=== PATIENT | female | born 1965 | race Caucasian/White ===

== ENCOUNTER 2020-06-26 18:11 | Inpatient (IN) | payer OTHER, SELFPAY ==
[2020-06-26] VITALS (11 sets, daily range): BP systolic 69–181; BP diastolic 40–85; PULSE 117–133; RESP 14–30; TEMP 37.2–38.7; O2SAT 92–99; BMI 34.8
--- NOTE | 2020-06-26 | XR_ITS ---
EXAMINATION: XR CHEST CLINICAL INFORMATION: Central line placement COMPARISON: 06/26/2020 TECHNIQUE: Frontal view of the chest was obtained. FINDINGS: Endotracheal tube terminates 3.5 cm above the nghia. Enteric tube extends into the stomach. Left internal jugular central venous catheter terminates near the cavoatrial junction. Cardiac leads overlie the chest. The lungs are well expanded. Diffuse bilateral airspace opacities are again noted, similar to prior. No pleural effusion or pneumothorax. The cardiomediastinal silhouette is unchanged. XR/XR chest 1V IMPRESSION: Endotracheal tube terminating 3.5 cm above the nghia. Left internal jugular central venous catheter terminates near the cavoatrial junction. No pneumothorax. Diffuse bilateral airspace opacities are similar to prior.
[2020-06-26] MEDS: Rocuronium Bromide 50 MG/5 ML VIAL 100 MG IVPUSH (18:25)
[2020-06-26] MEDS: Etomidate 20 MG/10 ML VIAL IVPUSH (18:25)
--- NOTE | 2020-06-26 18:27 | PC.NURSE ---
Arrival to ED door. Pt extricated from car, 2 person full assist. Tachipnic and pale. no diaphoresis. Lethargic and unable to answer questions. stating that she has been in decline over last 3 days with increasing SOB, fever up to 102, decreased po solid intake but still drinking fluids. Pt vomited x 1 today or yesterday. Hx is pul fibrosis, asthma, CHF, DM, LLE orthopedic problems. Pt is wheelchair bound at baseline. Medications with patient in a bag.
--- NOTE | 2020-06-26 18:30 | XR_ITS ---
EXAMINATION: XR CHEST CLINICAL INFORMATION: Shortness of breath and intubated COMPARISON: Chest August 2019 TECHNIQUE: Portable supine Frontal view of the chest was obtained. FINDINGS: Exam is slightly limited as the left costophrenic angle is outside the [id number] the exam. Endotracheal tube is 3.6 cm above nghia. NG tube is below the diaphragm with distal tip outside the [id number] the exam. There is diffuse bilateral patchy opacities throughout both lungs. Cardiac silhouette mediastinum pulmonary vascularity are normal. There is deformity of the right clavicle compatible old fracture unchanged. XR/XR chest 1V IMPRESSION: Diffuse bilateral patchy opacities throughout both lungs suspicious for bilateral pneumonia. CHF remains in the differential diagnosis.
--- NOTE | 2020-06-26 18:32 | ECG_ITS ---
Test Reason : SOB Blood Pressure : / mmHG Vent. Rate : 124 BPM Atrial Rate : 124 BPM P-R Int : 150 ms QRS Dur : 102 ms QT Int : 326 ms P-R-T Axes : 049 003 051 degrees QTc Int : 468 ms Sinus tachycardia with occasional Premature ventricular complexes and Fusion complexes Nonspecific ST abnormality Abnormal ECG When compared with ECG of 17-AUG-2019 15:03, Fusion complexes are now Present Premature ventricular complexes are now Present ST now depressed in Lateral leads Heart rate has increased Referred By: Bolivar Castro Electronically Signed By:KYLER BURTON MD
[2020-06-26 18:49] LABS: Hematocrit 35.3 % (37-47); Hemoglobin 11.2 g/dl (12.0-16.0); Mean Corpuscular HGB Conc 31.7 g/dl (31.0-35.0); Mean Corpuscular Hemoglobin 30.7 pg (27.0-33.0); Mean Corpuscular Volume 96.7 fL (80-98); NRBC Pct Auto 0.2 /100WBC (0.0-0.2); Platelet Count 329 X10*3/uL (160-400); Red Blood Count 3.65 X10*6/uL (4.20-5.50); White Blood Count 16.7 X10*3/uL (4.8-10.8)
[2020-06-26] MEDS: Furosemide 100 MG/10 ML VIAL 60 MG IVPUSH (18:56)
[2020-06-26 18:58] LABS: INTERNATIONAL NORM RATIO 1.3 (0.9-1.1); Prothrombin Time 15.5 SEC (10.8-13.0)
[2020-06-26 19:00] LABS: Partial Thromboplastin Time 32.2 SEC (24.1-38.0)
[2020-06-26] MEDS: propofoL 1,000 MG/100 ML VIAL 11.75 MG IVCONT (19:00)
--- NOTE | 2020-06-26 19:07 | PC.NURSE ---
jer [phone]
[2020-06-26 19:09] LABS: Glucose Urine UA 250 MG/DL (NEG); Leukocyte Esterase Urine NEG (NEG); Nitrite Urine NEG (NEG); PH 5.5 (5.0-8.0); Specific Gravity - Urine >= 1.030 (1.005-1.025); Urine Blood 1+ (NEG); Urine Ketones 15 MG/DL (NEG); Urine Protein 2+ MG/DL (NEG-TRACE)
[2020-06-26 19:13] LABS: Appearance Urine CLEAR; Color Urine YELLOW
[2020-06-26 19:14] LABS: Atypical Lymph Absolute Manual 1.8 x10*3/uL; Atypical Lymphs Percent Manual 11 % (0-6); Band Neutrophils Percent 17 % (3-5); Lymphocytes Absolute Manual 1.7 X10*3/uL (0.6-4.8); Lymphocytes Percent Manual 10 % (20-40); Monocytes Absolute Manual 0.8 X10*3/uL (0.0-1.2); Monocytes Percent Manual 5 % (2-11); Neutrophils Absolute Manual 12.4 X10*3/uL (2.2-7.9); Neutrophils Percent Manual 57 % (45-73)
[2020-06-26 19:15] LABS: Platelet Estimate NORMAL (NORMAL); Platelet Morphology Comment NORMAL; RBC Morphology NORMAL
[2020-06-26 19:18] LABS: RBC Urine 0-2 /HPF (0); Squamous Epithelial Cell Urine 2+ /LPF; WBC Urine 0-2 /HPF (0-4)
[2020-06-26 19:19] LABS: Amorphous Sediment Urine 2+ /LPF; Mucus Urine 2+ /LPF
--- NOTE | 2020-06-26 19:19 | ED.SOB ---
HPI - SOB/Dyspnea General Chief Complaint: Dyspnea Stated Complaint: covid + Time Seen by Provider: 06/26/20 18:30 Source: patient Mode of arrival: wheelchair Limitations: other (Hypoxic, severe respiratory distress) History of Present Illness HPI Narrative: Patient was brought to the emergency room by her family, on arrival to the emergency room patient could not speak due to severe respiratory distress. The patient's oxygen saturation was in the low 50s on room air, patient could not speak, barely awake, cyanotic. I was able to tell her that I needed to intubate her immediately, patient was able to answer ?okay? patient was intubated immediately. Once the patient was stable, was able to speak with her , who reports that the patient had been complaining for 2 days of not feeling well, starting this morning patient was complaining of dizziness, shortness of breath, hand cramping, 2 episodes of vomiting. Later in the evening patient became short of breath and was brought to the emergency room Related Data Previous Rx's Medication Instructions Recorded fluticasone 250 mcg-salmeterol 50 1 ea PO BID #60 cap 06/16/20 mcg/dose blistr powdr for inhalation Allergies Allergy/AdvReac Type Severity Reaction Status Date / Time Penicillins [PENICILLINS] Allergy Intermediate HIVES,SWELL Unverified 04/17/20 19:21 ING penicillin Allergy Unknown Uncoded 10/09/19 00:00 Review of Systems Review of Systems: Yes Unobtainable due to mental condition PMFSH Past Medical History Medical History Asthma CHF (congestive heart failure) Diabetes Lower extremity surgery planned Pulmonary fibrosis Social History Social History Alcohol intake: unknown Smoking Status: Unknown if ever smoked Use of substances other than those prescribed or required for medical reasons: Unknown Advance Directives: No Advance Directives Information Provided: No Physical Exam Vital Signs: Vital Signs: Last Vital Signs Temp 100.4 F 06/26/20 21: Pulse 117 H 06/26/20 21:17 Resp 24 H 06/26/20 21:17 BP 106/58 L 06/26/20 21:17 Pulse Ox 95 06/26/20 21:17 Body Mass Index 34.8 Appearance: Barely awake, in severe respiratory distress, ill-appearing Eyes: Pupils equal, round and reactive to light. ENT: Pharynx normal. Neck: Normal inspection. Neck supple. No lymph nodes noted. No crepitus CVS: Normal heart rate, Normal S1 and S2 Respiratory: Patient in severe respiratory distress, O2 saturation on arrival in triage 50% on room air Abdomen: Soft and nontender. No rigidity. No distention. good BS x4 Skin: Skin cool to touch, ashen zamora skin color with cyanotic lips and distal extremities Extremities: No rash Neuro: Prior to intubation, grossly intact Course Course Course Narrative: Patient had to be immediately intubated due to severe respiratory distress and profound hypoxia. Patient's blood pressure initially was 80 systolic. Patient was given 2 L of normal saline. Patient's ideal weight is approximately 63 kg, therefore 30 ml/ kg were given, equivalent of 1890 mL. Patient was also covered with Levaquin as patient is allergic to penicillin I spoke to the patient's over the phone, explained to him that the patient is currently intubated but stable at this time. Patient's oxygen saturation kept dropping to the 70s despite being on a ventilator, patient had to be bagged to be able to obtain an O2 of 90. This happened approximately 5 times. At this moment, unclear why patient is severely acidotic. Patient's anion gap is open, serum is negative for ketones, negative for salicylates. I discussed the patient with Dr. Babcock, patient being admitted to the intensive care unit. Patient's was informed that he and close contacts need to be tested for COVID-19, it is likely that they are COVID-19 positive as well. MDM - SOB/Dyspnea Lab Data Result diagrams: 06/26/20 18:40 06/26/20 18:41 Labs: Lab Results 06/26/20 06/26/20 06/26/20 Range/Units 18:40 18:40 18:40 WBC 16.7 H (4.8-10.8) X10*3/uL RBC 3.65 L (4.20-5.50) X10*6/uL Hgb 11.2 L (12.0-16.0) g/dl Hct 35.3 L (37-47) % MCV 96.7 (80-98) fL MCH 30.7 (27.0-33.0) pg MCHC 31.7 (31.0-35.0) g/dl RDW 13.0 (11.0-16.0) % Plt Count 329 (160-400) X10*3/uL MPV 11.0 (9.4-12.3) fL Immature Gran % (Auto) Cancelled Neut % (Auto) Cancelled Lymph % (Auto) Cancelled [place] % (Auto) Cancelled Eos % (Auto) Cancelled Baso % (Auto) Cancelled Lymph # (Auto) Cancelled [place] # (Auto) Cancelled Eos # (Auto) Cancelled Baso # (Auto) Cancelled Abs Immat Gran (auto) Cancelled Absolute Neuts (auto) Cancelled Absolute Nucleated RBC 0.040 H (0.0-0.012) X10*3/uL Nucleated RBC % (auto) 0.2 (0.0-0.2) /100WBC Neutrophils % (Manual) 57 (45-73) % Band Neutrophils % 17 H (3-5) % Lymphocytes % (Manual) 10 L (20-40) % Atypical Lymphs % (Man) 11 H (0-6) % Monocytes % (Manual) 5 (2-11) % Abs Neuts (Manual) 12.4 H (2.2-7.9) X10*3/uL Lymphocytes # (Manual) 1.7 (0.6-4.8) X10*3/uL Atyp Lymphs # (Manual) 1.8 x10*3/uL Monocytes # (Manual) 0.8 (0.0-1.2) X10*3/uL Platelet Estimate NORMAL (NORMAL) Plt Morphology Comment NORMAL RBC Morphology NORMAL PT 15.5 H (10.8-13.0) SEC INR 1.3 H (0.9-1.1) APTT 32.2 (24.1-38.0) SEC ABG pH (7.35-7.45) ABG pCO2 (32-45) mmhg ABG pO2 (83-108) mmhg ABG HCO3 (22-26) mmol/l ABG O2 Saturation % ABG Base Excess Oxygen Given Sodium (135-145) mmol/L Potassium (3.3-5.1) mmol/l Chloride (96-108) mmol/L Carbon Dioxide (22-29) mmol/L Anion Gap (12-20) BUN (9-16) mg/dL Creatinine (0.5-1.4) mg/dL Estim Creat Clear Calc Estimated GFR Random Glucose (60-115) mg/dL Lactic Acid (0.5-2.0) mmol/L Calcium (8.4-10.2) mg/dL Total Bilirubin (0.0-1.0) mg/dL AST (5-31) U/L ALT (0-31) U/L Alkaline Phosphatase (39-117) U/L Troponin I High Sens 115.3 H (<3.5-17.0) ng/L B-Natriuretic Peptide 166 H (<100) pg/mL Total Protein (6.5-8.0) g/dL Albumin (3.5-5.0) g/dL Urine Color Urine Appearance Urine pH (5.0-8.0) Ur Specific [place] (1.005-1.025) Urine Protein (NEG-TRACE) MG/DL Urine Glucose (UA) (NEG) MG/DL Urine Ketones (NEG) MG/DL Urine Blood (NEG) Urine Nitrite (NEG) Ur Leukocyte Esterase (NEG) Urine RBC (0) /HPF Urine WBC (0-4) /HPF Ur Squamous Epith Cells /LPF Amorphous Sediment /LPF Urine Bacteria /LPF Urine Mucus /LPF Salicylates (15-30) mg/dL Acetone, Qual (Negative) Coronavirus (PCR) (Negative) Influenza Type A (PCR) (Negative) Influenza Type B (PCR) (Negative) RSV RNA Qual (PCR) (Negative) 06/26/20 06/26/20 06/26/20 Range/Units 18:41 18:42 19:01 WBC (4.8-10.8) X10*3/uL RBC (4.20-5.50) X10*6/uL Hgb (12.0-16.0) g/dl Hct (37-47) % MCV (80-98) fL MCH (27.0-33.0) pg MCHC (31.0-35.0) g/dl RDW (11.0-16.0) % Plt Count (160-400) X10*3/uL MPV (9.4-12.3) fL Immature Gran % (Auto) Neut % (Auto) Lymph % (Auto) [place] % (Auto) Eos % (Auto) Baso % (Auto) Lymph # (Auto) [place] # (Auto) Eos # (Auto) Baso # (Auto) Abs Immat Gran (auto) Absolute Neuts (auto) Absolute Nucleated RBC (0.0-0.012) X10*3/uL Nucleated RBC % (auto) (0.0-0.2) /100WBC Neutrophils % (Manual) (45-73) % Band Neutrophils % (3-5) % Lymphocytes % (Manual) (20-40) % Atypical Lymphs % (Man) (0-6) % Monocytes % (Manual) (2-11) % Abs Neuts (Manual) (2.2-7.9) X10*3/uL Lymphocytes # (Manual) (0.6-4.8) X10*3/uL Atyp Lymphs # (Manual) x10*3/uL Monocytes # (Manual) (0.0-1.2) X10*3/uL Platelet Estimate (NORMAL) Plt Morphology Comment RBC Morphology PT (10.8-13.0) SEC INR (0.9-1.1) APTT (24.1-38.0) SEC ABG pH (7.35-7.45) ABG pCO2 (32-45) mmhg ABG pO2 (83-108) mmhg ABG HCO3 (22-26) mmol/l ABG O2 Saturation % ABG Base Excess Oxygen Given Sodium 133 L (135-145) mmol/L Potassium 3.2 L (3.3-5.1) mmol/l Chloride 94 L (96-108) mmol/L Carbon Dioxide 11 L (22-29) mmol/L Anion Gap 31 H (12-20) BUN 12 (9-16) mg/dL Creatinine 1.10 (0.5-1.4) mg/dL Estim Creat Clear Calc 68.9 Estimated GFR 52 Random Glucose 385 H* (60-115) mg/dL Lactic Acid 13.8 H* (0.5-2.0) mmol/L Calcium 8.1 L (8.4-10.2) mg/dL Total Bilirubin 0.5 (0.0-1.0) mg/dL AST 33 H (5-31) U/L ALT 26 (0-31) U/L Alkaline Phosphatase 78 (39-117) U/L Troponin I High Sens (<3.5-17.0) ng/L B-Natriuretic Peptide (<100) pg/mL Total Protein 7.3 (6.5-8.0) g/dL Albumin 3.9 (3.5-5.0) g/dL Urine Color Urine Appearance Urine pH (5.0-8.0) Ur Specific [place] (1.005-1.025) Urine Protein (NEG-TRACE) MG/DL Urine Glucose (UA) (NEG) MG/DL Urine Ketones (NEG) MG/DL Urine Blood (NEG) Urine Nitrite (NEG) Ur Leukocyte Esterase (NEG) Urine RBC (0) /HPF Urine WBC (0-4) /HPF Ur Squamous Epith Cells /LPF Amorphous Sediment /LPF Urine Bacteria /LPF Urine Mucus /LPF Salicylates < 5.0 L (15-30) mg/dL Acetone, Qual Negative (Negative) Coronavirus (PCR) POSITIVE A (Negative) Influenza Type A (PCR) NEGATIVE (Negative) Influenza Type B (PCR) NEGATIVE (Negative) RSV RNA Qual (PCR) NEGATIVE (Negative) 06/26/20 06/26/20 Range/Units 19:02 19:05 WBC (4.8-10.8) X10*3/uL RBC (4.20-5.50) X10*6/uL Hgb (12.0-16.0) g/dl Hct (37-47) % MCV (80-98) fL MCH (27.0-33.0) pg MCHC (31.0-35.0) g/dl RDW (11.0-16.0) % Plt Count (160-400) X10*3/uL MPV (9.4-12.3) fL Immature Gran % (Auto) Neut % (Auto) Lymph % (Auto) [place] % (Auto) Eos % (Auto) Baso % (Auto) Lymph # (Auto) [place] # (Auto) Eos # (Auto) Baso # (Auto) Abs Immat Gran (auto) Absolute Neuts (auto) Absolute Nucleated RBC (0.0-0.012) X10*3/uL Nucleated RBC % (auto) (0.0-0.2) /100WBC Neutrophils % (Manual) (45-73) % Band Neutrophils % (3-5) % Lymphocytes % (Manual) (20-40) % Atypical Lymphs % (Man) (0-6) % Monocytes % (Manual) (2-11) % Abs Neuts (Manual) (2.2-7.9) X10*3/uL Lymphocytes # (Manual) (0.6-4.8) X10*3/uL Atyp Lymphs # (Manual) x10*3/uL Monocytes # (Manual) (0.0-1.2) X10*3/uL Platelet Estimate (NORMAL) Plt Morphology Comment RBC Morphology PT (10.8-13.0) SEC INR (0.9-1.1) APTT (24.1-38.0) SEC ABG pH 7.14 L* (7.35-7.45) ABG pCO2 34 (32-45) mmhg ABG pO2 106 (83-108) mmhg ABG HCO3 11 L (22-26) mmol/l ABG O2 Saturation 95.9 % ABG Base Excess -16.4 Oxygen Given 100% Sodium (135-145) mmol/L Potassium (3.3-5.1) mmol/l Chloride (96-108) mmol/L Carbon Dioxide (22-29) mmol/L Anion Gap (12-20) BUN (9-16) mg/dL Creatinine (0.5-1.4) mg/dL Estim Creat Clear Calc Estimated GFR Random Glucose (60-115) mg/dL Lactic Acid (0.5-2.0) mmol/L Calcium (8.4-10.2) mg/dL Total Bilirubin (0.0-1.0) mg/dL AST (5-31) U/L ALT (0-31) U/L Alkaline Phosphatase (39-117) U/L Troponin I High Sens (<3.5-17.0) ng/L B-Natriuretic Peptide (<100) pg/mL Total Protein (6.5-8.0) g/dL Albumin (3.5-5.0) g/dL Urine Color YELLOW Urine Appearance CLEAR Urine pH 5.5 (5.0-8.0) Ur Specific [place] >= 1.030 H (1.005-1.025) Urine Protein 2+ H (NEG-TRACE) MG/DL Urine Glucose (UA) 250 H (NEG) MG/DL Urine Ketones 15 (NEG) MG/DL Urine Blood 1+ H (NEG) Urine Nitrite NEG (NEG) Ur Leukocyte Esterase NEG (NEG) Urine RBC 0-2 (0) /HPF Urine WBC 0-2 (0-4) /HPF Ur Squamous Epith Cells 2+ /LPF Amorphous Sediment 2+ /LPF Urine Bacteria NONE /LPF Urine Mucus 2+ /LPF Salicylates (15-30) mg/dL Acetone, Qual (Negative) Coronavirus (PCR) (Negative) Influenza Type A (PCR) (Negative) Influenza Type B (PCR) (Negative) RSV RNA Qual (PCR) (Negative) Critical Care Time Critical Care Time Total Critical Care Time: 120 Discharge Plan Discharge Clinical Impression: Pneumonia due to COVID-19 virus, Metabolic acidosis Sepsis Qualifiers: Sepsis type: sepsis due to unspecified organism Sepsis acute organ dysfunction status: unspecified Qualified Code(s): A41.9 - Sepsis, unspecified organism Patient Disposition: Admitted As Inpatient
[2020-06-26 19:23] LABS: Lactic Acid 13.8 mmol/L (0.5-2.0)
[2020-06-26 19:23] LABS: B Type Natriuretic Peptide 166 pg/mL (<100); Troponin-I High Sensitivity 115.3 ng/L (<3.5-17.0)
[2020-06-26 19:24] LABS: Alanine Aminotransferase 26 U/L (0-31); Albumin Level 3.9 g/dL (3.5-5.0); Alkaline Phosphatase 78 U/L (39-117); Anion Gap 31 (12-20); Aspartate Amino Transferase 33 U/L (5-31); Bilirubin Total 0.5 mg/dL (0.0-1.0); Blood Urea Nitrogen 12 mg/dL (9-16); Calcium 8.1 mg/dL (8.4-10.2); Carbon Dioxide 11 mmol/L (22-29); Chloride 94 mmol/L (96-108); Creatinine Clr Calc Pharmacy 68.9; Estimated Glomerular Filt Rate 52; Glucose Random 385 mg/dL (60-115); Potassium 3.2 mmol/l (3.3-5.1); Sodium 133 mmol/L (135-145); Total Protein 7.3 g/dL (6.5-8.0)
--- NOTE | 2020-06-26 19:26 | CT_ITS ---
EXAMINATION: CT CHEST WITHOUT CONTRAST CLINICAL INFORMATION: Profound hypoxia COMPARISON: Prior chest x-rays most recent 06/26/2020 and earlier same day. TECHNIQUE: Multidetector volumetric CT imaging of the chest was done. Axial MIP volume rendering provided. Sagittal and coronal reformatted images were obtained. This CT examination was performed using dose optimization techniques as appropriate, variously including the following: *Automated exposure control *Adjustment of mA and/or kV according to patient size (this includes techniques or standardized protocols for targeted exams where dose is matched to indication/reason for exam; i.e. extremities or head) *Use of iterative reconstruction technique DLP: 649 mGy-cm FINDINGS: LUNGS: There is diffuse dense patchy consolidation throughout both lungs involving all lobes and with areas of air bronchograms . There is no effusion. MEDIASTINUM: Endotracheal tube 15 mm above nghia. Enteric tube throughout the esophagus extending into the stomach. Multiple scattered small subcentimeter lymph nodes. PLEURA: There is no pleural effusion. No pleural mass or thickening. AXILLA: No lymphadenopathy. UPPER ABDOMEN: Hepatic steatosis. Status post cholecystectomy. OSSEOUS STRUCTURES: Multilevel spondylosis of the dorsal spine. CT/CT chest wo con IMPRESSION: Widespread patchy dense consolidation throughout both lungs with an appearance most compatible with bilateral pneumonia rather than pulmonary edema. Findings likely unchanged compared with the chest x-ray performed earlier same day
[2020-06-26 19:30] LABS: ABG PCO2 34 mmhg (32-45); HCO3 ABG 11 mmol/l (22-26); PO2 ABG 106 mmhg (83-108); Pt Ventilation O2% 100%
[2020-06-26 19:31] LABS: Base Excess ABG -16.4; Blood Gas Serial # 5414; Oxygen Saturation ABG 95.9 %
[2020-06-26 19:48] LABS: Influenza A PCR NEGATIVE (Negative); Influenza B PCR NEGATIVE (Negative); Resp Syncy Virus RNA Qual PCR NEGATIVE (Negative)
[2020-06-26 19:56] LABS: Acetone, serum QL Negative (Negative)
[2020-06-26 20:00] LABS: SARS COV2 PCR INHOUSE POSITIVE (Negative)
[2020-06-26 20:05] LABS: Salicylate < 5.0 mg/dL (15-30)
--- NOTE | 2020-06-26 20:20 | PC.NURSE ---
WHILE IN RADIOLOGY, PATIENT NOTED TO BEGIN TO DESAT TO 78%. AMBU-BAG USED FOR APPROXIMATELY 5 MINUTES UPON RETURNING TO ED BED 1. VENTILATOR REAPPLIED BY RESPIRATORY THERAPIST. FIO2: 100%, OXYGEN 60 L/MIN, CURRENT SATURATION 95%. PULSE REMAINS TACHYCARDIC 130s. RR 22. CAPNOGRAPHY 40. BP 146/73. PROPOFOL INFUSING AT 50 MCG/KG/PR, PER PROTOCOL. POC GLUCOSE 330. WILL CONTINUE TO MONITOR.
[2020-06-26] MEDS: levoFLOXacin/D5W 500 MG/100 ML PIGGYBACK 100 MG IV (20:23)
[2020-06-26] MEDS: Insulin Regular, Human 100 UNIT/ML 3 ML VIAL 10 UNIT IVPUSH (20:28)
[2020-06-26] MEDS: Midazolam HCl/PF 2 MG/2 ML VIAL 4 MG IVPUSH ×2 (20:32→21:12)
--- NOTE | 2020-06-26 20:32 | PC.NURSE ---
PATIENT BEGAN BUCKING , NOTIFIED. VERBALLY ORDERED VERSED 4MG TO BE ADMINISTERED IV PUSH. PROPOFOL CURRENTLY AT MAXIMUM INFUSION RATE OF 50 MCG/KG/MIN.
--- NOTE | 2020-06-26 20:37 | PC.NURSE ---
VERSED 4MG IV PUSH GIVEN PER VERBAL ORDER. GIVEN AT 20:32 ON 06/26/2020. PROPOFOL CONTINUES TO INFUSE ORDERED, CURRENT TITRATION AT 50MCG/KG/MIN. LEVOQUIN ALSO INFUSING ORDERED. REMAINS INTUBATED AT THIS TIME, VENT SETTINGS UNCHANGED COMPARED TO LAST ASSESSMENT.
[2020-06-26 20:46] LABS: Reflex Lactate? Lactic Acid Added
--- NOTE | 2020-06-26 21:10 | PC.NURSE ---
PATIENT BEGAN BUCKING AGAIN. SECOND ORDER OF VERSED 4MG ORDERED BY . ALSO REQUESTING VERSED DRIP TO BE INITIATED. WILL CONTINUE TO MONITOR.
[2020-06-26] MEDS: Sodium Bicarbonate 8.4% 50 MEQ/50 ML VIAL IVPUSH ×2 (21:15→22:16)
--- NOTE | 2020-06-26 21:17 | PC.NURSE ---
21:12 - VERSED 4MG ADMINISTERED 21:15 - SODIUM BICARB ADMINISTERED. VENT SETTINGS UNCHANGED.
--- NOTE | 2020-06-26 21:56 | PC.NURSE ---
PER JENIFERRN (GARMENT EXAMINER), PHARMACY CONTACTED TO BRING VERSED DRIP TO ED. WILL INITIATE DRIP UPON ARRIVAL TO ED. CONTINUING TO MONITOR. VENT SETTINGS UNCHANGED. REMAINS TACHYCARDIC, 110s-120s at this time.
[2020-06-26] MEDS: Acetaminophen Supp 650 MG SUPP.RECT PR (22:06)
[2020-06-26] MEDS: Aspirin 300 MG SUPP.RECT PR (22:06)
[2020-06-26] MEDS: Heparin Sodium,Porcine 5,000 UNIT/ML VIAL 5000 UNIT SUBCUT (22:06)
--- NOTE | 2020-06-26 22:32 | PM.CCHP ---
History of Present Illness Date of Service: 06/26/20 Chief Complaint: shortness of breath The patient is a 55-year-old female with a past medical history of congestive heart failure (no echo in chart), Diabetes, fibromyalgia and depression who presented to the emergency room in acute respiratory distress. Patient was brought in a private vehicle by the who reported the patient has not been feeling well for the last 2 days, with worsening today. On presentation to the ED patient saturation in the 50s, SBPs 80s, lethargic, and cyanotic. She was immediately intubated. Her laboratory data significant for WBC 16.7, sodium 133, potassium 3.2, bicarb 11, troponin 115, BNP 166, lactic acid 13.8. AGBs: 714/34/106/11/ -16.4. Rapid berger test positive Imaging: Chest CT with Bilateral pneumonia as well as a significant degree of pulmonary edema Will be admitted to the ICU for + COVID as well as heart failure exacerbation Review of Systems Review of Systems: patient intubated unable to performed PMFSH Past Medical History Medical History Asthma CHF (congestive heart failure) Diabetes Lower extremity surgery planned Pulmonary fibrosis Family History Family history: reviewed and not pertinent Social History Social History Household Members: Spouse and Family Housing: House Alcohol intake: unknown Smoking Status: Unknown if ever smoked Use of substances other than those prescribed or required for medical reasons: Unable to respond Advance Directives: No Advance Directives Information Provided: No Do you have thoughts of harming others: None Do you have a plan to hurt others: No Plan Recently lost weight without trying: Unsure Meds Allergies Allergy/AdvReac Type Severity Reaction Status Date / Time Penicillins [PENICILLINS] Allergy Intermediate HIVES,SWELL Unverified 04/17/20 19:21 ING penicillin Allergy Unknown Uncoded 10/09/19 00:00 Physical Exam Vital Signs: Vital Signs: Last Vital Signs Temp 101.3 F H 06/26/20 22:26 Pulse 125 H 06/26/20 22:26 Resp 30 H 06/26/20 22:26 BP 101/61 06/26/20 22:26 Pulse Ox 97 06/26/20 22:26 Body Mass Index 34.8 Const: Other: focused assessment performed at 2200: INTUBATED Eyes: Pupils: Equal, round and reactive pupils present Neck: Neck: Yes supple Resp: Other: intubated on AC settings Auscultation: rhonchi Cardio: Other: normal capillary refill Rate: regular rate and tachycardic Heart sounds: S1 normal heart sound present and S2 normal heart sound present Peripheral pulses: Peripheral pulses 2+ throughout GI: Inspection: Yes normal to inspection Palpation (GI): Soft to palpation Auscultation: normal bowel sounds : Other: Hdez present Skin: General skin exam: turgor normal Neuro: Cranial nerves: Yes Equal, round and reactive pupils present Results Labs CBC and Chem 7: 06/26/20 18:40 06/26/20 18:41 Labs: Laboratory Results - last 24 hr 06/26/20 06/26/20 06/26/20 18:40 18:40 18:40 MCV 96.7 MCH 30.7 MCHC 31.7 RDW 13.0 Plt Count 329 MPV 11.0 Immature Gran % (Auto) Cancelled Neut % (Auto) Cancelled Lymph % (Auto) Cancelled [place] % (Auto) Cancelled Eos % (Auto) Cancelled Baso % (Auto) Cancelled Lymph # (Auto) Cancelled [place] # (Auto) Cancelled Eos # (Auto) Cancelled Baso # (Auto) Cancelled Abs Immat Gran (auto) Cancelled Absolute Neuts (auto) Cancelled Absolute Nucleated RBC 0.040 H Nucleated RBC % (auto) 0.2 Neutrophils % (Manual) 57 Band Neutrophils % 17 H Lymphocytes % (Manual) 10 L Atypical Lymphs % (Man) 11 H Monocytes % (Manual) 5 Abs Neuts (Manual) 12.4 H Lymphocytes # (Manual) 1.7 Atyp Lymphs # (Manual) 1.8 Monocytes # (Manual) 0.8 Platelet Estimate NORMAL Plt Morphology Comment NORMAL RBC Morphology NORMAL PT 15.5 H INR 1.3 H APTT 32.2 ABG pH ABG pCO2 ABG pO2 ABG HCO3 ABG O2 Saturation ABG Base Excess Oxygen Given Anion Gap Estim Creat Clear Calc Estimated GFR Random Glucose Lactic Acid Calcium Total Bilirubin AST ALT Alkaline Phosphatase Troponin I High Sens 115.3 H B-Natriuretic Peptide 166 H Total Protein Albumin Urine Color Urine Appearance Urine pH Ur Specific [place] Urine Protein Urine Glucose (UA) Urine Ketones Urine Blood Urine Nitrite Ur Leukocyte Esterase Urine RBC Urine WBC Ur Squamous Epith Cells Amorphous Sediment Urine Bacteria Urine Mucus Salicylates Acetone, Qual Coronavirus (PCR) Influenza Type A (PCR) Influenza Type B (PCR) RSV RNA Qual (PCR) 06/26/20 06/26/20 06/26/20 18:41 18:42 19:01 MCV MCH MCHC RDW Plt Count MPV Immature Gran % (Auto) Neut % (Auto) Lymph % (Auto) [place] % (Auto) Eos % (Auto) Baso % (Auto) Lymph # (Auto) [place] # (Auto) Eos # (Auto) Baso # (Auto) Abs Immat Gran (auto) Absolute Neuts (auto) Absolute Nucleated RBC Nucleated RBC % (auto) Neutrophils % (Manual) Band Neutrophils % Lymphocytes % (Manual) Atypical Lymphs % (Man) Monocytes % (Manual) Abs Neuts (Manual) Lymphocytes # (Manual) Atyp Lymphs # (Manual) Monocytes # (Manual) Platelet Estimate Plt Morphology Comment RBC Morphology PT INR APTT ABG pH ABG pCO2 ABG pO2 ABG HCO3 ABG O2 Saturation ABG Base Excess Oxygen Given Anion Gap 31 H Estim Creat Clear Calc 68.9 Estimated GFR 52 Random Glucose 385 H* Lactic Acid 13.8 H* Calcium 8.1 L Total Bilirubin 0.5 AST 33 H ALT 26 Alkaline Phosphatase 78 Troponin I High Sens B-Natriuretic Peptide Total Protein 7.3 Albumin 3.9 Urine Color Urine Appearance Urine pH Ur Specific [place] Urine Protein Urine Glucose (UA) Urine Ketones Urine Blood Urine Nitrite Ur Leukocyte Esterase Urine RBC Urine WBC Ur Squamous Epith Cells Amorphous Sediment Urine Bacteria Urine Mucus Salicylates < 5.0 L Acetone, Qual Negative Coronavirus (PCR) POSITIVE A Influenza Type A (PCR) NEGATIVE Influenza Type B (PCR) NEGATIVE RSV RNA Qual (PCR) NEGATIVE 06/26/20 06/26/20 19:02 19:05 MCV MCH MCHC RDW Plt Count MPV Immature Gran % (Auto) Neut % (Auto) Lymph % (Auto) [place] % (Auto) Eos % (Auto) Baso % (Auto) Lymph # (Auto) [place] # (Auto) Eos # (Auto) Baso # (Auto) Abs Immat Gran (auto) Absolute Neuts (auto) Absolute Nucleated RBC Nucleated RBC % (auto) Neutrophils % (Manual) Band Neutrophils % Lymphocytes % (Manual) Atypical Lymphs % (Man) Monocytes % (Manual) Abs Neuts (Manual) Lymphocytes # (Manual) Atyp Lymphs # (Manual) Monocytes # (Manual) Platelet Estimate Plt Morphology Comment RBC Morphology PT INR APTT ABG pH 7.14 L* ABG pCO2 34 ABG pO2 106 ABG HCO3 11 L ABG O2 Saturation 95.9 ABG Base Excess -16.4 Oxygen Given 100% Anion Gap Estim Creat Clear Calc Estimated GFR Random Glucose Lactic Acid Calcium Total Bilirubin AST ALT Alkaline Phosphatase Troponin I High Sens B-Natriuretic Peptide Total Protein Albumin Urine Color YELLOW Urine Appearance CLEAR Urine pH 5.5 Ur Specific [place] >= 1.030 H Urine Protein 2+ H Urine Glucose (UA) 250 H Urine Ketones 15 Urine Blood 1+ H Urine Nitrite NEG Ur Leukocyte Esterase NEG Urine RBC 0-2 Urine WBC 0-2 Ur Squamous Epith Cells 2+ Amorphous Sediment 2+ Urine Bacteria NONE Urine Mucus 2+ Salicylates Acetone, Qual Coronavirus (PCR) Influenza Type A (PCR) Influenza Type B (PCR) RSV RNA Qual (PCR) Imaging Radiologist's Impressions: Impressions Chest X-Ray 06/26/20 18:30 IMPRESSION: Diffuse bilateral patchy opacities throughout both lungs suspicious for bilateral pneumonia. CHF remains in the differential diagnosis. Chest CT 06/26/20 19:26 IMPRESSION: Widespread patchy dense consolidation throughout both lungs with an appearance most compatible with bilateral pneumonia rather than pulmonary edema. Findings likely unchanged compared with the chest x-ray performed earlier same day Assessment and Plan (1) Pneumonia due to COVID-19 virus: Status: Acute 55-year-old female with COVID pneumonia and Congestive heart failure exacerbation Plan: Neuro: No acute issues. Cardiac: Septic shock likely due to COVID pneumonia. Requiring pressors. Will cont empiric antibiotics. Congestive heart failure exacerbation- chest x-ray and chest CT does show some congestion. patient does have an echo on file. she did receive some fluids in the ED as well as 80 lasix in ED. Will start Lasix drip. Elevated troponin- likely related to shock/ Congestive heart failure exacerbation. No changes in the EKG. but will repeat troponin. Pulmonary: Acute hypoxic respiratory failure- patient required emergent intubation on arrival to ED. COVID positive. Will repeat ABGs. Wean off vent when appropriate Renal: OMAR - she has a slightly elevated creatinine 1.10, most likely fluid deficiency related. Will continue to monitor renal indices. Endo: History of diabetes mellitus - she does have a significant metabolic acidosis, but does not have ketones. Glucose slightly elevated, did receive 20 of insulin in the ED. Will repeat VBG and assess for possible insulin drip GI: No acute issues ID: elevated white count as well as positive COVID test. Unable to rule out bacterial versus viral pneumonia. Will treat with Levaquin for possible community acquired pneumonia Heme/Onc: No acute issues. Psych: No acute issues. Miscellaneous: No acute issues. Prophylaxis: heparin, PPI Diet: NPO critical care time: x90 minutes of critical care time case discussed with attending Dr Babcock (2) Septic shock: Status: Acute (3) CHF (congestive heart failure): Status: Acute (4) Metabolic acidosis: Status: Acute (5) OMAR (acute kidney injury): Status: Acute (6) Elevated troponin: Status: Acute
[2020-06-26] MEDS: propofoL 1,000 MG/100 ML VIAL 29.37 MG IVCONT (22:34)
--- NOTE | 2020-06-26 22:35 | PC.NURSE ---
18g to l ac found to be infiltrated, line removed.
--- NOTE | 2020-06-26 22:50 | PC.NURSE ---
NOREPINEPHRINE DRIP INITIATED AT 22:50 BY TRUNG PUENTE.
[2020-06-26 22:59] LABS: ~Lactic Acid-LAB USE ONLY 4.4 mmol/L (0.5-2.0)
--- NOTE | 2020-06-26 23:16 | PC.NURSE ---
NOREPINEPHRINE DRIP INITIATED BY CINDI Duarte RN. AT BEDSIDE ATTEMPTING CENTRAL LINE INSERTION AT THIS TIME. PER RN TO RN REPORT, TRUNG PUENTE STATES THAT 18G IV ACCESS ON LEFT SIDE INFILTRATED. PROPOFOL DRIP NOW INFUSING ON RIGHT AC IV ACCESS, SIMULTANEOUSLY WITH NOREPINEPHRINE DRIP. VERSED DRIP AND LASIX DRIP HELD AT THIS TIME DUE TO LOW BLOOD PRESSURE. WILL CONTINUE TO MONITOR. AWAITING CALL BACK FROM ICU TO GIVE RN TO RN REPORT.
[2020-06-27] VITALS (31 sets, daily range): BP systolic 93–126; BP diastolic 55–72; PULSE 113–133; RESP 22–30; TEMP 38.7–39.7; O2SAT 88–125; BMI 33.3
--- NOTE | 2020-06-27 | XR_ITS ---
EXAMINATION: XR CHEST CLINICAL INFORMATION: Hypoxia diffuse airspace opacities. COMPARISON: Chest radiographs 06/26/2020 at 2335 hours and 1852 hours, 2 view chest 08/17/2019 TECHNIQUE: Portable upright AP view of the chest was obtained. FINDINGS: ET tube is 3.6 cm above nghia. Left internal jugular central venous line tip at distal SVC. Nasogastric tube is below the diaphragm. Patient is slightly rotated to the left. There are diffuse patchy bilateral airspace opacities similar in distribution and severity considering differences in film technique when compared with prior study 06/26/2020 at 2335 hours. The heart is normal in size. The hilar and mediastinal contours and bony structures are stable. Old healed fracture right mid clavicle. XR/XR chest 1V IMPRESSION: 1. ET tube 3.6 cm above nghia. 2. Left IJ catheter tip at distal SVC. 3. NG tube below diaphragm. 4. Diffuse patchy bilateral airspace opacities similar to prior exam considering differences in film technique.
--- NOTE | 2020-06-27 00:27 | W.PM.CCHP ---
Procedures Central Line Placement Left IJ: Central Line Comments: Left internal jugular triple lumen central venous catheter placed in usual sterile conditions under ultrasound guidance for appropriate vascular access without immediate complications. Central line position verified with Chest XRAY. Consent for Procedure: Emergent-no informed consent obtained Time out performed: Yes Sterile Technique Used: Yes Patient placed on monitor/pulse ox: Yes prep: mask, gloves and other Central line prep: Chlorhexidine scrub Ultrasound used for placement: Yes Central line lumen inserted: triple Post procedure: sutured in place, good blood return, all ports aspirated, flushed, capped and sterile dressing applied Post procedure x-ray: tip of catheter in good position and no pneumothorax seen Patient tolerated procedure: well and no complications Complications: none
[2020-06-27 00:33] LABS: Reflex Lactate? 2 Y
[2020-06-27 00:51] LABS: Base Excess VBG -1.2 mmol/L; HCO3 VBG 25 mmol/L; PCO2 VBG 45 mmhg; PO2 VBG 188 mmhg; pH VBG 7.35 (7.32-7.43)
[2020-06-27] MEDS: Potassium Chloride Packet 20 MEQ PACKET 60 MEQ OG-TUBE (01:06)
[2020-06-27] MEDS: Chlorhexidine Gluc Oral Rinse 15 ML MOUTHWASH BUCCAL ×4 (01:06→21:45)
[2020-06-27] MEDS: Sodium Bicarbonate 8.4% 50 MEQ/50 ML VIAL IVPUSH (01:06)
[2020-06-27] MEDS: propofoL 1,000 MG/100 ML VIAL 29.37 MG IVCONT ×7 (01:07→21:45)
[2020-06-27 01:13] LABS: ~Lactic Acid-LAB USE ONLY 2.8 mmol/L (0.5-2.0)
[2020-06-27 01:21] LABS: Troponin-I High Sensitivity 1474.1 ng/L (<3.5-17.0)
[2020-06-27] MEDS: Heparin Sodium,Porcine 5,000 UNIT/ML VIAL 7832 UNIT IVPUSH (01:57)
[2020-06-27] MEDS: Heparin Sodium,Porcine/1/2NS 25,000 UNIT/250 ML IV.SOLN 13.71 UNIT IVCONT (01:58)
[2020-06-27 03:18] LABS: Cancel Lactic Acid Canceled
[2020-06-27] MEDS: Insulin Lispro 100 UNIT/ML 3 ML VIAL SUBCUT ×4 (03:26→20:46)
[2020-06-27] MEDS: Acetaminophen Oral Liquid 650 MG/20.3 ML SOLUTION OG-TUBE (03:26)
[2020-06-27 03:33] LABS: Glucose, Whole Blood 243 mg/dL (60-115)
[2020-06-27] MEDS: Midazolam HCl/PF 2 MG/2 ML VIAL IVPUSH (03:41)
[2020-06-27 04:04] LABS: Glucose, Whole Blood 281 mg/dL (60-115)
[2020-06-27] MEDS: Pantoprazole Sodium 40 MG/10 ML VIAL IVPUSH (04:45)
--- NOTE | 2020-06-27 05:45 | ECG_ITS ---
Test Reason : nstemi Blood Pressure : / mmHG Vent. Rate : 123 BPM Atrial Rate : 123 BPM P-R Int : 144 ms QRS Dur : 090 ms QT Int : 320 ms P-R-T Axes : 053 -06 037 degrees QTc Int : 458 ms Sinus tachycardia Possible Left atrial enlargement Low voltage QRS Borderline ECG When compared with ECG of 26-JUN-2020 18:37, Fusion complexes are no longer Present Premature ventricular complexes are no longer Present Referred By: Jeff Bailey Electronically Signed By:KYLER BURTON MD
--- NOTE | 2020-06-27 06:08 | PC.NURSE ---
PT ADMITTED TO ICU AT APPROX 0000. PT INTUBATED IN ED. ETT #7.5, 23 CM KARY. CURRENTLY ON AC/PC /15/12+/80%, VT 300-400s. SpO2>88%. TMAX 103.1 CORE, PRN APAP GIVEN WITH MINIMAL EFFECT. OGT PLACED, CLAMPED. TLC TO L IJ. PT SEDATE ON PROPOFOL GTT, TITRATED FOR VENT SYNCHRONY, RR 20-30s. 2 MG IV VERSED GIVEN X1 WITH SOME EFFECT. LEVOPHED GTT TITRATED TO MAINTAIN MAP>65. HR 120s. 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 EKG DONE. PTTHD TO BE DRAWN AT 0800. CARDIOLOGY CONSULT PLACED. MARIANO IN PLACE, UOP 50 ML/HR. NO SKIN ISSUES. RESTRAINS IN PLACE FOR PT SAFETY. ON AIR LOSS BED. REPOSITIONED Q2H.
[2020-06-27 06:25] LABS: Basophils Percent Auto 0.1 % (0-2); Hematocrit 32.7 % (37-47); Hemoglobin 11.1 g/dl (12.0-16.0); Imm Gran Abs Auto 0.12 X10*3/uL (0.00-0.03); Imm Gran Pct Auto 1.4 % (0.0-0.4); Lymphocytes Absolute Auto 2.3 X10*3/uL (1.2-4.9); Lymphocytes Percent Auto 26.3 % (20-40); MANUAL DIFF FLAG SCAN; Mean Corpuscular HGB Conc 33.9 g/dl (31.0-35.0); Mean Corpuscular Hemoglobin 31.4 pg (27.0-33.0); Mean Corpuscular Volume 92.4 fL (80-98); Mean Platelet Volume 10.8 fL (9.4-12.3); Monocytes Absolute Auto 0.3 X10*3/uL (0.1-1.2); Monocytes Percent Auto 2.9 % (2-11); NRBC Pct Auto 0.3 /100WBC (0.0-0.2); Neutrophils Absolute Auto 6.1 X10*3/uL (2.0-8.3); Neutrophils Percent Auto 69.3 % (45-73); Platelet Count 290 X10*3/uL (160-400); Red Blood Count 3.54 X10*6/uL (4.20-5.50); SCAN SMEAR FLAG 1; White Blood Count 8.8 X10*3/uL (4.8-10.8)
[2020-06-27 06:34] LABS: INTERNATIONAL NORM RATIO 1.4 (0.9-1.1)
[2020-06-27 06:46] LABS: Base Excess VBG 2.4 mmol/L; HCO3 VBG 28 mmol/L; Oxygen Saturation VBG 80.2 %; PCO2 VBG 49 mmhg; PO2 VBG 46 mmhg; pH VBG 7.38 (7.32-7.43)
[2020-06-27 07:15] LABS: Albumin Level 3.5 g/dL (3.5-5.0); Anion Gap 18 (12-20); Blood Urea Nitrogen 9 mg/dL (9-16); Calcium 7.2 mg/dL (8.4-10.2); Carbon Dioxide 27 mmol/L (22-29); Chloride 97 mmol/L (96-108); Creatinine Clr Calc Pharmacy 97.2; Estimated Glomerular Filt Rate > 60; Glucose Random 250 mg/dL (60-115); Magnesium 1.6 mg/dL (1.6-2.6); Potassium 3.8 mmol/l (3.3-5.1); Sodium 138 mmol/L (135-145)
--- NOTE | 2020-06-27 08:00 | CA_ITS ---
Transthoracic Echocardiogram Patient (Last, First, Middle): Evy Worley, Gender: Female Date of : 1965 Age: 55 Procedure Date: 06/27/2020 Procedure Type: Transthoracic Echocardiogram Location: ICU Height: 165.1 cm Weight: 97.52 kg BSA: 2.04 m2 Heart Rate: bpm BP: 106 / 64 mmHg Electrophysiology Scientist: Nancy MD: Jeff Bailey Symptoms: NSTEMI Conclusions: - Technically very limited study. Normal left ventricular size and systolic function. - The right ventricle was not well visualized. Normal right ventricular cavity size. There is low normal right ventricular systolic function. - Limited valvular assessment. Findings Left Ventricle Normal left ventricular size and systolic function. The visually estimated ejection fraction is between 60-65%. Regional wall motion abnormalities can not be excluded due to suboptimal endocardial definition. Diastolic function is indeterminate on the basis of available data. Right Ventricle The right ventricle was not well visualized. Normal right ventricular cavity size. There is low normal right ventricular systolic function. Atria The left atrium was not well visualized. The right atrium was not well visualized. Aortic Valve The aortic valve was not well visualized. Mitral Valve The mitral valve was not well visualized. Pulmonic Valve The pulmonic valve was not well visualized. Tricuspid Valve Normal tricuspid valve structure and function. There is trace tricuspid valve regurgitation. Tricuspid regurgitation envelope is inadequate for calculation of right ventricular systolic pressure. Indeterminate right atrial pressure. Venous The inferior vena cava was not well visualized. Pericardium/Pleural There is no evidence of pericardial effusion. Prior Study Comparison No prior study available for comparison. Measurements 2D Linear Measurements LVIDd: 4.09 3.9-5.3/4.2-5.9 cm LVIDd Index: 2.00 2.4-3.2/2.2-3.1 cm/m2 LVIDs: 2.57 2.0-3.6 cm Updated in Other Vendor System with Status of Final Riley Nuñez MD electronically signed on 06/27/2020 9:31:09 PM with status of Final
[2020-06-27 08:07] LABS: Glucose, Whole Blood 330 mg/dL (60-115)
[2020-06-27 08:08] LABS: Glucose, Whole Blood 324 mg/dL (60-115)
[2020-06-27 08:09] LABS: Glucose, Whole Blood 354 mg/dL (60-115)
[2020-06-27 08:14] LABS: SLIDE REVIEW VERIFIED
[2020-06-27 08:40] LABS: PTT Heparin Drip 135.9 SEC (53-77.9)
[2020-06-27] MEDS: 0.9 % Sodium Chloride Flush 3 ML SYRINGE IVFLUSH (09:01)
[2020-06-27 09:15] LABS: Glucose, Whole Blood 250 mg/dL (60-115)
[2020-06-27] MEDS: fentaNYL citrate/NS 1,000 MCG/100 ML PLAST..BAG 2.5 MCG IVCONT (09:19)
[2020-06-27 09:25] LABS: PTT Heparin Drip 97.2 SEC (53-77.9)
--- NOTE | 2020-06-27 09:46 | MHC.CM.PN ---
Pt intubated in ICU with COVID + PNA. Information obtained from EMR, ICU care team and from conversation with pt's spouse, José Manuel. Per José Manuel, pt resides with him and their 17 yo dtr. Pt is primarily w/c dependent d/t LE nerve damage but is able to independently care for self and perform household tasks. José Manuel states he is pt's compensated OPERATIONS ADMINISTRATIVE ASSISTANT and transports her to all appts. Pt has minimal adaptive equipment and no other services. José Manuel thinks he has a copy of pt's HCP and will provide [facility] [place] [place] a copy. At this time it is unknown what pt's d/c needs will be. José Manuel is hoping for a return to home at baseline level of functioning. CM will reassess as pt's condition is better known.
[2020-06-27 10:45] LABS: PTT Heparin Drip 55.1 SEC (53-77.9)
--- NOTE | 2020-06-27 10:59 | ECG_ITS ---
Test Reason : EKG 06/27/20 AT 05:44:54 Blood Pressure : / mmHG Vent. Rate : 123 BPM Atrial Rate : 123 BPM P-R Int : 132 ms QRS Dur : 082 ms QT Int : 304 ms P-R-T Axes : 053 -09 035 degrees QTc Int : 435 ms Sinus tachycardia Possible Left atrial enlargement Low voltage QRS Abnormal ECG No significant changes seen Referred By: Jeff Bailey Electronically Signed By:KYLER BURTON MD
[2020-06-27] MEDS: dexAMETHasone sod phosphate 4 MG/ML VIAL IVPUSH ×2 (11:52→19:40)
--- NOTE | 2020-06-27 11:53 | PM.CNCAR ---
History of Present Illness History of Present Illness Date of Service: 06/27/20 Requesting physician: Dada Babcock Chief complaint: COVID, NSTEMI Narrative: 55-year-old female who presented with acute respiratory distress. She has background history of congestive heart failure, diabetes, fibromyalgia and depression. As per the chart review she was not feeling well for couple of days and brought her in. She was found to have oxygen saturation in the 50s with a blood systolic blood pressure of 80 and cyanosis in the ER. Rapid berger test was positive. CT scan showed bilateral pneumonia. She since has been sedated and intubated. She is currently intubated and no history is available. In the interim her troponin levels started going up. The troponin levels are 115, 1474 and 2786. EKG showing sinus tachycardia without any acute ST-T changes. She is on steroids and antibiotics right now. Review of Systems Review of Systems: Yes Unobtainable due to mental status PMFSH Past Medical History Medical History (Updated 06/27/20 @ 00:08 by Jeff Bailey) Asthma CHF (congestive heart failure) Diabetes Lower extremity surgery planned Pulmonary fibrosis Family History Family history: reviewed and not pertinent Social History Social History Household Members: Spouse and Family Housing: House Alcohol intake: unknown Smoking Status: Unknown if ever smoked Use of substances other than those prescribed or required for medical reasons: Unable to respond Currently Displaying Signs/Symptoms of Drug Intoxication Withdrawal: No Advance Directives: No Advance Directives Information Provided: No Do you have thoughts of harming others: None Do you have a plan to hurt others: No Plan Recently lost weight without trying: Unsure Meds Allergies Allergy/AdvReac Type Severity Reaction Status Date / Time Penicillins [PENICILLINS] Allergy Intermediate ANKIT EATON Unverified 04/17/20 19:21 ING penicillin Allergy Unknown Uncoded 10/09/19 00:00 Physical Exam Vital Signs: Vital Signs: Last Vital Signs Temp 102.4 F H 06/27/20 11:00 Pulse 127 H 06/27/20 11:00 Resp 26 H 06/27/20 11:00 BP 115/68 06/27/20 11:00 Pulse Ox 88 L 06/27/20 11:00 Body Mass Index 34.8 GENERAL APPEARANCE: intubated and sedated. HEENT: unremarkable. HEAD: normocephalic, atraumatic. NECK/THYROID: no jugular venous distention. SKIN: warm and dry. HEART: no murmurs, tachycardia, S1, S2 normal. LUNGS: clear to auscultation bilaterally anteriorly. ABDOMEN: soft, nondistended. EXTREMITIES: No edema. PERIPHERAL PULSES: equal. NEUROLOGIC: sedated. Results Labs and Meds Result diagrams: 06/27/20 05:30 06/27/20 05:30 Lab results: Laboratory Results - last 24 hr 06/26/20 06/26/20 06/26/20 18:25 18:40 18:40 WBC 16.7 H RBC 3.65 L Hgb 11.2 L Hct 35.3 L MCV 96.7 MCH 30.7 MCHC 31.7 RDW 13.0 Plt Count 329 MPV 11.0 Immature Gran % (Auto) Cancelled Neut % (Auto) Cancelled Lymph % (Auto) Cancelled [place] % (Auto) Cancelled Eos % (Auto) Cancelled Baso % (Auto) Cancelled Lymph # (Auto) Cancelled [place] # (Auto) Cancelled Eos # (Auto) Cancelled Baso # (Auto) Cancelled Abs Immat Gran (auto) Cancelled Absolute Neuts (auto) Cancelled Absolute Nucleated RBC 0.040 H Nucleated RBC % (auto) 0.2 Neutrophils % (Manual) 57 Band Neutrophils % 17 H Lymphocytes % (Manual) 10 L Atypical Lymphs % (Man) 11 H Monocytes % (Manual) 5 Abs Neuts (Manual) 12.4 H Lymphocytes # (Manual) 1.7 Atyp Lymphs # (Manual) 1.8 Monocytes # (Manual) 0.8 Platelet Estimate NORMAL Plt Morphology Comment NORMAL RBC Morphology NORMAL Smear Tech's Comments PT 15.5 H INR 1.3 H APTT 32.2 PTT (Heparin Protocol) ABG pH ABG pCO2 ABG pO2 ABG HCO3 ABG O2 Saturation ABG Base Excess VBG pH VBG pCO2 VBG pO2 VBG HCO3 VBG O2 Saturation VBG Base Excess Oxygen Given Sodium Potassium Chloride Carbon Dioxide Anion Gap BUN Creatinine Estim Creat Clear Calc Estimated GFR POC Glucose 354 H* Random Glucose Lactic Acid Lactic Acid Fup @ 2Hr Lactic Acid Fup @ 4Hr Calcium Phosphorus Magnesium Total Bilirubin AST ALT Alkaline Phosphatase Troponin I High Sens B-Natriuretic Peptide Total Protein Albumin Urine Color Urine Appearance Urine pH Ur Specific [place] Urine Protein Urine Glucose (UA) Urine Ketones Urine Blood Urine Nitrite Ur Leukocyte Esterase Urine RBC Urine WBC Ur Squamous Epith Cells Amorphous Sediment Urine Bacteria Urine Mucus Salicylates Acetone, Qual Coronavirus (PCR) Influenza Type A (PCR) Influenza Type B (PCR) RSV RNA Qual (PCR) 06/26/20 06/26/20 06/26/20 18:40 18:41 18:42 WBC RBC Hgb Hct MCV MCH MCHC RDW Plt Count MPV Immature Gran % (Auto) Neut % (Auto) Lymph % (Auto) [place] % (Auto) Eos % (Auto) Baso % (Auto) Lymph # (Auto) [place] # (Auto) Eos # (Auto) Baso # (Auto) Abs Immat Gran (auto) Absolute Neuts (auto) Absolute Nucleated RBC Nucleated RBC % (auto) Neutrophils % (Manual) Band Neutrophils % Lymphocytes % (Manual) Atypical Lymphs % (Man) Monocytes % (Manual) Abs Neuts (Manual) Lymphocytes # (Manual) Atyp Lymphs # (Manual) Monocytes # (Manual) Platelet Estimate Plt Morphology Comment RBC Morphology Smear Tech's Comments PT INR APTT PTT (Heparin Protocol) ABG pH ABG pCO2 ABG pO2 ABG HCO3 ABG O2 Saturation ABG Base Excess VBG pH VBG pCO2 VBG pO2 VBG HCO3 VBG O2 Saturation VBG Base Excess Oxygen Given Sodium 133 L Potassium 3.2 L Chloride 94 L Carbon Dioxide 11 L Anion Gap 31 H BUN 12 Creatinine 1.10 Estim Creat Clear Calc 68.9 Estimated GFR 52 POC Glucose Random Glucose 385 H* Lactic Acid 13.8 H* Lactic Acid Fup @ 2Hr Lactic Acid Fup @ 4Hr Calcium 8.1 L Phosphorus Magnesium Total Bilirubin 0.5 AST 33 H ALT 26 Alkaline Phosphatase 78 Troponin I High Sens 115.3 H B-Natriuretic Peptide 166 H Total Protein 7.3 Albumin 3.9 Urine Color Urine Appearance Urine pH Ur Specific [place] Urine Protein Urine Glucose (UA) Urine Ketones Urine Blood Urine Nitrite Ur Leukocyte Esterase Urine RBC Urine WBC Ur Squamous Epith Cells Amorphous Sediment Urine Bacteria Urine Mucus Salicylates < 5.0 L Acetone, Qual Negative Coronavirus (PCR) Influenza Type A (PCR) Influenza Type B (PCR) RSV RNA Qual (PCR) 06/26/20 06/26/20 06/26/20 19:01 19:02 19:05 WBC RBC Hgb Hct MCV MCH MCHC RDW Plt Count MPV Immature Gran % (Auto) Neut % (Auto) Lymph % (Auto) [place] % (Auto) Eos % (Auto) Baso % (Auto) Lymph # (Auto) [place] # (Auto) Eos # (Auto) Baso # (Auto) Abs Immat Gran (auto) Absolute Neuts (auto) Absolute Nucleated RBC Nucleated RBC % (auto) Neutrophils % (Manual) Band Neutrophils % Lymphocytes % (Manual) Atypical Lymphs % (Man) Monocytes % (Manual) Abs Neuts (Manual) Lymphocytes # (Manual) Atyp Lymphs # (Manual) Monocytes # (Manual) Platelet Estimate Plt Morphology Comment RBC Morphology Smear Tech's Comments PT INR APTT PTT (Heparin Protocol) ABG pH 7.14 L* ABG pCO2 34 ABG pO2 106 ABG HCO3 11 L ABG O2 Saturation 95.9 ABG Base Excess -16.4 VBG pH VBG pCO2 VBG pO2 VBG HCO3 VBG O2 Saturation VBG Base Excess Oxygen Given 100% Sodium Potassium Chloride Carbon Dioxide Anion Gap BUN Creatinine Estim Creat Clear Calc Estimated GFR POC Glucose Random Glucose Lactic Acid Lactic Acid Fup @ 2Hr Lactic Acid Fup @ 4Hr Calcium Phosphorus Magnesium Total Bilirubin AST ALT Alkaline Phosphatase Troponin I High Sens B-Natriuretic Peptide Total Protein Albumin Urine Color YELLOW Urine Appearance CLEAR Urine pH 5.5 Ur Specific [place] >= 1.030 H Urine Protein 2+ H Urine Glucose (UA) 250 H Urine Ketones 15 Urine Blood 1+ H Urine Nitrite NEG Ur Leukocyte Esterase NEG Urine RBC 0-2 Urine WBC 0-2 Ur Squamous Epith Cells 2+ Amorphous Sediment 2+ Urine Bacteria NONE Urine Mucus 2+ Salicylates Acetone, Qual Coronavirus (PCR) POSITIVE A Influenza Type A (PCR) NEGATIVE Influenza Type B (PCR) NEGATIVE RSV RNA Qual (PCR) NEGATIVE 06/26/20 06/26/20 06/26/20 19:06 20:14 22:22 WBC RBC Hgb Hct MCV MCH MCHC RDW Plt Count MPV Immature Gran % (Auto) Neut % (Auto) Lymph % (Auto) [place] % (Auto) Eos % (Auto) Baso % (Auto) Lymph # (Auto) [place] # (Auto) Eos # (Auto) Baso # (Auto) Abs Immat Gran (auto) Absolute Neuts (auto) Absolute Nucleated RBC Nucleated RBC % (auto) Neutrophils % (Manual) Band Neutrophils % Lymphocytes % (Manual) Atypical Lymphs % (Man) Monocytes % (Manual) Abs Neuts (Manual) Lymphocytes # (Manual) Atyp Lymphs # (Manual) Monocytes # (Manual) Platelet Estimate Plt Morphology Comment RBC Morphology Smear Tech's Comments PT INR APTT PTT (Heparin Protocol) ABG pH ABG pCO2 ABG pO2 ABG HCO3 ABG O2 Saturation ABG Base Excess VBG pH VBG pCO2 VBG pO2 VBG HCO3 VBG O2 Saturation VBG Base Excess Oxygen Given Sodium Potassium Chloride Carbon Dioxide Anion Gap BUN Creatinine Estim Creat Clear Calc Estimated GFR POC Glucose 324 H 330 H 281 H Random Glucose Lactic Acid Lactic Acid Fup @ 2Hr Lactic Acid Fup @ 4Hr Calcium Phosphorus Magnesium Total Bilirubin AST ALT Alkaline Phosphatase Troponin I High Sens B-Natriuretic Peptide Total Protein Albumin Urine Color Urine Appearance Urine pH Ur Specific [place] Urine Protein Urine Glucose (UA) Urine Ketones Urine Blood Urine Nitrite Ur Leukocyte Esterase Urine RBC Urine WBC Ur Squamous Epith Cells Amorphous Sediment Urine Bacteria Urine Mucus Salicylates Acetone, Qual Coronavirus (PCR) Influenza Type A (PCR) Influenza Type B (PCR) RSV RNA Qual (PCR) 06/26/20 06/27/20 06/27/20 22:29 00:39 00:39 WBC RBC Hgb Hct MCV MCH MCHC RDW Plt Count MPV Immature Gran % (Auto) Neut % (Auto) Lymph % (Auto) [place] % (Auto) Eos % (Auto) Baso % (Auto) Lymph # (Auto) [place] # (Auto) Eos # (Auto) Baso # (Auto) Abs Immat Gran (auto) Absolute Neuts (auto) Absolute Nucleated RBC Nucleated RBC % (auto) Neutrophils % (Manual) Band Neutrophils % Lymphocytes % (Manual) Atypical Lymphs % (Man) Monocytes % (Manual) Abs Neuts (Manual) Lymphocytes # (Manual) Atyp Lymphs # (Manual) Monocytes # (Manual) Platelet Estimate Plt Morphology Comment RBC Morphology Smear Tech's Comments PT INR APTT PTT (Heparin Protocol) ABG pH ABG pCO2 ABG pO2 ABG HCO3 ABG O2 Saturation ABG Base Excess VBG pH 7.35 VBG pCO2 45 VBG pO2 188 VBG HCO3 25 VBG O2 Saturation 99.0 VBG Base Excess -1.2 Oxygen Given Sodium Potassium Chloride Carbon Dioxide Anion Gap BUN Creatinine Estim Creat Clear Calc Estimated GFR POC Glucose Random Glucose Lactic Acid Lactic Acid Fup @ 2Hr 4.4 H* Lactic Acid Fup @ 4Hr Calcium Phosphorus Magnesium Total Bilirubin AST ALT Alkaline Phosphatase Troponin I High Sens 1474.1 H D B-Natriuretic Peptide Total Protein Albumin Urine Color Urine Appearance Urine pH Ur Specific [place] Urine Protein Urine Glucose (UA) Urine Ketones Urine Blood Urine Nitrite Ur Leukocyte Esterase Urine RBC Urine WBC Ur Squamous Epith Cells Amorphous Sediment Urine Bacteria Urine Mucus Salicylates Acetone, Qual Coronavirus (PCR) Influenza Type A (PCR) Influenza Type B (PCR) RSV RNA Qual (PCR) 06/27/20 06/27/20 06/27/20 00:39 02:07 05:30 WBC 8.8 RBC 3.54 L Hgb 11.1 L Hct 32.7 L MCV 92.4 MCH 31.4 MCHC 33.9 RDW 13.0 Plt Count 290 MPV 10.8 Immature Gran % (Auto) 1.4 H Neut % (Auto) 69.3 Lymph % (Auto) 26.3 [place] % (Auto) 2.9 Eos % (Auto) 0.0 Baso % (Auto) 0.1 Lymph # (Auto) 2.3 [place] # (Auto) 0.3 Eos # (Auto) 0.0 Baso # (Auto) 0.0 Abs Immat Gran (auto) 0.12 H Absolute Neuts (auto) 6.1 Absolute Nucleated RBC 0.030 H Nucleated RBC % (auto) 0.3 H Neutrophils % (Manual) Band Neutrophils % Lymphocytes % (Manual) Atypical Lymphs % (Man) Monocytes % (Manual) Abs Neuts (Manual) Lymphocytes # (Manual) Atyp Lymphs # (Manual) Monocytes # (Manual) Platelet Estimate Plt Morphology Comment RBC Morphology Smear Tech's Comments VERIFIED PT INR APTT PTT (Heparin Protocol) ABG pH ABG pCO2 ABG pO2 ABG HCO3 ABG O2 Saturation ABG Base Excess VBG pH VBG pCO2 VBG pO2 VBG HCO3 VBG O2 Saturation VBG Base Excess Oxygen Given Sodium Potassium Chloride Carbon Dioxide Anion Gap BUN Creatinine Estim Creat Clear Calc Estimated GFR POC Glucose 243 H Random Glucose Lactic Acid Lactic Acid Fup @ 2Hr Lactic Acid Fup @ 4Hr 2.8 H* Calcium Phosphorus Magnesium Total Bilirubin AST ALT Alkaline Phosphatase Troponin I High Sens B-Natriuretic Peptide Total Protein Albumin Urine Color Urine Appearance Urine pH Ur Specific [place] Urine Protein Urine Glucose (UA) Urine Ketones Urine Blood Urine Nitrite Ur Leukocyte Esterase Urine RBC Urine WBC Ur Squamous Epith Cells Amorphous Sediment Urine Bacteria Urine Mucus Salicylates Acetone, Qual Coronavirus (PCR) Influenza Type A (PCR) Influenza Type B (PCR) RSV RNA Qual (PCR) 06/27/20 06/27/20 06/27/20 05:30 05:30 05:30 WBC RBC Hgb Hct MCV MCH MCHC RDW Plt Count MPV Immature Gran % (Auto) Neut % (Auto) Lymph % (Auto) [place] % (Auto) Eos % (Auto) Baso % (Auto) Lymph # (Auto) [place] # (Auto) Eos # (Auto) Baso # (Auto) Abs Immat Gran (auto) Absolute Neuts (auto) Absolute Nucleated RBC Nucleated RBC % (auto) Neutrophils % (Manual) Band Neutrophils % Lymphocytes % (Manual) Atypical Lymphs % (Man) Monocytes % (Manual) Abs Neuts (Manual) Lymphocytes # (Manual) Atyp Lymphs # (Manual) Monocytes # (Manual) Platelet Estimate Plt Morphology Comment RBC Morphology Smear Tech's Comments PT INR APTT PTT (Heparin Protocol) ABG pH ABG pCO2 ABG pO2 ABG HCO3 ABG O2 Saturation ABG Base Excess VBG pH VBG pCO2 VBG pO2 VBG HCO3 VBG O2 Saturation VBG Base Excess Oxygen Given Sodium 138 Potassium 3.8 Chloride 97 Carbon Dioxide 27 Anion Gap 18 BUN 9 Creatinine 0.78 Estim Creat Clear Calc 97.2 Estimated GFR > 60 POC Glucose Random Glucose 250 H D Lactic Acid Lactic Acid Fup @ 2Hr Lactic Acid Fup @ 4Hr Calcium 7.2 L D Phosphorus 2.0 L Magnesium 1.6 Total Bilirubin AST ALT Alkaline Phosphatase Troponin I High Sens 2786.2 H D B-Natriuretic Peptide Total Protein Albumin 3.5 Urine Color Urine Appearance Urine pH Ur Specific [place] Urine Protein Urine Glucose (UA) Urine Ketones Urine Blood Urine Nitrite Ur Leukocyte Esterase Urine RBC Urine WBC Ur Squamous Epith Cells Amorphous Sediment Urine Bacteria Urine Mucus Salicylates Acetone, Qual Coronavirus (PCR) Influenza Type A (PCR) Influenza Type B (PCR) RSV RNA Qual (PCR) 06/27/20 06/27/20 06/27/20 05:30 05:30 08:07 WBC RBC Hgb Hct MCV MCH MCHC RDW Plt Count MPV Immature Gran % (Auto) Neut % (Auto) Lymph % (Auto) [place] % (Auto) Eos % (Auto) Baso % (Auto) Lymph # (Auto) [place] # (Auto) Eos # (Auto) Baso # (Auto) Abs Immat Gran (auto) Absolute Neuts (auto) Absolute Nucleated RBC Nucleated RBC % (auto) Neutrophils % (Manual) Band Neutrophils % Lymphocytes % (Manual) Atypical Lymphs % (Man) Monocytes % (Manual) Abs Neuts (Manual) Lymphocytes # (Manual) Atyp Lymphs # (Manual) Monocytes # (Manual) Platelet Estimate Plt Morphology Comment RBC Morphology Smear Tech's Comments PT 17.0 H INR 1.4 H APTT PTT (Heparin Protocol) 135.9 H* ABG pH ABG pCO2 ABG pO2 ABG HCO3 ABG O2 Saturation ABG Base Excess VBG pH 7.38 VBG pCO2 49 VBG pO2 46 VBG HCO3 28 VBG O2 Saturation 80.2 VBG Base Excess 2.4 Oxygen Given Sodium Potassium Chloride Carbon Dioxide Anion Gap BUN Creatinine Estim Creat Clear Calc Estimated GFR POC Glucose Random Glucose Lactic Acid Lactic Acid Fup @ 2Hr Lactic Acid Fup @ 4Hr Calcium Phosphorus Magnesium Total Bilirubin AST ALT Alkaline Phosphatase Troponin I High Sens B-Natriuretic Peptide Total Protein Albumin Urine Color Urine Appearance Urine pH Ur Specific [place] Urine Protein Urine Glucose (UA) Urine Ketones Urine Blood Urine Nitrite Ur Leukocyte Esterase Urine RBC Urine WBC Ur Squamous Epith Cells Amorphous Sediment Urine Bacteria Urine Mucus Salicylates Acetone, Qual Coronavirus (PCR) Influenza Type A (PCR) Influenza Type B (PCR) RSV RNA Qual (PCR) 06/27/20 06/27/20 06/27/20 08:42 09:10 10:29 WBC RBC Hgb Hct MCV MCH MCHC RDW Plt Count MPV Immature Gran % (Auto) Neut % (Auto) Lymph % (Auto) [place] % (Auto) Eos % (Auto) Baso % (Auto) Lymph # (Auto) [place] # (Auto) Eos # (Auto) Baso # (Auto) Abs Immat Gran (auto) Absolute Neuts (auto) Absolute Nucleated RBC Nucleated RBC % (auto) Neutrophils % (Manual) Band Neutrophils % Lymphocytes % (Manual) Atypical Lymphs % (Man) Monocytes % (Manual) Abs Neuts (Manual) Lymphocytes # (Manual) Atyp Lymphs # (Manual) Monocytes # (Manual) Platelet Estimate Plt Morphology Comment RBC Morphology Smear Tech's Comments PT INR APTT PTT (Heparin Protocol) 97.2 H D 55.1 D ABG pH ABG pCO2 ABG pO2 ABG HCO3 ABG O2 Saturation ABG Base Excess VBG pH VBG pCO2 VBG pO2 VBG HCO3 VBG O2 Saturation VBG Base Excess Oxygen Given Sodium Potassium Chloride Carbon Dioxide Anion Gap BUN Creatinine Estim Creat Clear Calc Estimated GFR POC Glucose 250 H Random Glucose Lactic Acid Lactic Acid Fup @ 2Hr Lactic Acid Fup @ 4Hr Calcium Phosphorus Magnesium Total Bilirubin AST ALT Alkaline Phosphatase Troponin I High Sens B-Natriuretic Peptide Total Protein Albumin Urine Color Urine Appearance Urine pH Ur Specific [place] Urine Protein Urine Glucose (UA) Urine Ketones Urine Blood Urine Nitrite Ur Leukocyte Esterase Urine RBC Urine WBC Ur Squamous Epith Cells Amorphous Sediment Urine Bacteria Urine Mucus Salicylates Acetone, Qual Coronavirus (PCR) Influenza Type A (PCR) Influenza Type B (PCR) RSV RNA Qual (PCR) EKG Interpretation EKG Comments: Sinus tachycardia, no significant ST-T changes. Assessment and Plan (1) Elevated troponin: Status: Acute (2) Pneumonia due to COVID-19 virus: Status: Acute (3) Sepsis: Qualifiers: Sepsis acute organ dysfunction status: unspecified Sepsis type: sepsis due to unspecified organism Qualified Code(s): A41.9 - Sepsis, unspecified organism Status: Acute (4) Metabolic acidosis: Status: Acute 55-year-old female who is admitted with severe COVID-19 infection. She has bilateral infiltrates on the CT scan And shock. She presented significantly hypoxic and hypotensive. She spiking fevers. In this setting she has positive troponin level. Her EKG is not showing any ischemic changes right now. She does not have any indication to go to cardiac catheterization lab. I think this is likely type 2 event.I think heparin is probably helpful in this situation due to severe COVID-19. In severe COVID-19 infection right ventricular dysfunction is reported due to microvascular thrombi as well as pulmonary embolism. I would check D-dimer level and if it is significantly elevated in more than 2000 range then I think we continue the heparin drip and probably anticoagulate the patient afterwards too. We will review the echocardiogram to make sure she does not have myocarditis or right ventricular dysfunction. In the meantime I think her treatment should be focused on sepsis with fluid resuscitation and antibiotics/steroids. We will follow along with you. Thank you for allowing me to participate in the care of your patient. Please feel free to contact me if you have any questions.
[2020-06-27] MEDS: Cisatracurium Besylate 20 MG/10 ML VIAL 10 MG IVPUSH (12:46)
[2020-06-27 14:55] LABS: Glucose, Whole Blood 255 mg/dL (60-115)
--- NOTE | 2020-06-27 15:08 | P.PNCC_ITS ---
Subjective Subjective Date of Service: 06/27/20 Interval History: 55-year-old lady with underlying history of congestive heart failure, diabetes mellitus admitted on 06/26/2020 with 2D history of progressive dyspnea. On ER evaluation patient was noted to be COVID positive and in acute hypoxic respiratory failure requiring intubation and ventilatory support. She also was noted to have significant lactic acidosis and elevated cardiac markers. However, her EKG showed no significant ST changes. She was admitted to intensive care unit further workup and management. Physical Exam Vital Signs: Vital Signs: Last Vital Signs Temp 102.2 F H 06/27/20 13:59 Pulse 128 H 06/27/20 13:59 Resp 22 H 06/27/20 13:59 BP 118/62 06/27/20 13:59 Pulse Ox 89 L 06/27/20 13:59 Body Mass Index 33.3 Const: General: no acute distress, awake and other ( Sedated on the vent) Nutritional Appearance: obese Eyes: Sclerae: sclerae normal Neck: Neck: Yes no lymphadenopathy, Yes trachea midline and Yes supple Resp: Auscultation: crackles ( diffuse bilateral) Cardio: Rate: tachycardic Rhythm: regular rhythm Heart sounds: no adkins ps, no murmurs and no rubs GI: Palpation (GI): Soft to palpation and Other GI palpation findings present ( Nontender) Auscultation: normal bowel sounds Extrem: General: No clubbing, No cyanosis and Yes edema ( 1+ bilateral) Objective Data Labs CBC & Chem 7: 06/27/20 05:30 06/27/20 05:30 Labs: Laboratory Results - last 24 hr 06/26/20 06/26/20 06/26/20 18:25 18:40 18:40 WBC 16.7 H RBC 3.65 L Hgb 11.2 L Hct 35.3 L MCV 96.7 MCH 30.7 MCHC 31.7 RDW 13.0 Plt Count 329 MPV 11.0 Immature Gran % (Auto) Cancelled Neut % (Auto) Cancelled Lymph % (Auto) Cancelled [place] % (Auto) Cancelled Eos % (Auto) Cancelled Baso % (Auto) Cancelled Lymph # (Auto) Cancelled [place] # (Auto) Cancelled Eos # (Auto) Cancelled Baso # (Auto) Cancelled Abs Immat Gran (auto) Cancelled Absolute Neuts (auto) Cancelled Absolute Nucleated RBC 0.040 H Nucleated RBC % (auto) 0.2 Neutrophils % (Manual) 57 Band Neutrophils % 17 H Lymphocytes % (Manual) 10 L Atypical Lymphs % (Man) 11 H Monocytes % (Manual) 5 Abs Neuts (Manual) 12.4 H Lymphocytes # (Manual) 1.7 Atyp Lymphs # (Manual) 1.8 Monocytes # (Manual) 0.8 Platelet Estimate NORMAL Plt Morphology Comment NORMAL RBC Morphology NORMAL Smear Tech's Comments PT 15.5 H INR 1.3 H APTT 32.2 PTT (Heparin Protocol) ABG pH ABG pCO2 ABG pO2 ABG HCO3 ABG O2 Saturation ABG Base Excess VBG pH VBG pCO2 VBG pO2 VBG HCO3 VBG O2 Saturation VBG Base Excess Oxygen Given Sodium Potassium Chloride Carbon Dioxide Anion Gap BUN Creatinine Estim Creat Clear Calc Estimated GFR POC Glucose 354 H* Random Glucose Lactic Acid Lactic Acid Fup @ 2Hr Lactic Acid Fup @ 4Hr Calcium Phosphorus Magnesium Total Bilirubin AST ALT Alkaline Phosphatase Troponin I High Sens B-Natriuretic Peptide Total Protein Albumin Urine Color Urine Appearance Urine pH Ur Specific [place] Urine Protein Urine Glucose (UA) Urine Ketones Urine Blood Urine Nitrite Ur Leukocyte Esterase Urine RBC Urine WBC Ur Squamous Epith Cells Amorphous Sediment Urine Bacteria Urine Mucus Salicylates Acetone, Qual Coronavirus (PCR) Influenza Type A (PCR) Influenza Type B (PCR) RSV RNA Qual (PCR) 06/26/20 06/26/20 06/26/20 18:40 18:41 18:42 WBC RBC Hgb Hct MCV MCH MCHC RDW Plt Count MPV Immature Gran % (Auto) Neut % (Auto) Lymph % (Auto) [place] % (Auto) Eos % (Auto) Baso % (Auto) Lymph # (Auto) [place] # (Auto) Eos # (Auto) Baso # (Auto) Abs Immat Gran (auto) Absolute Neuts (auto) Absolute Nucleated RBC Nucleated RBC % (auto) Neutrophils % (Manual) Band Neutrophils % Lymphocytes % (Manual) Atypical Lymphs % (Man) Monocytes % (Manual) Abs Neuts (Manual) Lymphocytes # (Manual) Atyp Lymphs # (Manual) Monocytes # (Manual) Platelet Estimate Plt Morphology Comment RBC Morphology Smear Tech's Comments PT INR APTT PTT (Heparin Protocol) ABG pH ABG pCO2 ABG pO2 ABG HCO3 ABG O2 Saturation ABG Base Excess VBG pH VBG pCO2 VBG pO2 VBG HCO3 VBG O2 Saturation VBG Base Excess Oxygen Given Sodium 133 L Potassium 3.2 L Chloride 94 L Carbon Dioxide 11 L Anion Gap 31 H BUN 12 Creatinine 1.10 Estim Creat Clear Calc 68.9 Estimated GFR 52 POC Glucose Random Glucose 385 H* Lactic Acid 13.8 H* Lactic Acid Fup @ 2Hr Lactic Acid Fup @ 4Hr Calcium 8.1 L Phosphorus Magnesium Total Bilirubin 0.5 AST 33 H ALT 26 Alkaline Phosphatase 78 Troponin I High Sens 115.3 H B-Natriuretic Peptide 166 H Total Protein 7.3 Albumin 3.9 Urine Color Urine Appearance Urine pH Ur Specific [place] Urine Protein Urine Glucose (UA) Urine Ketones Urine Blood Urine Nitrite Ur Leukocyte Esterase Urine RBC Urine WBC Ur Squamous Epith Cells Amorphous Sediment Urine Bacteria Urine Mucus Salicylates < 5.0 L Acetone, Qual Negative Coronavirus (PCR) Influenza Type A (PCR) Influenza Type B (PCR) RSV RNA Qual (PCR) 06/26/20 06/26/20 06/26/20 19:01 19:02 19:05 WBC RBC Hgb Hct MCV MCH MCHC RDW Plt Count MPV Immature Gran % (Auto) Neut % (Auto) Lymph % (Auto) [place] % (Auto) Eos % (Auto) Baso % (Auto) Lymph # (Auto) [place] # (Auto) Eos # (Auto) Baso # (Auto) Abs Immat Gran (auto) Absolute Neuts (auto) Absolute Nucleated RBC Nucleated RBC % (auto) Neutrophils % (Manual) Band Neutrophils % Lymphocytes % (Manual) Atypical Lymphs % (Man) Monocytes % (Manual) Abs Neuts (Manual) Lymphocytes # (Manual) Atyp Lymphs # (Manual) Monocytes # (Manual) Platelet Estimate Plt Morphology Comment RBC Morphology Smear Tech's Comments PT INR APTT PTT (Heparin Protocol) ABG pH 7.14 L* ABG pCO2 34 ABG pO2 106 ABG HCO3 11 L ABG O2 Saturation 95.9 ABG Base Excess -16.4 VBG pH VBG pCO2 VBG pO2 VBG HCO3 VBG O2 Saturation VBG Base Excess Oxygen Given 100% Sodium Potassium Chloride Carbon Dioxide Anion Gap BUN Creatinine Estim Creat Clear Calc Estimated GFR POC Glucose Random Glucose Lactic Acid Lactic Acid Fup @ 2Hr Lactic Acid Fup @ 4Hr Calcium Phosphorus Magnesium Total Bilirubin AST ALT Alkaline Phosphatase Troponin I High Sens B-Natriuretic Peptide Total Protein Albumin Urine Color YELLOW Urine Appearance CLEAR Urine pH 5.5 Ur Specific [place] >= 1.030 H Urine Protein 2+ H Urine Glucose (UA) 250 H Urine Ketones 15 Urine Blood 1+ H Urine Nitrite NEG Ur Leukocyte Esterase NEG Urine RBC 0-2 Urine WBC 0-2 Ur Squamous Epith Cells 2+ Amorphous Sediment 2+ Urine Bacteria NONE Urine Mucus 2+ Salicylates Acetone, Qual Coronavirus (PCR) POSITIVE A Influenza Type A (PCR) NEGATIVE Influenza Type B (PCR) NEGATIVE RSV RNA Qual (PCR) NEGATIVE 06/26/20 06/26/20 06/26/20 19:06 20:14 22:22 WBC RBC Hgb Hct MCV MCH MCHC RDW Plt Count MPV Immature Gran % (Auto) Neut % (Auto) Lymph % (Auto) [place] % (Auto) Eos % (Auto) Baso % (Auto) Lymph # (Auto) [place] # (Auto) Eos # (Auto) Baso # (Auto) Abs Immat Gran (auto) Absolute Neuts (auto) Absolute Nucleated RBC Nucleated RBC % (auto) Neutrophils % (Manual) Band Neutrophils % Lymphocytes % (Manual) Atypical Lymphs % (Man) Monocytes % (Manual) Abs Neuts (Manual) Lymphocytes # (Manual) Atyp Lymphs # (Manual) Monocytes # (Manual) Platelet Estimate Plt Morphology Comment RBC Morphology Smear Tech's Comments PT INR APTT PTT (Heparin Protocol) ABG pH ABG pCO2 ABG pO2 ABG HCO3 ABG O2 Saturation ABG Base Excess VBG pH VBG pCO2 VBG pO2 VBG HCO3 VBG O2 Saturation VBG Base Excess Oxygen Given Sodium Potassium Chloride Carbon Dioxide Anion Gap BUN Creatinine Estim Creat Clear Calc Estimated GFR POC Glucose 324 H 330 H 281 H Random Glucose Lactic Acid Lactic Acid Fup @ 2Hr Lactic Acid Fup @ 4Hr Calcium Phosphorus Magnesium Total Bilirubin AST ALT Alkaline Phosphatase Troponin I High Sens B-Natriuretic Peptide Total Protein Albumin Urine Color Urine Appearance Urine pH Ur Specific [place] Urine Protein Urine Glucose (UA) Urine Ketones Urine Blood Urine Nitrite Ur Leukocyte Esterase Urine RBC Urine WBC Ur Squamous Epith Cells Amorphous Sediment Urine Bacteria Urine Mucus Salicylates Acetone, Qual Coronavirus (PCR) Influenza Type A (PCR) Influenza Type B (PCR) RSV RNA Qual (PCR) 06/26/20 06/27/20 06/27/20 22:29 00:39 00:39 WBC RBC Hgb Hct MCV MCH MCHC RDW Plt Count MPV Immature Gran % (Auto) Neut % (Auto) Lymph % (Auto) [place] % (Auto) Eos % (Auto) Baso % (Auto) Lymph # (Auto) [place] # (Auto) Eos # (Auto) Baso # (Auto) Abs Immat Gran (auto) Absolute Neuts (auto) Absolute Nucleated RBC Nucleated RBC % (auto) Neutrophils % (Manual) Band Neutrophils % Lymphocytes % (Manual) Atypical Lymphs % (Man) Monocytes % (Manual) Abs Neuts (Manual) Lymphocytes # (Manual) Atyp Lymphs # (Manual) Monocytes # (Manual) Platelet Estimate Plt Morphology Comment RBC Morphology Smear Tech's Comments PT INR APTT PTT (Heparin Protocol) ABG pH ABG pCO2 ABG pO2 ABG HCO3 ABG O2 Saturation ABG Base Excess VBG pH 7.35 VBG pCO2 45 VBG pO2 188 VBG HCO3 25 VBG O2 Saturation 99.0 VBG Base Excess -1.2 Oxygen Given Sodium Potassium Chloride Carbon Dioxide Anion Gap BUN Creatinine Estim Creat Clear Calc Estimated GFR POC Glucose Random Glucose Lactic Acid Lactic Acid Fup @ 2Hr 4.4 H* Lactic Acid Fup @ 4Hr Calcium Phosphorus Magnesium Total Bilirubin AST ALT Alkaline Phosphatase Troponin I High Sens 1474.1 H D B-Natriuretic Peptide Total Protein Albumin Urine Color Urine Appearance Urine pH Ur Specific [place] Urine Protein Urine Glucose (UA) Urine Ketones Urine Blood Urine Nitrite Ur Leukocyte Esterase Urine RBC Urine WBC Ur Squamous Epith Cells Amorphous Sediment Urine Bacteria Urine Mucus Salicylates Acetone, Qual Coronavirus (PCR) Influenza Type A (PCR) Influenza Type B (PCR) RSV RNA Qual (PCR) 06/27/20 06/27/20 06/27/20 00:39 02:07 05:30 WBC 8.8 RBC 3.54 L Hgb 11.1 L Hct 32.7 L MCV 92.4 MCH 31.4 MCHC 33.9 RDW 13.0 Plt Count 290 MPV 10.8 Immature Gran % (Auto) 1.4 H Neut % (Auto) 69.3 Lymph % (Auto) 26.3 S[place] % (Auto) 2.9 Eos % (Auto) 0.0 Baso % (Auto) 0.1 Lymph # (Auto) 2.3 [place] # (Auto) 0.3 Eos # (Auto) 0.0 Baso # (Auto) 0.0 Abs Immat Gran (auto) 0.12 H Absolute Neuts (auto) 6.1 Absolute Nucleated RBC 0.030 H Nucleated RBC % (auto) 0.3 H Neutrophils % (Manual) Band Neutrophils % Lymphocytes % (Manual) Atypical Lymphs % (Man) Monocytes % (Manual) Abs Neuts (Manual) Lymphocytes # (Manual) Atyp Lymphs # (Manual) Monocytes # (Manual) Platelet Estimate Plt Morphology Comment RBC Morphology Smear Tech's Comments VERIFIED PT INR APTT PTT (Heparin Protocol) ABG pH ABG pCO2 ABG pO2 ABG HCO3 ABG O2 Saturation ABG Base Excess VBG pH VBG pCO2 VBG pO2 VBG HCO3 VBG O2 Saturation VBG Base Excess Oxygen Given Sodium Potassium Chloride Carbon Dioxide Anion Gap BUN Creatinine Estim Creat Clear Calc Estimated GFR POC Glucose 243 H Random Glucose Lactic Acid Lactic Acid Fup @ 2Hr Lactic Acid Fup @ 4Hr 2.8 H* Calcium Phosphorus Magnesium Total Bilirubin AST ALT Alkaline Phosphatase Troponin I High Sens B-Natriuretic Peptide Total Protein Albumin Urine Color Urine Appearance Urine pH Ur Specific [place] Urine Protein Urine Glucose (UA) Urine Ketones Urine Blood Urine Nitrite Ur Leukocyte Esterase Urine RBC Urine WBC Ur Squamous Epith Cells Amorphous Sediment Urine Bacteria Urine Mucus Salicylates Acetone, Qual Coronavirus (PCR) Influenza Type A (PCR) Influenza Type B (PCR) RSV RNA Qual (PCR) 06/27/20 06/27/20 06/27/20 05:30 05:30 05:30 WBC RBC Hgb Hct MCV MCH MCHC RDW Plt Count MPV Immature Gran % (Auto) Neut % (Auto) Lymph % (Auto) [place] % (Auto) Eos % (Auto) Baso % (Auto) Lymph # (Auto) [place] # (Auto) Eos # (Auto) Baso # (Auto) Abs Immat Gran (auto) Absolute Neuts (auto) Absolute Nucleated RBC Nucleated RBC % (auto) Neutrophils % (Manual) Band Neutrophils % Lymphocytes % (Manual) Atypical Lymphs % (Man) Monocytes % (Manual) Abs Neuts (Manual) Lymphocytes # (Manual) Atyp Lymphs # (Manual) Monocytes # (Manual) Platelet Estimate Plt Morphology Comment RBC Morphology Smear Tech's Comments PT INR APTT PTT (Heparin Protocol) ABG pH ABG pCO2 ABG pO2 ABG HCO3 ABG O2 Saturation ABG Base Excess VBG pH VBG pCO2 VBG pO2 VBG HCO3 VBG O2 Saturation VBG Base Excess Oxygen Given Sodium 138 Potassium 3.8 Chloride 97 Carbon Dioxide 27 Anion Gap 18 BUN 9 Creatinine 0.78 Estim Creat Clear Calc 97.2 Estimated GFR > 60 POC Glucose Random Glucose 250 H D Lactic Acid Lactic Acid Fup @ 2Hr Lactic Acid Fup @ 4Hr Calcium 7.2 L D Phosphorus 2.0 L Magnesium 1.6 Total Bilirubin AST ALT Alkaline Phosphatase Troponin I High Sens 2786.2 H D B-Natriuretic Peptide Total Protein Albumin 3.5 Urine Color Urine Appearance Urine pH Ur Specific [place] Urine Protein Urine Glucose (UA) Urine Ketones Urine Blood Urine Nitrite Ur Leukocyte Esterase Urine RBC Urine WBC Ur Squamous Epith Cells Amorphous Sediment Urine Bacteria Urine Mucus Salicylates Acetone, Qual Coronavirus (PCR) Influenza Type A (PCR) Influenza Type B (PCR) RSV RNA Qual (PCR) 06/27/20 06/27/20 06/27/20 05:30 05:30 08:07 WBC RBC Hgb Hct MCV MCH MCHC RDW Plt Count MPV Immature Gran % (Auto) Neut % (Auto) Lymph % (Auto) [place] % (Auto) Eos % (Auto) Baso % (Auto) Lymph # (Auto) [place] # (Auto) Eos # (Auto) Baso # (Auto) Abs Immat Gran (auto) Absolute Neuts (auto) Absolute Nucleated RBC Nucleated RBC % (auto) Neutrophils % (Manual) Band Neutrophils % Lymphocytes % (Manual) Atypical Lymphs % (Man) Monocytes % (Manual) Abs Neuts (Manual) Lymphocytes # (Manual) Atyp Lymphs # (Manual) Monocytes # (Manual) Platelet Estimate Plt Morphology Comment RBC Morphology Smear Tech's Comments PT 17.0 H INR 1.4 H APTT PTT (Heparin Protocol) 135.9 H* ABG pH ABG pCO2 ABG pO2 ABG HCO3 ABG O2 Saturation ABG Base Excess VBG pH 7.38 VBG pCO2 49 VBG pO2 46 VBG HCO3 28 VBG O2 Saturation 80.2 VBG Base Excess 2.4 Oxygen Given Sodium Potassium Chloride Carbon Dioxide Anion Gap BUN Creatinine Estim Creat Clear Calc Estimated GFR POC Glucose Random Glucose Lactic Acid Lactic Acid Fup @ 2Hr Lactic Acid Fup @ 4Hr Calcium Phosphorus Magnesium Total Bilirubin AST ALT Alkaline Phosphatase Troponin I High Sens B-Natriuretic Peptide Total Protein Albumin Urine Color Urine Appearance Urine pH Ur Specific [place] Urine Protein Urine Glucose (UA) Urine Ketones Urine Blood Urine Nitrite Ur Leukocyte Esterase Urine RBC Urine WBC Ur Squamous Epith Cells Amorphous Sediment Urine Bacteria Urine Mucus Salicylates Acetone, Qual Coronavirus (PCR) Influenza Type A (PCR) Influenza Type B (PCR) RSV RNA Qual (PCR) 06/27/20 06/27/20 06/27/20 08:42 09:10 10:29 WBC RBC Hgb Hct MCV MCH MCHC RDW Plt Count MPV Immature Gran % (Auto) Neut % (Auto) Lymph % (Auto) [place] % (Auto) Eos % (Auto) Baso % (Auto) Lymph # (Auto) [place] # (Auto) Eos # (Auto) Baso # (Auto) Abs Immat Gran (auto) Absolute Neuts (auto) Absolute Nucleated RBC Nucleated RBC % (auto) Neutrophils % (Manual) Band Neutrophils % Lymphocytes % (Manual) Atypical Lymphs % (Man) Monocytes % (Manual) Abs Neuts (Manual) Lymphocytes # (Manual) Atyp Lymphs # (Manual) Monocytes # (Manual) Platelet Estimate Plt Morphology Comment RBC Morphology Smear Tech's Comments PT INR APTT PTT (Heparin Protocol) 97.2 H D 55.1 D ABG pH ABG pCO2 ABG pO2 ABG HCO3 ABG O2 Saturation ABG Base Excess VBG pH VBG pCO2 VBG pO2 VBG HCO3 VBG O2 Saturation VBG Base Excess Oxygen Given Sodium Potassium Chloride Carbon Dioxide Anion Gap BUN Creatinine Estim Creat Clear Calc Estimated GFR POC Glucose 250 H Random Glucose Lactic Acid Lactic Acid Fup @ 2Hr Lactic Acid Fup @ 4Hr Calcium Phosphorus Magnesium Total Bilirubin AST ALT Alkaline Phosphatase Troponin I High Sens B-Natriuretic Peptide Total Protein Albumin Urine Color Urine Appearance Urine pH Ur Specific [place] Urine Protein Urine Glucose (UA) Urine Ketones Urine Blood Urine Nitrite Ur Leukocyte Esterase Urine RBC Urine WBC Ur Squamous Epith Cells Amorphous Sediment Urine Bacteria Urine Mucus Salicylates Acetone, Qual Coronavirus (PCR) Influenza Type A (PCR) Influenza Type B (PCR) RSV RNA Qual (PCR) 06/27/20 14:33 WBC RBC Hgb Hct MCV MCH MCHC RDW Plt Count MPV Immature Gran % (Auto) Neut % (Auto) Lymph % (Auto) [place] % (Auto) Eos % (Auto) Baso % (Auto) Lymph # (Auto) [place] # (Auto) Eos # (Auto) Baso # (Auto) Abs Immat Gran (auto) Absolute Neuts (auto) Absolute Nucleated RBC Nucleated RBC % (auto) Neutrophils % (Manual) Band Neutrophils % Lymphocytes % (Manual) Atypical Lymphs % (Man) Monocytes % (Manual) Abs Neuts (Manual) Lymphocytes # (Manual) Atyp Lymphs # (Manual) Monocytes # (Manual) Platelet Estimate Plt Morphology Comment RBC Morphology Smear Tech's Comments PT INR APTT PTT (Heparin Protocol) ABG pH ABG pCO2 ABG pO2 ABG HCO3 ABG O2 Saturation ABG Base Excess VBG pH VBG pCO2 VBG pO2 VBG HCO3 VBG O2 Saturation VBG Base Excess Oxygen Given Sodium Potassium Chloride Carbon Dioxide Anion Gap BUN Creatinine Estim Creat Clear Calc Estimated GFR POC Glucose 255 H Random Glucose Lactic Acid Lactic Acid Fup @ 2Hr Lactic Acid Fup @ 4Hr Calcium Phosphorus Magnesium Total Bilirubin AST ALT Alkaline Phosphatase Troponin I High Sens B-Natriuretic Peptide Total Protein Albumin Urine Color Urine Appearance Urine pH Ur Specific [place] Urine Protein Urine Glucose (UA) Urine Ketones Urine Blood Urine Nitrite Ur Leukocyte Esterase Urine RBC Urine WBC Ur Squamous Epith Cells Amorphous Sediment Urine Bacteria Urine Mucus Salicylates Acetone, Qual Coronavirus (PCR) Influenza Type A (PCR) Influenza Type B (PCR) RSV RNA Qual (PCR) Microbiology Microbiology Results: Microbiology 06/26/20 18:42 Blood - Arterial Blood Culture - Preliminary Progress Note: A&P Assessment and plan (1) Pneumonia due to COVID-19 virus: Status: Acute Assessment and Plan: Assessment: 55-year-old lady with underlying history of diabetes and congestive heart failure admitted with acute hypoxic respiratory failure secondary to COVID-19 related viral sepsis and ARDS further complicated by NSTEMI Plan: Neuro: No acute issues. Cardiac: NSTEMI. Cardiology service care appreciated. Continue with heparin drip. Underlying history of congestive heart failure. 2D echocardiogram is pending. Pulmonary: Acute hypoxic respiratory failure secondary to COVID-19 related ARDS. Started on dexamethasone. Continue ventilatory support. Renal: No acute issues. Endo: No acute issues. Underlying diabetes mellitus. GI: No acute issues. ID: Viral sepsis from COVID-19. Of 1/2 blood cultures with gram-positive cocci, likely contaminant, empirically covered with broad-spectrum antibiotics. Will consider discontinuation in next 48 hours. Heme/Onc: No acute issues. Psych: No acute issues. Miscellaneous: No acute issues. Prophylaxis: heparin, ppi Diet: tube feeds Critical care time spent: 90 minutes (2) Viral sepsis: Status: Acute (3) ARDS (adult respiratory distress syndrome): Status: Acute (4) NSTEMI (non-ST elevated myocardial infarction): Status: Acute (5) Acute and chronic respiratory failure with hypoxia: Status: Acute Time Spent With Patient Time: Total time spent is greater than 50% in coordination of care (as documented) at patient's floor/unit and/or counseling patient: Total time spent with greater than 50% in coordination of care (as documented) at patient's floor/unit and/or counseling patient:: 0 Critical Care Time Critical Care Time (minutes): 90
[2020-06-27 18:26] LABS: PTT Heparin Drip 55.8 SEC (53-77.9)
--- NOTE | 2020-06-27 19:30 | PC.NURSE ---
shift update; pt sedate and intubated; on pcv settings; sedate on propofol and fentanyl gtt; on levo and heparin gtt; following protocol for heparin gtt- elevated ptt-hd this am- held per protocol- resumed at 1200- q6h ptt-hd entered; pt given bath this am- desatting after bath and repositioning; pt requiring paralytics, nimbex gtt started; vent settings changed to ac/volume control; pt placed on prevlon air mattress, air boot applied to left foot; restraints remain in place due to isolation and tube and line safety; pt placed on cooling blanket this evening after temp increased to 103.5; dr luther at bedside this early afternoon; nehal updated; report given to gilbert mix
[2020-06-27] MEDS: levoFLOXacin/D5W 750 MG/150 ML PIGGYBACK 100 MG IV (19:40)
[2020-06-27] MEDS: fentaNYL citrate/NS 1,000 MCG/100 ML PLAST..BAG 10 MCG IVCONT (19:51)
[2020-06-27 22:42] LABS: Glucose, Whole Blood 220 mg/dL (60-115)
[2020-06-28] VITALS (29 sets, daily range): BP systolic 95–162; BP diastolic 51–87; PULSE 91–110; RESP 22–23; TEMP 37.8–38.8; O2SAT 90–100; BMI 37.0
[2020-06-28] MEDS: propofoL 1,000 MG/100 ML VIAL 29.37 MG IVCONT ×8 (00:49→23:23)
[2020-06-28] MEDS: Heparin Sodium,Porcine/1/2NS 25,000 UNIT/250 ML IV.SOLN 9.79 UNIT IVCONT (02:27)
[2020-06-28] MEDS: Insulin Lispro 100 UNIT/ML 3 ML VIAL SUBCUT ×4 (02:36→20:48)
[2020-06-28 03:30] LABS: Glucose, Whole Blood 252 mg/dL (60-115)
[2020-06-28] MEDS: fentaNYL citrate/NS 1,000 MCG/100 ML PLAST..BAG 10 MCG IVCONT ×2 (04:18→15:26)
[2020-06-28] MEDS: Pantoprazole Sodium 40 MG/10 ML VIAL IVPUSH (04:18)
[2020-06-28 06:24] LABS: Basophils Percent Auto 0.1 % (0-2); Hematocrit 32.2 % (37-47); Hemoglobin 10.5 g/dl (12.0-16.0); Imm Gran Abs Auto 0.12 X10*3/uL (0.00-0.03); Imm Gran Pct Auto 1.5 % (0.0-0.4); Lymphocytes Absolute Auto 1.6 X10*3/uL (1.2-4.9); Lymphocytes Percent Auto 20.6 % (20-40); MANUAL DIFF FLAG SCAN; Mean Corpuscular HGB Conc 32.6 g/dl (31.0-35.0); Mean Corpuscular Hemoglobin 31.5 pg (27.0-33.0); Mean Corpuscular Volume 96.7 fL (80-98); Mean Platelet Volume 10.4 fL (9.4-12.3); Monocytes Absolute Auto 0.3 X10*3/uL (0.1-1.2); Monocytes Percent Auto 3.6 % (2-11); NRBC Pct Auto 0.3 /100WBC (0.0-0.2); Neutrophils Absolute Auto 5.9 X10*3/uL (2.0-8.3); Neutrophils Percent Auto 74.2 % (45-73); Platelet Count 291 X10*3/uL (160-400); Red Blood Count 3.33 X10*6/uL (4.20-5.50); Red Cell Distribution Width 13.1 % (11.0-16.0); SCAN SMEAR FLAG 1
[2020-06-28 06:51] LABS: SLIDE REVIEW VERIFIED
[2020-06-28 06:55] LABS: HCO3 VBG 32 mmol/L; Oxygen Saturation VBG 47.8 %; PCO2 VBG 68 mmhg; PO2 VBG 28 mmhg; pH VBG 7.29 (7.32-7.43)
[2020-06-28 06:57] LABS: Alanine Aminotransferase 34 U/L (0-31); Albumin Level 3.2 g/dL (3.5-5.0); Alkaline Phosphatase 68 U/L (39-117); Anion Gap 16 (12-20); Aspartate Amino Transferase 71 U/L (5-31); Bilirubin Total 0.6 mg/dL (0.0-1.0); Blood Urea Nitrogen 7 mg/dL (9-16); Calcium 7.8 mg/dL (8.4-10.2); Carbon Dioxide 31 mmol/L (22-29); Chloride 99 mmol/L (96-108); Creatinine Clr Calc Pharmacy 100.1; Estimated Glomerular Filt Rate > 60; Glucose Random 234 mg/dL (60-115); Magnesium 1.8 mg/dL (1.6-2.6); Phosphorus 1.5 mg/dL (2.7-4.5); Potassium 3.9 mmol/l (3.3-5.1); Sodium 142 mmol/L (135-145); Total Protein 6.5 g/dL (6.5-8.0)
[2020-06-28 07:00] LABS: Troponin-I High Sensitivity 892.5 ng/L (<3.5-17.0)
[2020-06-28 07:01] LABS: D Dimer 6425 NG/ML
[2020-06-28 08:19] LABS: Glucose, Whole Blood 227 mg/dL (60-115)
[2020-06-28] MEDS: dexAMETHasone sod phosphate 4 MG/ML VIAL IVPUSH ×2 (08:46→20:48)
[2020-06-28] MEDS: 0.9 % Sodium Chloride Flush 3 ML SYRINGE IVFLUSH ×2 (08:46→15:26)
[2020-06-28] MEDS: Chlorhexidine Gluc Oral Rinse 15 ML MOUTHWASH BUCCAL ×3 (08:46→23:39)
[2020-06-28] MEDS: Heparin Sodium,Porcine 5,000 UNIT/ML VIAL 3916 UNIT IVPUSH ×2 (08:55→23:26)
[2020-06-28] MEDS: Potassium Phosphate 30 MMOL in 0.9 % Sodium Chloride 500 ML 85 MMOL IV (11:35)
--- NOTE | 2020-06-28 13:49 | PM.CCPN ---
Subjective Subjective Date of Service: 06/28/20 Interval History: 55-year-old lady with underlying history of congestive heart failure, diabetes mellitus admitted on 06/26/2020 with 2D history of progressive dyspnea. On ER evaluation patient was noted to be COVID positive and in acute hypoxic respiratory failure requiring intubation and ventilatory support. She also was noted to have significant lactic acidosis and elevated cardiac markers. However, her EKG showed no significant ST changes. She was admitted to intensive care unit further workup and management. No events overnight. FiO2 requirements improved. Physical Exam Vital Signs: Vital Signs: Last Vital Signs Temp 100.6 F H 06/28/20 13:00 Pulse 100 06/28/20 13:00 Resp 22 H 06/28/20 13:00 BP 118/70 06/28/20 13:00 Pulse Ox 92 06/28/20 13:00 Body Mass Index 37.0 Const: General: no acute distress and other ( sedated on the vent) Nutritional Appearance: obese Eyes: Sclerae: sclerae normal Neck: Neck: Yes no lymphadenopathy, Yes trachea midline and Yes supple Resp: Auscultation: crackles ( diffuse bilateral) Cardio: Rate: tachycardic Rhythm: regular rhythm Heart sounds: no gallops, no murmurs and no rubs GI: Palpation (GI): Soft to palpation and Other GI palpation findings present ( Nontender) Auscultation: normal bowel sounds Extrem: General: No clubbing, No cyanosis and Yes edema ( 1+ bilateral) Objective Data Labs CBC & Chem 7: 06/28/20 06:00 06/28/20 06:00 Labs: Laboratory Results - last 24 hr 06/27/20 06/27/20 06/27/20 14:33 18:06 20:12 WBC RBC Hgb Hct MCV MCH MCHC RDW Plt Count MPV Immature Gran % (Auto) Neut % (Auto) Lymph % (Auto) [place] % (Auto) Eos % (Auto) Baso % (Auto) Lymph # (Auto) [place] # (Auto) Eos # (Auto) Baso # (Auto) Abs Immat Gran (auto) Absolute Neuts (auto) Absolute Nucleated RBC Nucleated RBC % (auto) Smear Tech's Comments PTT (Heparin Protocol) 55.8 D-Dimer VBG pH VBG pCO2 VBG pO2 VBG HCO3 VBG O2 Saturation VBG Base Excess Sodium Potassium Chloride Carbon Dioxide Anion Gap BUN Creatinine Estim Creat Clear Calc Estimated GFR POC Glucose 255 H 220 H Random Glucose Calcium Phosphorus Magnesium Total Bilirubin AST ALT Alkaline Phosphatase Troponin I High Sens Total Protein Albumin 06/28/20 06/28/20 06/28/20 02:32 05:59 05:59 WBC RBC Hgb Hct MCV MCH MCHC RDW Plt Count MPV Immature Gran % (Auto) Neut % (Auto) Lymph % (Auto) [place] % (Auto) Eos % (Auto) Baso % (Auto) Lymph # (Auto) [place] # (Auto) Eos # (Auto) Baso # (Auto) Abs Immat Gran (auto) Absolute Neuts (auto) Absolute Nucleated RBC Nucleated RBC % (auto) Smear Tech's Comments PTT (Heparin Protocol) D-Dimer VBG pH 7.29 L VBG pCO2 68 VBG pO2 28 VBG HCO3 32 VBG O2 Saturation 47.8 VBG Base Excess 4.0 Sodium Potassium Chloride Carbon Dioxide Anion Gap BUN Creatinine Estim Creat Clear Calc Estimated GFR POC Glucose 252 H Random Glucose Calcium Phosphorus Magnesium Total Bilirubin AST ALT Alkaline Phosphatase Troponin I High Sens 892.5 H D Total Protein Albumin 06/28/20 06/28/20 06/28/20 05:59 06:00 06:00 WBC 8.0 RBC 3.33 L Hgb 10.5 L Hct 32.2 L MCV 96.7 MCH 31.5 MCHC 32.6 RDW 13.1 Plt Count 291 MPV 10.4 Immature Gran % (Auto) 1.5 H Neut % (Auto) 74.2 H Lymph % (Auto) 20.6 [place] % (Auto) 3.6 Eos % (Auto) 0.0 Baso % (Auto) 0.1 Lymph # (Auto) 1.6 [place] # (Auto) 0.3 Eos # (Auto) 0.0 Baso # (Auto) 0.0 Abs Immat Gran (auto) 0.12 H Absolute Neuts (auto) 5.9 Absolute Nucleated RBC 0.020 H Nucleated RBC % (auto) 0.3 H Smear Tech's Comments VERIFIED PTT (Heparin Protocol) 48.0 L D-Dimer 6425 VBG pH VBG pCO2 VBG pO2 VBG HCO3 VBG O2 Saturation VBG Base Excess Sodium 142 Potassium 3.9 Chloride 99 Carbon Dioxide 31 H Anion Gap 16 BUN 7 L Creatinine 0.74 Estim Creat Clear Calc 100.1 Estimated GFR > 60 POC Glucose Random Glucose 234 H Calcium 7.8 L D Phosphorus 1.5 L Magnesium 1.8 Total Bilirubin 0.6 AST 71 H ALT 34 H Alkaline Phosphatase 68 Troponin I High Sens Total Protein 6.5 Albumin 3.2 L 06/28/20 06/28/20 06:00 08:14 WBC RBC Hgb Hct MCV MCH MCHC RDW Plt Count MPV Immature Gran % (Auto) Neut % (Auto) Lymph % (Auto) [place] % (Auto) Eos % (Auto) Baso % (Auto) Lymph # (Auto) [place] # (Auto) Eos # (Auto) Baso # (Auto) Abs Immat Gran (auto) Absolute Neuts (auto) Absolute Nucleated RBC Nucleated RBC % (auto) Smear Tech's Comments PTT (Heparin Protocol) D-Dimer Cancelled VBG pH VBG pCO2 VBG pO2 VBG HCO3 VBG O2 Saturation VBG Base Excess Sodium Potassium Chloride Carbon Dioxide Anion Gap BUN Creatinine Estim Creat Clear Calc Estimated GFR POC Glucose 227 H Random Glucose Calcium Phosphorus Magnesium Total Bilirubin AST ALT Alkaline Phosphatase Troponin I High Sens Total Protein Albumin Microbiology Microbiology Results: Microbiology 06/26/20 18:42 Blood - Arterial Blood Culture - Final Streptococcus viridans group 06/26/20 18:40 Blood - Arterial Blood Culture - Preliminary No growth after 24 hours. Progress Note: A&P Assessment and plan (1) NSTEMI (non-ST elevated myocardial infarction): Status: Acute Assessment and Plan: Assessment: 55-year-old lady with underlying history of diabetes and congestive heart failure admitted with acute hypoxic respiratory failure secondary to COVID-19 related viral sepsis and ARDS further complicated by NSTEMI Plan: Neuro: No acute issues. Cardiac: NSTEMI. Cardiology service care appreciated. Continue with heparin drip for the next 24 hours. Underlying history of congestive heart failure. 2D echocardiogram with normal EF. Pulmonary: Acute hypoxic respiratory failure secondary to COVID-19 related ARDS. Continue on dexamethasone. Continue ventilatory support. Renal: No acute issues. Endo: No acute issues. Underlying diabetes mellitus. GI: No acute issues. ID: Viral sepsis from COVID-19. Of 1/2 blood cultures with gram-positive cocci, likely contaminant, empirically covered with broad-spectrum antibiotics. Will consider discontinuation in next 24 hours. Heme/Onc: No acute issues. Psych: No acute issues. Miscellaneous: No acute issues. Prophylaxis: heparin, ppi Diet: tube feeds Critical care time spent: 60 minutes (2) Acute respiratory distress syndrome (ARDS) due to COVID-19 virus: Status: Acute (3) Acute respiratory failure with hypoxia: Status: Acute (4) Viral sepsis: Status: Acute (5) CHF (congestive heart failure): Status: Acute Time Spent With Patient Total time spent with greater than 50% in coordination of care (as documented) at patient's floor/unit and/or counseling patient:: 0 Critical Care Time Critical Care Time (minutes): 60
[2020-06-28 15:00] LABS: Glucose, Whole Blood 282 mg/dL (60-115)
[2020-06-28 16:07] LABS: PTT Heparin Drip 67.6 SEC (53-77.9)
--- NOTE | 2020-06-28 19:24 | PC.NURSE ---
Addendum entered by Noelle Deras RN 06/28/20 19:26: pt remains on cooling blanket this shift to maintain temp Original Note: shift update; pt remains intubated and sedate on ac settings et tube 7.5 23 cm- maintaining sats and volumes- weaning peep to 8- titrating and weaning fio2 as sat tolerates; sr on monitor; bp support with levophed gtt, heparin gtt running and maintaining per hospital policy- dose adjusted per policy; og tube clamped, pt remains on nimbex gtt 1mcg/kg/min; turning pt q2h; nehal updated; report given to oncoming dominguez bashir
[2020-06-28 20:38] LABS: Glucose, Whole Blood 231 mg/dL (60-115)
[2020-06-28] MEDS: levoFLOXacin/D5W 750 MG/150 ML PIGGYBACK 100 MG IV (20:49)
[2020-06-28 22:08] LABS: Vancomycin Trough 12.5 mcg/mL (10.0-20.0)
[2020-06-28 22:15] LABS: PTT Heparin Drip 47.2 SEC (53-77.9)
[2020-06-29] VITALS (30 sets, daily range): BP systolic 104–154; BP diastolic 63–94; PULSE 86–106; RESP 22–26; TEMP 37.1–38.4; O2SAT 89–103; BMI 37.8
[2020-06-29] MEDS: Heparin Sodium,Porcine/1/2NS 25,000 UNIT/250 ML IV.SOLN 11.75 UNIT IVCONT (01:10)
[2020-06-29] MEDS: 0.9 % Sodium Chloride Flush 3 ML SYRINGE IVFLUSH ×3 (01:27→16:04)
[2020-06-29] MEDS: fentaNYL citrate/NS 1,000 MCG/100 ML PLAST..BAG 10 MCG IVCONT ×3 (01:32→20:46)
[2020-06-29 02:26] LABS: Glucose, Whole Blood 300 mg/dL (60-115)
[2020-06-29] MEDS: Insulin Lispro 100 UNIT/ML 3 ML VIAL SUBCUT ×4 (02:34→20:54)
[2020-06-29] MEDS: propofoL 1,000 MG/100 ML VIAL 29.37 MG IVCONT ×7 (02:39→21:40)
[2020-06-29] MEDS: Pantoprazole Sodium 40 MG/10 ML VIAL IVPUSH (05:32)
[2020-06-29 05:44] LABS: Hematocrit 31.2 % (37-47); Mean Corpuscular HGB Conc 32.1 g/dl (31.0-35.0); Mean Corpuscular Hemoglobin 31.1 pg (27.0-33.0); Mean Corpuscular Volume 96.9 fL (80-98); Mean Platelet Volume 10.7 fL (9.4-12.3); NRBC Pct Auto 0.3 /100WBC (0.0-0.2); Platelet Count 317 X10*3/uL (160-400); Red Blood Count 3.22 X10*6/uL (4.20-5.50); Red Cell Distribution Width 13.2 % (11.0-16.0)
[2020-06-29 06:07] LABS: Base Excess VBG 2.3 mmol/L; HCO3 VBG 29 mmol/L; Oxygen Saturation VBG 77.8 %; PCO2 VBG 57 mmhg; PO2 VBG 44 mmhg; pH VBG 7.33 (7.32-7.43)
[2020-06-29 06:14] LABS: Alanine Aminotransferase 32 U/L (0-31); Alkaline Phosphatase 62 U/L (39-117); Anion Gap 19 (12-20); Aspartate Amino Transferase 51 U/L (5-31); Bilirubin Total 0.6 mg/dL (0.0-1.0); Blood Urea Nitrogen 7 mg/dL (9-16); Calcium 7.8 mg/dL (8.4-10.2); Carbon Dioxide 27 mmol/L (22-29); Chloride 99 mmol/L (96-108); Creatinine Clr Calc Pharmacy 105.1; Estimated Glomerular Filt Rate > 60; Glucose Random 317 mg/dL (60-115); Phosphorus 2.2 mg/dL (2.7-4.5); Potassium 4.3 mmol/l (3.3-5.1); Sodium 141 mmol/L (135-145); Total Protein 6.2 g/dL (6.5-8.0)
[2020-06-29 06:19] LABS: Band Neutrophils Percent 6 % (3-5); Lymphocytes Absolute Manual 0.5 X10*3/uL (0.6-4.8); Lymphocytes Percent Manual 7 % (20-40); Metamyelocytes Absolute 0.1 X10*3/uL; Metamyelocytes Percent 2 %; Monocytes Absolute Manual 0.3 X10*3/uL (0.0-1.2); Monocytes Percent Manual 4 % (2-11); Neutrophils Absolute Manual 6.1 X10*3/uL (2.2-7.9); Neutrophils Percent Manual 81 % (45-73)
[2020-06-29 06:20] LABS: Platelet Estimate NORMAL (NORMAL); Platelet Morphology Comment NORMAL; Polychromasia 1+; RBC Morphology NOTED
--- NOTE | 2020-06-29 07:16 | PC.NURSE ---
ptt at 2200 47.2, heparin bolus given 3800 units iv and heparin drip increased to 14 units/kg/hr per protocol. next ptt due at 0500 was within therapeutic range.
[2020-06-29 08:09] LABS: Glucose, Whole Blood 274 mg/dL (60-115)
[2020-06-29] MEDS: Chlorhexidine Gluc Oral Rinse 15 ML MOUTHWASH BUCCAL ×3 (09:20→21:40)
[2020-06-29] MEDS: dexAMETHasone sod phosphate 4 MG/ML VIAL IVPUSH ×2 (09:53→20:46)
[2020-06-29] MEDS: Sodium,Potassium Phosphates POWD.PACK 2 PACKET PO (10:06)
[2020-06-29] MEDS: Furosemide 20 MG/2 ML VIAL IVPUSH (10:06)
[2020-06-29] MEDS: Heparin Sodium,Porcine 5,000 UNIT/ML VIAL 5000 UNIT SUBCUT ×2 (10:07→18:52)
[2020-06-29] MEDS: Insulin Glargine,Hum.rec.anlog 100 UNIT/ML 10 ML VIAL 20 UNIT SUBCUT (10:07)
[2020-06-29] MEDS: Albumin Human 25 % 100 ML IV ×3 (10:13→20:46)
--- NOTE | 2020-06-29 14:20 | P.PNCC_ITS ---
Subjective Subjective Date of Service: 06/29/20 Interval History: ICU day 3 for acute hypoxic respiratory failure secondary to COVID-19 ARDS and NSTEMI. 55-year-old lady with underlying history of congestive heart failure, diabetes mellitus admitted on 06/26/2020 with 2D history of progressive dyspnea. On ER evaluation patient was noted to be COVID positive and in acute hypoxic respir atory failure requiring intubation and ventilatory support. She also was noted to have significant lactic acidosis and elevated cardiac markers. However, her EKG showed no significant ST changes. She was admitted to intensive care unit further workup and management. No events overnight. Physical Exam Vital Signs: Vital Signs: Last Vital Signs Temp 100.1 F 06/29/20 14:00 Pulse 87 06/29/20 14:00 Resp 22 H 06/29/20 14:00 BP 106/75 06/29/20 14:00 Pulse Ox 98 06/29/20 14:00 Body Mass Index 37.8 Const: General: no acute distress and other ( Sedated on the vent) N utritional Appearance: obese Eyes: Sclerae: sclerae normal Neck: Neck: Yes no lymphadenopathy, Yes trachea midline and Yes supple Resp: Auscultation: crackles ( diffuse bilateral) Cardio: Rate: regular rate Rhythm: regular rhythm Heart sounds: no gallops, no murmurs and no rubs GI: Palpation (GI): Soft to palpation and Other GI palpation findings present ( Nontender) Auscultation: normal bowel sounds Extrem: General: No clubbing, No cyanosis and Yes edema ( 1+ bilateral) Objective Data Labs CBC & Chem 7: 06/29/20 05:04 06/29/20 05:04 Labs: Laboratory Results - last 24 hr 06/28/20 06/28/20 06/28/20 14:51 15:53 20:00 WBC RBC Hgb Hct MCV MCH MCHC RDW Plt Count MPV Immature Gran % (Auto) Neut % (Auto) Lymph % (Auto) [place] % (Auto) Eos % (Auto) Baso % (Auto) Lymph # (Auto) [place] # (Auto) Eos # (Auto) Baso # (Auto) Abs Immat Gran (auto) Absolute Neuts (auto) Absolute Nucleated RBC Nucleated RBC % (auto) Neutrophils % (Manual) Band Neutrophils % Lymphocytes % (Manual) Monocytes % (Manual) Metamyelocytes % Abs Neuts (Manual) Lymphocytes # (Manual) Monocytes # (Manual) Metamyelocytes # Platelet Estimate Plt Morphology Comment RBC Morphology Polychromasia PTT (Heparin Protocol) 67.6 D VBG pH VBG pCO2 VBG pO2 VBG HCO3 VBG O2 Saturation VBG Base Excess Sodium Potassium Chloride Carbon Dioxide Anion Gap BUN Creatinine Estim Creat Clear Calc Estimated GFR POC Glucose 282 H Random Glucose Calcium Phosphorus Magnesium Total Bilirubin AST ALT Alkaline Phosphatase Total Protein Albumin Vancomycin Trough 12.5 06/28/20 06/28/20 06/29/20 20:33 22:01 02:21 WBC RBC Hgb Hct MCV MCH MCHC RDW Plt Count MPV Immature Gran % (Auto) Neut % (Auto) Lymph % (Auto) [place] % (Auto) Eos % (Auto) Baso % (Auto) Lymph # (Auto) [place] # (Auto) Eos # (Auto) Baso # (Auto) Abs Immat Gran (auto) Absolute Neuts (auto) Absolute Nucleated RBC Nucleated RBC % (auto) Neutrophils % (Manual) Band Neutrophils % Lymphocytes % (Manual) Monocytes % (Manual) Metamyelocytes % Abs Neuts (Manual) Lymphocytes # (Manual) Monocytes # (Manual) Metamyelocytes # Platelet Estimate Plt Morphology Comment RBC Morphology Polychromasia PTT (Heparin Protocol) 47.2 L D VBG pH VBG pCO2 VBG pO2 VBG HCO3 VBG O2 Saturation VBG Base Excess Sodium Potassium Chloride Carbon Dioxide Anion Gap BUN Creatinine Estim Creat Clear Calc Estimated GFR POC Glucose 231 H 300 H Random Glucose Calcium Phosphorus Magnesium Total Bilirubin AST ALT Alkaline Phosphatase Total Protein Albumin Vancomycin Trough 06/29/20 06/29/20 06/29/20 05:04 05:04 05:04 WBC 7.0 RBC 3.22 L Hgb 10.0 L Hct 31.2 L MCV 96.9 MCH 31.1 MCHC 32.1 RDW 13.2 Plt Count 317 MPV 10.7 Immature Gran % (Auto) Cancelled Neut % (Auto) Cancelled Lymph % (Auto) Cancelled [place] % (Auto) Cancelled Eos % (Auto) Cancelled Baso % (Auto) Cancelled Lymph # (Auto) Cancelled [place] # (Auto) Cancelled Eos # (Auto) Cancelled Baso # (Auto) Cancelled Abs Immat Gran (auto) Cancelled Absolute Neuts (auto) Cancelled Absolute Nucleated RBC 0.020 H Nucleated RBC % (auto) 0.3 H Neutrophils % (Manual) 81 H Band Neutrophils % 6 H Lymphocytes % (Manual) 7 L Monocytes % (Manual) 4 Metamyelocytes % 2 Abs Neuts (Manual) 6.1 Lymphocytes # (Manual) 0.5 L Monocytes # (Manual) 0.3 Metamyelocytes # 0.1 Platelet Estimate NORMAL Plt Morphology Comment NORMAL RBC Morphology NOTED Polychromasia 1+ PTT (Heparin Protocol) 69.0 D VBG pH VBG pCO2 VBG pO2 VBG HCO3 VBG O2 Saturation VBG Base Excess Sodium 141 Potassium 4.3 Chloride 99 Carbon Dioxide 27 Anion Gap 19 BUN 7 L Creatinine 0.67 Estim Creat Clear Calc 105.1 Estimated GFR > 60 POC Glucose Random Glucose 317 H D Calcium 7.8 L Phosphorus 2.2 L Magnesium 2.0 Total Bilirubin 0.6 AST 51 H ALT 32 H Alkaline Phosphatase 62 Total Protein 6.2 L Albumin 3.0 L Vancomycin Trough 06/29/20 06/29/20 05:04 08:04 WBC RBC Hgb Hct MCV MCH MCHC RDW Plt Count MPV Immature Gran % (Auto) Neut % (Auto) Lymph % (Auto) [place] % (Auto) Eos % (Auto) Baso % (Auto) Lymph # (Auto) [place] # (Auto) Eos # (Auto) Baso # (Auto) Abs Immat Gran (auto) Absolute Neuts (auto) Absolute Nucleated RBC Nucleated RBC % (auto) Neutrophils % (Manual) Band Neutrophils % Lymphocytes % (Manual) Monocytes % (Manual) Metamyelocytes % Abs Neuts (Manual) Lymphocytes # (Manual) Monocytes # (Manual) Metamyelocytes # Platelet Estimate Plt Morphology Comment RBC Morphology Polychromasia PTT (Heparin Protocol) VBG pH 7.33 VBG pCO2 57 VBG pO2 44 VBG HCO3 29 VBG O2 Saturation 77.8 VBG Base Excess 2.3 Sodium Potassium Chloride Carbon Dioxide Anion Gap BUN Creatinine Estim Creat Clear Calc Estimated GFR POC Glucose 274 H Random Glucose Calcium Phosphorus Magnesium Total Bilirubin AST ALT Alkaline Phosphatase Total Protein Albumin Vancomycin Trough Microbiology Microbiology Results: Microbiology 06/26/20 18:40 Blood - Arterial Blood Culture - Preliminary No growth after 48 hours. 06/26/20 18:42 Blood - Arterial Blood Culture - Final Streptococcus viridans group Progress Note: A&P Assessment and plan (1) Acute respiratory failure with hypoxia: Status: Acute Assessment and Plan: Assessment: 55-year-old lady with underlying history of diabetes and congestive heart failure admitted with acute hypoxic respiratory failure secondary to COVID-19 related viral sepsis and ARDS further complicated by NSTEMI Plan: Neuro: No acute issues. Cardiac: NSTEMI. Cardiology service care appreciated. completed heparin drip for 48 hours. Underlying history of congestive heart failure ?diastolic. 2D echocardiogram with normal EF. Pulmonary: Acute hypoxic respiratory failure secondary to COVID-19 related ARDS. Continue on dexamethasone. Continue ventilatory support. Renal: No acute issues. Endo: No acute issues. Underlying diabetes mellitus. GI: No acute issues. ID: Viral sepsis from COVID-19. 1/2 blood cultures with gram-positive cocci, likely contaminant, empirically covered with broad-spectrum antibiotics initially, now discontinued. Continue to monitor of antibiotics. Heme/Onc: No acute issues. Psych: No acute issues. Miscellaneous: No acute issues. Prophylaxis: heparin, ppi Diet: tube feeds Critical care time spent: 60 minutes (2) Acute respiratory distress syndrome (ARDS) due to COVID-19 virus: Status: Acute (3) NSTEMI (non-ST elevated myocardial infarction): Status: Acute Time Spent With Patient Time: Total time spent is greater than 50% in coordination of care (as documented) at patient's floor/unit and/or counseling patient: Total time spent with greater than 50% in coordination of care (as documented) at patient's floor/unit and/or counseling patient:: 0 Critical Care Time Critical Care Time (minutes): 60
[2020-06-29 14:22] LABS: Glucose, Whole Blood 320 mg/dL (60-115)
--- NOTE | 2020-06-29 19:52 | PC.NURSE ---
shift update; pt intubated and sedate; on nimbex gtt- pt occasionally coughing, bucking vent on this rate- remains running, md aware; propofol and fentanyl gtt also running; 7.5 et tube at 23 cm; ac settings 22, 420, peep 8 fio2 between 60-90%, pt desatg on left side; lung sounds with crackles this am, weight increased by 5 kg- lasix and albumin given as ordered; vanco d/c'ed and levaquin d/c'ed; heparin gtt d/c'ed this am, ptt-hd cancelled for subsequent draws; pt output 725 ml with lasix; lung sounds mild improvement; lantus 20 units added- pocs high 200-300 range; skin d&i; tlc remains in place in [facility], caps changed; updated by esl instructor dr herzog today; report given to oncoming dmoinguez luo
[2020-06-30] VITALS (30 sets, daily range): BP systolic 94–152; BP diastolic 44–79; PULSE 91–130; RESP 15–22; TEMP 37.5–38.8; O2SAT 86–96; BMI 38.1
[2020-06-30 00:30] LABS: Glucose, Whole Blood 261 mg/dL (60-115)
[2020-06-30] MEDS: propofoL 1,000 MG/100 ML VIAL 29.37 MG IVCONT ×7 (01:19→21:32)
[2020-06-30] MEDS: Heparin Sodium,Porcine 5,000 UNIT/ML VIAL 5000 UNIT SUBCUT ×2 (01:19→09:58)
[2020-06-30] MEDS: Albumin Human 25 % 100 ML IV (02:38)
[2020-06-30] MEDS: Insulin Lispro 100 UNIT/ML 3 ML VIAL SUBCUT ×2 (02:45→08:01)
[2020-06-30] MEDS: fentaNYL citrate/NS 1,000 MCG/100 ML PLAST..BAG 20 MCG IVCONT ×3 (05:01→21:32)
[2020-06-30] MEDS: Pantoprazole Sodium 40 MG/10 ML VIAL IVPUSH (05:01)
[2020-06-30 06:06] LABS: Glucose, Whole Blood 286 mg/dL (60-115)
[2020-06-30 06:08] LABS: Hematocrit 25.3 % (37-47); Mean Corpuscular HGB Conc 31.6 g/dl (31.0-35.0); Mean Corpuscular Hemoglobin 30.9 pg (27.0-33.0); Mean Corpuscular Volume 97.7 fL (80-98); Mean Platelet Volume 10.5 fL (9.4-12.3); Platelet Count 244 X10*3/uL (160-400); Red Blood Count 2.59 X10*6/uL (4.20-5.50); Red Cell Distribution Width 13.2 % (11.0-16.0); White Blood Count 4.4 X10*3/uL (4.8-10.8)
[2020-06-30 06:18] LABS: Base Excess VBG 6.2 mmol/L; HCO3 VBG 32 mmol/L; Oxygen Saturation VBG 84.6 %; PCO2 VBG 53 mmhg; PO2 VBG 50 mmhg
[2020-06-30 06:29] LABS: Albumin Level 3.9 g/dL (3.5-5.0); Anion Gap 16 (12-20); Blood Urea Nitrogen 14 mg/dL (9-16); Calcium 8.5 mg/dL (8.4-10.2); Carbon Dioxide 33 mmol/L (22-29); Chloride 98 mmol/L (96-108); Estimated Glomerular Filt Rate > 60; Glucose Random 298 mg/dL (60-115); Magnesium 2.2 mg/dL (1.6-2.6); Phosphorus 2.8 mg/dL (2.7-4.5); Sodium 143 mmol/L (135-145)
[2020-06-30 07:17] LABS: Band Neutrophils Percent 4 % (3-5); Lymphocytes Absolute Manual 0.8 X10*3/uL (0.6-4.8); Lymphocytes Percent Manual 19 % (20-40); Metamyelocytes Absolute 0.1 X10*3/uL; Metamyelocytes Percent 2 %; Monocytes Absolute Manual 0.1 X10*3/uL (0.0-1.2); Monocytes Percent Manual 3 % (2-11); Neutrophils Absolute Manual 3.3 X10*3/uL (2.2-7.9); Neutrophils Percent Manual 72 % (45-73); Nucleated Red Blood Cells 1 /100WBC (0-0)
[2020-06-30] MEDS: 0.9 % Sodium Chloride Flush 3 ML SYRINGE IVFLUSH ×2 (07:20→15:21)
[2020-06-30] MEDS: Chlorhexidine Gluc Oral Rinse 15 ML MOUTHWASH BUCCAL ×3 (07:20→21:32)
[2020-06-30 07:27] LABS: RBC Morphology NOTED
[2020-06-30 07:28] LABS: Hypochromasia 1+
[2020-06-30 07:29] LABS: Platelet Estimate NORMAL (NORMAL); Platelet Morphology Comment NORMAL; Polychromasia 1+
[2020-06-30 07:56] LABS: Glucose, Whole Blood 253 mg/dL (60-115)
[2020-06-30] MEDS: Insulin Glargine,Hum.rec.anlog 100 UNIT/ML 10 ML VIAL 20 UNIT SUBCUT (08:01)
[2020-06-30] MEDS: dexAMETHasone sod phosphate 4 MG/ML VIAL IVPUSH (08:01)
--- NOTE | 2020-06-30 08:08 | P.PNCC_ITS ---
Subjective Subjective Date of Service: 07/01/20 Interval History: Mrs. Srinivas Cedeño was admitted to the ICU on June 26 with acute resp failure secondary to COVID pneumonia. The patient is a 55-year-old woman with past medical history of congestive heart failure, diabetes, fibromyalgia, depression, and ? seizures. The patient was brought to the ED by her in a private vehicle on Jun 26 in acute respiratory distress. The reported that the patient had not been feeling well for the prior two days. In the ED, room air Sat was 50s, SBPs 80s. The patient was cyanotic and lethargic. She was immediately intubated. Labs in the ED were notable for WBC 16.7, sodium 133, potassium 3.2, bicarb 11, BUN/creat 12/1.1, troponin 115, BNP 166, lactic acid 13.8. AB.14/34/106/-16. Chest x-ray showed diffuse bilateral patchy opacities. Rapid COVID test positive. Chest CT showed widespread patchy severe dense consolidation throughout both lungs suggestive of bilateral pneumonia. The patient was admitted to ICU and started on broad spectrum abx and Decadron 4mg bid. The next day required NMB for effective ventilation and oxygenation. Trop ryley on 06/27 to 2786. Very limited echo study showed normal left ventricular size and systolic function, normal RV cavity size w low-normal right ventricular systolic function. Limited valvular assessment. IVC not visualized. DDimer on 06/28 was 6400. No other biomarkers. Unable to make much progress with the ventilator over subsequent two days. This morning, the patient is heavily sedated and on a Nimbex infusion. Despite all that, she desaturates with the simplest nursing maneuvers. She is currently on propofol at 50, fentanyl at 01:50, and Nimbex at 2 mcg. Levophed is off. See vital signs below. Heart rate is 107, blood pressure is 121/68, Temps 99+?. The ventilator is set at AC 22/420 cc/100%/+8, with total respiratory rate 22, Ve 9.3L, PiP 36, SpO2 94%. CVBG this morning showed 7.40/53/+6. VENTILATOR MANAGEMENT: We took the patient off Nimbex and put her on APRV. We were unable to achieve release volumes greater than 300 cc, while keeping the floor pressure above 5 cm., even with auto PEEP of 10 cm. The best PvCO2 achieved was 70mm. Gross ventilatory mechanics did not look good, with significant abdominal paradox. The patient was therefore switched back to pressure control ventilation. Her ventilator synchrony and ventilatory pattern improved dramatically, and her end-tidal CO2 came down significantly. The best FiO2 we were able to achieve was 80%, with a PEEP of 12 cm. LABORATORY DATA: As below. Notably, POCs were running in the high 200s. Therefore we started her on an insulin drip. IMPRESSION: 1. Bilateral COVID pneumonia with ARDS. 2. Acute hypoxemic respiratory failure secondary to above. Hopefully we can keep her off neuromuscular blockade. 3. Uncontrolled hyperglycemia. Started on an insulin drip. I?ve started her on the ?full michelle? EVMS COVID protocol, including Lovenox 1mg/kg bid, and Solumedrol 80 mg bid. No role for remdesivir or convalescent plasma. Follow daily DDimer, Ferritin, CRP, and procalcitonin. Consider Doxy. Watch for severe hypercarbia or MAS. Prognosis is grim. Given the severity of her disease, survival probably < 10%. Critical care time (including chart rev, hosp course summary, mult visits to bedside, [facility] d/w Dr. Babcock, [facility] d/w pharmacy): 2 hrs Physical Exam Vital Signs: Vital Signs: Last Vital Signs Temp 99.5 F 06/30/20 08:00 Pulse 107 H 06/30/20 08:00 Resp 22 H 06/30/20 08:00 BP 121/68 06/30/20 08:00 Pulse Ox 94 06/30/20 08:00 Body Mass Index 37.8 Objective Data Labs CBC & Chem 7: 07/01/20 05:15 07/01/20 05:15 Labs: Laboratory Results - last 24 hr 06/29/20 06/29/20 06/29/20 08:04 14:13 20:51 WBC RBC Hgb Hct MCV MCH MCHC RDW Plt Count MPV Immature Gran % (Auto) Neut % (Auto) Lymph % (Auto) [place] % (Auto) Eos % (Auto) Baso % (Auto) Lymph # (Auto) [place] # (Auto) Eos # (Auto) Baso # (Auto) Abs Immat Gran (auto) Absolute Neuts (auto) Absolute Nucleated RBC Nucleated RBC % (auto) Neutrophils % (Manual) Band Neutrophils % Lymphocytes % (Manual) Monocytes % (Manual) Metamyelocytes % Abs Neuts (Manual) Lymphocytes # (Manual) Monocytes # (Manual) Metamyelocytes # Nucleated RBCs Platelet Estimate Plt Morphology Comment RBC Morphology Polychromasia Hypochromasia VBG pH VBG pCO2 VBG pO2 VBG HCO3 VBG O2 Saturation VBG Base Excess Sodium Potassium Chloride Carbon Dioxide Anion Gap BUN Creatinine Estim Creat Clear Calc Estimated GFR POC Glucose 274 H 320 H 261 H Random Glucose Calcium Phosphorus Magnesium Albumin 06/30/20 06/30/20 06/30/20 02:43 05:39 05:39 WBC 4.4 L RBC 2.59 L Hgb 8.0 L Hct 25.3 L MCV 97.7 MCH 30.9 MCHC 31.6 RDW 13.2 Plt Count 244 MPV 10.5 Immature Gran % (Auto) Cancelled Neut % (Auto) Cancelled Lymph % (Auto) Cancelled [place] % (Auto) Cancelled Eos % (Auto) Cancelled Baso % (Auto) Cancelled Lymph # (Auto) Cancelled [place] # (Auto) Cancelled Eos # (Auto) Cancelled Baso # (Auto) Cancelled Abs Immat Gran (auto) Cancelled Absolute Neuts (auto) Cancelled Absolute Nucleated RBC 0.000 Nucleated RBC % (auto) 0.0 Neutrophils % (Manual) 72 Band Neutrophils % 4 Lymphocytes % (Manual) 19 L Monocytes % (Manual) 3 Metamyelocytes % 2 Abs Neuts (Manual) 3.3 Lymphocytes # (Manual) 0.8 Monocytes # (Manual) 0.1 Metamyelocytes # 0.1 Nucleated RBCs 1 H Platelet Estimate NORMAL Plt Morphology Comment NORMAL RBC Morphology NOTED Polychromasia 1+ Hypochromasia 1+ VBG pH VBG pCO2 VBG pO2 VBG HCO3 VBG O2 Saturation VBG Base Excess Sodium 143 Potassium 4.0 Chloride 98 Carbon Dioxide 33 H Anion Gap 16 BUN 14 D Creatinine 0.75 Estim Creat Clear Calc 95.0 Estimated GFR > 60 POC Glucose 286 H Random Glucose 298 H Calcium 8.5 D Phosphorus 2.8 Magnesium 2.2 Albumin 3.9 D 06/30/20 06/30/20 05:39 07:32 WBC RBC Hgb Hct MCV MCH MCHC RDW Plt Count MPV Immature Gran % (Auto) Neut % (Auto) Lymph % (Auto) [place] % (Auto) Eos % (Auto) Baso % (Auto) Lymph # (Auto) [place] # (Auto) Eos # (Auto) Baso # (Auto) Abs Immat Gran (auto) Absolute Neuts (auto) Absolute Nucleated RBC Nucleated RBC % (auto) Neutrophils % (Manual) Band Neutrophils % Lymphocytes % (Manual) Monocytes % (Manual) Metamyelocytes % Abs Neuts (Manual) Lymphocytes # (Manual) Monocytes # (Manual) Metamyelocytes # Nucleated RBCs Platelet Estimate Plt Morphology Comment RBC Morphology Polychromasia Hypochromasia VBG pH 7.40 VBG pCO2 53 VBG pO2 50 VBG HCO3 32 VBG O2 Saturation 84.6 VBG Base Excess 6.2 Sodium Potassium Chloride Carbon Dioxide Anion Gap BUN Creatinine Estim Creat Clear Calc Estimated GFR POC Glucose 253 H Random Glucose Calcium Phosphorus Magnesium Albumin Microbiology Microbiology Results: Microbiology 06/26/20 18:40 Blood - Arterial Blood Culture - Preliminary No growth after 48 hours. 06/26/20 18:42 Blood - Arterial Blood Culture - Final Streptococcus viridans group Progress Note: A&P Time Spent With Patient Time: Total time spent is greater than 50% in coordination of care (as documented) at patient's floor/unit and/or counseling patient: Total time spent with greater than 50% in coordination of care (as documented) at patient's floor/unit and/or counseling patient:: 0 Critical Care Time Critical Care Time (minutes): 120
--- NOTE | 2020-06-30 10:35 | MHC.CM.PN ---
at this time pt is in ICU; intubated, vented and sedated. dc planning is deferred to a future time. cm cont. to follow.
--- NOTE | 2020-06-30 11:23 | MHC.CLN ---
PT ON NIMBEX DRIP TF ON HOLD RECOMMEND PROMOTE TF AT MAX GOAL RATE 35CC/HR TO PROVIDE 840KCALS (1615KCALS WITH SEDATION; 24KCALS/KG), 52.5G PROTEIN (.8G/KG), 701CC FREE WATER FROM FORMULA MONITOR TOLERANCE, RESIDUALS AND LYTES
[2020-06-30] MEDS: fentaNYL citrate/NS 1,000 MCG/100 ML PLAST..BAG 15 MCG IVCONT (11:27)
[2020-06-30 12:03] LABS: Base Excess VBG 7.3 mmol/L; Blood Gas Serial # 5414; HCO3 VBG 38 mmol/L; PCO2 VBG 99 mmhg; PO2 VBG 64 mmhg
[2020-06-30 13:09] LABS: pH ABG 7.14 (7.35-7.45)
[2020-06-30 13:30] LABS: Hematocrit 26.7 % (37-47); Hemoglobin 8.4 g/dl (12.0-16.0); Mean Corpuscular HGB Conc 31.5 g/dl (31.0-35.0); Mean Corpuscular Hemoglobin 31.5 pg (27.0-33.0); Mean Platelet Volume 10.2 fL (9.4-12.3); NRBC Pct Auto 0.7 /100WBC (0.0-0.2); Platelet Count 239 X10*3/uL (160-400); Red Blood Count 2.67 X10*6/uL (4.20-5.50); Red Cell Distribution Width 13.2 % (11.0-16.0); White Blood Count 5.5 X10*3/uL (4.8-10.8)
[2020-06-30 13:33] LABS: HCO3 VBG 35 mmol/L; Oxygen Saturation VBG 86.1 %; PCO2 VBG 70 mmhg; PO2 VBG 56 mmhg; pH VBG 7.31 (7.32-7.43)
[2020-06-30 13:34] LABS: Blood Gas Serial # 5414; INTERNATIONAL NORM RATIO 1.1 (0.9-1.1); Prothrombin Time 13.3 SEC (10.8-13.0)
[2020-06-30 13:36] LABS: Partial Thromboplastin Time 27.7 SEC (24.1-38.0)
[2020-06-30 13:37] LABS: Glucose, Whole Blood 278 mg/dL (60-115)
[2020-06-30] MEDS: Magnesium Sulfate/H2O 2 GM/50 ML PIGGYBACK IV (13:44)
[2020-06-30] MEDS: Insulin Regular/NS 100 UNIT/100 ML PLAST..BAG IVCONT (13:45)
[2020-06-30] MEDS: 0.9 % Sodium Chloride 250 ML 999 ML IVCONT (13:47)
[2020-06-30] MEDS: Sodium Chloride 0.45 % 1,000 ML 50 ML IVCONT (14:06)
[2020-06-30] MEDS: Enoxaparin Sodium 100 MG/ML SYRINGE 90 MG SUBCUT (14:22)
[2020-06-30] MEDS: Escitalopram Oxalate 20 MG TABLET PO (14:23)
[2020-06-30] MEDS: Thiamine HCL 200 MG in 0.9 % Sodium Chloride 100 ML 204 MG IV (14:28)
--- NOTE | 2020-06-30 15:07 | W.PM.IDCN ---
History of Present Illness Data of Consult Service Date: 06/30/20 Requesting physician: Dada Babcock Primary Care Provider: DO FRANCISCO Kelly Reason for consult: COVID She presents to hospital after being ill reportedly for two days She had shortness of breath She was intubated in ER after oxygen saturation in 50s She is now in ICU vented She is reportedly wheelchair bound at home Review of Systems Review of Systems: Yes unobtainable due to endotracheal tube PMFSH Past Medical History Medical History Asthma CHF (congestive heart failure) Diabetes Lower extremity surgery planned Pulmonary fibrosis Family History Family history: reviewed and not pertinent Social History Social History Household Members: Spouse and Family Housing: House Alcohol intake: unknown Smoking Status: Unknown if ever smoked Use of substances other than those prescribed or required for medical reasons: Unable to respond Currently Displaying Signs/Symptoms of Drug Intoxication Withdrawal: No Advance Directives: No Advance Directives Information Provided: No Do you have thoughts of harming others: None Do you have a plan to hurt others: No Plan Recently lost weight without trying: Unsure Meds Allergies Allergy/AdvReac Type Severity Reaction Status Date / Time Penicillins [PENICILLINS] Allergy Intermediate HIVES,SWELL Verified 06/30/20 12:24 ING penicillin Allergy Unknown Hives Uncoded 06/30/20 12:24 Home Medications Medication Instructions Recorded Confirmed Type acetaminophen 2 tab PO TID PRN 06/30/20 06/30/20 History azithromycin 1 tab PO 3XW 06/30/20 06/30/20 History bisacodyl PO 06/30/20 History blood sugar diagnostic [FreeStyle 06/30/20 06/30/20 History Lite Strips] blood-glucose meter [FreeStyle 06/30/20 06/30/20 History Lite Meter] cetirizine 1 tab PO DAILY 06/30/20 06/30/20 History citalopram 1 tab PO QAM 06/30/20 History citalopram 1 tab PO QAM 06/30/20 06/30/20 History cyproheptadine PO 06/30/20 History diclofenac sodium 4 g TOPICAL BID 06/30/20 06/30/20 History dicyclomine 1 cap PO BID PRN 06/30/20 06/30/20 History diphenoxylate-atropine 1 tab PO TID PRN 06/30/20 06/30/20 History divalproex 3 tab PO BID 06/30/20 06/30/20 History dulaglutide [Trulicity] 0.75 mg SUBCUT QWEEK 06/30/20 06/30/20 History famotidine 1 tab PO BEDTIME 06/30/20 06/30/20 History flu vac qv 2019(18yr up)rc(PF) IM 06/30/20 History [Flublok Quad 3427-8479 (PF)] fluticasone propion-salmeterol 1 puff INHALATION BID 06/30/20 06/30/20 History [Wixela Inhub] fluticasone propionate 2 spray INTRANASAL DAILY 06/30/20 06/30/20 History hydroxyzine pamoate 1 cap PO TID PRN 06/30/20 06/30/20 History lancets [FreeStyle Lancets] 06/30/20 06/30/20 History levetiracetam 2 tab PO BID 06/30/20 06/30/20 History lidocaine 1 patch TOPICAL NEEDED 06/30/20 06/30/20 History loratadine 1 tab PO DAILY 06/30/20 06/30/20 History magnesium oxide 1 tab PO BEDTIME 06/30/20 06/30/20 History meloxicam 1 tab PO DAILY 06/30/20 06/30/20 History metformin 1 tab PO TID 06/30/20 06/30/20 History metformin 2 tab PO BID 06/30/20 06/30/20 History mupirocin TOPICAL BID 06/30/20 History naproxen 1 tab PO Q12H PRN 06/30/20 06/30/20 History jlqljbcn-vzbndmodm-XB 06/30/20 History omeprazole 1 cap PO BID 06/30/20 06/30/20 History peg 3350-electrolytes 8 PO 06/30/20 History pirfenidone [Esbriet] mg PO 06/30/20 History ranitidine HCl mg 06/30/20 History riboflavin (vitamin B2) [Vitamin 2 tab PO BID 06/30/20 06/30/20 History B-2] sucralfate 1 tab PO QID PRN 06/30/20 06/30/20 History tacrolimus TOPICAL BID 06/30/20 History temazepam 1 cap PO BEDTIME 06/30/20 06/30/20 History topiramate 1 tab PO BID 06/30/20 06/30/20 History Physical Exam Vital Signs: Vital Signs: Last Vital Signs Temp 101.1 F H 06/30/20 15:00 Pulse 108 H 06/30/20 15:00 Resp 22 H 06/30/20 15:00 BP 113/64 06/30/20 15:00 Pulse Ox 91 L 06/30/20 15:00 Body Mass Index 38.1 Const: General: no acute distress HENMT: Head: Yes normal to inspection Mouth: oropharynx normal Resp: Effort & Inspection: normal respiratory effort Cardio: Rate: regular rate Rhythm: regular rhythm GI: Inspection: Yes normal to inspection Palpation (GI): nontender : General: Yes no CVA tenderness Back/Spine/Pelvis: Back: no CVA tenderness Skin: General skin exam: no rashes or lesions noted Extrem: General: Yes normal to inspection Assessment and Plan (1) Acute respiratory distress syndrome (ARDS) due to COVID-19 virus: Problem details: She is intubated She has severe COVID Per protocol CDC, NIH severe COVID intubated Not candidate Remdesivir due to severe COVID,ACT-1 trial not helpful mortality Status: Acute Would continue Solumedrol help inflammatory phase if able Critical care orders per Dr Parry (2) Acute respiratory failure with hypoxia: Status: Acute Results Labs CBC & Chem 7: 06/30/20 13:14 06/30/20 05:39 Labs: Short CBC 06/30/20 06/30/20 Range/Units 05:39 13:14 WBC 4.4 L 5.5 (4.8-10.8) X10*3/uL Hgb 8.0 L 8.4 L (12.0-16.0) g/dl Hct 25.3 L 26.7 L (37-47) % Plt Count 244 239 (160-400) X10*3/uL BMP 06/30/20 05:39 Sodium 143 Potassium 4.0 Chloride 98 Carbon Dioxide 33 H BUN 14 D Creatinine 0.75 Calcium 8.5 D Liver Function 11/30/20 Range/Units 05:39 Albumin 3.9 D (3.5-5.0) g/dL Microbiology Microbiology Results: Microbiology 06/26/20 18:40 Blood - Arterial Blood Culture - Preliminary No growth after 48 hours. 06/26/20 18:42 Blood - Arterial Blood Culture - Final Streptococcus viridans group
[2020-06-30] MEDS: methylPREDNISolone Sod Succ/PF 125 MG/2 ML VIAL 80 MG IVPUSH (15:22)
[2020-06-30] MEDS: Ascorbic Acid 500 MG TABLET 1000 MG G-TUBE ×2 (15:22→20:50)
[2020-06-30 15:54] LABS: Glucose, Whole Blood 251 mg/dL (60-115)
[2020-06-30 18:08] LABS: Glucose, Whole Blood 215 mg/dL (60-115)
--- NOTE | 2020-06-30 18:27 | PC.NURSE ---
NIMBEX GTT OFF AT 1115. SEDATED WITH FENTANYL AND PROPOFOL GTTS. SEE DRUG TITRATION. COUGH AND GAG RETURNED POST NIMBEX GTT. PUPILS EQUAL AND REACTIVE, DOES NOT FOLLOW COMMANDS. VENT CHANGES THROUGHOUT SHIFT TO MAINTAIN 02 > 85% PER MD. STARTED OFF WITH VC, THEN BILEVEL, THEN PC. AT THIS TIME VENT SETTING IS PC WITH RATE OF 22, PEEP 12 AND FI02 80%. TMAX 101.8. HR 100-130S, ST W/ PVC ON TELE. SBP STABLE. LS DIMINISHED IN BASES. THICK, [employer] SECRETIONS. HYPOACTIVE BS. SMEAR OF STOOL. EXTERNAL HEMORRHOIDS NOTED AND SCANT BLOOD NOTED WITH HEIDI CARE. MARIANO URINE OUTPUT MINIMAL AT START OF SHIFT (MD AWARE), BUT PICKED UP OVER TIME. BATHED, Q2H REPO, BARRIER CREAM, RESTRAINTS. UPDATED. POC REMAINED ELEVATED, MD NOTIFIED. INSULIN GTT STARTED AT 1400 AT 4 UNITS/HR. GTT TITRATED BY MDS VERBAL ORDER. NO GTT CHANGES X 4 HOURS. NEXT POC TO BE DONE AT 2100. WILL PASS ON TO ONCOMING RN.
[2020-06-30] MEDS: Melatonin 3 MG TABLET 9 MG PO (20:49)
[2020-06-30] MEDS: levETIRAcetam 250 MG TABLET 750 MG PO (20:50)
[2020-06-30] MEDS: Divalproex Sodium ER 250 MG TAB.ER.24H 750 MG PO (20:50)
[2020-06-30] MEDS: Topiramate 100 MG TABLET PO (20:50)
[2020-06-30] MEDS: Atorvastatin Calcium 80 MG TABLET G-TUBE (20:50)
[2020-06-30] MEDS: Famotidine 20 MG TABLET 40 MG G-TUBE (20:50)
[2020-07-01] VITALS (31 sets, daily range): BP systolic 95–128; BP diastolic 49–68; PULSE 88–118; RESP 20–29; TEMP 37.3–39.5; O2SAT 85–98; BMI 35.7
[2020-07-01] MEDS: Enoxaparin Sodium 100 MG/ML SYRINGE 90 MG SUBCUT ×2 (01:50→14:10)
[2020-07-01] MEDS: propofoL 1,000 MG/100 ML VIAL 29.37 MG IVCONT ×7 (01:50→21:10)
[2020-07-01] MEDS: Thiamine HCL 200 MG in 0.9 % Sodium Chloride 100 ML 204 MG IV ×2 (01:50→14:09)
[2020-07-01] MEDS: Ascorbic Acid 500 MG TABLET 1000 MG G-TUBE ×4 (02:52→20:42)
[2020-07-01] MEDS: methylPREDNISolone Sod Succ/PF 125 MG/2 ML VIAL 80 MG IVPUSH ×2 (02:52→15:18)
[2020-07-01] MEDS: fentaNYL citrate/NS 1,000 MCG/100 ML PLAST..BAG 20 MCG IVCONT ×4 (02:53→18:28)
[2020-07-01 06:02] LABS: Hematocrit 25.7 % (37-47); Mean Corpuscular HGB Conc 31.1 g/dl (31.0-35.0); Mean Corpuscular Volume 99.6 fL (80-98); Mean Platelet Volume 10.5 fL (9.4-12.3); Platelet Count 279 X10*3/uL (160-400); Red Blood Count 2.58 X10*6/uL (4.20-5.50); Red Cell Distribution Width 13.2 % (11.0-16.0); White Blood Count 6.7 X10*3/uL (4.8-10.8)
[2020-07-01 06:25] LABS: HCO3 VBG 31 mmol/L; Oxygen Saturation VBG 74.4 %; PCO2 VBG 50 mmhg; PO2 VBG 39 mmhg; pH VBG 7.41 (7.32-7.43)
[2020-07-01 06:30] LABS: Anion Gap 15 (12-20); Blood Urea Nitrogen 20 mg/dL (9-16); Calcium 8.4 mg/dL (8.4-10.2); Carbon Dioxide 32 mmol/L (22-29); Chloride 102 mmol/L (96-108); Creatinine Clr Calc Pharmacy 100.7; Estimated Glomerular Filt Rate > 60; Glucose Random 177 mg/dL (60-115); Potassium 4.5 mmol/l (3.3-5.1); Sodium 144 mmol/L (135-145)
[2020-07-01 06:46] LABS: D Dimer 4357 NG/ML; Procalcitonin 0.25 ng/mL
[2020-07-01 06:50] LABS: Ferritin 337 ng/mL (10-250)
[2020-07-01 07:26] LABS: Neutrophils Percent Manual 67 % (45-73)
[2020-07-01 07:32] LABS: Atypical Lymph Absolute Manual 0.1 x10*3/uL; Atypical Lymphs Percent Manual 1 % (0-6); Band Neutrophils Percent 15 % (3-5); Lymphocytes Absolute Manual 0.9 X10*3/uL (0.6-4.8); Lymphocytes Percent Manual 13 % (20-40); Metamyelocytes Absolute 0.1 X10*3/uL; Metamyelocytes Percent 1 %; Monocytes Absolute Manual 0.2 X10*3/uL (0.0-1.2); Monocytes Percent Manual 3 % (2-11); Neutrophils Absolute Manual 5.5 X10*3/uL (2.2-7.9)
[2020-07-01] MEDS: Zinc Sulfate 220 MG CAPSULE G-TUBE (07:51)
[2020-07-01] MEDS: 0.9 % Sodium Chloride Flush 3 ML SYRINGE IVFLUSH ×2 (07:51→17:13)
[2020-07-01] MEDS: Divalproex Sodium ER 250 MG TAB.ER.24H 750 MG PO (07:51)
[2020-07-01] MEDS: Topiramate 100 MG TABLET PO ×2 (07:51→20:44)
[2020-07-01] MEDS: Chlorhexidine Gluc Oral Rinse 15 ML MOUTHWASH BUCCAL ×2 (07:51→15:17)
[2020-07-01] MEDS: Escitalopram Oxalate 20 MG TABLET PO (07:51)
[2020-07-01 07:52] LABS: RBC Morphology NORMAL
[2020-07-01] MEDS: levETIRAcetam 250 MG TABLET 750 MG PO ×2 (07:52→20:43)
[2020-07-01] MEDS: Famotidine 20 MG TABLET 40 MG G-TUBE ×2 (07:52→20:43)
[2020-07-01] MEDS: Cholecalciferol (Vitamin D3) 25 MCG TABLET 50 MCG G-TUBE (07:52)
[2020-07-01 07:53] LABS: Hypochromasia 2+
[2020-07-01 07:54] LABS: Basophilic Stippling 1+; Polychromasia 1+
[2020-07-01 08:09] LABS: Platelet Estimate NORMAL (NORMAL); Platelet Morphology Comment NORMAL
[2020-07-01 08:56] LABS: Glucose, Whole Blood 212 mg/dL (60-115)
[2020-07-01 08:56] LABS: Glucose, Whole Blood 189 mg/dL (60-115)
[2020-07-01 08:56] LABS: Glucose, Whole Blood 167 mg/dL (60-115)
[2020-07-01 08:56] LABS: Glucose, Whole Blood 201 mg/dL (60-115)
[2020-07-01] MEDS: Sodium Chloride 0.45 % 1,000 ML 50 ML IVCONT (10:36)
--- NOTE | 2020-07-01 11:59 | MHC.CM.PN ---
Patient remains intubated/vented in ICU. Patient is from home with [employer] services. Continue to monitor for d/c needs.
[2020-07-01] MEDS: Insulin Regular/NS 100 UNIT/100 ML PLAST..BAG IVCONT (12:52)
[2020-07-01 12:53] LABS: Glucose, Whole Blood 158 mg/dL (60-115)
[2020-07-01 13:55] LABS: INTERNATIONAL NORM RATIO 1.2 (0.9-1.1); Prothrombin Time 13.7 SEC (10.8-13.0)
[2020-07-01 17:13] LABS: Glucose, Whole Blood 199 mg/dL (60-115)
--- NOTE | 2020-07-01 19:10 | P.PNCC_ITS ---
Subjective Subjective Date of Service: 07/01/20 Interval History: Mrs. Srinivas Cedeño was admitted to the ICU on June 26 with acute resp failure secondary to COVID pneumonia. The patient is a 55-year-old woman with past medical history of congestive heart failure, diabetes, fibromyalgia, depression, and ? seizures. The patient was brought to the ED by her in a private vehicle on Jun 26 in acute respiratory distress. The reported that the patient had not been feeling well for the prior two days. In the ED, room air Sat was 50s, SBPs 80s. The patient was cyanotic and lethargic. She was immediately intubated. Labs in the ED were notable for WBC 16.7, sodium 133, potassium 3.2, bicarb 11, BUN/creat 12/1.1, troponin 115, BNP 166, lactic acid 13.8. AB.14/34/106/-16. Chest x-ray showed diffuse bilateral patchy opacities. Rapid COVID test positive. Chest CT showed widespread patchy severe dense consolidation throughout both lungs suggestive of bilateral pneumonia. The patient was admitted to ICU and started on empiric broad spectrum abx and Decadron 4mg bid. The next day required NMB for effective ventilation and oxygenation. Trop ryley on 06/27 to 2786. Very limited echo study showed normal left ventricular size and systolic function, normal RV cavity size w low-normal right ventricular systolic function. Limited valvular assessment. IVC not visualized. DDimer on 06/28 was 6400. No other biomarkers. Unable to make much progress with the ventilator over subsequent two days. Yesterday, we took her off the Nimbex infusion and tried her on APRV. We were unable to achieve release volumes greater than 300 cc, while keeping the floor pressure above 5 cm, even with auto PEEP of 10 cm. The best PvCO2 achieved was 70mm. Gross ventilatory mechanics did not look good, with significant abdominal paradox. The patient was therefore switched back to pressure control ventilation. Her ventilator synchrony and ventilatory pattern improved dramatically, and her end-tidal CO2 came down significantly. Ultimately, we were able to get the FiO2 down to 50% by this morning, with a PEEP of 12 cm. Today the patient is sedated on propofol at 50ug, fentanyl at 200ug. (Nimbex and Levophed off.) Also on Insulin at 2.5 u/hr. See vital signs below. Heart rate is 103, blood pressure is 115/54. Low grade temps yest and today, Tmax 10 1.5?. With the ventilator is set at AC/PC 22, pressures 16/12, 60%/+12, total respiratory rate is 28, Vt 570cc, Ve 10L, PiP 30, SpO2 91%, ETCO2 36. ABG this morning showed 7.41/50/+6. LABORATORY DATA: As below. Notably, POCs much better controlled on the insulin drip. DDimer down to 4357, Ferritin is 337, CRP is up to 7.3, PCT is 0.2. IMPRESSION: 1. Bilateral COVID pneumonia with ARDS. Biomarkers are fairly low (a good sign). Started yesterday on the ?full michelle? EVMS protocol (minus the ivermectin), including Lovenox 1mg/kg bid, and Solumedrol 80 mg bid. No role for remdesivir or convalescent plasma. Follow daily DDimer, Ferritin, CRP, and procalcitonin. Consider Doxy. Watch for severe hypercarbia or MAS. 2. Acute hypoxemic respiratory failure secondary to above. Hopefully we can continue to keep her off neuromuscular blockade. 3. Uncontrolled hyperglycemia. Started on an insulin drip. Great progress yesterday. Prognosis remains very guarded. Critical care time: 50 min. Physical Exam Vital Signs: Vital Signs: Last Vital Signs Temp 101.8 F H 07/01/20 18:00 Pulse 106 H 07/01/20 18:00 Resp 29 H 07/01/20 18:00 BP 113/56 L 07/01/20 18:00 Pulse Ox 89 L 07/01/20 18:00 Body Mass Index 35.7 Objective Data Labs CBC & Chem 7: 07/01/20 05:15 07/01/20 05:15 Labs: Laboratory Results - last 24 hr 06/30/20 07/01/20 07/01/20 20:57 00:45 02:57 WBC RBC Hgb Hct MCV MCH MCHC RDW Plt Count MPV Immature Gran % (Auto) Neut % (Auto) Lymph % (Auto) [place] % (Auto) Eos % (Auto) Baso % (Auto) Lymph # (Auto) [place] # (Auto) Eos # (Auto) Baso # (Auto) Abs Immat Gran (auto) Absolute Neuts (auto) Absolute Nucleated RBC Nucleated RBC % (auto) Neutrophils % (Manual) Band Neutrophils % Lymphocytes % (Manual) Atypical Lymphs % (Man) Monocytes % (Manual) Metamyelocytes % Abs Neuts (Manual) Lymphocytes # (Manual) Atyp Lymphs # (Manual) Monocytes # (Manual) Metamyelocytes # Platelet Estimate Plt Morphology Comment RBC Morphology Polychromasia Hypochromasia Basophilic Stippling PT INR D-Dimer VBG pH VBG pCO2 VBG pO2 VBG HCO3 VBG O2 Saturation VBG Base Excess Sodium Potassium Chloride Carbon Dioxide Anion Gap BUN Creatinine Estim Creat Clear Calc Estimated GFR POC Glucose 212 H 189 H 167 H Random Glucose Calcium Phosphorus Ferritin C-Reactive Protein Procalcitonin 07/01/20 07/01/20 07/01/20 05:15 05:15 05:15 WBC Cancelled 6.7 RBC Cancelled 2.58 L Hgb Cancelled 8.0 L Hct Cancelled 25.7 L MCV Cancelled 99.6 H MCH Cancelled 31.0 MCHC Cancelled 31.1 RDW Cancelled 13.2 Plt Count Cancelled 279 MPV Cancelled 10.5 Immature Gran % (Auto) Cancelled Neut % (Auto) Cancelled Lymph % (Auto) Cancelled [place] % (Auto) Cancelled Eos % (Auto) Cancelled Baso % (Auto) Cancelled Lymph # (Auto) Cancelled [place] # (Auto) Cancelled Eos # (Auto) Cancelled Baso # (Auto) Cancelled Abs Immat Gran (auto) Cancelled Absolute Neuts (auto) Cancelled Absolute Nucleated RBC Cancelled 0.070 H Nucleated RBC % (auto) Cancelled 1.0 H Neutrophils % (Manual) 67 Band Neutrophils % 15 H Lymphocytes % (Manual) 13 L Atypical Lymphs % (Man) 1 Monocytes % (Manual) 3 Metamyelocytes % 1 Abs Neuts (Manual) 5.5 Lymphocytes # (Manual) 0.9 Atyp Lymphs # (Manual) 0.1 Monocytes # (Manual) 0.2 Metamyelocytes # 0.1 Platelet Estimate NORMAL Plt Morphology Comment NORMAL RBC Morphology NORMAL Polychromasia 1+ Hypochromasia 2+ Basophilic Stippling 1+ PT INR D-Dimer 4357 VBG pH VBG pCO2 VBG pO2 VBG HCO3 VBG O2 Saturation VBG Base Excess Sodium Potassium Chloride Carbon Dioxide Anion Gap BUN Creatinine Estim Creat Clear Calc Estimated GFR POC Glucose Random Glucose Calcium Phosphorus Ferritin C-Reactive Protein Procalcitonin 07/01/20 07/01/20 07/01/20 05:15 05:15 05:15 WBC RBC Hgb Hct MCV MCH MCHC RDW Plt Count MPV Immature Gran % (Auto) Neut % (Auto) Lymph % (Auto) [place] % (Auto) Eos % (Auto) Baso % (Auto) Lymph # (Auto) [place] # (Auto) Eos # (Auto) Baso # (Auto) Abs Immat Gran (auto) Absolute Neuts (auto) Absolute Nucleated RBC Nucleated RBC % (auto) Neutrophils % (Manual) Band Neutrophils % Lymphocytes % (Manual) Atypical Lymphs % (Man) Monocytes % (Manual) Metamyelocytes % Abs Neuts (Manual) Lymphocytes # (Manual) Atyp Lymphs # (Manual) Monocytes # (Manual) Metamyelocytes # Platelet Estimate Plt Morphology Comment RBC Morphology Polychromasia Hypochromasia Basophilic Stippling PT INR D-Dimer VBG pH 7.41 VBG pCO2 50 VBG pO2 39 VBG HCO3 31 VBG O2 Saturation 74.4 VBG Base Excess 6.0 Sodium 144 Potassium 4.5 Chloride 102 Carbon Dioxide 32 H Anion Gap 15 BUN 20 H Creatinine 0.71 Estim Creat Clear Calc 100.7 Estimated GFR > 60 POC Glucose Random Glucose 177 H D Calcium 8.4 Phosphorus 3.0 Ferritin 337 H C-Reactive Protein 7.30 H Procalcitonin 0.25 07/01/20 07/01/20 07/01/20 08:49 12:45 13:36 WBC RBC Hgb Hct MCV MCH MCHC RDW Plt Count MPV Immature Gran % (Auto) Neut % (Auto) Lymph % (Auto) [place] % (Auto) Eos % (Auto) Baso % (Auto) Lymph # (Auto) [place] # (Auto) Eos # (Auto) Baso # (Auto) Abs Immat Gran (auto) Absolute Neuts (auto) Absolute Nucleated RBC Nucleated RBC % (auto) Neutrophils % (Manual) Band Neutrophils % Lymphocytes % (Manual) Atypical Lymphs % (Man) Monocytes % (Manual) Metamyelocytes % Abs Neuts (Manual) Lymphocytes # (Manual) Atyp Lymphs # (Manual) Monocytes # (Manual) Metamyelocytes # Platelet Estimate Plt Morphology Comment RBC Morphology Polychromasia Hypochromasia Basophilic Stippling PT 13.7 H INR 1.2 H D-Dimer VBG pH VBG pCO2 VBG pO2 VBG HCO3 VBG O2 Saturation VBG Base Excess Sodium Potassium Chloride Carbon Dioxide Anion Gap BUN Creatinine Estim Creat Clear Calc Estimated GFR POC Glucose 201 H 158 H Random Glucose Calcium Phosphorus Ferritin C-Reactive Protein Procalcitonin 07/01/20 17:08 WBC RBC Hgb Hct MCV MCH MCHC RDW Plt Count MPV Immature Gran % (Auto) Neut % (Auto) Lymph % (Auto) [place] % (Auto) Eos % (Auto) Baso % (Auto) Lymph # (Auto) [place] # (Auto) Eos # (Auto) Baso # (Auto) Abs Immat Gran (auto) Absolute Neuts (auto) Absolute Nucleated RBC Nucleated RBC % (auto) Neutrophils % (Manual) Band Neutrophils % Lymphocytes % (Manual) Atypical Lymphs % (Man) Monocytes % (Manual) Metamyelocytes % Abs Neuts (Manual) Lymphocytes # (Manual) Atyp Lymphs # (Manual) Monocytes # (Manual) Metamyelocytes # Platelet Estimate Plt Morphology Comment RBC Morphology Polychromasia Hypochromasia Basophilic Stippling PT INR D-Dimer VBG pH VBG pCO2 VBG pO2 VBG HCO3 VBG O2 Saturation VBG Base Excess Sodium Potassium Chloride Carbon Dioxide Anion Gap BUN Creatinine Estim Creat Clear Calc Estimated GFR POC Glucose 199 H Random Glucose Calcium Phosphorus Ferritin C-Reactive Protein Procalcitonin Microbiology Microbiology Results: Microbiology 06/26/20 18:40 Blood - Arterial Blood Culture - Preliminary No growth after 48 hours. 06/26/20 18:42 Blood - Arterial Blood Culture - Final Streptococcus viridans group Progress Note: A&P Time Spent With Patient Time: Total time spent is greater than 50% in coordination of care (as documented) at patient's floor/unit and/or counseling patient: Total time spent with greater than 50% in coordination of care (as documented) at patient's floor/unit and/or counseling patient:: 0 Critical Care Time Critical Care Time (minutes): 60
--- NOTE | 2020-07-01 19:26 | PC.NURSE ---
TMAX 102.0. SR/ST W/ PVCS ON TELE. SBP WNL. VENT SETTINGS PCV 22 PEEP 12 FI02 60% TO MAINTAIN 02> 85% PER MD. LS DIMINISHED IN BASE. MARIANO OUTPUT WNL. NO BM, EXTERNAL HEMORRHOIDS NOTED. TUBE FEEDS STARTED: PROMOTE AT 2O INCREASED TO 30ML/HR BY END OF SHIFT. FWF 300 ML Q4H ADMINISTERED. Q2H REPO, BATHED. INSULIN GTT TITRATED PER MD ORDERS. UPDATED BY THIS RN. INFORMED US THAT THEIR DAUGHTER TESTED POSITIVE FOR COVID TODAY AND HIS RESULT IS STILL PENDING. THIS RN REVIEWED HOME MEDICATIONS FROM PATIENTS BELONGINGS WITH PHARMACIST THIS SHIFT.
[2020-07-01] MEDS: Divalproex Sodium Sprinkles 125 MG CAP.DR.SPR 750 MG G-TUBE (20:42)
[2020-07-01] MEDS: Atorvastatin Calcium 80 MG TABLET G-TUBE (20:43)
[2020-07-01] MEDS: Melatonin 3 MG TABLET 9 MG PO (20:44)
[2020-07-01 21:22] LABS: Glucose, Whole Blood 281 mg/dL (60-115)
[2020-07-02] VITALS (30 sets, daily range): BP systolic 113–151; BP diastolic 51–78; PULSE 92–122; RESP 15–28; TEMP 38.3–39.7; O2SAT 85–90; BMI 38.2
[2020-07-02] MEDS: 0.9 % Sodium Chloride Flush 3 ML SYRINGE IVFLUSH ×3 (00:09→15:37)
[2020-07-02] MEDS: Chlorhexidine Gluc Oral Rinse 15 ML MOUTHWASH BUCCAL ×3 (00:09→15:37)
[2020-07-02] MEDS: fentaNYL citrate/NS 1,000 MCG/100 ML PLAST..BAG 20 MCG IVCONT ×3 (00:10→11:07)
[2020-07-02] MEDS: propofoL 1,000 MG/100 ML VIAL 29.37 MG IVCONT ×4 (00:10→12:00)
[2020-07-02 00:33] LABS: Glucose, Whole Blood 257 mg/dL (60-115)
[2020-07-02] MEDS: Enoxaparin Sodium 100 MG/ML SYRINGE 90 MG SUBCUT ×2 (02:50→13:45)
[2020-07-02] MEDS: Thiamine HCL 200 MG in 0.9 % Sodium Chloride 100 ML 204 MG IV ×2 (02:51→13:45)
[2020-07-02] MEDS: Ascorbic Acid 500 MG TABLET 1000 MG G-TUBE ×4 (03:53→22:20)
[2020-07-02] MEDS: methylPREDNISolone Sod Succ/PF 125 MG/2 ML VIAL 80 MG IVPUSH ×2 (03:53→15:37)
[2020-07-02 04:18] LABS: Glucose, Whole Blood 170 mg/dL (60-115)
[2020-07-02] MEDS: Sodium Chloride 0.45 % 1,000 ML 50 ML IVCONT (05:45)
[2020-07-02 06:39] LABS: Base Excess VBG 2.1 mmol/L; HCO3 VBG 26 mmol/L; Oxygen Saturation VBG 66.9 %; PCO2 VBG 38 mmhg; PO2 VBG 35 mmhg; pH VBG 7.46 (7.32-7.43)
[2020-07-02 06:47] LABS: Anion Gap 15 (12-20); Blood Urea Nitrogen 16 mg/dL (9-16); C Reactive Protein 7.67 mg/dL (< or = 0.50); Calcium 7.9 mg/dL (8.4-10.2); Carbon Dioxide 30 mmol/L (22-29); Chloride 103 mmol/L (96-108); Creatinine Clr Calc Pharmacy 100.1; Estimated Glomerular Filt Rate > 60; Glucose Random 224 mg/dL (60-115); Phosphorus 3.1 mg/dL (2.7-4.5); Potassium 4.3 mmol/l (3.3-5.1); Sodium 144 mmol/L (135-145)
[2020-07-02 06:48] LABS: Hematocrit 27.1 % (37-47); Hemoglobin 8.5 g/dl (12.0-16.0); Mean Corpuscular HGB Conc 31.4 g/dl (31.0-35.0); Mean Corpuscular Hemoglobin 30.9 pg (27.0-33.0); Mean Corpuscular Volume 98.5 fL (80-98); Mean Platelet Volume 10.5 fL (9.4-12.3); Platelet Count 330 X10*3/uL (160-400); Red Blood Count 2.75 X10*6/uL (4.20-5.50); Red Cell Distribution Width 13.3 % (11.0-16.0); White Blood Count 9.8 X10*3/uL (4.8-10.8)
[2020-07-02 07:08] LABS: Ferritin 330 ng/mL (10-250)
--- NOTE | 2020-07-02 07:23 | PC.NURSE ---
Patient's insulin drop was titrated according to SRINATH Espinal.
[2020-07-02 07:57] LABS: Band Neutrophils Percent 16 % (3-5); Lymphocytes Absolute Manual 0.9 X10*3/uL (0.6-4.8); Lymphocytes Percent Manual 9 % (20-40); Metamyelocytes Absolute 0.3 X10*3/uL; Metamyelocytes Percent 3 %; Monocytes Absolute Manual 0.3 X10*3/uL (0.0-1.2); Monocytes Percent Manual 3 % (2-11); Myelocytes Absolute 0.1 X10*/uL; Myelocytes Percent 1 %; Neutrophils Absolute Manual 8.2 X10*3/uL (2.2-7.9); Neutrophils Percent Manual 68 % (45-73); Nucleated Red Blood Cells 3 /100WBC (0-0)
[2020-07-02 07:58] LABS: Large Platelet PRESENT; Platelet Estimate NORMAL (NORMAL)
[2020-07-02 07:59] LABS: Macrocytosis 1+; Platelet Morphology Comment NOTE; Polychromasia 1+; RBC Morphology NOTED; Tear Drop Cells 1+
[2020-07-02 08:00] LABS: Ovalocytes 1+; Stomatocytes 1+
[2020-07-02 08:06] LABS: D Dimer 7620 NG/ML
[2020-07-02] MEDS: Divalproex Sodium Sprinkles 125 MG CAP.DR.SPR 750 MG G-TUBE ×2 (08:36→19:22)
[2020-07-02] MEDS: levETIRAcetam 250 MG TABLET 750 MG PO ×2 (08:37→19:23)
[2020-07-02] MEDS: Famotidine 20 MG TABLET 40 MG G-TUBE ×2 (08:37→19:24)
[2020-07-02] MEDS: Zinc Sulfate 220 MG CAPSULE G-TUBE (08:37)
[2020-07-02] MEDS: Escitalopram Oxalate 20 MG TABLET PO (08:37)
[2020-07-02] MEDS: Topiramate 100 MG TABLET PO ×2 (08:37→19:25)
[2020-07-02] MEDS: Cholecalciferol (Vitamin D3) 25 MCG TABLET 50 MCG G-TUBE (08:37)
[2020-07-02 09:06] LABS: Glucose, Whole Blood 330 mg/dL (60-115)
--- NOTE | 2020-07-02 11:03 | MHC.CM.PN ---
Patient remains intubated/vented in ICU. Patient is from home, wheelchair bound with [employer] at [facility]. Continue to monitor for d/c needs.
--- NOTE | 2020-07-02 11:42 | MHC.CLN ---
F/U PT TOLERATING PROMOTE TF AT MAX GOAL RATE 35CC/HR PROVIDES 840KCALS (1615KCALS WITH SEDATION; 24KCALS/KG), 52.5G PROTEIN (.8G/KG), 2501CC TOTAL WATER FROM FORMULA AND FLUSHES (37.6CC/KG) MONITOR TOLERANCE, RESIDUALS AND LYTES
[2020-07-02 12:00] LABS: Glucose, Whole Blood 307 mg/dL (60-115)
[2020-07-02] MEDS: Insulin Lispro 100 UNIT/ML 3 ML VIAL SUBCUT (12:37)
[2020-07-02] MEDS: Insulin Regular/NS 100 UNIT/100 ML PLAST..BAG IVCONT (12:37)
[2020-07-02] MEDS: propofoL 1,000 MG/100 ML VIAL 14.69 MG IVCONT (13:45)
[2020-07-02 15:59] LABS: Glucose, Whole Blood 244 mg/dL (60-115)
[2020-07-02] MEDS: fentaNYL citrate/NS 1,000 MCG/100 ML PLAST..BAG 10 MCG IVCONT (17:54)
--- NOTE | 2020-07-02 18:22 | PC.NURSE ---
Shift update; Temp max 102.6 - down to 101.1 - MD aware Sedation vacation - propofol titrated off at 1430 - patient continuing to remain flaccid, no pain response, absent gag, weak cough O2 goal >85% per MD - sat remaining 85-87%
--- NOTE | 2020-07-02 19:24 | PM.CCPN ---
Subjective Subjective Date of Service: 07/02/20 Interval History: Mrs. Srinivas Ceedño was admitted to the ICU on June 26 with acute resp failure secondary to COVID pneumonia. The patient is a 55-year-old woman with past medical history of congestive heart failure, diabetes, fibromyalgia, depression, and ? seizures. The patient was brought to the ED by her in a private vehicle on Jun 26 in acute respiratory distress. The reported that the patient had not been feeling well for the prior two days. In the ED, room air Sat was 50s, SBPs 80s. The patient was cyanotic and lethargic. She was immediately intubated. Labs in the ED were notable for WBC 16.7, sodium 133, potassium 3.2, bicarb 11, BUN/creat 12/1.1, troponin 115, BNP 166, lactic acid 13.8. AB.14/34/106/-16. Chest x-ray showed diffuse bilateral patchy opacities. Rapid COVID test positive. Chest CT showed widespread patchy severe dense consolidation throughout both lungs suggestive of bilateral pneumonia. The patient was admitted to ICU and started on empiric broad spectrum abx and Decadron 4mg bid. The next day required NMB for effective ventilation and oxygenation. Trop rlyey on 06/27 to 2786. Very limited echo study showed normal left ventricular size and systolic function, normal RV cavity size w low-normal right ventricular systolic function. Limited valvular assessment. IVC not visualized. DDimer on 06/28 was 6400. No other biomarkers. Unable to make much progress with the ventilator over subsequent two days. On 06/30, we took her off the Nimbex infusion and tried her on APRV. We were unable to achieve release volumes greater than 300 cc, while keeping the floor pressure above 5 cm, even with autoPEEP of 10 cm. The best PvCO2 achieved was 70mm. Gross ventilatory mechanics did not look good, with significant abdominal paradox. The patient was therefore switched back to pressure control ventilation. Her ventilator synchrony and ventilatory pattern improved dramatically, and her end-tidal CO2 came down significantly. Ultimately, we were able to get the FiO2 down to 50% by the next morning, with a PEEP of 12 cm. No further progress over the last two days however. We took the patient off propofol late morning, still not interactive as off after noon. Still on fentanyl at 100ug. (Nimbex and Levophed off.) Also on Insulin at 3u/hr. See Vital Signs below. Temps of 101-103 since 06/30, w Tmax today 103.2. Heart rate is 107, blood pressure is 126/61. With the ventilator set at AC/PC 18, pressures 8/10, 60%, total respiratory rate is 26, Vt 380cc, Ve 10L, PiP 22, SpO2 88%. CVBG this morning showed 7.46/38/+2. LABORATORY DATA: As below. Notably, POCs much better controlled on the insulin drip. DDimer up to 7620, Ferritin is steady at 330, CRP is steady at 7. MICROBIOLOGY: Blood culture from 06/26 likely contaminant. We will re-culture. IMPRESSION: 1. Bilateral COVID pneumonia with ARDS. Biomarkers are fairly low (a good sign). Started 06/30 on the full EVMS protocol (minus the ivermectin and doxy), including Lovenox 1mg/kg bid, and Solumedrol 80 mg bid. No role for remdesivir or convalescent plasma. Follow daily DDimer, Ferritin, CRP, and procalcitonin. Consider Doxy. Watch for severe hypercarbia or MAS. 2. Acute hypoxemic respiratory failure secondary to above. Hopefully we can continue to keep her off neuromuscular blockade. 3. Uncontrolled hyperglycemia. Started on an insulin drip. 4. ID. Fevers with no leukocytosis, A-a gradient improving if anything. Bacterial pneumonia unlikely. We?ll reculture. Not yet time for abx. Prognosis is very guarded. We?ll evaluate her mental status further tomorrow. Critical care time: 50 min Physical Exam Vital Signs: Vital Signs: Last Vital Signs Temp 102 F H 07/02/20 19:00 Pulse 102 H 07/02/20 19:00 Resp 26 H 07/02/20 19:00 BP 133/66 07/02/20 19:00 Pulse Ox 89 L 07/02/20 19:00 Body Mass Index 38.2 Objective Data Labs CBC & Chem 7: 07/02/20 05:46 07/02/20 05:46 Labs: Laboratory Results - last 24 hr 07/01/20 07/02/20 07/02/20 20:47 00:13 04:00 WBC RBC Hgb Hct MCV MCH MCHC RDW Plt Count MPV Immature Gran % (Auto) Neut % (Auto) Lymph % (Auto) [place] % (Auto) Eos % (Auto) Baso % (Auto) Lymph # (Auto) [place] # (Auto) Eos # (Auto) Baso # (Auto) Abs Immat Gran (auto) Absolute Neuts (auto) Absolute Nucleated RBC Nucleated RBC % (auto) Neutrophils % (Manual) Band Neutrophils % Lymphocytes % (Manual) Monocytes % (Manual) Metamyelocytes % Myelocytes % Abs Neuts (Manual) Lymphocytes # (Manual) Monocytes # (Manual) Metamyelocytes # Myelocytes # Nucleated RBCs Platelet Estimate Large Platelets Plt Morphology Comment RBC Morphology Polychromasia Macrocytosis Tear Drop Cells Ovalocytes Stomatocytes D-Dimer VBG pH VBG pCO2 VBG pO2 VBG HCO3 VBG O2 Saturation VBG Base Excess Sodium Potassium Chloride Carbon Dioxide Anion Gap BUN Creatinine Estim Creat Clear Calc Estimated GFR POC Glucose 281 H 257 H 170 H Random Glucose Calcium Phosphorus Ferritin C-Reactive Protein 07/02/20 07/02/20 07/02/20 05:46 05:46 05:46 WBC 9.8 RBC 2.75 L Hgb 8.5 L Hct 27.1 L MCV 98.5 H MCH 30.9 MCHC 31.4 RDW 13.3 Plt Count 330 MPV 10.5 Immature Gran % (Auto) Cancelled Neut % (Auto) Cancelled Lymph % (Auto) Cancelled [place] % (Auto) Cancelled Eos % (Auto) Cancelled Baso % (Auto) Cancelled Lymph # (Auto) Cancelled [place] # (Auto) Cancelled Eos # (Auto) Cancelled Baso # (Auto) Cancelled Abs Immat Gran (auto) Cancelled Absolute Neuts (auto) Cancelled Absolute Nucleated RBC 0.100 H Nucleated RBC % (auto) 1.0 H Neutrophils % (Manual) 68 Band Neutrophils % 16 H Lymphocytes % (Manual) 9 L Monocytes % (Manual) 3 Metamyelocytes % 3 Myelocytes % 1 Abs Neuts (Manual) 8.2 H Lymphocytes # (Manual) 0.9 Monocytes # (Manual) 0.3 Metamyelocytes # 0.3 Myelocytes # 0.1 Nucleated RBCs 3 H Platelet Estimate NORMAL Large Platelets PRESENT Plt Morphology Comment NOTE RBC Morphology NOTED Polychromasia 1+ Macrocytosis 1+ Tear Drop Cells 1+ Ovalocytes 1+ Stomatocytes 1+ D-Dimer 7620 VBG pH VBG pCO2 VBG pO2 VBG HCO3 VBG O2 Saturation VBG Base Excess Sodium 144 Potassium 4.3 Chloride 103 Carbon Dioxide 30 H Anion Gap 15 BUN 16 Creatinine 0.69 Estim Creat Clear Calc 100.1 Estimated GFR > 60 POC Glucose Random Glucose 224 H Calcium 7.9 L Phosphorus 3.1 Ferritin 330 H C-Reactive Protein 7.67 H 07/02/20 07/02/20 07/02/20 05:46 08:50 11:56 WBC RBC Hgb Hct MCV MCH MCHC RDW Plt Count MPV Immature Gran % (Auto) Neut % (Auto) Lymph % (Auto) [place] % (Auto) Eos % (Auto) Baso % (Auto) Lymph # (Auto) [place] # (Auto) Eos # (Auto) Baso # (Auto) Abs Immat Gran (auto) Absolute Neuts (auto) Absolute Nucleated RBC Nucleated RBC % (auto) Neutrophils % (Manual) Band Neutrophils % Lymphocytes % (Manual) Monocytes % (Manual) Metamyelocytes % Myelocytes % Abs Neuts (Manual) Lymphocytes # (Manual) Monocytes # (Manual) Metamyelocytes # Myelocytes # Nucleated RBCs Platelet Estimate Large Platelets Plt Morphology Comment RBC Morphology Polychromasia Macrocytosis Tear Drop Cells Ovalocytes Stomatocytes D-Dimer VBG pH 7.46 H VBG pCO2 38 VBG pO2 35 VBG HCO3 26 VBG O2 Saturation 66.9 VBG Base Excess 2.1 Sodium Potassium Chloride Carbon Dioxide Anion Gap BUN Creatinine Estim Creat Clear Calc Estimated GFR POC Glucose 330 H 307 H Random Glucose Calcium Phosphorus Ferritin C-Reactive Protein 07/02/20 15:51 WBC RBC Hgb Hct MCV MCH MCHC RDW Plt Count MPV Immature Gran % (Auto) Neut % (Auto) Lymph % (Auto) [place] % (Auto) Eos % (Auto) Baso % (Auto) Lymph # (Auto) [place] # (Auto) Eos # (Auto) Baso # (Auto) Abs Immat Gran (auto) Absolute Neuts (auto) Absolute Nucleated RBC Nucleated RBC % (auto) Neutrophils % (Manual) Band Neutrophils % Lymphocytes % (Manual) Monocytes % (Manual) Metamyelocytes % Myelocytes % Abs Neuts (Manual) Lymphocytes # (Manual) Monocytes # (Manual) Metamyelocytes # Myelocytes # Nucleated RBCs Platelet Estimate Large Platelets Plt Morphology Comment RBC Morphology Polychromasia Macrocytosis Tear Drop Cells Ovalocytes Stomatocytes D-Dimer VBG pH VBG pCO2 VBG pO2 VBG HCO3 VBG O2 Saturation VBG Base Excess Sodium Potassium Chloride Carbon Dioxide Anion Gap BUN Creatinine Estim Creat Clear Calc Estimated GFR POC Glucose 244 H Random Glucose Calcium Phosphorus Ferritin C-Reactive Protein Microbiology Microbiology Results: Microbiology 06/26/20 18:40 Blood - Arterial Blood Culture - Final No growth after 5 days. 06/26/20 18:42 Blood - Arterial Blood Culture - Final Streptococcus viridans group Progress Note: A&P Time Spent With Patient Time: Total time spent is greater than 50% in coordination of care (as documented) at patient's floor/unit and/or counseling patient: Total time spent with greater than 50% in coordination of care (as documented) at patient's floor/unit and/or counseling patient:: 0 Critical Care Time Critical Care Time (minutes): 60
[2020-07-02] MEDS: Atorvastatin Calcium 80 MG TABLET G-TUBE (19:26)
[2020-07-02] MEDS: Melatonin 3 MG TABLET 9 MG PO (19:26)
[2020-07-02] MEDS: Acetaminophen Oral Liquid 650 MG/20.3 ML SOLUTION 975 MG PO (22:21)
[2020-07-02 23:59] LABS: Glucose, Whole Blood 335 mg/dL (60-115)
[2020-07-03] VITALS (29 sets, daily range): BP systolic 109–153; BP diastolic 50–78; PULSE 88–114; RESP 18–25; TEMP 38–39.6; O2SAT 89–96; BMI 38.5
--- NOTE | 2020-07-03 | CT_ITS ---
EXAMINATION: CT HEAD WITHOUT CONTRAST CLINICAL INFORMATION: Unresponsiveness. COMPARISON: None TECHNIQUE: Contiguous axial imaging was performed from the skull base to vertex without intravenous administration of contrast. This CT examination was performed using dose optimization techniques as appropriate, variously including the following: *Automated exposure control *Adjustment of mA and/or kV according to patient size (this includes techniques or standardized protocols for targeted exams where dose is matched to indication/reason for exam; i.e. extremities or head) *Use of iterative reconstruction technique DLP: 800 mGy-cm FINDINGS: There are multiple hypodense areas along the right MCA territory and bilateral VIOLIN TEACHER territories consistent with subacute or old infarct. Similar smaller subacute infarct is seen along the right IRWIN territory. I visualize no acute intra-axial or extra-axial bleed or midline shift. [place] to white matter differentiation is well preserved. No extra-axial fluid collections are identified. The lateral ventricles are symmetrical in size but smaller with decreased visualization of cortical sulci suggestive of raised intracranial pressure secondary to cerebral edema. The osseous structures and soft tissues are normal. The mastoid air cells and visualized portions of the paranasal sinuses are well aerated. CT/CT head/brain wo con IMPRESSION: Multiple subacute infarct involving right MCA, right IRWIN and bilateral VIOLIN TEACHER territories with significant cerebral edema compressing the lateral ventricles and with loss of cortical sulci. Results were discussed with Dr. John Garcia at 3:15 PM.
[2020-07-03 00:16] LABS: Glucose, Whole Blood 294 mg/dL (60-115)
[2020-07-03] MEDS: 0.9 % Sodium Chloride Flush 3 ML SYRINGE IVFLUSH ×3 (01:07→14:56)
[2020-07-03] MEDS: Sodium Chloride 0.45 % 1,000 ML 50 ML IVCONT (01:29)
[2020-07-03] MEDS: Chlorhexidine Gluc Oral Rinse 15 ML MOUTHWASH BUCCAL ×3 (01:30→14:54)
[2020-07-03] MEDS: Enoxaparin Sodium 100 MG/ML SYRINGE 90 MG SUBCUT ×2 (01:30→14:55)
[2020-07-03] MEDS: fentaNYL citrate/NS 1,000 MCG/100 ML PLAST..BAG 15 MCG IVCONT ×2 (01:38→08:03)
[2020-07-03] MEDS: Thiamine HCL 200 MG in 0.9 % Sodium Chloride 100 ML 204 MG IV ×2 (01:40→14:53)
[2020-07-03 04:10] LABS: Glucose, Whole Blood 213 mg/dL (60-115)
[2020-07-03] MEDS: Ascorbic Acid 500 MG TABLET 1000 MG G-TUBE ×4 (04:37→22:32)
[2020-07-03] MEDS: methylPREDNISolone Sod Succ/PF 125 MG/2 ML VIAL 80 MG IVPUSH ×2 (04:37→14:55)
[2020-07-03 06:39] LABS: Base Excess VBG 3.9 mmol/L; HCO3 VBG 30 mmol/L; PCO2 VBG 56 mmhg; PO2 VBG 46 mmhg; pH VBG 7.35 (7.32-7.43)
[2020-07-03 06:40] LABS: Oxygen Saturation VBG 77.4 %
--- NOTE | 2020-07-03 06:43 | PC.NURSE ---
Pt febrile temp rising to 103.2. provider tj barry notified of febrile state 1. ice packs applied to axilla and groin 2. tylenol 950 mg via ogt. 2. poc reported to midlevel tj and ip adjusted per his orders.
[2020-07-03 06:47] LABS: Anion Gap 12 (12-20); Blood Urea Nitrogen 18 mg/dL (9-16); C Reactive Protein 5.71 mg/dL (< or = 0.50); Calcium 7.9 mg/dL (8.4-10.2); Carbon Dioxide 31 mmol/L (22-29); Chloride 103 mmol/L (96-108); Creatinine Clr Calc Pharmacy 112.1; Estimated Glomerular Filt Rate > 60; Glucose Random 241 mg/dL (60-115); Phosphorus 3.3 mg/dL (2.7-4.5); Potassium 4.6 mmol/l (3.3-5.1); Sodium 141 mmol/L (135-145)
[2020-07-03 06:50] LABS: Hematocrit 27.8 % (37-47); Hemoglobin 8.7 g/dl (12.0-16.0); Mean Corpuscular HGB Conc 31.3 g/dl (31.0-35.0); Mean Corpuscular Volume 98.9 fL (80-98); Mean Platelet Volume 10.1 fL (9.4-12.3); NRBC Pct Auto 0.8 /100WBC (0.0-0.2); Platelet Count 319 X10*3/uL (160-400); Red Blood Count 2.81 X10*6/uL (4.20-5.50); Red Cell Distribution Width 13.3 % (11.0-16.0)
[2020-07-03 07:02] LABS: D Dimer 4267 NG/ML
[2020-07-03 07:07] LABS: Procalcitonin 0.13 ng/mL
[2020-07-03 07:11] LABS: Ferritin 314 ng/mL (10-250)
[2020-07-03 07:30] LABS: Band Neutrophils Percent 7 % (3-5); Lymphocytes Absolute Manual 0.7 X10*3/uL (0.6-4.8); Lymphocytes Percent Manual 7 % (20-40); Metamyelocytes Absolute 0.1 X10*3/uL; Metamyelocytes Percent 1 %; Monocytes Absolute Manual 0.5 X10*3/uL (0.0-1.2); Monocytes Percent Manual 5 % (2-11); Neutrophils Absolute Manual 8.7 X10*3/uL (2.2-7.9); Neutrophils Percent Manual 80 % (45-73)
[2020-07-03 07:31] LABS: Basophilic Stippling 1+; Hypochromasia 2+; Platelet Estimate NORMAL (NORMAL); Platelet Morphology Comment NORMAL; Polychromasia 1+; RBC Morphology NOTED; Smudge Cells PRESENT
[2020-07-03] MEDS: Topiramate 100 MG TABLET PO ×2 (08:03→22:30)
[2020-07-03] MEDS: Divalproex Sodium Sprinkles 125 MG CAP.DR.SPR 750 MG G-TUBE ×2 (08:04→22:41)
[2020-07-03] MEDS: Zinc Sulfate 220 MG CAPSULE G-TUBE (08:04)
[2020-07-03] MEDS: Famotidine 20 MG TABLET 40 MG G-TUBE ×2 (08:05→21:00)
[2020-07-03] MEDS: Escitalopram Oxalate 20 MG TABLET PO (08:05)
[2020-07-03] MEDS: Cholecalciferol (Vitamin D3) 25 MCG TABLET 50 MCG G-TUBE (08:05)
[2020-07-03] MEDS: levETIRAcetam 250 MG TABLET 750 MG PO ×2 (08:05→22:32)
[2020-07-03 09:01] LABS: Glucose, Whole Blood 266 mg/dL (60-115)
--- NOTE | 2020-07-03 11:02 | P.CDIC_ITS ---
CDI Concurrent Query Service Date: 07/04/20 Documentation Clarification: Please clarify if you are treating a proba ble/suspected/likely or confirmed: Continuation and/or clarity of documentation within the medical record: Viral Sepsis due to Covid-19/Pneumonia w ARDS and acute hypoxic respiratory failure POA Please specify if known or other Provider Response: Acute Respiratory Failure PLEASE DO NOT DELETE/MODIFY EXISTING CONTENT Additional information is needed in order to code to the highest accuracy and appropriate Severity of Illness (SOI). Please clarify the information noted below in your progress notes and discharge summary. Risk Factors/Clinical Indicators/Treatments ED: Severe respiratory distress, hypoxic, - Sepsis, Covid-19 pneumonia. Temp 100.4 102.2 HR 117 128 RR 24 LA 13.8 H Bands 17 H Empiric antibiotics, intubated, ICU admit. ICU 06/27 - 06/28 - Viral Sepsis, Covid-19 pneumonia ARDS. CDS: Snehal Whalen CCS, CDIS Contact Number: [phone] Please Review the information above and exercise your independent professional judgment in responding to the query. If you concur, pleas document in the PROGRESS NOTES and DISCHARGE SUMMARY. If you do not agree with the query, please document in the query above. THIS QUERY IS PART OF THE PERMANENT MEDICAL RECORD
[2020-07-03] MEDS: Insulin Regular/NS 100 UNIT/100 ML PLAST..BAG IVCONT (11:56)
[2020-07-03 12:10] LABS: Glucose, Whole Blood 331 mg/dL (60-115)
--- NOTE | 2020-07-03 14:03 | P.PNCC_ITS ---
Subjective Subjective Date of Service: 07/03/20 Interval History: Mrs. Srinivas Cedeño was admitted to the ICU on June 26 with acute respiratory failure secondary to COVID pneumonia. The patient is a 55-year-old woman with past medical history of congestive heart failure, diabetes, fibromyalgia, depression, and ? seizures. The patient was brought to the ED by her in a private vehicle on Jun 26 in acute respiratory distress. The reported that the patient had not been feeling well for the prior two days. In the ED, room air Sat was 50s, SBPs 80s. The patient was cyanotic and lethargic. She was immediately intubated. Labs in the ED were notable for WBC 16.7, sodium 133, potassium 3.2, bicarb 11, BUN/creat 12/1.1, troponin 115, BNP 166, lactic acid 13.8. AB.14/34/106/-16. Chest x-ray showed diffuse bilateral patchy opacities. Rapid COVID test positive. Chest CT showed widespread patchy severe dense consolidation throughout both lungs suggestive of bilateral pneumonia. The patient was admitted to ICU and started on empiric broad spectrum abx and Decadron 4mg bid. The next day required NMB for effective ventilation and oxygenation. Trop ryley on 06/27 to 2786. Very limited echo study showed normal left ventricular size and systolic function, normal RV cavity size w low-normal right ventricular systolic function. Limited valvular assessment. IVC not visualized. DDimer on 06/28 was 6400. No other biomarkers. Unable to make much progress with the ventilator over subsequent two days. On 06/30, we took her off the Nimbex infusion and tried her on APRV. We were unable to achieve release volumes greater than 300 cc, while keeping the floor pressure above 5 cm, even with autoPEEP of 10 cm. The best PvCO2 achieved was 70mm. Gross ventilatory mechanics did not look good, with significant abdominal paradox. The patient was therefore switched back to pressure control ventilation. Her ventilator synchrony and ventilatory pattern improved dramatically, and her end-tidal CO2 came down significantly. Ultimately, we were able to get the FiO2 down to 50% by the next morning, with a PEEP of 12 cm. No further progress over the last two days however. We took the patient off propofol late yesterday morning, still not interactive as of afternoon. Still on fentanyl at 100ug. (Nimbex and Levophed off.) Also on Insulin gtt. On my exam this morning, she?s on fentanyl 100 ug. See Vital Signs below. Temps of 101.5 w Tmax 103.5. Heart rate is 101, blood pressure is 122/64. With the ventilator set at AC/PC 18, FiO2 down to 40%, with Sat low 90?s. Ve 10L, PiP 25. CVBG this morning showed 7.35/56/+4. Best neuro response is eye opening to painful stimulation. She has no response to verbal stimulation, and no peripheral motor movement at all (no withdrawal, no posturing). Positive corneals, positive dolls? eyes. Pupils are equal about 7mm, sluggishly reactive. LABORATORY DATA: As below. Notably, POCs much better controlled on the insulin drip. DDimer down to 4200, Ferritin is steady at 314, CRP down to 5, PCT down to 0.13. MICROBIOLOGY: Blood culture from 06/26 likely contaminant. We will re-culture. Head CT: Multiple subacute infarcts involving right MCA, right IRWIN and bilateral STATISTICAL GENETICIST territories with significant cerebral edema compressing the lateral ventricles and with loss of cortical sulci. I reviewed the CT in depth with Dr. Molina in the Dept of Radiology. IMPRESSION: 1. Bilateral COVID pneumonia with ARDS. Biomarkers are fairly low (a good sign). Started 06/30 on the full EVMS protocol (minus the ivermectin and doxy), including Lovenox 1mg/kg bid, and Solumedrol 80 mg bid. No role for remdesivir or convalescent plasma. Follow daily DDimer, Ferritin, CRP, and procalcitonin. Consider Doxy. 2. Acute hypoxemic respiratory failure secondary to above. FiO2 is slowly coming down. 3. Uncontrolled hyperglycemia. On insulin drip. 4. ID. Fevers with no leukocytosis, A-a gradient improving if anything. Bacterial pneumonia unlikely. We?ll reculture. Not yet time for abx. 5. 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 These infarcts are obviously at least two days old, but there?s not much surrounding edema, suggesting that they could be as much as 5-6 days old. (Keeping in mind that she?s been fully anticoagulated for most of the time she?s been here.) I reviewed the CT images with Dr. Sherwood from neurosurgery at [facility]. Nothing to do other than osmolar mx and hope that that helps. No need for ICP monitoring. We?ll start her on 23.4% saline and shoot for serum Na 150, Osm 310. I spoke with the patient?s , José Manuel Nelson ([phone]), at some length by telephone. Explained her hospital course so far, and the nature of these cerebral infarcts and increased ICP. I expressed that this was very serious and we?re doing what we can to keep her alive. Prognosis is very guarded. Osmolar management tonite and reevaluate neuro st [facility] in the morning. Critical care time: 90 min Physical Exam Vital Signs: Vital Signs: Last Vital Signs Temp 101.3 F H 07/03/20 13:00 Pulse 95 07/03/20 13:00 Resp 18 07/03/20 13:00 BP 140/78 H 07/03/20 13:00 Pulse Ox 92 07/03/20 13:00 Body Mass Index 38.5 Objective Data Labs CBC & Chem 7: 07/03/20 05:52 07/03/20 18:20 Labs: Laboratory Results - last 24 hr 07/02/20 07/02/20 07/03/20 15:51 19:44 00:06 WBC RBC Hgb Hct MCV MCH MCHC RDW Plt Count MPV Immature Gran % (Auto) Neut % (Auto) Lymph % (Auto) [place] % (Auto) Eos % (Auto) Baso % (Auto) Lymph # (Auto) [place] # (Auto) Eos # (Auto) Baso # (Auto) Abs Immat Gran (auto) Absolute Neuts (auto) Absolute Nucleated RBC Nucleated RBC % (auto) Neutrophils % (Manual) Band Neutrophils % Lymphocytes % (Manual) Monocytes % (Manual) Metamyelocytes % Abs Neuts (Manual) Lymphocytes # (Manual) Monocytes # (Manual) Metamyelocytes # Smudge Cells Platelet Estimate Plt Morphology Comment RBC Morphology Polychromasia Hypochromasia Basophilic Stippling D-Dimer VBG pH VBG pCO2 VBG pO2 VBG HCO3 VBG O2 Saturation VBG Base Excess Sodium Potassium Chloride Carbon Dioxide Anion Gap BUN Creatinine Estim Creat Clear Calc Estimated GFR POC Glucose 244 H 335 H 294 H Random Glucose Calcium Phosphorus Ferritin C-Reactive Protein Procalcitonin 07/03/20 07/03/2007/03/20 04:02 05:52 05:52 WBC 10.0 RBC 2.81 L Hgb 8.7 L Hct 27.8 L MCV 98.9 H MCH 31.0 MCHC 31.3 RDW 13.3 Plt Count 319 MPV 10.1 Immature Gran % (Auto) Cancelled Neut % (Auto) Cancelled Lymph % (Auto) Cancelled [place] % (Auto) Cancelled Eos % (Auto) Cancelled Baso % (Auto) Cancelled Lymph # (Auto) Cancelled [place] # (Auto) Cancelled Eos # (Auto) Cancelled Baso # (Auto) Cancelled Abs Immat Gran (auto) Cancelled Absolute Neuts (auto) Cancelled Absolute Nucleated RBC 0.080 H Nucleated RBC % (auto) 0.8 H Neutrophils % (Manual) 80 H Band Neutrophils % 7 H Lymphocytes % (Manual) 7 L Monocytes % (Manual) 5 Metamyelocytes % 1 Abs Neuts (Manual) 8.7 H Lymphocytes # (Manual) 0.7 Monocytes # (Manual) 0.5 Metamyelocytes # 0.1 Smudge Cells PRESENT Platelet Estimate NORMAL Plt Morphology Comment NORMAL RBC Morphology NOTED Polychromasia 1+ Hypochromasia 2+ Basophilic Stippling 1+ D-Dimer 4267 VBG pH VBG pCO2 VBG pO2 VBG HCO3 VBG O2 Saturation VBG Base Excess Sodium Potassium Chloride Carbon Dioxide Anion Gap BUN Creatinine Estim Creat Clear Calc Estimated GFR POC Glucose 213 H Random Glucose Calcium Phosphorus Ferritin C-Reactive Protein Procalcitonin 07/03/20 07/03/20 07/03/20 05:52 05:52 05:52 WBC RBC Hgb Hct MCV MCH MCHC RDW Plt Count MPV Immature Gran % (Auto) Neut % (Auto) Lymph % (Auto) [place] % (Auto) Eos % (Auto) Baso % (Auto) Lymph # (Auto) [place] # (Auto) Eos # (Auto) Baso # (Auto) Abs Immat Gran (auto) Absolute Neuts (auto) Absolute Nucleated RBC Nucleated RBC % (auto) Neutrophils % (Manual) Band Neutrophils % Lymphocytes % (Manual) Monocytes % (Manual) Metamyelocytes % Abs Neuts (Manual) Lymphocytes # (Manual) Monocytes # (Manual) Metamyelocytes # Smudge Cells Platelet Estimate Plt Morphology Comment RBC Morphology Polychromasia Hypochromasia Basophilic Stippling D-Dimer VBG pH 7.35 VBG pCO2 56 VBG pO2 46 VBG HCO3 30 VBG O2 Saturation 77.4 VBG Base Excess 3.9 Sodium 141 Potassium 4.6 Chloride 103 Carbon Dioxide 31 H Anion Gap 12 BUN 18 H Creatinine 0.64 Estim Creat Clear Calc 112.1 Estimated GFR > 60 POC Glucose Random Glucose 241 H Calcium 7.9 L Phosphorus 3.3 Ferritin 314 H C-Reactive Protein 5.71 H Procalcitonin 0.13 07/03/20 07/03/20 08:12 12:00 WBC RBC Hgb Hct MCV MCH MCHC RDW Plt Count MPV Immature Gran % (Auto) Neut % (Auto) Lymph % (Auto) [place] % (Auto) Eos % (Auto) Baso % (Auto) Lymph # (Auto) [place] # (Auto) Eos # (Auto) Baso # (Auto) Abs Immat Gran (auto) Absolute Neuts (auto) Absolute Nucleated RBC Nucleated RBC % (auto) Neutrophils % (Manual) Band Neutrophils % Lymphocytes % (Manual) Monocytes % (Manual) Metamyelocytes % Abs Neuts (Manual) Lymphocytes # (Manual) Monocytes # (Manual) Metamyelocytes # Smudge Cells Platelet Estimate Plt Morphology Comment RBC Morphology Polychromasia Hypochromasia Basophilic Stippling D-Dimer VBG pH VBG pCO2 VBG pO2 VBG HCO3 VBG O2 Saturation VBG Base Excess Sodium Potassium Chloride Carbon Dioxide Anion Gap BUN Creatinine Estim Creat Clear Calc Estimated GFR POC Glucose 266 H 331 H Random Glucose Calcium Phosphorus Ferritin C-Reactive Protein Procalcitonin Microbiology Microbiology Results: Microbiology 06/26/20 18:40 Blood - Arterial Blood Culture - Final No growth after 5 days. 06/26/20 18:42 Blood - Arterial Blood Culture - Final Streptococcus viridans group Progress Note: A&P Time Spent With Patient Time: Total time spent is greater than 50% in coordination of care (as documented) at patient's floor/unit and/or counseling patient: Total time spent with greater than 50% in coordination of care (as documented) at patient's floor/unit and/or counseling patient:: 0 Critical Care Time Critical Care Time (minutes): 90
[2020-07-03 17:39] LABS: Glucose, Whole Blood 256 mg/dL (60-115)
[2020-07-03 19:12] LABS: Osmolality, Serum 306 mosm/kg (281-305)
[2020-07-03 19:15] LABS: Anion Gap 13 (12-20); Carbon Dioxide 29 mmol/L (22-29); Chloride 104 mmol/L (96-108); Sodium 141 mmol/L (135-145)
[2020-07-03 20:05] LABS: Glucose, Whole Blood 288 mg/dL (60-115)
[2020-07-03 22:18] LABS: Osmolality, Serum 314 mosm/kg (281-305)
[2020-07-03 22:18] LABS: Anion Gap 12 (12-20); Carbon Dioxide 29 mmol/L (22-29); Chloride 104 mmol/L (96-108); Potassium 5.2 mmol/l (3.3-5.1); Sodium 140 mmol/L (135-145)
[2020-07-03] MEDS: Atorvastatin Calcium 80 MG TABLET G-TUBE (22:32)
[2020-07-03] MEDS: Melatonin 3 MG TABLET 9 MG PO (22:33)
[2020-07-03] MEDS: fentaNYL citrate/NS 1,000 MCG/100 ML PLAST..BAG 5 MCG IVCONT (23:09)
[2020-07-03 23:20] LABS: Base Excess VBG 4.1 mmol/L; HCO3 VBG 30 mmol/L; Oxygen Saturation VBG 76.3 %; PCO2 VBG 51 mmhg; PO2 VBG 42 mmhg; pH VBG 7.39 (7.32-7.43)
[2020-07-03 23:57] LABS: Glucose, Whole Blood 275 mg/dL (60-115)
[2020-07-03 23:57] LABS: Glucose, Whole Blood 291 mg/dL (60-115)
[2020-07-04] VITALS (31 sets, daily range): BP systolic 106–182; BP diastolic 57–85; PULSE 92–933; RESP 15–25; TEMP 37.5–38.4; O2SAT 24–97; BMI 36.8
[2020-07-04 01:45] LABS: Glucose Urine UA 250 MG/DL (NEG); Leukocyte Esterase Urine NEG (NEG); Nitrite Urine NEG (NEG); PH 7.5 (5.0-8.0); Urine Blood 1+ (NEG); Urine Ketones NEG (NEG); Urine Protein NEG (NEG-TRACE)
[2020-07-04] MEDS: Insulin Regular/NS 100 UNIT/100 ML PLAST..BAG 9 UNIT IVCONT ×2 (01:48→20:24)
[2020-07-04] MEDS: Thiamine HCL 200 MG in 0.9 % Sodium Chloride 100 ML 204 MG IV ×2 (01:49→13:51)
[2020-07-04] MEDS: Enoxaparin Sodium 100 MG/ML SYRINGE 90 MG SUBCUT ×2 (01:50→13:48)
[2020-07-04 02:02] LABS: Appearance Urine CLOUDY; Color Urine YELLOW
[2020-07-04 02:03] LABS: Bacteria Urine 3+ /LPF; Squamous Epithelial Cell Urine TRACE /LPF; WBC Clumps Urine NOTED; WBC Urine 50-75 /HPF (0-4)
[2020-07-04 02:04] LABS: Hyaline Casts Urine 0-2 /LPF
[2020-07-04 02:05] LABS: Glucose, Whole Blood 228 mg/dL (60-115)
[2020-07-04 03:10] LABS: Osmolality, Serum 309 mosm/kg (281-305)
[2020-07-04 03:13] LABS: Anion Gap 12 (12-20); Blood Urea Nitrogen 19 mg/dL (9-16); Calcium 8.3 mg/dL (8.4-10.2); Carbon Dioxide 29 mmol/L (22-29); Chloride 104 mmol/L (96-108); Creatinine Clr Calc Pharmacy 119.9; Estimated Glomerular Filt Rate > 60; Glucose Random 223 mg/dL (60-115); Potassium 4.4 mmol/l (3.3-5.1); Sodium 141 mmol/L (135-145)
[2020-07-04] MEDS: methylPREDNISolone Sod Succ/PF 125 MG/2 ML VIAL 80 MG IVPUSH ×2 (03:41→15:33)
[2020-07-04] MEDS: Ascorbic Acid 500 MG TABLET 1000 MG G-TUBE ×4 (03:41→22:49)
[2020-07-04] MEDS: 0.9 % Sodium Chloride Flush 3 ML SYRINGE IVFLUSH ×4 (03:42→22:52)
[2020-07-04] MEDS: Chlorhexidine Gluc Oral Rinse 15 ML MOUTHWASH BUCCAL ×4 (03:42→22:48)
[2020-07-04 06:01] LABS: Hematocrit 28.8 % (37-47); Hemoglobin 9.1 g/dl (12.0-16.0); Mean Corpuscular HGB Conc 31.6 g/dl (31.0-35.0); Mean Corpuscular Hemoglobin 31.2 pg (27.0-33.0); Mean Corpuscular Volume 98.6 fL (80-98); Mean Platelet Volume 10.3 fL (9.4-12.3); NRBC Pct Auto 0.8 /100WBC (0.0-0.2); Platelet Count 295 X10*3/uL (160-400); Red Blood Count 2.92 X10*6/uL (4.20-5.50); Red Cell Distribution Width 13.2 % (11.0-16.0)
[2020-07-04 06:02] LABS: HCO3 VBG 29 mmol/L; PCO2 VBG 54 mmhg; PO2 VBG 49 mmhg; pH VBG 7.34 (7.32-7.43)
[2020-07-04 06:03] LABS: Base Excess VBG 2.1 mmol/L
[2020-07-04 06:17] LABS: Osmolality, Serum 309 mosm/kg (281-305)
[2020-07-04 06:22] LABS: Anion Gap 10 (12-20); Blood Urea Nitrogen 19 mg/dL (9-16); C Reactive Protein 3.24 mg/dL (< or = 0.50); Calcium 8.2 mg/dL (8.4-10.2); Carbon Dioxide 30 mmol/L (22-29); Chloride 106 mmol/L (96-108); Creatinine Clr Calc Pharmacy 126.3; Estimated Glomerular Filt Rate > 60; Glucose Random 195 mg/dL (60-115); Phosphorus 3.2 mg/dL (2.7-4.5); Potassium 4.4 mmol/l (3.3-5.1); Sodium 142 mmol/L (135-145)
[2020-07-04 06:28] LABS: D Dimer 3409 NG/ML
[2020-07-04 06:44] LABS: Ferritin 270 ng/mL (10-250)
[2020-07-04 06:50] LABS: Atypical Lymph Absolute Manual 0.1 x10*3/uL; Atypical Lymphs Percent Manual 1 % (0-6); Band Neutrophils Percent 3 % (3-5); Eosinophils Absolute Manual 0.1 X10*3/UL (0.0-0.8); Eosinophils Percent Manual 1 % (0-4); Lymphocytes Absolute Manual 1.1 X10*3/uL (0.6-4.8); Lymphocytes Percent Manual 12 % (20-40); Monocytes Absolute Manual 0.2 X10*3/uL (0.0-1.2); Monocytes Percent Manual 2 % (2-11); Neutrophils Absolute Manual 7.5 X10*3/uL (2.2-7.9); Neutrophils Percent Manual 80 % (45-73); Promyelocytes Absolute 0.1 X10*3/uL; Promyelocytes Percent 1 %
[2020-07-04 06:51] LABS: Basophilic Stippling 1+; Polychromasia 2+; RBC Morphology NOTED
[2020-07-04 06:52] LABS: Microcytosis 1+; Platelet Estimate NORMAL (NORMAL)
[2020-07-04 06:53] LABS: Platelet Morphology Comment NORMAL
[2020-07-04] MEDS: Cholecalciferol (Vitamin D3) 25 MCG TABLET 50 MCG G-TUBE (08:20)
[2020-07-04] MEDS: levETIRAcetam 250 MG TABLET 750 MG PO ×2 (08:21→19:50)
[2020-07-04] MEDS: Famotidine 20 MG TABLET 40 MG G-TUBE ×2 (08:21→19:50)
[2020-07-04] MEDS: Zinc Sulfate 220 MG CAPSULE G-TUBE (08:21)
[2020-07-04] MEDS: Topiramate 100 MG TABLET PO ×2 (08:21→19:50)
[2020-07-04] MEDS: Escitalopram Oxalate 20 MG TABLET PO (08:21)
[2020-07-04 09:33] LABS: Anion Gap 12 (12-20); Blood Urea Nitrogen 20 mg/dL (9-16); Calcium 8.4 mg/dL (8.4-10.2); Carbon Dioxide 30 mmol/L (22-29); Chloride 106 mmol/L (96-108); Creatinine Clr Calc Pharmacy 114.2; Estimated Glomerular Filt Rate > 60; Glucose Random 267 mg/dL (60-115); Potassium 4.9 mmol/l (3.3-5.1); Sodium 143 mmol/L (135-145)
[2020-07-04 09:34] LABS: Osmolality, Serum 314 mosm/kg (281-305)
[2020-07-04 10:24] LABS: Glucose, Whole Blood 244 mg/dL (60-115)
[2020-07-04 10:24] LABS: Glucose, Whole Blood 272 mg/dL (60-115)
--- NOTE | 2020-07-04 10:48 | MHC.CLN ---
F/U PT TOLERATING PROMOTE TF AT MAX GOAL RATE 35CC/HR PROVIDES 840KCALS (SEDATION CURRENTLY OFF), 52.5G PROTEIN (.8G/KG), 2501CC TOTAL WATER FROM FORMULA AND FLUSHES (37.6CC/KG) DISCUSSED WITH ; WILL D/C FREE WATER FLUSHES MONITOR TOLERANCE, RESIDUALS AND LYTES
[2020-07-04] MEDS: fentaNYL citrate/NS 1,000 MCG/100 ML PLAST..BAG 5 MCG IVCONT (11:00)
[2020-07-04] MEDS: Insulin Regular/NS 100 UNIT/100 ML PLAST..BAG 12 UNIT IVCONT (12:05)
[2020-07-04 12:31] LABS: Glucose, Whole Blood 245 mg/dL (60-115)
[2020-07-04 14:20] LABS: Glucose, Whole Blood 175 mg/dL (60-115)
[2020-07-04 14:44] LABS: Osmolality, Serum 310 mosm/kg (281-305)
[2020-07-04 14:45] LABS: Anion Gap 13 (12-20); Blood Urea Nitrogen 21 mg/dL (9-16); Calcium 8.2 mg/dL (8.4-10.2); Carbon Dioxide 28 mmol/L (22-29); Chloride 105 mmol/L (96-108); Creatinine Clr Calc Pharmacy 119.1; Estimated Glomerular Filt Rate > 60; Glucose Fasting 188 mg/dL (60-99); Potassium 4.2 mmol/l (3.3-5.1); Sodium 142 mmol/L (135-145)
[2020-07-04 15:54] LABS: Glucose, Whole Blood 129 mg/dL (60-115)
--- NOTE | 2020-07-04 16:26 | MHC.CM.PN ---
Patient remains intubated/vented in ICU. Patient is from home with [employer] and is wheelchair bound at baseline. Continue to monitor for d/c needs.
--- NOTE | 2020-07-04 16:53 | P.PNCC_ITS ---
Subjective Subjective Date of Service: 07/04/20 Interval History: Mrs. Srinivas Cedeño was admitted to the ICU on June 26 with acute respiratory failure secondary to COVID pneumonia. The patient is a 55-year-old woman with past medical history of congestive heart failure, diabetes, fibromyalgia, depression, and ? seizures. The patient was brought to the ED by her in a private vehicle on Jun 26 in acute respiratory distress. The reported that the patient had not been feeling well for the prior two days. In the ED, room air Sat was 50s, SBPs 80s. The patient was cyanotic and lethargic. She was immediately intubated. Labs in the ED were notable for WBC 16.7, sodium 133, potassium 3.2, bicarb 11, BUN/creat 12/1.1, troponin 115, BNP 166, lactic acid 13.8. AB.14/34/106/-16. Chest x-ray showed diffuse bilateral patchy opacities. Rapid COVID test positive. Chest CT showed widespread patchy severe dense consolidation throughout both lungs suggestive of bilateral pneumonia. The patient was admitted to ICU and started on empiric broad spectrum abx and Decadron 4mg bid. The next day required NMB for effective ventilation and oxygenation. Trop ryley on 06/27 to 2786. Very limited echo study showed normal left ventricular size and systolic function, normal RV cavity size w low-normal right ventricular systolic function. Limited valvular assessment. IVC not visualized. DDimer on 06/28 was 6400. No other biomarkers. Unable to make much progress with the ventilator over subsequent two days. On 06/30, we took her off the Nimbex infusion and tried her on APRV. We were unable to achieve release volumes greater than 300 cc, while keeping the floor pressure above 5 cm, even with autoPEEP of 10 cm. The best PvCO2 achieved was 70mm. Gross ventilatory mechanics did not look good, with significant abdominal paradox. The patient was therefore switched back to pressure control ventilation. Her ventilator synchrony and ventilatory pattern improved dramatically, and her end-tidal CO2 came down significantly. Ultimately, we were able to get the FiO2 down to 50% by the next morning, with a PEEP of 12 cm. Little ventilatory progress over the next two days. We took the patient off Dec . 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 After d/w radiology and neurosurgery (Dr. Sherwood), we started her on osmolar mx with the 23.4% saline. Serum sodium has been rising slowly, but the serum osm target of 310 was easily reached. On my exam this afternoon, she?s on fentanyl 50 ug. See Vital Signs below. Temps afebrile since this morning. Heart rate is 97, blood pressure is 141/66. With the ventilator set at AC/PC 18, pressures 10/10, 40%, RR is 24, Vt is 440cc, Ve 10.6L, PiP 24, Sat 90%. CVBG this morning showed 7.34/54/+2. Best neuro response is eye opening to stimulation, but she opens her eyes much more readily than she did yesterday. No tracking, no response to confrontation. No response to verbal stimulation, and no peripheral motor movement at all (no withdrawal, no posturing). Positive corneals, positive dolls? eyes. Pupils are equal about 7-8mm (same size as yest), but more reactive to light. LABORATORY DATA: As below. Notably, POCs much better controlled on the insulin drip. Last sodium is 142, last serum osm 310. MICROBIOLOGY: Shahid cultured yesterday. Blood cultures negative so far. U/A showed 50-75 WBC; Cx growing GNRs. Sputum GS shows 4+ polys; 3+ Gram-positive cocci; 1+ Gram-negative rods; 1+ Gram-positive rods. Culture pending. IMPRESSION: 1. Bilateral COVID pneumonia with ARDS. Biomarkers are fairly low (a good s ign). Started 06/30 on the full EVMS protocol (minus the ivermectin and doxy), including Lovenox 1mg/kg bid, and Solumedrol 80 mg bid. No role for remdesivir or convalescent plasma. Follow daily DDimer, Ferritin, CRP, and procalcitonin. Consider Doxy. 2. Acute hypoxemic respiratory failure secondary to above. FiO2 is coming down nicely. 3. Uncontrolled hyperglycemia. On insulin drip. 4. ID. Fevers with no leukocytosis, A-a gradient improving if anything. Bacterial pneumonia unlikely. U/A is positive, with GNR in culture. Start Zosyn. 5. 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 These infarcts are obviously at least two days old, but there?s not much surrounding edema, suggesting that they could be as much as 5-6 days old. (Keeping in mind that she?s been fully anticoagulated for most of the time she?s been here.) I reviewed the CT images with Dr. Sherwood from neurosurgery at [facility]. Nothing to do other than osmolar mx and hope that that helps. No need for ICP monitoring. We started her on 23.4% saline yesterday. 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 Target sodium level is 150, Target osm is 310. I spoke with the patient?s , José Manuel Nelson ([phone]), again today. Discussed that she?s better than yesterday, altho the improvement was small, and she?s still deeply comatose, and it?s not clear that she?ll ever wake up, if she survives at all. Prognosis is very grim. Continuing osmolar management. Critical care time: 60+ min. Physical Exam 2 Vital Signs: Vital Signs: Last Vital Signs Temp 100.2 F 07/04/20 16:00 Pulse 98 07/04/20 16:00 Resp 20 07/04/20 16:00 BP 135/67 07/04/20 16:00 Pulse Ox 91 L 07/04/20 16:00 Body Mass Index 36.8 Objective Data Labs CBC & Chem 7: 07/04/20 05:20 07/04/20 13:58 Labs: Laboratory Results - last 24 hr 07/03/20 07/03/20 07/03/20 16:13 18:20 18:20 WBC RBC Hgb Hct MCV MCH MCHC RDW Plt Count MPV Immature Gran % (Auto) Neut % (Auto) Lymph % (Auto) Ogle % (Auto) Eos % (Auto) Baso % (Auto) Lymph # (Auto) Ogle # (Auto) Eos # (Auto) Baso # (Auto) Abs Immat Gran (auto) Absolute Neuts (auto) Absolute Nucleated RBC Nucleated RBC % (auto) Neutrophils % (Manual) Band Neutrophils % Lymphocytes % (Manual) Atypical Lymphs % (Man) Monocytes % (Manual) Eosinophils % (Manual) Promyelocytes % Abs Neuts (Manual) Lymphocytes # (Manual) Atyp Lymphs # (Manual) Monocytes # (Manual) Eosinophils # (Manual) Promyelocytes # Platelet Estimate Plt Morphology Comment RBC Morphology Polychromasia Basophilic Stippling Microcytosis D-Dimer VBG pH VBG pCO2 VBG pO2 VBG HCO3 VBG O2 Saturation VBG Base Excess Sodium 141 Potassium 5.0 Chloride 104 Carbon Dioxide 29 Anion Gap 13 BUN Creatinine Estim Creat Clear Calc Estimated GFR POC Glucose 256 H Random Glucose Fasting Glucose Osmolality 306 H Calcium Phosphorus Ferritin C-Reactive Protein Urine Color Urine Appearance Urine pH Ur Specific [place] Urine Protein Urine Glucose (UA) Urine Ketones Urine Blood Urine Nitrite Ur Leukocyte Esterase Urine RBC Urine WBC Urine WBC Clumps Ur Squamous Epith Cells Urine Bacteria Hyaline Casts 07/03/20 07/03/20 07/03/20 19:51 21:34 21:43 WBC RBC Hgb Hct MCV MCH MCHC RDW Plt Count MPV Immature Gran % (Auto) Neut % (Auto) Lymph % (Auto) Ogle % (Auto) Eos % (Auto) Baso % (Auto) Lymph # (Auto) Ogle # (Auto) Eos # (Auto) Baso # (Auto) Abs Immat Gran (auto) Absolute Neuts (auto) Absolute Nucleated RBC Nucleated RBC % (auto) Neutrophils % (Manual) Band Neutrophils % Lymphocytes % (Manual) Atypical Lymphs % (Man) Monocytes % (Manual) Eosinophils % (Manual) Promyelocytes % Abs Neuts (Manual) Lymphocytes # (Manual) Atyp Lymphs # (Manual) Monocytes # (Manual) Eosinophils # (Manual) Promyelocytes # Platelet Estimate Plt Morphology Comment RBC Morphology Polychromasia Basophilic Stippling Microcytosis D-Dimer VBG pH VBG pCO2 VBG pO2 VBG HCO3 VBG O2 Saturation VBG Base Excess Sodium 140 Potassium 5.2 H Chloride 104 Carbon Dioxide 29 Anion Gap 12 BUN Creatinine Estim Creat Clear Calc Estimated GFR POC Glucose 288 H Random Glucose Fasting Glucose Osmolality Calcium Phosphorus Ferritin C-Reactive Protein Urine Color YELLOW Urine Appearance CLOUDY Urine pH 7.5 Ur Specific [place] 1.020 Urine Protein NEG Urine Glucose (UA) 250 H Urine Ketones NEG Urine Blood 1+ H Urine Nitrite NEG Ur Leukocyte Esterase NEG Urine RBC 5-9 H Urine WBC 50-75 H Urine WBC Clumps NOTED Ur Squamous Epith Cells TRACE Urine Bacteria 3+ Hyaline Casts 0-2 07/03/20 07/03/20 07/03/20 21:52 21:54 23:00 WBC RBC Hgb Hct MCV MCH MCHC RDW Plt Count MPV Immature Gran % (Auto) Neut % (Auto) Lymph % (Auto) Ogle % (Auto) Eos % (Auto) Baso % (Auto) Lymph # (Auto) Ogle # (Auto) Eos # (Auto) Baso # (Auto) Abs Immat Gran (auto) Absolute Neuts (auto) Absolute Nucleated RBC Nucleated RBC % (auto) Neutrophils % (Manual) Band Neutrophils % Lymphocytes % (Manual) Atypical Lymphs % (Man) Monocytes % (Manual) Eosinophils % (Manual) Promyelocytes % Abs Neuts (Manual) Lymphocytes # (Manual) Atyp Lymphs # (Manual) Monocytes # (Manual) Eosinophils # (Manual) Promyelocytes # Platelet Estimate Plt Morphology Comment RBC Morphology Polychromasia Basophilic Stippling Microcytosis D-Dimer VBG pH 7.39 VBG pCO2 51 VBG pO2 42 VBG HCO3 30 VBG O2 Saturation 76.3 VBG Base Excess 4.1 Sodium Potassium Chloride Carbon Dioxide Anion Gap BUN Creatinine Estim Creat Clear Calc Estimated GFR POC Glucose 291 H Random Glucose Fasting Glucose Osmolality 314 H Calcium Phosphorus Ferritin C-Reactive Protein Urine Color Urine Appearance Urine pH Ur Specific [place] Urine Protein Urine Glucose (UA) Urine Ketones Urine Blood Urine Nitrite Ur Leukocyte Esterase Urine RBC Urine WBC Urine WBC Clumps Ur Squamous Epith Cells Urine Bacteria Hyaline Casts 07/03/20 07/04/20 07/04/20 23:46 01:45 02:40 WBC RBC Hgb Hct MCV MCH MCHC RDW Plt Count MPV Immature Gran % (Auto) Neut % (Auto) Lymph % (Auto) Ogle % (Auto) Eos % (Auto) Baso % (Auto) Lymph # (Auto) Ogle # (Auto) Eos # (Auto) Baso # (Auto) Abs Immat Gran (auto) Absolute Neuts (auto) Absolute Nucleated RBC Nucleated RBC % (auto) Neutrophils % (Manual) Band Neutrophils % Lymphocytes % (Manual) Atypical Lymphs % (Man) Monocytes % (Manual) Eosinophils % (Manual) Promyelocytes % Abs Neuts (Manual) Lymphocytes # (Manual) Atyp Lymphs # (Manual) Monocytes # (Manual) Eosinophils # (Manual) Promyelocytes # Platelet Estimate Plt Morphology Comment RBC Morphology Polychromasia Basophilic Stippling Microcytosis D-Dimer VBG pH VBG pCO2 VBG pO2 VBG HCO3 VBG O2 Saturation VBG Base Excess Sodium 141 Potassium 4.4 Chloride 104 Carbon Dioxide 29 Anion Gap 12 BUN 19 H Creatinine 0.60 Estim Creat Clear Calc 119.9 Estimated GFR > 60 POC Glucose 275 H 228 H Random Glucose 223 H Fasting Glucose Osmolality Calcium 8.3 L Phosphorus Ferritin C-Reactive Protein Urine Color Urine Appearance Urine pH Ur Specific [place] Urine Protein Urine Glucose (UA) Urine Ketones Urine Blood Urine Nitrite Ur Leukocyte Esterase Urine RBC Urine WBC Urine WBC Clumps Ur Squamous Epith Cells Urine Bacteria Hyaline Casts 07/04/20 07/04/20 07/04/20 02:40 05:20 05:20 WBC RBC Hgb Hct MCV MCH MCHC RDW Plt Count MPV Immature Gran % (Auto) Neut % (Auto) Lymph % (Auto) Ogle % (Auto) Eos % (Auto) Baso % (Auto) Lymph # (Auto) Ogle # (Auto) Eos # (Auto) Baso # (Auto) Abs Immat Gran (auto) Absolute Neuts (auto) Absolute Nucleated RBC Nucleated RBC % (auto) Neutrophils % (Manual) Band Neutrophils % Lymphocytes % (Manual) Atypical Lymphs % (Man) Monocytes % (Manual) Eosinophils % (Manual) Promyelocytes % Abs Neuts (Manual) Lymphocytes # (Manual) Atyp Lymphs # (Manual) Monocytes # (Manual) Eosinophils # (Manual) Promyelocytes # Platelet Estimate Plt Morphology Comment RBC Morphology Polychromasia Basophilic Stippling Microcytosis D-Dimer VBG pH 7.34 VBG pCO2 54 VBG pO2 49 VBG HCO3 29 VBG O2 Saturation 81.0 VBG Base Excess 2.1 Sodium Potassium Chloride Carbon Dioxide Anion Gap BUN Creatinine Estim Creat Clear Calc Estimated GFR POC Glucose Random Glucose Fasting Glucose Osmolality 309 H Calcium Phosphorus 3.2 Ferritin 270 H C-Reactive Protein 3.24 H Urine Color Urine Appearance Urine pH Ur Specific [place] Urine Protein Urine Glucose (UA) Urine Ketones Urine Blood Urine Nitrite Ur Leukocyte Esterase Urine RBC Urine WBC Urine WBC Clumps Ur Squamous Epith Cells Urine Bacteria Hyaline Casts 07/04/20 07/04/20 07/04/20 05:20 05:20 05:20 WBC 9.0 RBC 2.92 L Hgb 9.1 L Hct 28.8 L MCV 98.6 H MCH 31.2 MCHC 31.6 RDW 13.2 Plt Count 295 MPV 10.3 Immature Gran % (Auto) Cancelled Neut % (Auto) Cancelled Lymph % (Auto) Cancelled Ogle % (Auto) Cancelled Eos % (Auto) Cancelled Baso % (Auto) Cancelled Lymph # (Auto) Cancelled Ogle # (Auto) Cancelled Eos # (Auto) Cancelled Baso # (Auto) Cancelled Abs Immat Gran (auto) Cancelled Absolute Neuts (auto) Cancelled Absolute Nucleated RBC 0.070 H Nucleated RBC % (auto) 0.8 H Neutrophils % (Manual) 80 H Band Neutrophils % 3 Lymphocytes % (Manual) 12 L Atypical Lymphs % (Man) 1 Monocytes % (Manual) 2 Eosinophils % (Manual) 1 Promyelocytes % 1 Abs Neuts (Manual) 7.5 Lymphocytes # (Manual) 1.1 Atyp Lymphs # (Manual) 0.1 Monocytes # (Manual) 0.2 Eosinophils # (Manual) 0.1 Promyelocytes # 0.1 Platelet Estimate NORMAL Plt Morphology Comment NORMAL RBC Morphology NOTED Polychromasia 2+ Basophilic Stippling 1+ Microcytosis 1+ D-Dimer 3409 VBG pH VBG pCO2 VBG pO2 VBG HCO3 VBG O2 Saturation VBG Base Excess Sodium 142 Potassium 4.4 Chloride 106 Carbon Dioxide 30 H Anion Gap 10 L BUN 19 H Creatinine 0.57 Estim Creat Clear Calc 126.3 Estimated GFR > 60 POC Glucose Random Glucose 195 H Fasting Glucose Osmolality Calcium 8.2 L Phosphorus Ferritin C-Reactive Protein Urine Color Urine Appearance Urine pH Ur Specific [place] Urine Protein Urine Glucose (UA) Urine Ketones Urine Blood Urine Nitrite Ur Leukocyte Esterase Urine RBC Urine WBC Urine WBC Clumps Ur Squamous Epith Cells Urine Bacteria Hyaline Casts 07/04/20 07/04/20 07/04/20 05:20 06:03 08:45 WBC RBC Hgb Hct MCV MCH MCHC RDW Plt Count MPV Immature Gran % (Auto) Neut % (Auto) Lymph % (Auto) Ogle % (Auto) Eos % (Auto) Baso % (Auto) Lymph # (Auto) Ogle # (Auto) Eos # (Auto) Baso # (Auto) Abs Immat Gran (auto) Absolute Neuts (auto) Absolute Nucleated RBC Nucleated RBC % (auto) Neutrophils % (Manual) Band Neutrophils % Lymphocytes % (Manual) Atypical Lymphs % (Man) Monocytes % (Manual) Eosinophils % (Manual) Promyelocytes % Abs Neuts (Manual) Lymphocytes # (Manual) Atyp Lymphs # (Manual) Monocytes # (Manual) Eosinophils # (Manual) Promyelocytes # Platelet Estimate Plt Morphology Comment RBC Morphology Polychromasia Basophilic Stippling Microcytosis D-Dimer VBG pH VBG pCO2 VBG pO2 VBG HCO3 VBG O2 Saturation VBG Base Excess Sodium 143 Potassium 4.9 Chloride 106 Carbon Dioxide 30 H Anion Gap 12 BUN 20 H Creatinine 0.63 Estim Creat Clear Calc 114.2 Estimated GFR > 60 POC Glucose 244 H Random Glucose 267 H D Fasting Glucose Osmolality 309 H Calcium 8.4 Phosphorus Ferritin C-Reactive Protein Urine Color Urine Appearance Urine pH Ur Specific [place] Urine Protein Urine Glucose (UA) Urine Ketones Urine Blood Urine Nitrite Ur Leukocyte Esterase Urine RBC Urine WBC Urine WBC Clumps Ur Squamous Epith Cells Urine Bacteria Hyaline Casts 07/04/20 07/04/20 07/04/20 08:45 10:13 12:10 WBC RBC Hgb Hct MCV MCH MCHC RDW Plt Count MPV Immature Gran % (Auto) Neut % (Auto) Lymph % (Auto) Ogle % (Auto) Eos % (Auto) Baso % (Auto) Lymph # (Auto) Ogle # (Auto) Eos # (Auto) Baso # (Auto) Abs Immat Gran (auto) Absolute Neuts (auto) Absolute Nucleated RBC Nucleated RBC % (auto) Neutrophils % (Manual) Band Neutrophils % Lymphocytes % (Manual) Atypical Lymphs % (Man) Monocytes % (Manual) Eosinophils % (Manual) Promyelocytes % Abs Neuts (Manual) Lymphocytes # (Manual) Atyp Lymphs # (Manual) Monocytes # (Manual) Eosinophils # (Manual) Promyelocytes # Platelet Estimate Plt Morphology Comment RBC Morphology Polychromasia Basophilic Stippling Microcytosis D-Dimer VBG pH VBG pCO2 VBG pO2 VBG HCO3 VBG O2 Saturation VBG Base Excess Sodium Potassium Chloride Carbon Dioxide Anion Gap BUN Creatinine Estim Creat Clear Calc Estimated GFR POC Glucose 272 H 245 H Random Glucose Fasting Glucose Osmolality 314 H Calcium Phosphorus Ferritin C-Reactive Protein Urine Color Urine Appearance Urine pH Ur Specific [place] Urine Protein Urine Glucose (UA) Urine Ketones Urine Blood Urine Nitrite Ur Leukocyte Esterase Urine RBC Urine WBC Urine WBC Clumps Ur Squamous Epith Cells Urine Bacteria Hyaline Casts 07/04/20 07/04/20 07/04/20 13:58 13:58 14:01 WBC RBC Hgb Hct MCV MCH MCHC RDW Plt Count MPV Immature Gran % (Auto) Neut % (Auto) Lymph % (Auto) Ogle % (Auto) Eos % (Auto) Baso % (Auto) Lymph # (Auto) Ogle # (Auto) Eos # (Auto) Baso # (Auto) Abs Immat Gran (auto) Absolute Neuts (auto) Absolute Nucleated RBC Nucleated RBC % (auto) Neutrophils % (Manual) Band Neutrophils % Lymphocytes % (Manual) Atypical Lymphs % (Man) Monocytes % (Manual) Eosinophils % (Manual) Promyelocytes % Abs Neuts (Manual) Lymphocytes # (Manual) Atyp Lymphs # (Manual) Monocytes # (Manual) Eosinophils # (Manual) Promyelocytes # Platelet Estimate Plt Morphology Comment RBC Morphology Polychromasia Basophilic Stippling Microcytosis D-Dimer VBG pH VBG pCO2 VBG pO2 VBG HCO3 VBG O2 Saturation VBG Base Excess Sodium 142 Potassium 4.2 Chloride 105 Carbon Dioxide 28 Anion Gap 13 BUN 21 H Creatinine 0.59 Estim Creat Clear Calc 119.1 Estimated GFR > 60 POC Glucose 175 H Random Glucose Fasting Glucose 188 H Osmolality 310 H Calcium 8.2 L Phosphorus Ferritin C-Reactive Protein Urine Color Urine Appearance Urine pH Ur Specific [place] Urine Protein Urine Glucose (UA) Urine Ketones Urine Blood Urine Nitrite Ur Leukocyte Esterase Urine RBC Urine WBC Urine WBC Clumps Ur Squamous Epith Cells Urine Bacteria Hyaline Casts 07/04/20 15:41 WBC RBC Hgb Hct MCV MCH MCHC RDW Plt Count MPV Immature Gran % (Auto) Neut % (Auto) Lymph % (Auto) Ogle % (Auto) Eos % (Auto) Baso % (Auto) Lymph # (Auto) Ogle # (Auto) Eos # (Auto) Baso # (Auto) Abs Immat Gran (auto) Absolute Neuts (auto) Absolute Nucleated RBC Nucleated RBC % (auto) Neutrophils % (Manual) Band Neutrophils % Lymphocytes % (Manual) Atypical Lymphs % (Man) Monocytes % (Manual) Eosinophils % (Manual) Promyelocytes % Abs Neuts (Manual) Lymphocytes # (Manual) Atyp Lymphs # (Manual) Monocytes # (Manual) Eosinophils # (Manual) Promyelocytes # Platelet Estimate Plt Morphology Comment RBC Morphology Polychromasia Basophilic Stippling Microcytosis D-Dimer VBG pH VBG pCO2 VBG pO2 VBG HCO3 VBG O2 Saturation VBG Base Excess Sodium Potassium Chloride Carbon Dioxide Anion Gap BUN Creatinine Estim Creat Clear Calc Estimated GFR POC Glucose 129 H Random Glucose Fasting Glucose Osmolality Calcium Phosphorus Ferritin C-Reactive Protein Urine Color Urine Appearance Urine pH Ur Specific [place] Urine Protein Urine Glucose (UA) Urine Ketones Urine Blood Urine Nitrite Ur Leukocyte Esterase Urine RBC Urine WBC Urine WBC Clumps Ur Squamous Epith Cells Urine Bacteria Hyaline Casts Microbiology Microbiology Results: Microbiology 07/04/20 02:39 Sputum - Suctioned Gram Stain - Final 07/03/20 22:31 Urine clean catch - Hdez Catheter Urine Culture - Preliminary Gram negative abe 06/26/20 18:40 Blood - Arterial Blood Culture - Final No growth after 5 days. 06/26/20 18:42 Blood - Arterial Blood Culture - Final Streptococcus viridans group Progress Note: A&P Time Spent With Patient Time: Total time spent is greater than 50% in coordination of care (as documented) at patient's floor/unit and/or counseling patient: Total time spent with greater than 50% in coordination of care (as documented) at patient's floor/unit and/or counseling patient:: 0 Critical Care Time Critical Care Time (minutes): 60
[2020-07-04] MEDS: Piperacillin Sodium/Tazobactam 3.375 GM in 0.9 % Sodium Chloride 50 ML IV ×2 (18:18→22:48)
[2020-07-04 18:38] LABS: Glucose, Whole Blood 161 mg/dL (60-115)
--- NOTE | 2020-07-04 18:48 | PC.NURSE ---
Pt remains intubated on ventilator. Continues on fentanyl infusion and insulin gtt for blood sugar control. 23.4% sodium chloride given for goal Na level of 150. Last Na 142. Pt arouses to voice but does not follow commands. Vitals stable. T max 100.8F. This nurse spoke with and updated him. Will continue to monitor.
[2020-07-04 19:09] LABS: Osmolality, Serum 315 mosm/kg (281-305)
[2020-07-04 19:18] LABS: Anion Gap 12 (12-20); Blood Urea Nitrogen 20 mg/dL (9-16); Calcium 8.4 mg/dL (8.4-10.2); Carbon Dioxide 29 mmol/L (22-29); Chloride 106 mmol/L (96-108); Creatinine Clr Calc Pharmacy 123.3; Estimated Glomerular Filt Rate > 60; Glucose Random 163 mg/dL (60-115); Potassium 4.1 mmol/l (3.3-5.1); Sodium 143 mmol/L (135-145)
[2020-07-04] MEDS: Atorvastatin Calcium 80 MG TABLET G-TUBE (19:50)
[2020-07-05] VITALS (29 sets, daily range): BP systolic 110–158; BP diastolic 53–81; PULSE 86–117; RESP 16–24; TEMP 36.4–38.1; O2SAT 90–95; BMI 34.9
[2020-07-05 00:26] LABS: Glucose, Whole Blood 184 mg/dL (60-115)
[2020-07-05 00:43] LABS: Anion Gap 15 (12-20); Blood Urea Nitrogen 21 mg/dL (9-16); Calcium 8.9 mg/dL (8.4-10.2); Carbon Dioxide 28 mmol/L (22-29); Chloride 105 mmol/L (96-108); Creatinine Clr Calc Pharmacy 121.1; Estimated Glomerular Filt Rate > 60; Glucose Random 151 mg/dL (60-115); Potassium 4.6 mmol/l (3.3-5.1); Sodium 143 mmol/L (135-145)
[2020-07-05] MEDS: Thiamine HCL 200 MG in 0.9 % Sodium Chloride 100 ML 204 MG IV ×2 (02:18→13:16)
[2020-07-05] MEDS: Enoxaparin Sodium 100 MG/ML SYRINGE 90 MG SUBCUT ×2 (02:18→13:17)
[2020-07-05] MEDS: fentaNYL citrate/NS 1,000 MCG/100 ML PLAST..BAG 5 MCG IVCONT (02:20)
[2020-07-05 02:29] LABS: Glucose, Whole Blood 119 mg/dL (60-115)
[2020-07-05 02:58] LABS: Osmolality, Serum 303 mosm/kg (281-305)
--- NOTE | 2020-07-05 03:15 | PC.NURSE ---
IV 23.4% SALINE ORDERED BY PA APPROX [id number]. THIS RN QUESTIONED WHETHER ADMINISTERING THIS MED IS WITHIN HER SCOPE OF PRACTICE. REASSURED BY PA AND PHARMACY THAT IT IS. NO HOSPITAL PROTOCOLS/GUIDELINES EXIST FOR THIS MEDICATION. PER PA, MED IS TO BE GIVEN OVER 20 MINUTES. TW QUESTIONED WHEN TO REDRAW ELECTROLYTES. REDRAW @ 0600 PER PA.
[2020-07-05] MEDS: Ascorbic Acid 500 MG TABLET 1000 MG G-TUBE ×4 (05:50→21:18)
[2020-07-05] MEDS: methylPREDNISolone Sod Succ/PF 125 MG/2 ML VIAL 80 MG IVPUSH (05:50)
[2020-07-05] MEDS: Piperacillin Sodium/Tazobactam 3.375 GM in 0.9 % Sodium Chloride 50 ML IV ×3 (05:50→17:52)
[2020-07-05 06:39] LABS: MANUAL DIFF FLAG NO
[2020-07-05 06:56] LABS: Base Excess VBG 2.9 mmol/L; HCO3 VBG 29 mmol/L; Oxygen Saturation VBG 76.6 %; PCO2 VBG 55 mmhg; PO2 VBG 45 mmhg; pH VBG 7.35 (7.32-7.43)
[2020-07-05 07:03] LABS: Basophils Percent Auto 0.2 % (0-2); Eosinophils Percent Auto 0.3 % (0-4); Hematocrit 30.8 % (37-47); Hemoglobin 9.8 g/dl (12.0-16.0); Imm Gran Abs Auto 0.22 X10*3/uL (0.00-0.03); Imm Gran Pct Auto 2.2 % (0.0-0.4); Lymphocytes Absolute Auto 1.7 X10*3/uL (1.2-4.9); Lymphocytes Percent Auto 17.6 % (20-40); Mean Corpuscular HGB Conc 31.8 g/dl (31.0-35.0); Mean Corpuscular Hemoglobin 31.4 pg (27.0-33.0); Mean Corpuscular Volume 98.7 fL (80-98); Mean Platelet Volume 10.4 fL (9.4-12.3); Monocytes Absolute Auto 0.6 X10*3/uL (0.1-1.2); Monocytes Percent Auto 6.1 % (2-11); NRBC Pct Auto 0.3 /100WBC (0.0-0.2); Neutrophils Absolute Auto 7.2 X10*3/uL (2.0-8.3); Neutrophils Percent Auto 73.6 % (45-73); Platelet Count 360 X10*3/uL (160-400); Red Blood Count 3.12 X10*6/uL (4.20-5.50); Red Cell Distribution Width 13.7 % (11.0-16.0); White Blood Count 9.8 X10*3/uL (4.8-10.8)
[2020-07-05 07:04] LABS: Anion Gap 13 (12-20); Blood Urea Nitrogen 22 mg/dL (9-16); C Reactive Protein 3.39 mg/dL (< or = 0.50); Calcium 8.5 mg/dL (8.4-10.2); Carbon Dioxide 30 mmol/L (22-29); Chloride 107 mmol/L (96-108); Creatinine Clr Calc Pharmacy 123.3; Estimated Glomerular Filt Rate > 60; Glucose Random 109 mg/dL (60-115); Phosphorus 4.6 mg/dL (2.7-4.5); Potassium 4.4 mmol/l (3.3-5.1); Sodium 146 mmol/L (135-145)
[2020-07-05 07:05] LABS: Glucose, Whole Blood 104 mg/dL (60-115)
--- NOTE | 2020-07-05 07:07 | PC.NURSE ---
multiple 1 mm blisters noted to right medial buttock. surrounding erythema, blanchable. skin remains intact. diligent q2h repo. airloss mattress with prevalon hovermat. barrier cream.
[2020-07-05 07:18] LABS: D Dimer 2587 NG/ML
[2020-07-05 07:24] LABS: Osmolality, Serum 308 mosm/kg (281-305)
[2020-07-05 07:27] LABS: Ferritin 215 ng/mL (10-250)
[2020-07-05] MEDS: Chlorhexidine Gluc Oral Rinse 15 ML MOUTHWASH BUCCAL ×2 (07:45→15:34)
[2020-07-05] MEDS: Zinc Sulfate 220 MG CAPSULE G-TUBE (07:46)
[2020-07-05] MEDS: Famotidine 20 MG TABLET 40 MG G-TUBE ×2 (07:46→21:17)
[2020-07-05] MEDS: Escitalopram Oxalate 20 MG TABLET PO (07:46)
[2020-07-05] MEDS: Topiramate 100 MG TABLET PO ×2 (07:46→21:18)
[2020-07-05] MEDS: Cholecalciferol (Vitamin D3) 25 MCG TABLET 50 MCG G-TUBE (07:46)
[2020-07-05] MEDS: levETIRAcetam 250 MG TABLET 750 MG PO ×2 (07:46→21:18)
[2020-07-05] MEDS: 0.9 % Sodium Chloride Flush 3 ML SYRINGE IVFLUSH ×3 (07:51→21:18)
[2020-07-05] MEDS: fentaNYL citrate/NS 1,000 MCG/100 ML PLAST..BAG 2.5 MCG IVCONT (07:53)
[2020-07-05 10:07] LABS: Glucose, Whole Blood 189 mg/dL (60-115)
[2020-07-05] MEDS: Insulin Regular/NS 100 UNIT/100 ML PLAST..BAG IVCONT (10:07)
--- NOTE | 2020-07-05 11:07 | PM.CCPN ---
Subjective Subjective Date of Service: 07/06/20 Interval History: Mrs. Srinivas Cedeño was admitted to the ICU on June 26 with acute respiratory failure secondary to COVID pneumonia. The patient is a 55-year-old woman with past medical history of congestive heart failure, diabetes, fibromyalgia, depression, and ? seizures. The patient was brought to the ED by her in a private vehicle on Jun 26 in acute respiratory distress. The reported that the patient had not been feeling well for the prior two days. In the ED, room air Sat was 50s, SBPs 80s. The patient was cyanotic and lethargic. She was immediately intubated. Labs in the ED were notable for WBC 16.7, sodium 133, potassium 3.2, bicarb 11, BUN/creat 12/1.1, troponin 115, BNP 166, lactic acid 13.8. AB.14/34/106/-16. Chest x-ray showed diffuse bilateral patchy opacities. Rapid COVID test positive. Chest CT showed widespread patchy severe dense consolidation throughout both lungs suggestive of bilateral pneumonia. The patient was admitted to ICU and started on steroids. Initial respiratory management was difficult, and she required NMB for effective ventilation and oxygenation. Her trop ryley on 06/27 and she was put on heparin for 48 hrs. Limited echo showed normal left ventricular size and systolic function, normal RV cavity size w low-normal right ventricular systolic function. Limited valvular assessment. IVC not visualized. DDimer on 06/28 was 6400. No other biomarkers. Unable to make much progress with the ventilator over subsequent days. On 06/30, we took her off the Nimbex infusion and tried her on APRV. That was unsuccessful bec of inadequate release volumes and ventilator paradox. We changed her to pressure control ventilation and ultimately, we were able to get the FiO2 down to 50%, with a PEEP of 12 cm. We took the patient off propofol on Jul 02. Little responsiveness and by the next day, and her pupils were almost blown, so she went for head CT which showed multiple subacute infarcts involving right MCA, right IRWIN and bilateral FRONT TENDER territories with significant cerebral edema compressing the lateral ventricles and with loss of cortical sulci. All felt to be 2? COVID. After d/w radiology and neurosurgery (Dr. Sherwood), we started her on osmolar mx with the 23.4% saline. Target serum osm of 310 was easily reached. 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 On my exam this morning, serum sodium is 146, serum Osmo is 308. She?s on fentanyl 25 ug. See Vital Signs below. Low-grade temperatures for last 2 days. Heart rate is 100, blood pressure is 111/60. With the ventilator set at AC/PC 18, pressures 14/10, 40%, RR is low 20s, Vt is 430cc, Ve 9L, PiP 27, Sat 94%. CVBG this morning showed 7.35/55/+2. I could not get her to open her eyes to any kind of stimulation today. No response to any kind of stimulation, and no peripheral motor movement at all (no withdrawal, no posturing). GCS 3T. Negative corneals this morning (was positive yesterday), but still positive dolls? eyes, and still has spont ventilation. I turned the ventilator rate down to 12, and her total RR and ETCO2 were unchanged at 37mm. Dropped FiO2 to 35%, Sat is holding at 93%. Pupils are blown, I saw no reactivity to a flashlight. LABORATORY DATA: As below. Notably, POCs much better controlled on the insulin drip. DDimer down to 2500, Ferritin 215, CRP 3. MICROBIOLOGY: Shahid cultured 07/03. Blood cultures negative. U/A showed 50-75 WBC; Cx growing Ecoli. Sputum GS shows 4+ polys, polymicrob mario. Started on Zosyn yesterday. IMPRESSION: 1. Bilateral COVID pneumonia with ARDS. Biomarkers are fairly low (a good sign). Started 06/30 on the full EVMS protocol (minus the ivermectin and doxy), including Lovenox 1mg/kg bid, and Solumedrol 80 mg bid. No role for remdesivir or convalescent plasma. FiO2 is way down, I?ll drop her Solumedrol to 40 mg bid. 2. Acute hypoxemic respiratory failure secondary to above. FiO2 is coming down nicely. 3. Uncontrolled hyperglycemia. On insulin drip. 4. ID. Fevers with no leukocytosis, A-a gradient improving if anything. Bacterial pneumonia unlikely. U/A is positive, with Ecoli in culture. Change Zosyn to meropenam in case it?s ESBL. 5. 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 These infarcts are obviously at least two days old, but there?s not much surrounding edema, suggesting that they could be as much as 5-6 days old. (Keeping in mind that she?s been fully anticoagulated for most of the time she?s been here.) Neuro status is definitely worse today. No other therapeutic options other than the aggressive osm mgmnt we?re already doing. Prognosis looks very grim. I spoke with the patient?s , José Manuel Nelson ([phone]), again. Discussed that her OBSTETRIC ANAESTHETIST exam was worse and it looks like she may progress to brain . I told him that we would try to get him in to see her. Problem is that he tested positive for C19 on Jun 27 (8 days ago). Checking with the nursing leadership how we?ll handle that. Continuing osmolar management. Critical care time: 60+ min Physical Exam Vital Signs: Vital Signs: Last Vital Signs Temp 99.9 F 07/05/20 11:00 Pulse 111 H 07/05/20 11:00 Resp 19 07/05/20 11:00 BP 122/71 07/05/20 11:00 Pulse Ox 93 07/05/20 11:00 Body Mass Index 34.9 Objective Data Labs CBC & Chem 7: 07/06/20 05:22 07/06/20 05:23 Labs: Laboratory Results - last 24 hr 07/04/20 07/04/20 07/04/20 12:10 13:58 13:58 WBC RBC Hgb Hct MCV MCH MCHC RDW Plt Count MPV Immature Gran % (Auto) Neut % (Auto) Lymph % (Auto) [place] % (Auto) Eos % (Auto) Baso % (Auto) Lymph # (Auto) [place] # (Auto) Eos # (Auto) Baso # (Auto) Abs Immat Gran (auto) Absolute Neuts (auto) Absolute Nucleated RBC Nucleated RBC % (auto) D-Dimer VBG pH VBG pCO2 VBG pO2 VBG HCO3 VBG O2 Saturation VBG Base Excess Sodium 142 Potassium 4.2 Chloride 105 Carbon Dioxide 28 Anion Gap 13 BUN 21 H Creatinine 0.59 Estim Creat Clear Calc 119.1 Estimated GFR > 60 POC Glucose 245 H Random Glucose Fasting Glucose 188 H Osmolality 310 H Calcium 8.2 L Phosphorus Ferritin C-Reactive Protein 07/04/20 07/04/20 07/04/20 14:01 15:41 18:26 WBC RBC Hgb Hct MCV MCH MCHC RDW Plt Count MPV Immature Gran % (Auto) Neut % (Auto) Lymph % (Auto) [place] % (Auto) Eos % (Auto) Baso % (Auto) Lymph # (Auto) [place] # (Auto) Eos # (Auto) Baso # (Auto) Abs Immat Gran (auto) Absolute Neuts (auto) Absolute Nucleated RBC Nucleated RBC % (auto) D-Dimer VBG pH VBG pCO2 VBG pO2 VBG HCO3 VBG O2 Saturation VBG Base Excess Sodium Potassium Chloride Carbon Dioxide Anion Gap BUN Creatinine Estim Creat Clear Calc Estimated GFR POC Glucose 175 H 129 H 161 H Random Glucose Fasting Glucose Osmolality Calcium Phosphorus Ferritin C-Reactive Protein 07/04/20 07/04/20 07/04/20 18:42 18:42 22:16 WBC RBC Hgb Hct MCV MCH MCHC RDW Plt Count MPV Immature Gran % (Auto) Neut % (Auto) Lymph % (Auto) [place] % (Auto) Eos % (Auto) Baso % (Auto) Lymph # (Auto) [place] # (Auto) Eos # (Auto) Baso # (Auto) Abs Immat Gran (auto) Absolute Neuts (auto) Absolute Nucleated RBC Nucleated RBC % (auto) D-Dimer VBG pH VBG pCO2 VBG pO2 VBG HCO3 VBG O2 Saturation VBG Base Excess Sodium 143 Potassium 4.1 Chloride 106 Carbon Dioxide 29 Anion Gap 12 BUN 20 H Creatinine 0.57 Estim Creat Clear Calc 123.3 Estimated GFR > 60 POC Glucose 184 H Random Glucose 163 H D Fasting Glucose Osmolality 315 H Calcium 8.4 Phosphorus Ferritin C-Reactive Protein 07/05/20 07/05/20 07/05/20 00:11 00:11 02:20 WBC RBC Hgb Hct MCV MCH MCHC RDW Plt Count MPV Immature Gran % (Auto) Neut % (Auto) Lymph % (Auto) [place] % (Auto) Eos % (Auto) Baso % (Auto) Lymph # (Auto) [place] # (Auto) Eos # (Auto) Baso # (Auto) Abs Immat Gran (auto) Absolute Neuts (auto) Absolute Nucleated RBC Nucleated RBC % (auto) D-Dimer VBG pH VBG pCO2 VBG pO2 VBG HCO3 VBG O2 Saturation VBG Base Excess Sodium 143 Potassium 4.6 Chloride 105 Carbon Dioxide 28 Anion Gap 15 BUN 21 H Creatinine 0.58 Estim Creat Clear Calc 121.1 Estimated GFR > 60 POC Glucose 119 H Random Glucose 151 H Fasting Glucose Osmolality 303 Calcium 8.9 Phosphorus Ferritin C-Reactive Protein 07/05/20 07/05/20 07/05/20 05:44 05:44 05:44 WBC 9.8 RBC 3.12 L Hgb 9.8 L Hct 30.8 L MCV 98.7 H MCH 31.4 MCHC 31.8 RDW 13.7 Plt Count 360 MPV 10.4 Immature Gran % (Auto) 2.2 H Neut % (Auto) 73.6 H Lymph % (Auto) 17.6 L [place] % (Auto) 6.1 Eos % (Auto) 0.3 Baso % (Auto) 0.2 Lymph # (Auto) 1.7 [place] # (Auto) 0.6 Eos # (Auto) 0.0 Baso # (Auto) 0.0 Abs Immat Gran (auto) 0.22 H Absolute Neuts (auto) 7.2 Absolute Nucleated RBC 0.030 H Nucleated RBC % (auto) 0.3 H D-Dimer VBG pH 7.35 VBG pCO2 55 VBG pO2 45 VBG HCO3 29 VBG O2 Saturation 76.6 VBG Base Excess 2.9 Sodium Potassium Chloride Carbon Dioxide Anion Gap BUN Creatinine Estim Creat Clear Calc Estimated GFR POC Glucose Random Glucose Fasting Glucose Osmolality 308 H Calcium Phosphorus Ferritin C-Reactive Protein 07/05/20 07/05/20 07/05/20 05:44 05:44 05:54 WBC RBC Hgb Hct MCV MCH MCHC RDW Plt Count MPV Immature Gran % (Auto) Neut % (Auto) Lymph % (Auto) [place] % (Auto) Eos % (Auto) Baso % (Auto) Lymph # (Auto) [place] # (Auto) Eos # (Auto) Baso # (Auto) Abs Immat Gran (auto) Absolute Neuts (auto) Absolute Nucleated RBC Nucleated RBC % (auto) D-Dimer 2587 VBG pH VBG pCO2 VBG pO2 VBG HCO3 VBG O2 Saturation VBG Base Excess Sodium 146 H Potassium 4.4 Chloride 107 Carbon Dioxide 30 H Anion Gap 13 BUN 22 H Creatinine 0.57 Estim Creat Clear Calc 123.3 Estimated GFR > 60 POC Glucose 104 Random Glucose 109 Fasting Glucose Osmolality Calcium 8.5 Phosphorus 4.6 H Ferritin 215 C-Reactive Protein 3.39 H 07/05/20 10:02 WBC RBC Hgb Hct MCV MCH MCHC RDW Plt Count MPV Immature Gran % (Auto) Neut % (Auto) Lymph % (Auto) [place] % (Auto) Eos % (Auto) Baso % (Auto) Lymph # (Auto) [place] # (Auto) Eos # (Auto) Baso # (Auto) Abs Immat Gran (auto) Absolute Neuts (auto) Absolute Nucleated RBC Nucleated RBC % (auto) D-Dimer VBG pH VBG pCO2 VBG pO2 VBG HCO3 VBG O2 Saturation VBG Base Excess Sodium Potassium Chloride Carbon Dioxide Anion Gap BUN Creatinine Estim Creat Clear Calc Estimated GFR POC Glucose 189 H Random Glucose Fasting Glucose Osmolality Calcium Phosphorus Ferritin C-Reactive Protein Microbiology Microbiology Results: Microbiology 07/04/20 02:39 Sputum - Suctioned Gram Stain - Final 07/04/20 02:39 Sputum - Suctioned Sputum Culture - Preliminary Culture in progress. 07/03/20 22:31 Urine clean catch - Hdez Catheter Urine Culture - Preliminary Escherichia coli 07/03/20 21:42 Blood - Venous Blood Culture - Preliminary No growth after 24 hours. 07/03/20 21:42 Blood - Venous Blood Culture - Preliminary No growth after 24 hours. 06/26/20 18:40 Blood - Arterial Blood Culture - Final No growth after 5 days. 06/26/20 18:42 Blood - Arterial Blood Culture - Final Streptococcus viridans group Progress Note: A&P Time Spent With Patient Time: Total time spent is greater than 50% in coordination of care (as documented) at patient's floor/unit and/or counseling patient: Total time spent with greater than 50% in coordination of care (as documented) at patient's floor/unit and/or counseling patient:: 0 Critical Care Time Critical Care Time (minutes): 60
[2020-07-05 12:24] LABS: Osmolality, Serum 320 mosm/kg (281-305)
[2020-07-05 12:27] LABS: Anion Gap 13 (12-20); Carbon Dioxide 29 mmol/L (22-29); Chloride 107 mmol/L (96-108); Potassium 4.6 mmol/l (3.3-5.1); Sodium 144 mmol/L (135-145)
[2020-07-05] MEDS: methylPREDNISolone Sod Succ/PF 125 MG/2 ML VIAL 40 MG IVPUSH (12:32)
[2020-07-05 14:17] LABS: Glucose, Whole Blood 250 mg/dL (60-115)
[2020-07-05 17:11] LABS: Glucose, Whole Blood 191 mg/dL (60-115)
[2020-07-05 18:34] LABS: Anion Gap 13 (12-20); Carbon Dioxide 28 mmol/L (22-29); Chloride 107 mmol/L (96-108); Potassium 4.3 mmol/l (3.3-5.1); Sodium 144 mmol/L (135-145)
--- NOTE | 2020-07-05 18:52 | PC.NURSE ---
Addendum entered by Brenda Almaraz RN 07/05/20 19:15: 23% Sodium Chloride given x 1 at start of shift. Second RN witness setting of gtt. Original Note: PT UNAROUSABLE THROUGHOUT SHIFT. POSITIVE COUGH AND GAG. THICK, CREAM INLINE SECRETIONS. LARGE AMOUNTS OF CLEAR ORAL SECRETIONS. PUPILS 5-6 MM, VERY SLUGGISH. L PUPIL > R AT TIMES, MD AWARE. FENTANYL GTT SHUT OFF AT 1547 PER MD. INSULIN GTT TITRATED ORDERED PER MD. MARIANO OUTPUT WNL. BM X 1, LARGE. Q2H REPO, CREAM, BATHED, FREQUENT ORAL CARE. FAMILY UPDATED BY THIS RN X 2 AND MD.
[2020-07-05 19:01] LABS: Osmolality, Serum 318 mosm/kg (281-305)
[2020-07-05] MEDS: Insulin Regular/NS 100 UNIT/100 ML PLAST..BAG 8 UNIT IVCONT (21:17)
[2020-07-05] MEDS: Atorvastatin Calcium 80 MG TABLET G-TUBE (21:17)
[2020-07-06] VITALS (30 sets, daily range): BP systolic 100–181; BP diastolic 56–94; PULSE 88–118; RESP 15–27; TEMP 36.2–38.1; O2SAT 88–95; BMI 35.0
--- NOTE | 2020-07-06 | EEG_ITS ---
The waking background activity consists of low voltage fast frequencies and muscle artifacts superimposed on a background of low-voltage 3 to 4 hertz delta. Photic stimulation is without activation. Hyperventilation was omitted. No paroxysmal discharges seen. IMPRESSION: This is an abnormal EEG due to fairly severe diffuse background slowing, abundance of muscle artifact, but no epileptiform discharges. MD AMAN Fishman/MAGUE / [id number]
[2020-07-06 00:04] LABS: Glucose, Whole Blood 162 mg/dL (60-115)
[2020-07-06] MEDS: methylPREDNISolone Sod Succ/PF 125 MG/2 ML VIAL 40 MG IVPUSH ×2 (00:09→12:41)
[2020-07-06] MEDS: Chlorhexidine Gluc Oral Rinse 15 ML MOUTHWASH BUCCAL ×3 (00:09→15:25)
[2020-07-06] MEDS: Thiamine HCL 200 MG in 0.9 % Sodium Chloride 100 ML 204 MG IV ×2 (00:09→13:55)
[2020-07-06] MEDS: Enoxaparin Sodium 100 MG/ML SYRINGE 90 MG SUBCUT ×2 (00:11→13:55)
[2020-07-06] MEDS: Piperacillin Sodium/Tazobactam 3.375 GM in 0.9 % Sodium Chloride 50 ML IV ×4 (00:11→17:44)
[2020-07-06 01:06] LABS: Anion Gap 15 (12-20); Blood Urea Nitrogen 25 mg/dL (9-16); Calcium 8.5 mg/dL (8.4-10.2); Carbon Dioxide 27 mmol/L (22-29); Chloride 106 mmol/L (96-108); Creatinine Clr Calc Pharmacy 115.7; Estimated Glomerular Filt Rate > 60; Glucose Random 186 mg/dL (60-115); Potassium 4.3 mmol/l (3.3-5.1); Sodium 144 mmol/L (135-145)
[2020-07-06 01:18] LABS: Osmolality, Serum 314 mosm/kg (281-305)
[2020-07-06 02:26] LABS: Glucose, Whole Blood 218 mg/dL (60-115)
--- NOTE | 2020-07-06 04:00 | PC.NURSE ---
neuro status unchanged. synchronous with vent. vss. tolerating tube feed. max residual 15 cc. uop 50-100 cc/hr. large liquid stool x2. insulin gtt titrated by pa per q3-4hr poc. blanchable, red buttocks with multiple pinpoint blisters to left medial cleft.
[2020-07-06] MEDS: Ascorbic Acid 500 MG TABLET 1000 MG G-TUBE ×4 (05:26→21:25)
[2020-07-06 05:49] LABS: Glucose, Whole Blood 243 mg/dL (60-115)
[2020-07-06 06:07] LABS: MANUAL DIFF FLAG NO
[2020-07-06 06:08] LABS: Basophils Percent Auto 0.1 % (0-2); Eosinophils Percent Auto 0.1 % (0-4); Hematocrit 29.6 % (37-47); Hemoglobin 9.4 g/dl (12.0-16.0); Imm Gran Abs Auto 0.12 X10*3/uL (0.00-0.03); Imm Gran Pct Auto 1.4 % (0.0-0.4); Lymphocytes Absolute Auto 0.8 X10*3/uL (1.2-4.9); Lymphocytes Percent Auto 9.1 % (20-40); Mean Corpuscular HGB Conc 31.8 g/dl (31.0-35.0); Mean Corpuscular Hemoglobin 30.9 pg (27.0-33.0); Mean Corpuscular Volume 97.4 fL (80-98); Mean Platelet Volume 10.4 fL (9.4-12.3); Monocytes Absolute Auto 0.3 X10*3/uL (0.1-1.2); Monocytes Percent Auto 2.8 % (2-11); NRBC Pct Auto 0.2 /100WBC (0.0-0.2); Neutrophils Absolute Auto 7.6 X10*3/uL (2.0-8.3); Neutrophils Percent Auto 86.5 % (45-73); Platelet Count 363 X10*3/uL (160-400); Red Blood Count 3.04 X10*6/uL (4.20-5.50); White Blood Count 8.8 X10*3/uL (4.8-10.8)
[2020-07-06 06:42] LABS: Anion Gap 17 (12-20); Blood Urea Nitrogen 25 mg/dL (9-16); C Reactive Protein 3.25 mg/dL (< or = 0.50); Calcium 8.5 mg/dL (8.4-10.2); Carbon Dioxide 25 mmol/L (22-29); Chloride 105 mmol/L (96-108); Estimated Glomerular Filt Rate > 60; Glucose Random 257 mg/dL (60-115); Magnesium 2.2 mg/dL (1.6-2.6); Potassium 4.5 mmol/l (3.3-5.1); Sodium 142 mmol/L (135-145)
[2020-07-06 06:53] LABS: Osmolality, Serum 317 mosm/kg (281-305); Procalcitonin 0.07 ng/mL
[2020-07-06 06:57] LABS: Ferritin 212 ng/mL (10-250)
[2020-07-06 07:34] LABS: D Dimer 2623 NG/ML
[2020-07-06] MEDS: levETIRAcetam 250 MG TABLET 750 MG PO ×2 (07:36→21:25)
[2020-07-06] MEDS: Topiramate 100 MG TABLET PO ×2 (07:36→21:26)
[2020-07-06] MEDS: Zinc Sulfate 220 MG CAPSULE G-TUBE (07:36)
[2020-07-06] MEDS: Escitalopram Oxalate 20 MG TABLET PO (07:36)
[2020-07-06] MEDS: Cholecalciferol (Vitamin D3) 25 MCG TABLET 50 MCG G-TUBE (07:36)
[2020-07-06] MEDS: Famotidine 20 MG TABLET 40 MG G-TUBE ×2 (07:37→21:23)
[2020-07-06] MEDS: 0.9 % Sodium Chloride Flush 3 ML SYRINGE IVFLUSH ×3 (07:38→21:26)
--- NOTE | 2020-07-06 08:01 | MHC.PIE ---
Addendum entered by Brenda Almaraz RN 07/06/20 18:21: Random non-purposeful movements to right leg and right hand noted throughout shift. Does not open eyes, follow commands, or respond to name. EEG ordered for tomorrow. Copious amounts of clear oral secretions and thick, cream inline secretions noted. VSS. Current vent settings: PCV 12/14/+7/30%. Hdez output WNL. BM X 3: large, brown, soft. Scant blood noted when wiping external hemorrhoids. Q2H repo, cream applied, bathed. Music therapy played again today. Family updated by MD. Original Note: At 0800 pt noted to be able to move/bounce right leg on her own. Does not open eyes, follow commands, or respond to name. MD at bedside. Left pupil 6mm > Right pupil 5mm, sluggish to react to light. Neurology consult ordered and called in.
--- NOTE | 2020-07-06 08:39 | P.PNCC_ITS ---
Subjective Subjective Date of Service: 07/06/20 Interval History: Mrs. Srinivas Cedeño was admitted to the ICU on June 26 with acute respiratory failure secondary to COVID pneumonia. The patient is a 55-year-old woman with past medical history of congestive heart failure, diabetes, fibromyalgia, depression, and ? seizures. The patient was brought to the ED by her by car on Jun 26 in acute respiratory distress. The reported that the patient had not been feeling well for the prior two days. In the ED, room air Sat was 50s, SBPs 80s. The patient was cyanotic and lethargic. She was immediately intubated. Labs in the ED were notable for WBC 16.7, bicarb 11, BUN/creat 12/1.1, lactic acid 13.8. AB.14/34/106/-16 on the ventilator. Chest x-ray showed diffuse bilateral patchy opacities. Rapid COVID test positive. Chest CT showed widespread patchy severe dense consolidation throughout both lungs suggestive of bilateral pneumonia. The patient was admitted to ICU and started on steroids. Initial respiratory management was difficult, and she required NMB for effective ventilation and oxygenation. Her trop ryley on 06/27 and she was put on heparin for 48 hrs. Limited echo showed normal left ventricular size and systolic function, normal RV cavity size w low-normal right ventricular systolic function. Limited valvular assessment. IVC not visualized. DDimer on 06/28 was 6400. Unable to make much progress with the ventilator over subsequent days. On 06/30, we took her off the Nimbex infusion and tried her on APRV. That was unsuccessful bec of inadequate release volumes and ventilator paradox. We changed her to pressure control ventilation and ultimately, we were able to get the FiO2 down to 50%, with a PEEP of 12 cm. We took the patient off propofol on Jul 02. Little responsiveness and by the next day, best neuro fxn was minimal eye opening, and her pupils were almost blown, so she went for head CT which showed multiple subacute infarcts involving right MCA, right IRWIN and bilateral CURTAIN STITCHER territories, with significant cerebral edema compressing the lateral ventricles and with loss of cortical sulci. All felt to be 2? COVID. After d/w radiology and neurosurgery (Dr. Sherwood), it was felt that there was no therapeutic option other than osmolar mx. We started her on 23.4% saline. Target serum osm of 310 was easily reached. The next day, Jul 04, she was a little photographer still in terms of more readily opening her eyes, but still no other responsiveness. Yesterday though, she had no eye opening, she?d lost her corneal reflex, and her pupils were fully blown. I called the patient?s and discussed with him that she might that night. On my exam this morning however, she?s still not opening her eyes, but her pupils are smaller, about 7mm, and bilaterally reactive, altho sluggishly, right side more brisk than the left. She also has corneal reflexes again, she still has positive dolls? eyes, positive gag reflex, and still breathing above the set ventilator rate. Serum sodium is 142, serum Osmo is 317. She?s off all sedatives and off fentanyl. See Vital Signs below. Low-grade temperatures for last 2 days. Heart rate is 95, blood pressure is 127/75. With the ventilator set at AC/PC 12, pressures 14/10, 35%, RR is 21, Vt is 420cc, Ve 8.6L, PiP 26, Sat 95% (no change from yest). ETCO2 is unchanged at 35. I could not get her to open her eyes to any kind of stimulation today. No response to any kind of stimulation, and no peripheral motor movement at all (no withdrawal, no posturing). GCS 3T. She had some shaking of her right leg this morning, seemingly in response to stimulation. Unclear what that was -- purposeful movement, myoclonus, or seizure activity. Abdomen soft, no significant edema. We turned her FiO2 down to 25%, and she?s sat?ing about 88% on that, so back to 30% FiO2. LABORATORY DATA: As below. COVID biomarkers coming down. MICROBIOLOGY: Shahid cultured 07/03. Blood cultures negative. U/A showed 50-75 WBC; Cx growing ESBL Ecoli. She was switched to meropenam yesterday. Sputum culture shows upper resp mario. IMPRESSION: 1. Bilateral COVID pneumonia with ARDS. Biomarkers are low. We dropper her Solumedrol to 40 mg bid. Left her on the Lovenox. 2. Acute hypoxemic respiratory failure secondary to above. FiO2 is coming down nicely. 3. Uncontrolled hyperglycemia. Aggravated by the steroids. On insulin drip. 4. ID. Fevers with no leukocytosis. Urine grew ESBL Ecoli. On meropenam. 5. 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 These infarcts are obviously at least two days old, but there?s not much surrounding edema, suggesting that they could be as much as 5-6 days old. (Keeping in mind that she?s been fully anticoagulated for most of the time she?s been here.) Neuro status is definitely better today (I?m not worried about brain tonight), but she?s still comatose, not clear if she?s ever going to wake up. Prognosis looks very grim. Continuing osmolar management. 6. Right leg movement. Discussed with Dr. Jeff. The main question is, was that sz activity. Unclear. So we?ll restart the Depakote she was on at home, get an EEG tomorrow. I spoke with the patient?s , José Manuel Nelson ([phone]), again and noted all the above. Unfortunately, he tested positive for C19 on Jun 27 (9 days ago), so hasn?t been able to come in to see her. Critical care time: 75+ min Physical Exam Vital Signs: Vital Signs: Last Vital Signs Temp 100.0 F 07/06/20 08:00 Pulse 98 07/06/20 08:00 Resp 21 H 07/06/20 08:00 BP 150/65 H 07/06/20 08:00 Pulse Ox 93 07/06/20 08:00 Body Mass Index 35.0 Objective Data Labs CBC & Chem 7: 07/06/20 05:22 07/06/20 15:29 Labs: Laboratory Results - last 24 hr 07/05/20 07/05/20 07/05/20 10:02 11:49 11:49 WBC RBC Hgb Hct MCV MCH MCHC RDW Plt Count MPV Immature Gran % (Auto) Neut % (Auto) Lymph % (Auto) [place] % (Auto) Eos % (Auto) Baso % (Auto) Lymph # (Auto) [place] # (Auto) Eos # (Auto) Baso # (Auto) Abs Immat Gran (auto) Absolute Neuts (auto) Absolute Nucleated RBC Nucleated RBC % (auto) D-Dimer Sodium 144 Potassium 4.6 Chloride 107 Carbon Dioxide 29 Anion Gap 13 BUN Creatinine Estim Creat Clear Calc Estimated GFR POC Glucose 189 H Random Glucose Osmolality 320 H Calcium Magnesium Ferritin C-Reactive Protein Procalcitonin 07/05/20 07/05/20 07/05/20 14:12 17:07 18:02 WBC RBC Hgb Hct MCV MCH MCHC RDW Plt Count MPV Immature Gran % (Auto) Neut % (Auto) Lymph % (Auto) [place] % (Auto) Eos % (Auto) Baso % (Auto) Lymph # (Auto) [place] # (Auto) Eos # (Auto) Baso # (Auto) Abs Immat Gran (auto) Absolute Neuts (auto) Absolute Nucleated RBC Nucleated RBC % (auto) D-Dimer Sodium 144 Potassium 4.3 Chloride 107 Carbon Dioxide 28 Anion Gap 13 BUN Creatinine Estim Creat Clear Calc Estimated GFR POC Glucose 250 H 191 H Random Glucose Osmolality Calcium Magnesium Ferritin C-Reactive Protein Procalcitonin 07/05/20 07/05/20 07/06/20 18:02 21:21 00:25 WBC RBC Hgb Hct MCV MCH MCHC RDW Plt Count MPV Immature Gran % (Auto) Neut % (Auto) Lymph % (Auto) [place] % (Auto) Eos % (Auto) Baso % (Auto) Lymph # (Auto) [place] # (Auto) Eos # (Auto) Baso # (Auto) Abs Immat Gran (auto) Absolute Neuts (auto) Absolute Nucleated RBC Nucleated RBC % (auto) D-Dimer Sodium 144 Potassium 4.3 Chloride 106 Carbon Dioxide 27 Anion Gap 15 BUN 25 H Creatinine 0.59 Estim Creat Clear Calc 115.7 Estimated GFR > 60 POC Glucose 162 H Random Glucose 186 H D Osmolality 318 H Calcium 8.5 Magnesium Ferritin C-Reactive Protein Procalcitonin 07/06/20 07/06/20 07/06/20 00:25 02:21 05:22 WBC 8.8 RBC 3.04 L Hgb 9.4 L Hct 29.6 L MCV 97.4 MCH 30.9 MCHC 31.8 RDW 14.0 Plt Count 363 MPV 10.4 Immature Gran % (Auto) 1.4 H Neut % (Auto) 86.5 H Lymph % (Auto) 9.1 L [place] % (Auto) 2.8 Eos % (Auto) 0.1 Baso % (Auto) 0.1 Lymph # (Auto) 0.8 L [place] # (Auto) 0.3 Eos # (Auto) 0.0 Baso # (Auto) 0.0 Abs Immat Gran (auto) 0.12 H Absolute Neuts (auto) 7.6 Absolute Nucleated RBC 0.020 H Nucleated RBC % (auto) 0.2 D-Dimer Sodium Potassium Chloride Carbon Dioxide Anion Gap BUN Creatinine Estim Creat Clear Calc Estimated GFR POC Glucose 218 H Random Glucose Osmolality 314 H Calcium Magnesium Ferritin C-Reactive Protein Procalcitonin 07/06/20 07/06/20 07/06/20 05:22 05:22 05:22 WBC RBC Hgb Hct MCV MCH MCHC RDW Plt Count MPV Immature Gran % (Auto) Neut % (Auto) Lymph % (Auto) [place] % (Auto) Eos % (Auto) Baso % (Auto) Lymph # (Auto) [place] # (Auto) Eos # (Auto) Baso # (Auto) Abs Immat Gran (auto) Absolute Neuts (auto) Absolute Nucleated RBC Nucleated RBC % (auto) D-Dimer 2623 Sodium Potassium Chloride Carbon Dioxide Anion Gap BUN Creatinine Estim Creat Clear Calc Estimated GFR POC Glucose Random Glucose Osmolality 317 H Calcium Magnesium Ferritin C-Reactive Protein Procalcitonin 0.07 07/06/20 07/06/20 05:23 05:25 WBC RBC Hgb Hct MCV MCH MCHC RDW Plt Count MPV Immature Gran % (Auto) Neut % (Auto) Lymph % (Auto) [place] % (Auto) Eos % (Auto) Baso % (Auto) Lymph # (Auto) [place] # (Auto) Eos # (Auto) Baso # (Auto) Abs Immat Gran (auto) Absolute Neuts (auto) Absolute Nucleated RBC Nucleated RBC % (auto) D-Dimer Sodium 142 Potassium 4.5 Chloride 105 Carbon Dioxide 25 Anion Gap 17 BUN 25 H Creatinine 0.65 Estim Creat Clear Calc 105.0 Estimated GFR > 60 POC Glucose 243 H Random Glucose 257 H D Osmolality Calcium 8.5 Magnesium 2.2 Ferritin 212 C-Reactive Protein 3.25 H Procalcitonin Microbiology Microbiology Results: Microbiology 07/03/20 22:31 Urine clean catch - Hdez Catheter Urine Culture - Final Escherichia coli 07/03/20 21:42 Blood - Venous Blood Culture - Preliminary No growth after 48 hours. 07/03/20 21:42 Blood - Venous Blood Culture - Preliminary No growth after 48 hours. 07/04/20 02:39 Sputum - Suctioned Gram Stain - Final 07/04/20 02:39 Sputum - Suctioned Sputum Culture - Preliminary Culture in progress. 06/26/20 18:40 Blood - Arterial Blood Culture - Final No growth after 5 days. 06/26/20 18:42 Blood - Arterial Blood Culture - Final Streptococcus viridans group Progress Note: A&P Time Spent With Patient Time: Total time spent is greater than 50% in coordination of care (as documented) at patient's floor/unit and/or counseling patient: Total time spent with greater than 50% in coordination of care (as documented) a t patient's floor/unit and/or counseling patient:: 0 Critical Care Time Critical Care Time (minutes): 90
[2020-07-06 09:58] LABS: Glucose, Whole Blood 225 mg/dL (60-115)
[2020-07-06] MEDS: Insulin Regular/NS 100 UNIT/100 ML PLAST..BAG 8 UNIT IVCONT (12:43)
--- NOTE | 2020-07-06 13:38 | P.CNNE_ITS ---
History of Present Illness Data of Consult Service Date: 07/06/20 Primary Care Provider: Vivi Lemon DO HPI Reason for consult: Unresponsiveness and possible seizures This is a 52-year-old woman with a history of congestive heart failure, diabetes mellitus, depression, seizure disorder and migraines who was brought in with 2 days history of increasing shortness of breath and not feeling well. In the emergency room she was found to have bilateral pneumonia congestive heart failure a positive COVID and O2 sats of 50% and was immediately intubated and admitted to the ICU. She has been in the hospital for more than 10 days at this point, when attempting to wean her off the respirator she was not responding and a CT scan was done 3 days ago which shows multiple ischemic infarcts involving large areas of the left cerebellum, midline cerebellum and vermis, large areas of infarct in the right parietal area left occipital area right occipital area and bifrontal areas in both hemispheres with mass effect in the right frontal region. There is some question that she may also be having seizures because at 1 point today she was noted to have her become less responsive and may have had some twitching of 1 foot. She has a past history of seizures for which she has been on Depakote and Keppra but the details of that are not available. Review of Systems Eyes: Eyes: Reports no additional eye complaints ENT: Reports system reviewed and no additional complaints, except as documented Cardiovascular: Cardiovascular: Reports no additional cardiovascular complaints Respiratory: Respiratory: Reports no additional respiratory complaints Gastrointestinal: Gastrointestinal: Reports no additional gastrointestinal complaints Musculoskeletal: Musculoskeletal: Reports no additional musculoskeletal compl aints Integumentary/Breasts: Skin/Breast: Reports system reviewed and no additional complaints, except as docu Neurologic: Reports as per HPI Psychiatric: Psychiatric: Reports as per HPI Endocrine: Endocrine: Reports no additional endocrine complaints Hematologic/Lymphatic: Hematologic/Lymphatic: Reports no additional hematologic/lymphatic complaints Allergic/Immunologic: Allergic/Immunologic: Reports no additional allergic/immunologic complaints [facility] Past Medical History Medical History (Updated 07/06/20 @ 13:48 by Caprice Jeff MD) Asthma CHF (congestive heart failure) Diabetes Lower extremity surgery planned Pulmonary fibrosis Seizure Family History Family history: reviewed and not pertinent Social History Social History Household Members: Spouse and Family Housing: House Alcohol intake: unknown Smoking Status: Unknown if ever smoked Use of substances other than those prescribed or required for medical reasons: Unable to respond Currently Displaying Signs/Symptoms of Drug Intoxication Withdrawal: No Advance Directives: No Advance Directives Information Provided: No Do you have thoughts of harming others: None Do you have a plan to hurt others: No Plan Recently lost weight without trying: Unsure Meds Allergies Allergy/AdvReac Type Severity Reaction Status Date / Time Penicillins [PENICILLINS] Allergy Intermediate HIVES,SWELL Verified 06/30/20 12:24 ING penicillin Allergy Unknown Hives Uncoded 06/30/20 12:24 Home Medications Medication Instructions Recorded Confirmed Type acetaminophen 2 tab PO TID PRN 06/30/20 06/30/20 History azithromycin 1 tab PO MOWEFR 06/30/20 07/01/20 History blood sugar diagnostic [FreeStyle 06/30/20 06/30/20 History Lite Strips] blood-glucose meter [FreeStyle 06/30/20 06/30/20 History Lite Meter] cetirizine 1 tab PO DAILY 06/30/20 06/30/20 History citalopram 1 tab PO QAM 06/30/20 06/30/20 History cyproheptadine 4 mg PO BID 06/30/20 07/01/20 History dicyclomine 1 cap PO BID PRN 06/30/20 06/30/20 History diphenoxylate-atropine 1 tab PO TID PRN 06/30/20 06/30/20 History divalproex 3 tab PO BID 06/30/20 06/30/20 History dulaglutide [Trulicity] 0.75 mg SUBCUT QWEEK 06/30/20 06/30/20 History famotidine 1 tab PO BEDTIME 06/30/20 06/30/20 History fluticasone propion-salmeterol 1 puff INHALATION BID 06/30/20 06/30/20 History [Wixela Inhub] hydroxyzine pamoate 1 cap PO TID PRN 06/30/20 06/30/20 History lancets [FreeStyle Lancets] 06/30/20 06/30/20 History levetiracetam 2 tab PO BID 06/30/20 06/30/20 History magnesium oxide 1 tab PO BEDTIME 06/30/20 06/30/20 History meloxicam 1 tab PO DAILY 06/30/20 06/30/20 History metformin 1 tab PO TID 06/30/20 06/30/20 History omeprazole 1 cap PO BID 06/30/20 06/30/20 History pirfenidone [Esbriet] 267 mg PO TID 06/30/20 07/01/20 History riboflavin (vitamin B2) [Vitamin 2 tab PO BID 06/30/20 06/30/20 History B-2] sucralfate 1 tab PO QID PRN 06/30/20 06/30/20 History temazepam 1 cap PO BEDTIME 06/30/20 06/30/20 History topiramate 1 tab PO BID 06/30/20 06/30/20 History sumatriptan succinate 1 tab PO DAILY PRN 07/01/20 07/01/20 History Physical Exam Vital Signs: Vital Signs: Last Vital Signs Temp 99.7 F 07/06/20 13:00 Pulse 101 H 07/06/20 13:00 Resp 25 H 07/06/20 13:00 BP 121/82 07/06/20 13:00 Pulse Ox 88 L 07/06/20 13:00 Body Mass Index 35.0 Const: Other: The patient is unresponsive intubated on a vent in the ICU not verbalizing or following any commands with minimal to no response to pain HENMT: Head: Yes normal to inspection, Yes normocephalic and Yes atraumatic Face and sinus: Yes normal facial exam Eyes: General: appearance normal, both eyes and all related structures Alignment and Position: alignment normal Periorbital: periorbital findings normal Eyelids: Yes eyelids normal Conjunctivae: conjunctivae normal Sclerae: sclerae normal Corneas: corneas normal Pupils: Equal, round and reactive pupils present Neck: Neck: Yes normal visual inspection and Yes full ROM Thyroid: Thyroid normal Carotids: normal carotid upstroke and bounding pulses Chest: Chest palpation & inspection: normal inspection of the chest Resp: Effort & Inspection: normal respiratory effort Auscultation: clear to auscultation bilaterally Cardio: Rate: regular rate Rhythm: regular rhythm Heart sounds: S1 normal heart sound present and S2 normal heart sound present Peripheral pulses: Peripheral pulses 2+ throughout GI: Inspection: Yes normal to inspection Percussion: Yes normal to percussion Auscultation: normal bowel sounds Rectal Exam - Female: deferred Back/Spine/Pelvis: Cervical Spine: normal cervical lordosis and cervical ROM normal Thoracic/Lumbar Spine: thoracic and lumbar spine normal to inspection Skin: General skin exam: no rashes or lesions noted Neuro: Cranial nerves: Yes Equal, round and reactive pupils present Speech: Other speech findings present (Neuro) Gait exam (Neuro): Normal gait present Deep tendon reflexes (DTR's): Right triceps reflex intensity grade: 0, Left triceps reflex intensity grade: 0, Rt Biceps (C5, C6): 0, Left biceps reflex intensity grade: 0, Right brachioradialis reflex intensity grade: 0, Left brachioradialis reflex intensity grade: 0, Right patellar reflex intensity grade: 0, Left patellar reflex intensity grade: 0, Right ankle reflex intensity grade: 0 and Left ankle reflex intensity grade: 0 Plantar Reflex Responses: equivocal: right and left Comatose Patient: corneal reflex present Doll's- Eye Reflex: Present Pupils: Normal pupillary reactivity/response: bilateral Extrem: General: Yes normal to inspection, Yes normal exam except as noted and Yes no pedal edema Psych: Appearance: grossly normal Mental Status: mental status grossly normal Speech and movement: Normal speech and movement present and Clear speech present Affect: normal affect Attitude: cooperative Thought process: Normal thought process present Results Labs CBC & Chem 7: 07/06/20 05:22 07/06/20 05:23 Labs: Short CBC 07/06/20 Range/Units 05:22 WBC 8.8 (4.8-10.8) X10*3/uL Hgb 9.4 L (12.0-16.0) g/dl Hct 29.6 L (37-47) % Plt Count 363 (160-400) X10*3/uL BMP 07/05/20 07/06/20 07/06/20 18:02 00:25 05:23 Sodium 144 144 142 Potassium 4.3 4.3 4.5 Chloride 107 106 105 Carbon Dioxide 28 27 25 BUN 25 H 25 H Creatinine 0.59 0.65 Calcium 8.5 8.5 Microbiology Microbiology Results: Microbiology 07/04/20 02:39 Sputum - Suctioned Gram Stain - Final 07/04/20 02:39 Sputum - Suctioned Sputum Culture - Final 07/03/20 22:31 Urine clean catch - Hdez Catheter Urine Culture - Final Escherichia coli 07/03/20 21:42 Blood - Venous Blood Culture - Preliminary No growth after 48 hours. 07/03/20 21:42 Blood - Venous Blood Culture - Preliminary No growth after 48 hours. 06/26/20 18:40 Blood - Arterial Blood Culture - Final No growth after 5 days. 06/26/20 18:42 Blood - Arterial Blood Culture - Final Streptococcus viridans group Assessment and Plan (1) Stroke (cerebrum): Problem details: Multiple large strokes both supra and infratentorially and bilateral with some right frontal mass effect Status: Acute May continue anticoagulation. General supportive care. Prognosis appears poor (2) Pneumonia due to COVID-19 virus: Status: Acute (3) Septic shock: Status: Acute (4) OMAR (acute kidney injury): Status: Acute (5) NSTEMI (non-ST elevated myocardial infarction): Status: Acute (6) Acute respiratory distress syndrome (ARDS) due to COVID-19 virus: Problem details: She is intubated She has severe COVID Per protocol CDC, NIH severe COVID intubated Not candidate Remdesivir due to severe COVID,ACT-1 trial not helpful mortality Status: Acute (7) Acute respiratory failure with hypoxia: Status: Acute (8) Seizures: Problem details: Previous history of undefined seizures. Currently on antiseizure medications with Keppra and Depakote Status: Acute Continue Depakote and Keppra. EEG
[2020-07-06 14:25] LABS: Glucose, Whole Blood 207 mg/dL (60-115)
[2020-07-06 16:00] LABS: Anion Gap 14 (12-20); Carbon Dioxide 26 mmol/L (22-29); Chloride 105 mmol/L (96-108); Potassium 3.9 mmol/l (3.3-5.1); Sodium 141 mmol/L (135-145)
[2020-07-06 16:04] LABS: Osmolality, Serum 317 mosm/kg (281-305)
[2020-07-06 18:47] LABS: Glucose, Whole Blood 254 mg/dL (60-115)
[2020-07-06] MEDS: Atorvastatin Calcium 80 MG TABLET G-TUBE (21:25)
[2020-07-06 22:55] LABS: Glucose, Whole Blood 195 mg/dL (60-115)
[2020-07-07] VITALS (31 sets, daily range): BP systolic 107–154; BP diastolic 49–106; PULSE 87–120; RESP 20–28; TEMP 36.7–38.1; O2SAT 91–100; BMI 34.9
[2020-07-07] MEDS: Insulin Regular/NS 100 UNIT/100 ML PLAST..BAG 8 UNIT IVCONT (01:05)
[2020-07-07] MEDS: Thiamine HCL 200 MG in 0.9 % Sodium Chloride 100 ML 204 MG IV ×2 (01:06→12:59)
[2020-07-07] MEDS: Chlorhexidine Gluc Oral Rinse 15 ML MOUTHWASH BUCCAL ×3 (01:06→17:01)
[2020-07-07] MEDS: Piperacillin Sodium/Tazobactam 3.375 GM in 0.9 % Sodium Chloride 50 ML IV ×2 (01:06→06:00)
[2020-07-07] MEDS: methylPREDNISolone Sod Succ/PF 125 MG/2 ML VIAL 40 MG IVPUSH ×2 (01:07→13:00)
[2020-07-07] MEDS: Enoxaparin Sodium 100 MG/ML SYRINGE 90 MG SUBCUT ×2 (01:07→13:00)
[2020-07-07 01:43] LABS: Glucose, Whole Blood 191 mg/dL (60-115)
[2020-07-07] MEDS: Ascorbic Acid 500 MG TABLET 1000 MG G-TUBE ×2 (04:32→10:04)
[2020-07-07 05:36] LABS: Glucose, Whole Blood 186 mg/dL (60-115)
[2020-07-07 06:30] LABS: MANUAL DIFF FLAG NO
[2020-07-07 06:45] LABS: Basophils Percent Auto 0.1 % (0-2); Eosinophils Percent Auto 0.3 % (0-4); Hematocrit 29.6 % (37-47); Hemoglobin 9.3 g/dl (12.0-16.0); Imm Gran Abs Auto 0.15 X10*3/uL (0.00-0.03); Imm Gran Pct Auto 1.7 % (0.0-0.4); Lymphocytes Absolute Auto 0.8 X10*3/uL (1.2-4.9); Lymphocytes Percent Auto 9.2 % (20-40); Mean Corpuscular HGB Conc 31.4 g/dl (31.0-35.0); Mean Corpuscular Hemoglobin 30.6 pg (27.0-33.0); Mean Corpuscular Volume 97.4 fL (80-98); Mean Platelet Volume 10.1 fL (9.4-12.3); Monocytes Absolute Auto 0.4 X10*3/uL (0.1-1.2); Monocytes Percent Auto 4.1 % (2-11); Neutrophils Absolute Auto 7.6 X10*3/uL (2.0-8.3); Neutrophils Percent Auto 84.6 % (45-73); Platelet Count 368 X10*3/uL (160-400); Red Blood Count 3.04 X10*6/uL (4.20-5.50); Red Cell Distribution Width 14.4 % (11.0-16.0)
[2020-07-07 06:53] LABS: Base Excess VBG -0.3 mmol/L; HCO3 VBG 24 mmol/L; Oxygen Saturation VBG 69.5 %; PCO2 VBG 39 mmhg; PO2 VBG 38 mmhg; pH VBG 7.41 (7.32-7.43)
[2020-07-07 06:55] LABS: Glucose, Whole Blood 219 mg/dL (60-115)
[2020-07-07 07:03] LABS: D Dimer 1996 NG/ML
[2020-07-07 07:13] LABS: Alanine Aminotransferase 36 U/L (0-31); Albumin Level 3.3 g/dL (3.5-5.0); Alkaline Phosphatase 50 U/L (39-117); Anion Gap 16 (12-20); Aspartate Amino Transferase 30 U/L (5-31); Bilirubin Total 0.8 mg/dL (0.0-1.0); Blood Urea Nitrogen 24 mg/dL (9-16); C Reactive Protein 1.44 mg/dL (< or = 0.50); Calcium 8.4 mg/dL (8.4-10.2); Carbon Dioxide 24 mmol/L (22-29); Chloride 106 mmol/L (96-108); Creatinine Clr Calc Pharmacy 113.9; Estimated Glomerular Filt Rate > 60; Glucose Random 218 mg/dL (60-115); Magnesium 2.3 mg/dL (1.6-2.6); Potassium 4.4 mmol/l (3.3-5.1); Sodium 142 mmol/L (135-145); Total Protein 6.4 g/dL (6.5-8.0)
[2020-07-07 07:20] LABS: Procalcitonin 0.06 ng/mL
[2020-07-07 07:34] LABS: Ferritin 227 ng/mL (10-250)
[2020-07-07] MEDS: 0.9 % Sodium Chloride Flush 3 ML SYRINGE IVFLUSH ×2 (08:32→17:02)
[2020-07-07] MEDS: levETIRAcetam 250 MG TABLET 750 MG PO ×2 (10:04→22:00)
[2020-07-07] MEDS: Famotidine 20 MG TABLET 40 MG G-TUBE ×2 (10:04→22:12)
[2020-07-07] MEDS: Cholecalciferol (Vitamin D3) 25 MCG TABLET 50 MCG G-TUBE (10:04)
[2020-07-07] MEDS: Zinc Sulfate 220 MG CAPSULE G-TUBE (10:04)
[2020-07-07] MEDS: Topiramate 100 MG TABLET PO ×2 (10:05→22:12)
[2020-07-07] MEDS: Escitalopram Oxalate 20 MG TABLET PO (10:05)
[2020-07-07 10:35] LABS: Glucose, Whole Blood 204 mg/dL (60-115)
--- NOTE | 2020-07-07 11:33 | MHC.CLN ---
F/U PT IS OFF SEDATION RECOMMEND INCREASING PROMOTE TF AT MAX GOAL RATE 60CC/HR PROVIDES 1440KCALS (22KCALS/KG), 90G PROTEIN (1.4G/KG), 1208CC TOTAL WATER FROM FORMULA (18CC/KG) MONITOR TOLERANCE, RESIDUALS AND LYTES
[2020-07-07 13:39] LABS: Glucose, Whole Blood 192 mg/dL (60-115)
--- NOTE | 2020-07-07 13:43 | P.PNCC_ITS ---
Subjective Subjective Date of Service: 07/07/20 Interval History: 55-year-old type 2 diabetic with history of CHF with acute hypoxic respiratory failure due to bilateral COVID-19 pneumonitis with ARDS complicated by acute kidney injury which is now resolved but apparently has had coagulopathic issues with significant elevation of D-dimer found to have extensive bilateral cerebral infarcts none of which are apparently hemorrhagic and remains on full-dose Lovenox but it remains encephalopathic very poorly responsive but with some degree of restored brainstem reflexes and just had an E EG done today awaiting results and with background seizure history she has remained prophylaxed on Keppra and valproic acid and I will check a ammonia level to be sure it is not contributing but she has metabolically normal and stable on the ventilator Physical Exam Vital Signs: Vital Signs: Last Vital Signs Temp 99.5 F 07/07/20 12:00 Pulse 100 07/07/20 12:00 Resp 24 H 07/07/20 12:00 BP 132/74 07/07/20 12:00 Pulse Ox 96 07/07/20 12:00 Body Mass Index 34.9 Const: Other: in very minimally responsive to deep pain without a without lateralizing response and certainly no cognitive function pupils equal and reactive to light with positive gag and positive doll's eyes skin demonstrating did decubitus overlying the buttock bilateral coarse rhonchi on the ventilator cardiac exam with CVP of 6 and good bilateral carotid upstrokes and normal S1 and S2 abdomen soft with good bowel sounds nontender no guarding and tolerating feedings Objective Data Labs CBC & Chem 7: 07/07/20 05:49 07/07/20 05:49 Labs: Laboratory Results - last 24 hr 07/06/20 07/06/20 07/06/20 14:21 15:29 15:29 WBC RBC Hgb Hct MCV MCH MCHC RDW Plt Count MPV Immature Gran % (Auto) Neut % (Auto) Lymph % (Auto) [place] % (Auto) Eos % (Auto) Baso % (Auto) Lymph # (Auto) [place] # (Auto) Eos # (Auto) Baso # (Auto) Abs Immat Gran (auto) Absolute Neuts (auto) Absolute Nucleated RBC Nucleated RBC % (auto) D-Dimer VBG pH VBG pCO2 VBG pO2 VBG HCO3 VBG O2 Saturation VBG Base Excess Sodium 141 Potassium 3.9 Chloride 105 Carbon Dioxide 26 Anion Gap 14 BUN Creatinine Estim Creat Clear Calc Estimated GFR POC Glucose 207 H Random Glucose Osmolality 317 H Calcium Magnesium Ferritin Total Bilirubin Direct Bilirubin AST ALT Alkaline Phosphatase C-Reactive Protein Total Protein Albumin Procalcitonin 07/06/20 07/06/20 07/07/20 18:42 21:54 01:15 WBC RBC Hgb Hct MCV MCH MCHC RDW Plt Count MPV Immature Gran % (Auto) Neut % (Auto) Lymph % (Auto) [place] % (Auto) Eos % (Auto) Baso % (Auto) Lymph # (Auto) [place] # (Auto) Eos # (Auto) Baso # (Auto) Abs Immat Gran (auto) Absolute Neuts (auto) Absolute Nucleated RBC Nucleated RBC % (auto) D-Dimer VBG pH VBG pCO2 VBG pO2 VBG HCO3 VBG O2 Saturation VBG Base Excess Sodium Potassium Chloride Carbon Dioxide Anion Gap BUN Creatinine Estim Creat Clear Calc Estimated GFR POC Glucose 254 H 195 H 191 H Random Glucose Osmolality Calcium Magnesium Ferritin Total Bilirubin Direct Bilirubin AST ALT Alkaline Phosphatase C-Reactive Protein Total Protein Albumin Procalcitonin 07/07/20 07/07/20 07/07/20 04:37 05:49 05:49 WBC RBC Hgb Hct MCV MCH MCHC RDW Plt Count MPV Immature Gran % (Auto) Neut % (Auto) Lymph % (Auto) [place] % (Auto) Eos % (Auto) Baso % (Auto) Lymph # (Auto) [place] # (Auto) Eos # (Auto) Baso # (Auto) Abs Immat Gran (auto) Absolute Neuts (auto) Absolute Nucleated RBC Nucleated RBC % (auto) D-Dimer VBG pH 7.41 VBG pCO2 39 VBG pO2 38 VBG HCO3 24 VBG O2 Saturation 69.5 VBG Base Excess -0.3 Sodium Potassium Chloride Carbon Dioxide Anion Gap BUN Creatinine Estim Creat Clear Calc Estimated GFR POC Glucose 186 H Random Glucose Osmolality Calcium Magnesium Ferritin Total Bilirubin Cancelled Direct Bilirubin Cancelled AST Cancelled ALT Cancelled Alkaline Phosphatase Cancelled C-Reactive Protein Total Protein Cancelled Albumin Cancelled Procalcitonin 07/07/20 07/07/20 07/07/20 05:49 05:49 05:49 WBC 9.0 RBC 3.04 L Hgb 9.3 L Hct 29.6 L MCV 97.4 MCH 30.6 MCHC 31.4 RDW 14.4 Plt Count 368 MPV 10.1 Immature Gran % (Auto) 1.7 H Neut % (Auto) 84.6 H Lymph % (Auto) 9.2 L [place] % (Auto) 4.1 Eos % (Auto) 0.3 Baso % (Auto) 0.1 Lymph # (Auto) 0.8 L [place] # (Auto) 0.4 Eos # (Auto) 0.0 Baso # (Auto) 0.0 Abs Immat Gran (auto) 0.15 H Absolute Neuts (auto) 7.6 Absolute Nucleated RBC 0.000 Nucleated RBC % (auto) 0.0 D-Dimer 1996 VBG pH VBG pCO2 VBG pO2 VBG HCO3 VBG O2 Saturation VBG Base Excess Sodium 142 Potassium 4.4 Chloride 106 Carbon Dioxide 24 Anion Gap 16 BUN 24 H Creatinine 0.60 Estim Creat Clear Calc 113.9 Estimated GFR > 60 POC Glucose Random Glucose 218 H Osmolality Calcium 8.4 Magnesium 2.3 Ferritin 227 Total Bilirubin 0.8 Direct Bilirubin AST 30 D ALT 36 H Alkaline Phosphatase 50 C-Reactive Protein 1.44 H Total Protein 6.4 L Albumin 3.3 L Procalcitonin 07/07/20 07/07/20 07/07/20 05:49 06:49 10:10 WBC RBC Hgb Hct MCV MCH MCHC RDW Plt Count MPV Immature Gran % (Auto) Neut % (Auto) Lymph % (Auto) [place] % (Auto) Eos % (Auto) Baso % (Auto) Lymph # (Auto) [place] # (Auto) Eos # (Auto) Baso # (Auto) Abs Immat Gran (auto) Absolute Neuts (auto) Absolute Nucleated RBC Nucleated RBC % (auto) D-Dimer VBG pH VBG pCO2 VBG pO2 VBG HCO3 VBG O2 Saturation VBG Base Excess Sodium Potassium Chloride Carbon Dioxide Anion Gap BUN Creatinine Estim Creat Clear Calc Estimated GFR POC Glucose 219 H 204 H Random Glucose Osmolality Calcium Magnesium Ferritin Total Bilirubin Direct Bilirubin AST ALT Alkaline Phosphatase C-Reactive Protein Total Protein Albumin Procalcitonin 0.06 07/07/20 13:05 WBC RBC Hgb Hct MCV MCH MCHC RDW Plt Count MPV Immature Gran % (Auto) Neut % (Auto) Lymph % (Auto) [place] % (Auto) Eos % (Auto) Baso % (Auto) Lymph # (Auto) [place] # (Auto) Eos # (Auto) Baso # (Auto) Abs Immat Gran (auto) Absolute Neuts (auto) Absolute Nucleated RBC Nucleated RBC % (auto) D-Dimer VBG pH VBG pCO2 VBG pO2 VBG HCO3 VBG O2 Saturation VBG Base Excess Sodium Potassium Chloride Carbon Dioxide Anion Gap BUN Creatinine Estim Creat Clear Calc Estimated GFR POC Glucose 192 H Random Glucose Osmolality Calcium Magnesium Ferritin Total Bilirubin Direct Bilirubin AST ALT Alkaline Phosphatase C-Reactive Protein Total Protein Albumin Procalcitonin Microbiology Microbiology Results: Microbiology 07/04/20 02:39 Sputum - Suctioned Gram Stain - Final 07/04/20 02:39 Sputum - Suctioned Sputum Culture - Final 07/03/20 22:31 Urine clean catch - Hdez Catheter Urine Culture - Final Escherichia coli 07/03/20 21:42 Blood - Venous Blood Culture - Preliminary No growth after 48 hours. 07/03/20 21:42 Blood - Venous Blood Culture - Preliminary No growth after 48 hours. 06/26/20 18:40 Blood - Arterial Blood Culture - Final No growth after 5 days. 06/26/20 18:42 Blood - Arterial Blood Culture - Final Streptococcus viridans group Progress Note: A&P Assessment and plan (1) Seizures: Problem details: Previous history of undefined seizures. Currently on antiseizure medications with Keppra and Depakote Status: Acute (2) Stroke (cerebrum): Problem details: Multiple large strokes both supra and infratentorially and bilateral with some right frontal mass effect Status: Acute (3) Pneumonia due to COVID-19 virus: Status: Acute (4) Metabolic acidosis: Status: Acute (5) Sepsis: Status: Acute (6) Septic shock: Status: Acute (7) OMAR (acute kidney injury): Status: Acute (8) Elevated troponin: Status: Acute (9) Viral sepsis: Status: Acute (10) ARDS (adult respiratory distress syndrome): Status: Acute (11) NSTEMI (non-ST elevated myocardial infarction): Status: Acute (12) Acute and chronic respiratory failure with hypoxia: Status: Acute (13) Acute respiratory distress syndrome (ARDS) due to COVID-19 virus: Problem details: She is intubated She has severe COVID Per protocol CDC, [facility] severe COVID intubated Not candidate Remdesivir due to severe COVID,ACT-1 trial not helpful mortality Status: Acute (14) Acute respiratory failure with hypoxia: Status: Acute (15) CHF (congestive heart failure): Status: Acute (16) Encephalopathy acute: Status: Acute Assessment and Plan: continue to support as above and await EEG result and follow-up neurologic exam and will check ammonia level with next set of labs Time Spent With Patient Time: Total time spent is greater than 50% in coordination of care (as documented) at patient's floor/unit and/or counseling patient: Total time spent with greater than 50% in coordination of care (as documented) at patient's floor/unit and/or counseling patient:: 35
[2020-07-07] MEDS: Insulin Regular/NS 100 UNIT/100 ML PLAST..BAG 9 UNIT IVCONT (14:58)
[2020-07-07 15:12] LABS: Glucose, Whole Blood 161 mg/dL (60-115)
--- NOTE | 2020-07-07 15:42 | PC.NURSE ---
Addendum entered by Indra Wesley 07/07/20 15:57: Pt had nonpurposeful movement of R hand and R leg, pt yawned x 2, MD aware Original Note: Pt remains intubated on PC settings, intermittent cough, small amt clear/white sputum inline and orally, EEG done at bedside, given update, CVP reading 6, MD aware, Insulin drip titrated per protocol, pt repositioned q2h, small amt of discoloration noted to R buttock, possibly where blister used to be, barrier cream applied, rectal tube and blum remain in place and intact, Promote titrated to 45 with goal of 60, will cont to monitor
--- NOTE | 2020-07-07 16:08 | P.PNID_ITS ---
Subjective Subjective Date of Service: 07/07/20 Interval History: she has no acute changes Objective Data Labs CBC & Chem 7: 07/07/20 05:49 07/07/20 05:49 Labs: Laboratory Results - last 24 hr 07/06/20 07/06/20 07/07/20 18:42 21:54 01:15 WBC RBC Hgb Hct MCV MCH MCHC RDW Plt Count MPV Immature Gran % (Auto) Neut % (Auto) Lymph % (Auto) Cross % (Auto) Eos % (Auto) Baso % (Auto) Lymph # (Auto) Cross # (Auto) Eos # (Auto) Baso # (Auto) Abs Immat Gran (auto) Absolute Neuts (auto) Absolute Nucleated RBC Nucleated RBC % (auto) D-Dimer VBG pH VBG pCO2 VBG pO2 VBG HCO3 VBG O2 Saturation VBG Base Excess Sodium Potassium Chloride Carbon Dioxide Anion Gap BUN Creatinine Estim Creat Clear Calc Estimated GFR POC Glucose 254 H 195 H 191 H Random Glucose Calcium Magnesium Ferritin Total Bilirubin Direct Bilirubin AST ALT Alkaline Phosphatase C-Reactive Protein Total Protein Albumin Procalcitonin 07/07/20 07/07/20 07/07/20 04:37 05:49 05:49 WBC RBC Hgb Hct MCV MCH MCHC RDW Plt Count MPV Immature Gran % (Auto) Neut % (Auto) Lymph % (Auto) Cross % (Auto) Eos % (Auto) Baso % (Auto) Lymph # (Auto) Cross # (Auto) Eos # (Auto) Baso # (Auto) Abs Immat Gran (auto) Absolute Neuts (auto) Absolute Nucleated RBC Nucleated RBC % (auto) D-Dimer VBG pH 7.41 VBG pCO2 39 VBG pO2 38 VBG HCO3 24 VBG O2 Saturation 69.5 VBG Base Excess -0.3 Sodium Potassium Chloride Carbon Dioxide Anion Gap BUN Creatinine Estim Creat Clear Calc Estimated GFR POC Glucose 186 H Random Glucose Calcium Magnesium Ferritin Total Bilirubin Cancelled Direct Bilirubin Cancelled AST Cancelled ALT Cancelled Alkaline Phosphatase Cancelled C-Reactive Protein Total Protein Cancelled Albumin Cancelled Procalcitonin 07/07/20 07/07/20 07/07/20 05:49 05:49 05:49 WBC 9.0 RBC 3.04 L Hgb 9.3 L Hct 29.6 L MCV 97.4 MCH 30.6 MCHC 31.4 RDW 14.4 Plt Count 368 MPV 10.1 Immature Gran % (Auto) 1.7 H Neut % (Auto) 84.6 H Lymph % (Auto) 9.2 L Cross % (Auto) 4.1 Eos % (Auto) 0.3 Baso % (Auto) 0.1 Lymph # (Auto) 0.8 L Cross # (Auto) 0.4 Eos # (Auto) 0.0 Baso # (Auto) 0.0 Abs Immat Gran (auto) 0.15 H Absolute Neuts (auto) 7.6 Absolute Nucleated RBC 0.000 Nucleated RBC % (auto) 0.0 D-Dimer 1996 VBG pH VBG pCO2 VBG pO2 VBG HCO3 VBG O2 Saturation VBG Base Excess Sodium 142 Potassium 4.4 Chloride 106 Carbon Dioxide 24 Anion Gap 16 BUN 24 H Creatinine 0.60 Estim Creat Clear Calc 113.9 Estimated GFR > 60 POC Glucose Random Glucose 218 H Calcium 8.4 Magnesium 2.3 Ferritin 227 Total Bilirubin 0.8 Direct Bilirubin AST 30 D ALT 36 H Alkaline Phosphatase 50 C-Reactive Protein 1.44 H Total Protein 6.4 L Albumin 3.3 L Procalcitonin 07/07/20 07/07/20 07/07/20 05:49 06:49 10:10 WBC RBC Hgb Hct MCV MCH MCHC RDW Plt Count MPV Immature Gran % (Auto) Neut % (Auto) Lymph % (Auto) Cross % (Auto) Eos % (Auto) Baso % (Auto) Lymph # (Auto) Cross # (Auto) Eos # (Auto) Baso # (Auto) Abs Immat Gran (auto) Absolute Neuts (auto) Absolute Nucleated RBC Nucleated RBC % (auto) D-Dimer VBG pH VBG pCO2 VBG pO2 VBG HCO3 VBG O2 Saturation VBG Base Excess Sodium Potassium Chloride Carbon Dioxide Anion Gap BUN Creatinine Estim Creat Clear Calc Estimated GFR POC Glucose 219 H 204 H Random Glucose Calcium Magnesium Ferritin Total Bilirubin Direct Bilirubin AST ALT Alkaline Phosphatase C-Reactive Protein Total Protein Albumin Procalcitonin 0.06 07/07/20 07/07/20 13:05 15:03 WBC RBC Hgb Hct MCV MCH MCHC RDW Plt Count MPV Immature Gran % (Auto) Neut % (Auto) Lymph % (Auto) Cross % (Auto) Eos % (Auto) Baso % (Auto) Lymph # (Auto) Cross # (Auto) Eos # (Auto) Baso # (Auto) Abs Immat Gran (auto) Absolute Neuts (auto) Absolute Nucleated RBC Nucleated RBC % (auto) D-Dimer VBG pH VBG pCO2 VBG pO2 VBG HCO3 VBG O2 Saturation VBG Base Excess Sodium Potassium Chloride Carbon Dioxide Anion Gap BUN Creatinine Estim Creat Clear Calc Estimated GFR POC Glucose 192 H 161 H Random Glucose Calcium Magnesium Ferritin Total Bilirubin Direct Bilirubin AST ALT Alkaline Phosphatase C-Reactive Protein Total Protein Albumin Procalcitonin Microbiology Microbiology Results: Microbiology 07/04/20 02:39 Sputum - Suctioned Gram Stain - Final 07/04/20 02:39 Sputum - Suctioned Sputum Culture - Final 07/03/20 22:31 Urine clean catch - Hdez Catheter Urine Culture - Final Escherichia coli 07/03/20 21:42 Blood - Venous Blood Culture - Preliminary No growth after 48 hours. 07/03/20 21:42 Blood - Venous Blood Culture - Preliminary No growth after 48 hours. 06/26/20 18:40 Blood - Arterial Blood Culture - Final No growth after 5 days. 06/26/20 18:42 Blood - Arterial Blood Culture - Final Streptococcus viridans group Physical Exam Vital Signs: Vital Signs: Last Vital Signs Temp 99.1 F 07/07/20 15:00 Pulse 92 07/07/20 15:00 Resp 25 H 07/07/20 15:00 BP 117/56 L 07/07/20 15:00 Pulse Ox 93 07/07/20 15:00 Body Mass Index 34.9 Const: General: cooperative HENMT: Head: Yes normal to inspection Resp: Effort & Inspection: normal respiratory effort Cardio: Rate: regular rate Rhythm: regular rhythm GI: Inspection: Yes normal to inspection Palpation (GI): nontender Skin: General skin exam: no rashes or lesions noted Assessment and Plan Assessment and plan (1) Pneumonia due to COVID-19 virus: Status: Acute (2) Septic shock: Status: Acute (3) OMAR (acute kidney injury): Problem details: Some ESBL E coli Status: Acute Assessment and Plan: Would continue Merem at this time, 7 days Time Spent With Patient Time: Total time spent is greater than 50% in coordination of care (as documented) at patient's floor/unit and/or counseling patient: Time with patient: 15 - 24 minutes
[2020-07-07 17:31] LABS: Glucose, Whole Blood 219 mg/dL (60-115)
[2020-07-07 20:00] LABS: Glucose, Whole Blood 250 mg/dL (60-115)
[2020-07-07 20:22] LABS: Ammonia 47 umol/L (13-55)
[2020-07-07] MEDS: Atorvastatin Calcium 80 MG TABLET G-TUBE (22:12)
[2020-07-07 22:40] LABS: Glucose, Whole Blood 197 mg/dL (60-115)
[2020-07-08] VITALS (30 sets, daily range): BP systolic 108–156; BP diastolic 34–86; PULSE 85–121; RESP 21–28; TEMP 37.2–37.9; O2SAT 92–96; BMI 35.1
[2020-07-08 02:17] LABS: Glucose, Whole Blood 173 mg/dL (60-115)
[2020-07-08] MEDS: methylPREDNISolone Sod Succ/PF 125 MG/2 ML VIAL 40 MG IVPUSH ×2 (03:17→12:40)
[2020-07-08] MEDS: Chlorhexidine Gluc Oral Rinse 15 ML MOUTHWASH BUCCAL ×3 (03:17→17:56)
[2020-07-08] MEDS: Thiamine HCL 200 MG in 0.9 % Sodium Chloride 100 ML 204 MG IV ×2 (03:18→14:28)
[2020-07-08] MEDS: Enoxaparin Sodium 100 MG/ML SYRINGE 90 MG SUBCUT ×2 (03:18→14:28)
[2020-07-08] MEDS: 0.9 % Sodium Chloride Flush 3 ML SYRINGE IVFLUSH ×3 (03:18→17:57)
[2020-07-08] MEDS: Acetaminophen Oral Liquid 650 MG/20.3 ML SOLUTION 975 MG PO (03:28)
[2020-07-08 04:40] LABS: Glucose, Whole Blood 179 mg/dL (60-115)
[2020-07-08] MEDS: Insulin Regular/NS 100 UNIT/100 ML PLAST..BAG 8 UNIT IVCONT (05:08)
[2020-07-08 06:11] LABS: MANUAL DIFF FLAG NO
[2020-07-08 06:13] LABS: Basophils Percent Auto 0.2 % (0-2); Eosinophils Absolute Auto 0.1 X10*3/uL (0.0-0.4); Eosinophils Percent Auto 0.9 % (0-4); Hematocrit 31.5 % (37-47); Hemoglobin 9.7 g/dl (12.0-16.0); Lymphocytes Absolute Auto 1.1 X10*3/uL (1.2-4.9); Lymphocytes Percent Auto 10.9 % (20-40); Mean Corpuscular HGB Conc 30.8 g/dl (31.0-35.0); Mean Corpuscular Volume 97.5 fL (80-98); Mean Platelet Volume 10.2 fL (9.4-12.3); Monocytes Absolute Auto 0.5 X10*3/uL (0.1-1.2); Neutrophils Absolute Auto 8.5 X10*3/uL (2.0-8.3); Platelet Count 425 X10*3/uL (160-400); Red Blood Count 3.23 X10*6/uL (4.20-5.50); Red Cell Distribution Width 14.5 % (11.0-16.0); White Blood Count 10.3 X10*3/uL (4.8-10.8)
[2020-07-08 06:30] LABS: Base Excess VBG -0.4 mmol/L; HCO3 VBG 25 mmol/L; PCO2 VBG 44 mmhg; PO2 VBG 43 mmhg; pH VBG 7.38 (7.32-7.43)
[2020-07-08 06:31] LABS: Oxygen Saturation VBG 76.4 %
[2020-07-08 06:39] LABS: Anion Gap 14 (12-20); Blood Urea Nitrogen 21 mg/dL (9-16); C Reactive Protein 0.91 mg/dL (< or = 0.50); Calcium 8.5 mg/dL (8.4-10.2); Carbon Dioxide 25 mmol/L (22-29); Chloride 107 mmol/L (96-108); Creatinine Clr Calc Pharmacy 122.1; Estimated Glomerular Filt Rate > 60; Glucose Random 197 mg/dL (60-115); Magnesium 2.2 mg/dL (1.6-2.6); Phosphorus 3.4 mg/dL (2.7-4.5); Potassium 4.1 mmol/l (3.3-5.1); Sodium 142 mmol/L (135-145)
[2020-07-08 06:41] LABS: D Dimer 2539 NG/ML
[2020-07-08 07:51] LABS: Glucose, Whole Blood 248 mg/dL (60-115)
[2020-07-08] MEDS: Zinc Sulfate 220 MG CAPSULE G-TUBE (08:45)
[2020-07-08] MEDS: Famotidine 20 MG TABLET 40 MG G-TUBE ×2 (08:45→21:53)
[2020-07-08] MEDS: Cholecalciferol (Vitamin D3) 25 MCG TABLET 50 MCG G-TUBE (08:45)
[2020-07-08] MEDS: Topiramate 100 MG TABLET PO ×2 (08:46→21:53)
[2020-07-08] MEDS: Escitalopram Oxalate 20 MG TABLET PO (08:46)
[2020-07-08] MEDS: levETIRAcetam 250 MG TABLET 750 MG PO ×2 (08:46→21:53)
[2020-07-08 09:45] LABS: Glucose, Whole Blood 291 mg/dL (60-115)
--- NOTE | 2020-07-08 10:51 | MHC.CLN ---
F/U TF CHANGED FORMULAS R/T HIGH POC PT RECEIVING GLUCERNA AT MAX GOAL RATE 50CC/HR WITH 120CC H20 Q 4 PROVIDES 1200KCALS (18KCALS/KG), 50G PROTEIN (.75G/KG), 1743CC TOTAL WATER FROM FORMULA AND FLUSHES (26CC/KG) MONITOR TOLERANCE, RESIDUALS, AND LYTES
[2020-07-08] MEDS: Caspofungin Acetate 70 MG in 0.9 % Sodium Chloride 250 ML 250 MG IV (12:36)
[2020-07-08 13:04] LABS: Glucose, Whole Blood 170 mg/dL (60-115)
[2020-07-08] MEDS: Midazolam HCl/PF 2 MG/2 ML VIAL IVPUSH (13:30)
--- NOTE | 2020-07-08 13:47 | XR_ITS ---
EXAMINATION: XR CHEST CLINICAL INFORMATION: Line placement COMPARISON: Chest 06/27/2020 TECHNIQUE: Frontal view of the chest was obtained. FINDINGS: The lungs are somewhat expanded with improvement in bilateral lower lobe airspace opacities. Heart size is borderline normal. Position of new right jugular central line in distal SVC, old left central line, old endotracheal tube and old enteric tube are in satisfactory position. There is mild spondylosis throughout mid and lower dorsal spine. XR/XR chest 1V IMPRESSION: Interval improvement in the parenchymal opacities. Support lines and catheters are stable.
--- NOTE | 2020-07-08 14:44 | W.PM.CCHP ---
Procedures Central Line Placement Right IJ: Central Line Comments: after sterile preparation and draping and utilizing ultrasound guidance gained easy entry to right internal jugular vein passing retrograde with Seldinger technique a J tipped guidewire to the right atrium over that a 16 cm triple-lumen central venous pressure catheter without complication Consent for Procedure: Emergent-no informed consent obtained Time out performed: Yes Sterile Technique Used: Yes Patient placed on monitor/pulse ox: Yes MD prep: mask, gown and gloves Central line prep: Chlorhexidine scrub Local anesthesia used: lidocaine 1% Ultrasound used for placement: Yes Central line lumen inserted: triple Post procedure: sutured in place, good blood return, all ports aspirated, flushed, capped and sterile dressing applied Post procedure x-ray: tip of catheter in good position Patient tolerated procedure: well and no complications Complications: none
--- NOTE | 2020-07-08 14:46 | PM.CCPN ---
Subjective Subjective Date of Service: 11/03/21 Interval History: 55 year old female with type 2 diabetes mellitus had a septic presentation with acute hypoxic respiratory failure and now resolved acute kidney injury and had bilateral COVID-19 pneumonitis and ARDS and remains on the ventilator but had coagulopathic complication with multiple bilateral cerebral infarcts and as a result significant cerebral edema treated with hypernatremic saline and because of coma had her sedation weaned and it has been several days and she is only now beginning to slowly become more responsive with spontaneous movement only on the right side but today response to verbal yesterday barely to pain she remains on full anticoagulation and she is on anti epileptic medicine due to prior history of seizure activity Physical Exam Vital Signs: Vital Signs: Last Vital Signs Temp 99.5 F 07/08/20 14:00 Pulse 110 H 07/08/20 14:00 Resp 24 H 07/08/20 14:00 BP 141/83 H 07/08/20 14:00 Pulse Ox 95 07/08/20 14:00 Body Mass Index 35.1 remains off sedation and opens eyes to verbal stimulation with spontaneous movement of the right side only consistent with left hemiparesis resulting from the extensive bilateral cerebral infarcts cardiovascular function with good bilateral carotid upstrokes and no neck vein distension abdomen is soft no organomegaly stage I decubitus ulcer overlying the coccyx diminished bilateral breath sounds but no accessory muscle effort Objective Data Labs CBC & Chem 7: 07/14/20 04:53 07/14/20 04:53 Labs: Laboratory Results - last 24 hr 07/07/20 07/07/20 07/07/20 15:03 17:03 19:08 WBC RBC Hgb Hct MCV MCH MCHC RDW Plt Count MPV Immature Gran % (Auto) Neut % (Auto) Lymph % (Auto) Crenshaw % (Auto) Eos % (Auto) Baso % (Auto) Lymph # (Auto) [place] # (Auto) Eos # (Auto) Baso # (Auto) Abs Immat Gran (auto) Absolute Neuts (auto) Absolute Nucleated RBC Nucleated RBC % (auto) D-Dimer VBG pH VBG pCO2 VBG pO2 VBG HCO3 VBG O2 Saturation VBG Base Excess Sodium Potassium Chloride Carbon Dioxide Anion Gap BUN Creatinine Estim Creat Clear Calc Estimated GFR POC Glucose 161 H 219 H 250 H Random Glucose Calcium Phosphorus Magnesium Ammonia C-Reactive Protein 07/07/20 07/07/20 07/08/20 19:35 22:26 01:50 WBC RBC Hgb Hct MCV MCH MCHC RDW Plt Count MPV Immature Gran % (Auto) Neut % (Auto) Lymph % (Auto) [place] % (Auto) Eos % (Auto) Baso % (Auto) Lymph # (Auto) [place] # (Auto) Eos # (Auto) Baso # (Auto) Abs Immat Gran (auto) Absolute Neuts (auto) Absolute Nucleated RBC Nucleated RBC % (auto) D-Dimer VBG pH VBG pCO2 VBG pO2 VBG HCO3 VBG O2 Saturation VBG Base Excess Sodium Potassium Chloride Carbon Dioxide Anion Gap BUN Creatinine Estim Creat Clear Calc Estimated GFR POC Glucose 197 H 173 H Random Glucose Calcium Phosphorus Magnesium Ammonia 47 C-Reactive Protein 07/08/20 07/08/20 07/08/20 04:03 05:20 05:20 WBC 10.3 RBC 3.23 L Hgb 9.7 L Hct 31.5 L MCV 97.5 MCH 30.0 MCHC 30.8 L RDW 14.5 Plt Count 425 H MPV 10.2 Immature Gran % (Auto) 1.0 H Neut % (Auto) 82.0 H Lymph % (Auto) 10.9 L [place]shaw % (Auto) 5.0 Eos % (Auto) 0.9 Baso % (Auto) 0.2 Lymph # (Auto) 1.1 L [place] # (Auto) 0.5 Eos # (Auto) 0.1 Baso # (Auto) 0.0 Abs Immat Gran (auto) 0.10 H Absolute Neuts (auto) 8.5 H Absolute Nucleated RBC 0.000 Nucleated RBC % (auto) 0.0 D-Dimer 2539 VBG pH VBG pCO2 VBG pO2 VBG HCO3 VBG O2 Saturation VBG Base Excess Sodium Potassium Chloride Carbon Dioxide Anion Gap BUN Creatinine Estim Creat Clear Calc Estimated GFR POC Glucose 179 H Random Glucose Calcium Phosphorus Magnesium Ammonia C-Reactive Protein 07/08/20 07/08/20 07/08/20 05:20 05:20 07:44 WBC RBC Hgb Hct MCV MCH MCHC RDW Plt Count MPV Immature Gran % (Auto) Neut % (Auto) Lymph % (Auto) [place]shaw % (Auto) Eos % (Auto) Baso % (Auto) Lymph # (Auto) [place] # (Auto) Eos # (Auto) Baso # (Auto) Abs Immat Gran (auto) Absolute Neuts (auto) Absolute Nucleated RBC Nucleated RBC % (auto) D-Dimer VBG pH 7.38 VBG pCO2 44 VBG pO2 43 VBG HCO3 25 VBG O2 Saturation 76.4 VBG Base Excess -0.4 Sodium 142 Potassium 4.1 Chloride 107 Carbon Dioxide 25 Anion Gap 14 BUN 21 H Creatinine 0.56 Estim Creat Clear Calc 122.1 Estimated GFR > 60 POC Glucose 248 H Random Glucose 197 H Calcium 8.5 Phosphorus 3.4 Magnesium 2.2 Ammonia C-Reactive Protein 0.91 H 07/08/20 07/08/20 09:32 12:57 WBC RBC Hgb Hct MCV MCH MCHC RDW Plt Count MPV Immature Gran % (Auto) Neut % (Auto) Lymph % (Auto) [place]shaw % (Auto) Eos % (Auto) Baso % (Auto) Lymph # (Auto) [place] # (Auto) Eos # (Auto) Baso # (Auto) Abs Immat Gran (auto) Absolute Neuts (auto) Absolute Nucleated RBC Nucleated RBC % (auto) D-Dimer VBG pH VBG pCO2 VBG pO2 VBG HCO3 VBG O2 Saturation VBG Base Excess Sodium Potassium Chloride Carbon Dioxide Anion Gap BUN Creatinine Estim Creat Clear Calc Estimated GFR POC Glucose 291 H 170 H Random Glucose Calcium Phosphorus Magnesium Ammonia C-Reactive Protein Microbiology Microbiology Results: Microbiology 07/08/20 10:21 Sputum - Suctioned Gram Stain - Final 07/04/20 02:39 Sputum - Suctioned Gram Stain - Final 07/04/20 02:39 Sputum - Suctioned Sputum Culture - Final 07/03/20 22:31 Urine clean catch - Hdez Catheter Urine Culture - Final Escherichia coli 07/03/20 21:42 Blood - Venous Blood Culture - Preliminary No growth after 48 hours. 07/03/20 21:42 Blood - Venous Blood Culture - Preliminary No growth after 48 hours. 06/26/20 18:40 Blood - Arterial Blood Culture - Final No growth after 5 days. 06/26/20 18:42 Blood - Arterial Blood Culture - Final Streptococcus viridans group Progress Note: A&P Assessment and plan (1) Cerebral hemorrhage: Status: Acute (2) Diabetes insipidus: Status: Acute (3) Acute hypernatremia: Status: Acute (4) Sepsis: Status: Acute (5) Veronica infection of mouth: Problem details: Sputum veronica colonized Status: Acute (6) C. difficile colitis: Status: Acute (7) Pneumonia due to COVID-19 virus: Status: Acute (8) Encephalopathy acute: Status: Acute (9) Seizures: Problem details: Previous history of undefined seizures. Currently on antiseizure medications with Keppra and Depakote Status: Acute (10) Stroke (cerebrum): Status: Acute (11) Metabolic acidosis: Status: Acute (12) Sepsis: Status: Acute (13) Septic shock: Status: Acute (14) OMAR (acute kidney injury): Problem details: Some ESBL E coli Status: Acute (15) Elevated troponin: Status: Acute (16) Viral sepsis: Status: Acute (17) ARDS (adult respiratory distress syndrome): Status: Acute (18) NSTEMI (non-ST elevated myocardial infarction): Status: Acute (19) Acute and chronic respiratory failure with hypoxia: Status: Acute (20) Acute respiratory distress syndrome (ARDS) due to COVID-19 virus: Problem details: She is intubated She has severe COVID Per protocol CDC, NIH severe COVID intubated Not candidate Remdesivir due to severe COVID,ACT-1 trial not helpful mortality Status: Acute (21) Acute respiratory failure with hypoxia: Status: Acute (22) CHF (congestive heart failure): Status: Acute Assessment and Plan: updated on the gravity of overall prognosis most especially for recovery of the encephalopathy despite the little progress we seem to have made and toward that and possible requirement for tracheostomy Time Spent With Patient Time: Total time spent is greater than 50% in coordination of care (as documented) at patient's floor/unit and/or counseling patient: Total time spent with greater than 50% in coordination of care (as documented) at patient's floor/unit and/or counseling patient:: 45
[2020-07-08 14:57] LABS: Glucose, Whole Blood 167 mg/dL (60-115)
--- NOTE | 2020-07-08 15:06 | MHC.CM.PN ---
Review of clinical notes: pt may require residential acute care - especially if she is unable to vent wean. Referral [facility] to [facility] in the event pt requires placement. Did not inform family of review at this time: will await pt's progress in the next coming days
--- NOTE | 2020-07-08 15:37 | PC.NURSE ---
Pt remains intubated on PC settings, small amt clear/white secretions noted inline and orally, TLC placed in RIJ confirmed by chest x ray, removed TLC in LIJ, blood cultures drawn, sputum culture sent, rectal tube intact, small amt leakage, output 600ml liquid brown stool, blum intact, pt started on Vanco and capsofungin, low grade temps approx 99.3 today, pt diaphoretic, upon reposition this afternoon stage 2 noted to coccyx, wound documented, wound care consult placed, barrier cream applied, pt repositioned q2h, on air loss bed at this time, tube feedings changed to glucerna currently at 40ml, goal at 50ml, insulin drip remains titrated per protocol, will cont to monitor
[2020-07-08 17:49] LABS: Glucose, Whole Blood 181 mg/dL (60-115)
[2020-07-08 18:25] LABS: Glucose, Whole Blood 183 mg/dL (60-115)
[2020-07-08] MEDS: Insulin Regular/NS 100 UNIT/100 ML PLAST..BAG 9 UNIT IVCONT ×2 (20:13→21:54)
[2020-07-08 21:15] LABS: Glucose, Whole Blood 205 mg/dL (60-115)
[2020-07-08] MEDS: Atorvastatin Calcium 80 MG TABLET G-TUBE (21:53)
[2020-07-09] VITALS (30 sets, daily range): BP systolic 106–140; BP diastolic 53–90; PULSE 89–127; RESP 20–28; TEMP 37.3–38; O2SAT 90–114; BMI 36.2
[2020-07-09] MEDS: Enoxaparin Sodium 100 MG/ML SYRINGE 90 MG SUBCUT ×2 (00:28→13:06)
[2020-07-09] MEDS: Chlorhexidine Gluc Oral Rinse 15 ML MOUTHWASH BUCCAL ×3 (00:29→18:07)
[2020-07-09] MEDS: methylPREDNISolone Sod Succ/PF 125 MG/2 ML VIAL 40 MG IVPUSH ×2 (00:29→11:01)
[2020-07-09] MEDS: Thiamine HCL 200 MG in 0.9 % Sodium Chloride 100 ML 204 MG IV ×2 (00:29→13:11)
[2020-07-09] MEDS: 0.9 % Sodium Chloride Flush 3 ML SYRINGE IVFLUSH ×4 (00:30→20:20)
[2020-07-09 00:47] LABS: Glucose, Whole Blood 160 mg/dL (60-115)
[2020-07-09 00:47] LABS: Glucose, Whole Blood 155 mg/dL (60-115)
[2020-07-09 02:49] LABS: Glucose, Whole Blood 173 mg/dL (60-115)
[2020-07-09 05:02] LABS: Glucose, Whole Blood 232 mg/dL (60-115)
[2020-07-09 05:27] LABS: Basophils Percent Auto 0.2 % (0-2); Eosinophils Absolute Auto 0.1 X10*3/uL (0.0-0.4); Eosinophils Percent Auto 0.8 % (0-4); Hematocrit 32.1 % (37-47); Lymphocytes Absolute Auto 0.9 X10*3/uL (1.2-4.9); MANUAL DIFF FLAG NO; Mean Corpuscular HGB Conc 31.2 g/dl (31.0-35.0); Mean Corpuscular Hemoglobin 30.3 pg (27.0-33.0); Mean Corpuscular Volume 97.3 fL (80-98); Mean Platelet Volume 10.3 fL (9.4-12.3); Monocytes Absolute Auto 0.3 X10*3/uL (0.1-1.2); Monocytes Percent Auto 3.4 % (2-11); Neutrophils Absolute Auto 8.4 X10*3/uL (2.0-8.3); Neutrophils Percent Auto 85.6 % (45-73); Platelet Count 458 X10*3/uL (160-400); Red Cell Distribution Width 14.8 % (11.0-16.0); White Blood Count 9.8 X10*3/uL (4.8-10.8)
[2020-07-09 05:47] LABS: D Dimer 2611 NG/ML
[2020-07-09 05:48] LABS: Base Excess VBG -0.1 mmol/L; HCO3 VBG 25 mmol/L; Oxygen Saturation VBG 78.7 %; PCO2 VBG 42 mmhg; PO2 VBG 43 mmhg; pH VBG 7.39 (7.32-7.43)
[2020-07-09 06:03] LABS: Anion Gap 13 (12-20); Blood Urea Nitrogen 20 mg/dL (9-16); Calcium 8.3 mg/dL (8.4-10.2); Carbon Dioxide 24 mmol/L (22-29); Chloride 105 mmol/L (96-108); Creatinine Clr Calc Pharmacy 124.4; Estimated Glomerular Filt Rate > 60; Glucose Random 233 mg/dL (60-115); Magnesium 2.2 mg/dL (1.6-2.6); Phosphorus 4.1 mg/dL (2.7-4.5); Potassium 4.3 mmol/l (3.3-5.1); Sodium 138 mmol/L (135-145)
[2020-07-09 06:47] LABS: Glucose, Whole Blood 277 mg/dL (60-115)
[2020-07-09] MEDS: Escitalopram Oxalate 20 MG TABLET PO (07:32)
[2020-07-09] MEDS: Topiramate 100 MG TABLET PO ×2 (07:32→21:23)
[2020-07-09] MEDS: Zinc Sulfate 220 MG CAPSULE G-TUBE (07:32)
[2020-07-09] MEDS: Famotidine 20 MG TABLET 40 MG G-TUBE ×2 (07:32→21:24)
[2020-07-09] MEDS: Cholecalciferol (Vitamin D3) 25 MCG TABLET 50 MCG G-TUBE (07:32)
[2020-07-09] MEDS: levETIRAcetam 250 MG TABLET 750 MG PO ×2 (07:32→21:23)
[2020-07-09 09:41] LABS: Glucose, Whole Blood 257 mg/dL (60-115)
[2020-07-09 10:38] LABS: Glucose, Whole Blood 234 mg/dL (60-115)
[2020-07-09] MEDS: Insulin Regular/NS 100 UNIT/100 ML PLAST..BAG 7.5 UNIT IVCONT (11:02)
[2020-07-09 12:24] LABS: Glucose, Whole Blood 211 mg/dL (60-115)
--- NOTE | 2020-07-09 13:22 | PM.CCPN ---
Subjective Subjective Date of Service: 07/09/20 Interval History: 55-year-old female intubated now because of acute hypoxic respiratory failure from bilateral COVID pneumonitis and ARDS and what is prolonging is the very poor recovery yet of cognitive function many days off sedation and this is due to COVID-19 coagulopathy with extensive bilateral cerebral infarcts with with minor spontaneous movement of right side only and thus far function is opening of eyes to verbal stimuli acute kidney injury resolved respiratory insufficiency better with FiO2 of only 30% and also being treated with meropenem for combination of ESBL E coli urinary tract infection as well as possible strep viridans bacteremia we might be coming closer towards conversation about tracheostomy Physical Exam Vital Signs: Vital Signs: Last Vital Signs Temp 99.3 F 07/09/20 13:00 Pulse 106 H 07/09/20 13:00 Resp 24 H 07/09/20 13:00 BP 135/69 07/09/20 13:00 Pulse Ox 94 07/09/20 13:00 Body Mass Index 36.2 Const: Other: no cognitive function just eye opening to voice and only spontaneously moves right side and no witnessed seizure activity skin with early breakdown over the coccyx cardiac exam with normal S1 normal S2 in normal sinus rhythm abdomen is benign it and accepting feedings with good bowel sounds and no organomegaly chest with ventilator associated coarse bilateral sounds Objective Data Labs CBC & Chem 7: 07/09/20 04:43 07/09/20 04:43 Labs: Laboratory Results - last 24 hr 07/08/20 07/08/20 07/08/20 14:37 16:41 18:18 WBC RBC Hgb Hct MCV MCH MCHC RDW Plt Count MPV Immature Gran % (Auto) Neut % (Auto) Lymph % (Auto) Grand % (Auto) Eos % (Auto) Baso % (Auto) Lymph # (Auto) Grand # (Auto) Eos # (Auto) Baso # (Auto) Abs Immat Gran (auto) Absolute Neuts (auto) Absolute Nucleated RBC Nucleated RBC % (auto) D-Dimer VBG pH VBG pCO2 VBG pO2 VBG HCO3 VBG O2 Saturation VBG Base Excess Sodium Potassium Chloride Carbon Dioxide Anion Gap BUN Creatinine Estim Creat Clear Calc Estimated GFR POC Glucose 167 H 181 H 183 H Random Glucose Calcium Phosphorus Magnesium 07/08/20 07/08/20 07/09/20 20:06 22:03 00:41 WBC RBC Hgb Hct MCV MCH MCHC RDW Plt Count MPV Immature Gran % (Auto) Neut % (Auto) Lymph % (Auto) Grand % (Auto) Eos % (Auto) Baso % (Auto) Lymph # (Auto) Grand # (Auto) Eos # (Auto) Baso # (Auto) Abs Immat Gran (auto) Absolute Neuts (auto) Absolute Nucleated RBC Nucleated RBC % (auto) D-Dimer VBG pH VBG pCO2 VBG pO2 VBG HCO3 VBG O2 Saturation VBG Base Excess Sodium Potassium Chloride Carbon Dioxide Anion Gap BUN Creatinine Estim Creat Clear Calc Estimated GFR POC Glucose 205 H 160 H 155 H Random Glucose Calcium Phosphorus Magnesium 07/09/20 07/09/20 07/09/20 01:48 04:43 04:43 WBC 9.8 RBC 3.30 L Hgb 10.0 L Hct 32.1 L MCV 97.3 MCH 30.3 MCHC 31.2 RDW 14.8 Plt Count 458 H MPV 10.3 Immature Gran % (Auto) 1.0 H Neut % (Auto) 85.6 H Lymph % (Auto) 9.0 L Grand % (Auto) 3.4 Eos % (Auto) 0.8 Baso % (Auto) 0.2 Lymph # (Auto) 0.9 L Grand # (Auto) 0.3 Eos # (Auto) 0.1 Baso # (Auto) 0.0 Abs Immat Gran (auto) 0.10 H Absolute Neuts (auto) 8.4 H Absolute Nucleated RBC 0.000 Nucleated RBC % (auto) 0.0 D-Dimer 2611 VBG pH VBG pCO2 VBG pO2 VBG HCO3 VBG O2 Saturation VBG Base Excess Sodium Potassium Chloride Carbon Dioxide Anion Gap BUN Creatinine Estim Creat Clear Calc Estimated GFR POC Glucose 173 H Random Glucose Calcium Phosphorus Magnesium 07/09/20 07/09/20 07/09/20 04:43 04:44 05:06 WBC RBC Hgb Hct MCV MCH MCHC RDW Plt Count MPV Immature Gran % (Auto) Neut % (Auto) Lymph % (Auto) Grand % (Auto) Eos % (Auto) Baso % (Auto) Lymph # (Auto) Grand # (Auto) Eos # (Auto) Baso # (Auto) Abs Immat Gran (auto) Absolute Neuts (auto) Absolute Nucleated RBC Nucleated RBC % (auto) D-Dimer VBG pH 7.39 VBG pCO2 42 VBG pO2 43 VBG HCO3 25 VBG O2 Saturation 78.7 VBG Base Excess -0.1 Sodium 138 Potassium 4.3 Chloride 105 Carbon Dioxide 24 Anion Gap 13 BUN 20 H Creatinine 0.55 Estim Creat Clear Calc 124.4 Estimated GFR > 60 POC Glucose 232 H Random Glucose 233 H Calcium 8.3 L Phosphorus 4.1 Magnesium 2.2 07/09/20 07/09/20 07/09/20 06:17 07:49 10:34 WBC RBC Hgb Hct MCV MCH MCHC RDW Plt Count MPV Immature Gran % (Auto) Neut % (Auto) Lymph % (Auto) Grand % (Auto) Eos % (Auto) Baso % (Auto) Lymph # (Auto) Grand # (Auto) Eos # (Auto) Baso # (Auto) Abs Immat Gran (auto) Absolute Neuts (auto) Absolute Nucleated RBC Nucleated RBC % (auto) D-Dimer VBG pH VBG pCO2 VBG pO2 VBG HCO3 VBG O2 Saturation VBG Base Excess Sodium Potassium Chloride Carbon Dioxide Anion Gap BUN Creatinine Estim Creat Clear Calc Estimated GFR POC Glucose 277 H 257 H 234 H Random Glucose Calcium Phosphorus Magnesium 07/09/20 12:13 WBC RBC Hgb Hct MCV MCH MCHC RDW Plt Count MPV Immature Gran % (Auto) Neut % (Auto) Lymph % (Auto) Grand % (Auto) Eos % (Auto) Baso % (Auto) Lymph # (Auto) Grand # (Auto) Eos # (Auto) Baso # (Auto) Abs Immat Gran (auto) Absolute Neuts (auto) Absolute Nucleated RBC Nucleated RBC % (auto) D-Dimer VBG pH VBG pCO2 VBG pO2 VBG HCO3 VBG O2 Saturation VBG Base Excess Sodium Potassium Chloride Carbon Dioxide Anion Gap BUN Creatinine Estim Creat Clear Calc Estimated GFR POC Glucose 211 H Random Glucose Calcium Phosphorus Magnesium Microbiology Microbiology Results: Microbiology 07/08/20 10:44 Blood - Venous Blood Culture - Preliminary No growth after 24 hours. 07/08/20 10:59 Blood - Venous Blood Culture - Preliminary No growth after 24 hours. 07/08/20 10:21 Sputum - Suctioned Gram Stain - Final 07/08/20 10:21 Sputum - Suctioned Sputum Culture - Preliminary Yeast 07/03/20 21:42 Blood - Venous Blood Culture - Final No growth after 5 days. 07/03/20 21:42 Blood - Venous Blood Culture - Final No growth after 5 days. 07/04/20 02:39 Sputum - Suctioned Gram Stain - Final 07/04/20 02:39 Sputum - Suctioned Sputum Culture - Final 07/03/20 22:31 Urine clean catch - Hdez Catheter Urine Culture - Final Escherichia coli 06/26/20 18:40 Blood - Arterial Blood Culture - Final No growth after 5 days. 06/26/20 18:42 Blood - Arterial Blood Culture - Final Streptococcus viridans group Progress Note: A&P Assessment and plan (1) Pneumonia due to COVID-19 virus: Status: Acute (2) Encephalopathy acute: Status: Acute (3) Seizures: Problem details: Previous history of undefined seizures. Currently on antiseizure medications with Keppra and Depakote Status: Acute (4) Stroke (cerebrum): Problem details: Multiple large strokes both supra and infratentorially and bilateral with some right frontal mass effect Status: Acute (5) Metabolic acidosis: Status: Acute (6) Sepsis: Status: Acute (7) Septic shock: Status: Acute (8) OMAR (acute kidney injury): Problem details: Some ESBL E coli Status: Acute (9) Elevated troponin: Status: Acute (10) Viral sepsis: Status: Acute (11) ARDS (adult respiratory distress syndrome): Status: Acute (12) NSTEMI (non-ST elevated myocardial infarction): Status: Acute (13) Acute and chronic respiratory failure with hypoxia: Status: Acute (14) Acute respiratory distress syndrome (ARDS) due to COVID-19 virus: Problem details: She is intubated She has severe COVID Per protocol CDC, [facility] severe COVID intubated Not candidate Remdesivir due to severe COVID,ACT-1 trial not helpful mortality Status: Acute (15) Acute respiratory failure with hypoxia: Status: Acute (16) CHF (congestive heart failure): Status: Acute Assessment and Plan: I personally believe that the prognosis for cognitive repair and improvement is very guarded and not probable to be meaningful but we update daily and if he wants to go further in time she will need tracheostomy and that may need to be discussed next week Time Spent With Patient Time: Total time spent is greater than 50% in coordination of care (as documented) at patient's floor/unit and/or counseling patient: Total time spent with greater than 50% in coordination of care (as documented) at patient's floor/unit and/or counseling patient:: 30
[2020-07-09 14:29] LABS: Glucose, Whole Blood 174 mg/dL (60-115)
[2020-07-09 17:20] LABS: Glucose, Whole Blood 179 mg/dL (60-115)
--- NOTE | 2020-07-09 17:27 | P.CONIM_ITS ---
History of Present Illness Data of Consult Service Date: 07/09/20 Primary Care Provider: DO FRANCISCO Kelly Reason for consult: sacral pressure wound 55 year old female admitted and intubated with Covid pneumonia and sepsis. yesterday noted to have sacral stage II pressure wound. Pt still currently active treatment for Covid intubated. Review of Systems Review of Systems: patient intubated unable to performed [facility] [place] Medical History Asthma CHF (congestive heart failure) Diabetes Lower extremity surgery planned Pulmonary fibrosis Seizure Family history: reviewed and not pertinent Social History Household Members: Spouse and Family Housing: House Alcohol intake: unknown Smoking Status: Unknown if ever smoked Use of substances other than those prescribed or required for medical reasons: Unable to respond Currently Displaying Signs/Symptoms of Drug Intoxication Withdrawal: No Advance Directives: No Advance Directives Information Provided: No Do you have thoughts of harming others: None Do you have a plan to hurt others: No Plan Recently lost weight without trying: Unsure Meds Allergies Allergy/AdvReac Type Severity Reaction Status Date / Time Penicillins [PENICILLINS] Allergy Intermediate HIVES,SWELL Verified 06/30/20 12:24 ING penicillin Allergy Unknown Hives Uncoded 06/30/20 12:24 Home Medications Medication Instructions Recorded Confirmed Type acetaminophen 2 tab PO TID PRN 06/30/20 06/30/20 History azithromycin 1 tab PO MOWEFR 06/30/20 07/01/20 History blood sugar diagnostic [FreeStyle 06/30/20 06/30/20 History Lite Strips] blood-glucose meter [FreeStyle 06/30/20 06/30/20 History Lite Meter] cetirizine 1 tab PO DAILY 06/30/20 06/30/20 History citalopram 1 tab PO QAM 06/30/20 06/30/20 History cyproheptadine 4 mg PO BID 06/30/20 07/01/20 History dicyclomine 1 cap PO BID PRN 06/30/20 06/30/20 History diphenoxylate-atropine 1 tab PO TID PRN 06/30/20 06/30/20 History divalproex 3 tab PO BID 06/30/20 06/30/20 History dulaglutide [Trulicity] 0.75 mg SUBCUT QWEEK 06/30/20 06/30/20 History famotidine 1 tab PO BEDTIME 06/30/20 06/30/20 History fluticasone propion-salmeterol 1 puff INHALATION BID 06/30/20 06/30/20 History [Wixela Inhub] hydroxyzine pamoate 1 cap PO TID PRN 06/30/20 06/30/20 History lancets [FreeStyle Lancets] 06/30/20 06/30/20 History levetiracetam 2 tab PO BID 06/30/20 06/30/20 History magnesium oxide 1 tab PO BEDTIME 06/30/20 06/30/20 History meloxicam 1 tab PO DAILY 06/30/20 06/30/20 History metformin 1 tab PO TID 06/30/20 06/30/20 History omeprazole 1 cap PO BID 06/30/20 06/30/20 History pirfenidone [Esbriet] 267 mg PO TID 06/30/20 07/01/20 History riboflavin (vitamin B2) [Vitamin 2 tab PO BID 06/30/20 06/30/20 History B-2] sucralfate 1 tab PO QID PRN 06/30/20 06/30/20 History temazepam 1 cap PO BEDTIME 06/30/20 06/30/20 History topiramate 1 tab PO BID 06/30/20 06/30/20 History sumatriptan succinate 1 tab PO DAILY PRN 07/01/20 07/01/20 History Physical Exam Vital Signs and Narrative: Vital Signs: Last Vital Signs Temp 99.5 F 07/09/20 17:00 Pulse 94 07/09/20 17:00 Resp 23 H 07/09/20 17:00 BP 117/71 07/09/20 17:00 Pulse Ox 94 07/09/20 17:00 Body Mass Index 36.2 Resp: Other: intubated on AC settings : Other: Hdez present Skin: Other: sacral/coccyx area with small 1 cm skin break from pressure - stage 2 with some fatty tissue noted. surrounding skin otherwise looks good. Results Labs CBC and Chem 7: 07/09/20 04:43 07/09/20 04:43 Labs: Laboratory Results - last 24 hr 07/08/20 07/08/20 07/08/20 16:41 18:18 20:06 MCV MCH MCHC RDW Plt Count MPV Immature Gran % (Auto) Neut % (Auto) Lymph % (Auto) [place] % (Auto) Eos % (Auto) Baso % (Auto) Lymph # (Auto) [place] # (Auto) Eos # (Auto) Baso # (Auto) Abs Immat Gran (auto) Absolute Neuts (auto) Absolute Nucleated RBC Nucleated RBC % (auto) D-Dimer VBG pH VBG pCO2 VBG pO2 VBG HCO3 VBG O2 Saturation VBG Base Excess Anion Gap Estim Creat Clear Calc Estimated GFR POC Glucose 181 H 183 H 205 H Random Glucose Calcium Phosphorus Magnesium 07/08/20 07/09/20 07/09/20 22:03 00:41 01:48 MCV MCH MCHC RDW Plt Count MPV Immature Gran % (Auto) Neut % (Auto) Lymph % (Auto) [place] % (Auto) Eos % (Auto) Baso % (Auto) Lymph # (Auto) [place] # (Auto) Eos # (Auto) Baso # (Auto) Abs Immat Gran (auto) Absolute Neuts (auto) Absolute Nucleated RBC Nucleated RBC % (auto) D-Dimer VBG pH VBG pCO2 VBG pO2 VBG HCO3 VBG O2 Saturation VBG Base Excess Anion Gap Estim Creat Clear Calc Estimated GFR POC Glucose 160 H 155 H 173 H Random Glucose Calcium Phosphorus Magnesium 07/09/20 07/09/20 07/09/20 04:43 04:43 04:43 MCV 97.3 MCH 30.3 MCHC 31.2 RDW 14.8 Plt Count 458 H MPV 10.3 Immature Gran % (Auto) 1.0 H Neut % (Auto) 85.6 H Lymph % (Auto) 9.0 L [place] % (Auto) 3.4 Eos % (Auto) 0.8 Baso % (Auto) 0.2 Lymph # (Auto) 0.9 L [place] # (Auto) 0.3 Eos # (Auto) 0.1 Baso # (Auto) 0.0 Abs Immat Gran (auto) 0.10 H Absolute Neuts (auto) 8.4 H Absolute Nucleated RBC 0.000 Nucleated RBC % (auto) 0.0 D-Dimer 2611 VBG pH VBG pCO2 VBG pO2 VBG HCO3 VBG O2 Saturation VBG Base Excess Anion Gap 13 Estim Creat Clear Calc 124.4 Estimated GFR > 60 POC Glucose Random Glucose 233 H Calcium 8.3 L Phosphorus 4.1 Magnesium 2.2 07/09/20 07/09/20 07/09/20 04:44 05:06 06:17 MCV MCH MCHC RDW Plt Count MPV Immature Gran % (Auto) Neut % (Auto) Lymph % (Auto) [place] % (Auto) Eos % (Auto) Baso % (Auto) Lymph # (Auto) [place] # (Auto) Eos # (Auto) Baso # (Auto) Abs Immat Gran (auto) Absolute Neuts (auto) Absolute Nucleated RBC Nucleated RBC % (auto) D-Dimer VBG pH 7.39 VBG pCO2 42 VBG pO2 43 VBG HCO3 25 VBG O2 Saturation 78.7 VBG Base Excess -0.1 Anion Gap Estim Creat Clear Calc Estimated GFR POC Glucose 232 H 277 H Random Glucose Calcium Phosphorus Magnesium 07/09/20 07/09/20 07/09/20 07:49 10:34 12:13 MCV MCH MCHC RDW Plt Count MPV Immature Gran % (Auto) Neut % (Auto) Lymph % (Auto) [place] % (Auto) Eos % (Auto) Baso % (Auto) Lymph # (Auto) [place] # (Auto) Eos # (Auto) Baso # (Auto) Abs Immat Gran (auto) Absolute Neuts (auto) Absolute Nucleated RBC Nucleated RBC % (auto) D-Dimer VBG pH VBG pCO2 VBG pO2 VBG HCO3 VBG O2 Saturation VBG Base Excess Anion Gap Estim Creat Clear Calc Estimated GFR POC Glucose 257 H 234 H 211 H Random Glucose Calcium Phosphorus Magnesium 07/09/20 07/09/20 14:25 16:20 MCV MCH MCHC RDW Plt Count MPV Immature Gran % (Auto) Neut % (Auto) Lymph % (Auto) [place] % (Auto) Eos % (Auto) Baso % (Auto) Lymph # (Auto) [place] # (Auto) Eos # (Auto) Baso # (Auto) Abs Immat Gran (auto) Absolute Neuts (auto) Absolute Nucleated RBC Nucleated RBC % (auto) D-Dimer VBG pH VBG pCO2 VBG pO2 VBG HCO3 VBG O2 Saturation VBG Base Excess Anion Gap Estim Creat Clear Calc Estimated GFR POC Glucose 174 H 179 H Random Glucose Calcium Phosphorus Magnesium Assessment and Plan (1) Pneumonia due to COVID-19 virus: Status: Acute (2) Encephalopathy acute: Status: Acute (3) Seizures: Problem details: Previous history of undefined seizures. Currently on antiseizure medications with Keppra and Depakote Status: Acute (4) Stroke (cerebrum): Problem details: Multiple large strokes both supra and infratentorially and bilateral with some right frontal mass effect Status: Acute (5) Metabolic acidosis: Status: Acute (6) Sepsis: Qualifiers: Sepsis acute organ dysfunction status: unspecified Sepsis type: sepsis due to unspecified organism Qualified Code(s): A41.9 - Sepsis, unspecified organism Status: Acute (7) Septic shock: Status: Acute (8) OMAR (acute kidney injury): Problem details: Some ESBL E coli Status: Acute (9) Elevated troponin: Status: Acute (10) Viral sepsis: Status: Acute (11) ARDS (adult respiratory distress syndrome): Status: Acute (12) NSTEMI (non-ST elevated myocardial infarction): Status: Acute (13) Acute and chronic respiratory failure with hypoxia: Status: Acute (14) Acute respiratory distress syndrome (ARDS) due to COVID-19 virus: Problem details: She is intubated She has severe COVID Per protocol CDC, NIH severe COVID intubated Not candidate Remdesivir due to severe COVID,ACT-1 trial not helpful mortality Status: Acute (15) Acute respiratory failure with hypoxia: Status: Acute (16) CHF (congestive heart failure): Status: Acute 55 year old female with active covid, s/p stroke and ? how good her cognitive function is as she is sedated and intubated. Pressure wound is small b ut can worsen especially if there is care home issues with neurological and cognitive function. for now continue with barrier cream to protect skin and mepilex dressing and moving patient as much as tolerated as per respiratory and pressure protection mattress.
--- NOTE | 2020-07-09 17:43 | PC.NURSE ---
Pts son Abhishek showed up to the lobby demanding to speak to doctor and see his mom. This RN went to the lobby to assess the situation. Spoke with Abhishek and told him I needed to contact the Nursing [employer] and get permission from the AOD. Asked him to please wait in the lobby. [employer] notified and contacted AOD. I called pts to inform him of situation and obtain consent for us to share pt information with Abhishek, agreed. AOD assesses situation and spoke with Abhishek and gave him permission for a 5 minute visit, PPE given, and escorted to ICU. Abhishek was able to visit with his mom and this RN answered questions asked. MD agreed to do a family conference call with Abhishek and pts . Abhishek gave his cellphone number for us to be able to Facetime with his family because he has an Iphone: [phone]. During son's visit pt appeared more responsive and moved right extremities more, a finger moved on the left hand, no movement in left leg. Pt appeared to track son's voice. MD notified of all findings. Afebrile, VSS, Vent settings: PC 12/14/+7/30%. Copious, clear oral secretions. Large, thick, white/cream inline secretions. Hdez WNL. Rectal tube intact and draining. Continuation of insulin gtt - see titration. Q2HR repo, barrier cream, bathed, hair washed. Family updated by this RN and MD.
[2020-07-09 18:30] LABS: Glucose, Whole Blood 188 mg/dL (60-115)
[2020-07-09] MEDS: Zinc Oxide 20% Ointment 28.35 GM TUBE 1 APPL TOPICAL (20:20)
[2020-07-09 20:30] LABS: Glucose, Whole Blood 144 mg/dL (60-115)
[2020-07-09] MEDS: Atorvastatin Calcium 80 MG TABLET G-TUBE (21:24)
[2020-07-09] MEDS: Insulin Regular/NS 100 UNIT/100 ML PLAST..BAG IVCONT (21:25)
[2020-07-09 23:53] LABS: Glucose, Whole Blood 156 mg/dL (60-115)
[2020-07-10] VITALS (26 sets, daily range): BP systolic 101–136; BP diastolic 52–86; PULSE 95–123; RESP 18–26; TEMP 37.5–37.9; O2SAT 92–100; BMI 35.5
[2020-07-10 01:12] LABS: Glucose, Whole Blood 155 mg/dL (60-115)
[2020-07-10] MEDS: Chlorhexidine Gluc Oral Rinse 15 ML MOUTHWASH BUCCAL ×4 (01:38→23:33)
[2020-07-10] MEDS: Thiamine HCL 200 MG in 0.9 % Sodium Chloride 100 ML 204 MG IV ×2 (01:38→12:15)
[2020-07-10] MEDS: Enoxaparin Sodium 100 MG/ML SYRINGE 90 MG SUBCUT ×2 (01:38→12:17)
[2020-07-10] MEDS: methylPREDNISolone Sod Succ/PF 125 MG/2 ML VIAL 40 MG IVPUSH ×2 (01:39→12:16)
[2020-07-10 03:24] LABS: Glucose, Whole Blood 169 mg/dL (60-115)
[2020-07-10 05:42] LABS: Base Excess VBG 1.5 mmol/L; HCO3 VBG 26 mmol/L; PCO2 VBG 43 mmhg; PO2 VBG 39 mmhg; pH VBG 7.41 (7.32-7.43)
[2020-07-10 05:43] LABS: Oxygen Saturation VBG 71.2 %
[2020-07-10 06:33] LABS: Glucose, Whole Blood 169 mg/dL (60-115)
[2020-07-10 08:22] LABS: Glucose, Whole Blood 146 mg/dL (60-115)
[2020-07-10] MEDS: Famotidine 20 MG TABLET 40 MG G-TUBE ×2 (08:44→22:01)
[2020-07-10] MEDS: Cholecalciferol (Vitamin D3) 25 MCG TABLET 50 MCG G-TUBE (08:44)
[2020-07-10] MEDS: levETIRAcetam 250 MG TABLET 750 MG PO ×2 (08:44→22:02)
[2020-07-10] MEDS: 0.9 % Sodium Chloride Flush 3 ML SYRINGE IVFLUSH ×3 (08:44→23:30)
[2020-07-10] MEDS: Topiramate 100 MG TABLET PO ×2 (08:45→22:02)
[2020-07-10 09:05] LABS: MANUAL DIFF FLAG NO
[2020-07-10 09:06] LABS: Basophils Percent Auto 0.2 % (0-2); Eosinophils Absolute Auto 0.2 X10*3/uL (0.0-0.4); Eosinophils Percent Auto 2.3 % (0-4); Hematocrit 32.1 % (37-47); Hemoglobin 10.1 g/dl (12.0-16.0); Imm Gran Abs Auto 0.08 X10*3/uL (0.00-0.03); Imm Gran Pct Auto 0.8 % (0.0-0.4); Lymphocytes Absolute Auto 2.5 X10*3/uL (1.2-4.9); Lymphocytes Percent Auto 23.7 % (20-40); Mean Corpuscular HGB Conc 31.5 g/dl (31.0-35.0); Mean Corpuscular Hemoglobin 30.7 pg (27.0-33.0); Mean Corpuscular Volume 97.6 fL (80-98); Mean Platelet Volume 9.7 fL (9.4-12.3); Monocytes Absolute Auto 0.7 X10*3/uL (0.1-1.2); Monocytes Percent Auto 6.9 % (2-11); Neutrophils Absolute Auto 6.9 X10*3/uL (2.0-8.3); Neutrophils Percent Auto 66.1 % (45-73); Platelet Count 499 X10*3/uL (160-400); Red Blood Count 3.29 X10*6/uL (4.20-5.50); White Blood Count 10.5 X10*3/uL (4.8-10.8)
[2020-07-10 09:39] LABS: Anion Gap 15 (12-20); Blood Urea Nitrogen 23 mg/dL (9-16); Calcium 8.3 mg/dL (8.4-10.2); Carbon Dioxide 26 mmol/L (22-29); Chloride 105 mmol/L (96-108); Creatinine Clr Calc Pharmacy 129.9; Estimated Glomerular Filt Rate > 60; Glucose Random 134 mg/dL (60-115); Potassium 3.8 mmol/l (3.3-5.1); Sodium 142 mmol/L (135-145)
--- NOTE | 2020-07-10 12:25 | MHC.CDI.CONC ---
CDI Concurrent Query Service Date: 11/03/21 Documentation Clarification: Please clarify if you are treating a probable/suspected/likely or confirmed: Chronic diastolic and/or systolic Congestive heart failure Acute on chronic diastolic and/or systolic Congestive heart failure Please specify if known Provider Response: Acute-Chronic Diastolic CHF Other Diagnosis: agree with acute on chronic diastolic CHF PLEASE DO NOT DELETE/MODIFY EXISTING CONTENT Additional information is needed in order to code to the highest accuracy and appropriate Severity of Illness (SOI). Please clarify the information noted below in your progress notes and discharge summary. Risk Factors/Clinical Indicators/Treatments History of Congestive heart failure BNP 166 H Echo performed Assessment/plan: CHF, Acute CDS: Snehal Whalen CCS,CDIS Contact Number: [phone] Please Review the information above and exercise your independent professional judgment in responding to the query. If you concur, pleas document in the PROGRESS NOTES and DISCHARGE SUMMARY. If you do not agree with the query, please document in the query above. THIS QUERY IS PART OF THE PERMANENT MEDICAL RECORD
[2020-07-10 13:06] LABS: Glucose, Whole Blood 226 mg/dL (60-115)
[2020-07-10] MEDS: Insulin Lispro 100 UNIT/ML 3 ML VIAL SUBCUT ×3 (13:17→23:41)
--- NOTE | 2020-07-10 13:48 | PC.NURSE ---
Patient remains off sedation. Opening eyes spontaneously. Bilateral pupils dilated and fixed. Left upper and lower extremities remain flaccid. Able to squeeze right hand to command and wiggle right foot to command. Able to nod appropriately to yes/no questions this morning, MD aware. Patient placed on PS settings 10/7 with fio2 of 30%, 02 sats in the mid 90s, tidal volumes trending 450s with min volumes trending 10-11. This afternoon patient seems more drowsy, patient placed back on PC: rate 12, ip 14, fio2 30%, peep 7 by RT per MD. Min volumes trending around 9 and tidal volumes trending in the 400s. POC trending 150s to 160s, MD aware. Insulin drip discontinued and shut off. POC Q6H ordered with SS. Patient's updated by RN.
--- NOTE | 2020-07-10 13:59 | PC.NURSE ---
Patient remains sedated on Propofol and restraints in place for safety. Patient nodding head to yes/no questions. Synchronous with vent. Continues on AC settings. Suctioning moderate amount of inline secretions. Bedside bronchoscopy performed by fabric and textile factory worker, specimen obtained and cultures ordered, patient tolerated well. Per MD left anterior chest tube taken off suction, minimal, serosang output noted. Dressing change to elvie chest tube insertion sites, small amount of sersang drainage to elvie sites.
--- NOTE | 2020-07-10 14:24 | PM.CCPN ---
Subjective Subjective Date of Service: 07/10/20 Interval History: 55-year-old type 2 diabetic presents with acute hypoxemic respiratory failure due to bilateral COVID-19 pneumonitis/ARDS complicated by acute kidney injury which has since resolved and coagulopathy manifested by extensive bilateral CVAs still with persistent left hemiparesis but the end cephalo the encephalopathy is slowly resolving and she is becoming communicative and following commands each day making a little bit of progress and today because she is on an FiO2 of only 30% and her minutes ventilatory requirements were only 8 in a half to 9 L with put her on pressure support as she went all day with 450 cc tidal volumes stable end-tidal CO2 and oxygen saturation not distressed but became mildly tachypneic and she was persistently tachycardic so I think there was an element of increased work of breathing it was good progress so we we decided to put her back on pressure control for rest Physical Exam Vital Signs: Vital Signs: Last Vital Signs Temp 99.5 F 07/10/20 14:00 Pulse 121 H 07/10/20 14:00 Resp 23 H 07/10/20 14:00 BP 108/75 07/10/20 14:00 Pulse Ox 96 07/10/20 14:00 Body Mass Index 35.5 Const: Other: Somewhat more alert and following commands and therefore achieved pressure support weaning trial on the ventilator Skin with just mild decubitus breakdown over the coccyx Sinus rhythm stable CVP no gallops no murmurs Chest without adventitious sounds just coarse ventilator sounds Abdomen soft nondistended and nontender with no organomegaly and tolerating diet Objective Data Labs CBC & Chem 7: 07/10/20 08:48 07/10/20 08:48 Labs: Laboratory Results - last 24 hr 07/09/20 07/09/20 07/09/20 14:25 16:20 18:25 WBC RBC Hgb Hct MCV MCH MCHC RDW Plt Count MPV Immature Gran % (Auto) Neut % (Auto) Lymph % (Auto) [place] % (Auto) Eos % (Auto) Baso % (Auto) Lymph # (Auto) [place] # (Auto) Eos # (Auto) Baso # (Auto) Abs Immat Gran (auto) Absolute Neuts (auto) Absolute Nucleated RBC Nucleated RBC % (auto) VBG pH VBG pCO2 VBG pO2 VBG HCO3 VBG O2 Saturation VBG Base Excess Sodium Potassium Chloride Carbon Dioxide Anion Gap BUN Creatinine Estim Creat Clear Calc Estimated GFR POC Glucose 174 H 179 H 188 H Random Glucose Calcium 07/09/20 07/09/20 07/10/20 20:25 23:02 01:07 WBC RBC Hgb Hct MCV MCH MCHC RDW Plt Count MPV Immature Gran % (Auto) Neut % (Auto) Lymph % (Auto) [place] % (Auto) Eos % (Auto) Baso % (Auto) Lymph # (Auto) [place] # (Auto) Eos # (Auto) Baso # (Auto) Abs Immat Gran (auto) Absolute Neuts (auto) Absolute Nucleated RBC Nucleated RBC % (auto) VBG pH VBG pCO2 VBG pO2 VBG HCO3 VBG O2 Saturation VBG Base Excess Sodium Potassium Chloride Carbon Dioxide Anion Gap BUN Creatinine Estim Creat Clear Calc Estimated GFR POC Glucose 144 H 156 H 155 H Random Glucose Calcium 07/10/20 07/10/20 07/10/20 03:19 04:27 06:24 WBC RBC Hgb Hct MCV MCH MCHC RDW Plt Count MPV Immature Gran % (Auto) Neut % (Auto) Lymph % (Auto) [place] % (Auto) Eos % (Auto) Baso % (Auto) Lymph # (Auto) [place] # (Auto) Eos # (Auto) Baso # (Auto) Abs Immat Gran (auto) Absolute Neuts (auto) Absolute Nucleated RBC Nucleated RBC % (auto) VBG pH 7.41 VBG pCO2 43 VBG pO2 39 VBG HCO3 26 VBG O2 Saturation 71.2 VBG Base Excess 1.5 Sodium Potassium Chloride Carbon Dioxide Anion Gap BUN Creatinine Estim Creat Clear Calc Estimated GFR POC Glucose 169 H 169 H Random Glucose Calcium 07/10/20 07/10/20 07/10/20 08:17 08:48 08:48 WBC 10.5 RBC 3.29 L Hgb 10.1 L Hct 32.1 L MCV 97.6 MCH 30.7 MCHC 31.5 RDW 15.0 Plt Count 499 H MPV 9.7 Immature Gran % (Auto) 0.8 H Neut % (Auto) 66.1 Lymph % (Auto) 23.7 [place] % (Auto) 6.9 Eos % (Auto) 2.3 Baso % (Auto) 0.2 Lymph # (Auto) 2.5 [place] # (Auto) 0.7 Eos # (Auto) 0.2 Baso # (Auto) 0.0 Abs Immat Gran (auto) 0.08 H Absolute Neuts (auto) 6.9 Absolute Nucleated RBC 0.000 Nucleated RBC % (auto) 0.0 VBG pH VBG pCO2 VBG pO2 VBG HCO3 VBG O2 Saturation VBG Base Excess Sodium 142 Potassium 3.8 Chloride 105 Carbon Dioxide 26 Anion Gap 15 BUN 23 H Creatinine 0.53 Estim Creat Clear Calc 129.9 Estimated GFR > 60 POC Glucose 146 H Random Glucose 134 H D Calcium 8.3 L 07/10/20 13:02 WBC RBC Hgb Hct MCV MCH MCHC RDW Plt Count MPV Immature Gran % (Auto) Neut % (Auto) Lymph % (Auto) [place] % (Auto) Eos % (Auto) Baso % (Auto) Lymph # (Auto) [place] # (Auto) Eos # (Auto) Baso # (Auto) Abs Immat Gran (auto) Absolute Neuts (auto) Absolute Nucleated RBC Nucleated RBC % (auto) VBG pH VBG pCO2 VBG pO2 VBG HCO3 VBG O2 Saturation VBG Base Excess Sodium Potassium Chloride Carbon Dioxide Anion Gap BUN Creatinine Estim Creat Clear Calc Estimated GFR POC Glucose 226 H Random Glucose Calcium Microbiology Microbiology Results: Microbiology 07/08/20 10:44 Blood - Venous Blood Culture - Preliminary No growth after 48 hours. 07/08/20 10:59 Blood - Venous Blood Culture - Preliminary No growth after 48 hours. 07/08/20 10:21 Sputum - Suctioned Gram Stain - Final 07/08/20 10:21 Sputum - Suctioned Sputum Culture - Preliminary Yeast 07/03/20 21:42 Blood - Venous Blood Culture - Final No growth after 5 days. 07/03/20 21:42 Blood - Venous Blood Culture - Final No growth after 5 days. 07/04/20 02:39 Sputum - Suctioned Gram Stain - Final 07/04/20 02:39 Sputum - Suctioned Sputum Culture - Final 07/03/20 22:31 Urine clean catch - Hdez Catheter Urine Culture - Final Escherichia coli 06/26/20 18:40 Blood - Arterial Blood Culture - Final No growth after 5 days. 06/26/20 18:42 Blood - Arterial Blood Culture - Final Streptococcus viridans group Progress Note: A&P Assessment and plan (1) Pneumonia due to COVID-19 virus: Status: Acute (2) Encephalopathy acute: Status: Acute (3) Seizures: Problem details: Previous history of undefined seizures. Currently on antiseizure medications with Keppra and Depakote Status: Acute (4) Stroke (cerebrum): Problem details: Multiple large strokes both supra and infratentorially and bilateral with some right frontal mass effect Status: Acute (5) Metabolic acidosis: Status: Acute (6) Sepsis: Status: Acute (7) Septic shock: Status: Acute (8) OMAR (acute kidney injury): Problem details: Some ESBL E coli Status: Acute (9) Elevated troponin: Status: Acute (10) Viral sepsis: Status: Acute (11) ARDS (adult respiratory distress syndrome): Status: Acute (12) NSTEMI (non-ST elevated myocardial infarction): Status: Acute (13) Acute and chronic respiratory failure with hypoxia: Status: Acute (14) Acute respiratory distress syndrome (ARDS) due to COVID-19 virus: Problem details: She is intubated She has severe COVID Per protocol CDC, NIH severe COVID intubated Not candidate Remdesivir due to severe COVID,ACT-1 trial not helpful mortality Status: Acute (15) Acute respiratory failure with hypoxia: Status: Acute (16) CHF (congestive heart failure): Status: Acute Assessment and Plan: Plan is to rest her on pressure control today tomorrow morning if she remains just is alert and uncomplicated we will again try pressure support and if she is consistently tolerant I would consider extubation Will do 1 more surveillance sputum Gram stain and culture Time Spent With Patient Time: Total time spent is greater than 50% in coordination of care (as documented) at patient's floor/unit and/or counseling patient: Total time spent with greater than 50% in coordination of care (as documented) at patient's floor/unit and/or counseling patient:: 35
--- NOTE | 2020-07-10 16:33 | MHC.CM.PN ---
Patient remains intubated/vented in ICU. Continue to monitor for d/c needs.
[2020-07-10 18:19] LABS: Glucose, Whole Blood 271 mg/dL (60-115)
--- NOTE | 2020-07-10 21:15 | PC.NURSE ---
Pt making purposeful movements in bed, rubbing her stomach and squeezing her hand on command. Right side is moving only. PT unable to move her left extremities which are flaccid at this time. Pt's pupils 4mm and reactive to light. She is able to track well to voice stimulation.
[2020-07-10] MEDS: Atorvastatin Calcium 80 MG TABLET G-TUBE (22:01)
[2020-07-11] VITALS (30 sets, daily range): BP systolic 113–153; BP diastolic 61–82; PULSE 70–125; RESP 23–103; TEMP 36.4–38; O2SAT 91–100; BMI 35.7
--- NOTE | 2020-07-11 | XR_ITS ---
EXAMINATION: XR CHEST CLINICAL INFORMATION: ] Pneumonia. COMPARISON: Chest wall a 20 TECHNIQUE: Frontal view of the chest was obtained. FINDINGS: The lungs are somewhat expanded with minimal patchy opacity seen in both lower lobes similar to previous study. Heart size is normal. There is normal. The right central venous catheter, endotracheal tube and enteric tube are stable. The left side central venous catheter has been removed. There is mild spondylosis dorsal spine. XR/XR chest 1V IMPRESSION: Stable bibasilar patchy opacity. Left central venous catheter has been removed. No change in support lines and catheters.
[2020-07-11 00:19] LABS: Glucose, Whole Blood 219 mg/dL (60-115)
[2020-07-11] MEDS: Enoxaparin Sodium 100 MG/ML SYRINGE 90 MG SUBCUT ×2 (04:53→13:44)
[2020-07-11 05:56] LABS: MANUAL DIFF FLAG NO
[2020-07-11] MEDS: Insulin Lispro 100 UNIT/ML 3 ML VIAL SUBCUT ×3 (06:08→17:53)
[2020-07-11 06:18] LABS: Base Excess VBG -0.8 mmol/L; HCO3 VBG 24 mmol/L; PCO2 VBG 39 mmhg; PO2 VBG 38 mmhg; pH VBG 7.41 (7.32-7.43)
[2020-07-11 06:23] LABS: Basophils Percent Auto 0.2 % (0-2); Eosinophils Absolute Auto 0.2 X10*3/uL (0.0-0.4); Eosinophils Percent Auto 1.9 % (0-4); Hematocrit 31.2 % (37-47); Hemoglobin 9.9 g/dl (12.0-16.0); Imm Gran Abs Auto 0.08 X10*3/uL (0.00-0.03); Imm Gran Pct Auto 0.8 % (0.0-0.4); Lymphocytes Absolute Auto 2.2 X10*3/uL (1.2-4.9); Lymphocytes Percent Auto 22.2 % (20-40); Mean Corpuscular HGB Conc 31.7 g/dl (31.0-35.0); Mean Corpuscular Volume 97.8 fL (80-98); Monocytes Absolute Auto 0.6 X10*3/uL (0.1-1.2); Monocytes Percent Auto 6.1 % (2-11); Neutrophils Absolute Auto 6.8 X10*3/uL (2.0-8.3); Neutrophils Percent Auto 68.8 % (45-73); Platelet Count 466 X10*3/uL (160-400); Red Blood Count 3.19 X10*6/uL (4.20-5.50); Red Cell Distribution Width 14.9 % (11.0-16.0); White Blood Count 9.9 X10*3/uL (4.8-10.8)
[2020-07-11 06:28] LABS: Anion Gap 14 (12-20); Blood Urea Nitrogen 18 mg/dL (9-16); Calcium 8.6 mg/dL (8.4-10.2); Carbon Dioxide 25 mmol/L (22-29); Chloride 103 mmol/L (96-108); Creatinine Clr Calc Pharmacy 119.1; Estimated Glomerular Filt Rate > 60; Glucose Random 268 mg/dL (60-115); Magnesium 2.1 mg/dL (1.6-2.6); Phosphorus 3.3 mg/dL (2.7-4.5); Potassium 4.2 mmol/l (3.3-5.1); Sodium 138 mmol/L (135-145)
[2020-07-11 06:34] LABS: INTERNATIONAL NORM RATIO 1.2 (0.9-1.1)
[2020-07-11 06:35] LABS: Partial Thromboplastin Time 33.5 SEC (24.1-38.0)
[2020-07-11 06:49] LABS: D Dimer 1987 NG/ML
[2020-07-11] MEDS: Cholecalciferol (Vitamin D3) 25 MCG TABLET 50 MCG G-TUBE (08:11)
[2020-07-11] MEDS: Chlorhexidine Gluc Oral Rinse 15 ML MOUTHWASH BUCCAL ×3 (08:11→23:21)
[2020-07-11] MEDS: levETIRAcetam 250 MG TABLET 750 MG PO ×2 (08:12→21:50)
[2020-07-11] MEDS: predniSONE 20 MG TABLET 40 MG PO (08:12)
[2020-07-11] MEDS: Topiramate 100 MG TABLET PO ×2 (08:13→21:51)
[2020-07-11] MEDS: Famotidine 20 MG TABLET 40 MG G-TUBE ×2 (08:13→21:50)
[2020-07-11] MEDS: 0.9 % Sodium Chloride Flush 3 ML SYRINGE IVFLUSH ×2 (10:40→16:30)
--- NOTE | 2020-07-11 11:05 | MHC.CM.PN ---
Patient remains intubated/vented in ICU. Found to have suffered acute CVA. Patient is from home with family and [employer]. Not sure returning home is a realistic plan. Will need PT eval for home safety when medically stable. Continue to monitor for d/c needs.
--- NOTE | 2020-07-11 11:21 | MHC.CLN ---
F/U PT RECEIVING GLUCERNA AT MAX GOAL RATE 50CC/HR WITH 120CC H20 Q 4 PROVIDES 1200KCALS (18KCALS/KG), 50G PROTEIN (.75G/KG), 1743CC TOTAL WATER FROM FORMULA AND FLUSHES (26CC/KG) MONITOR TOLERANCE, RESIDUALS, AND LYTES
[2020-07-11 14:36] LABS: Glucose, Whole Blood 335 mg/dL (60-115)
--- NOTE | 2020-07-11 15:23 | PC.NURSE ---
Patient remains off sedation. Opening eyes spontaneously. Bilateral pupils dilated and fixed. Left upper and lower extremities remain flaccid. Able to squeeze right hand to command and wiggle right foot to command. Able to nod appropriately to yes/no questions this morning, MD aware. Patient placed on PS settings 10/5 with fio2 of 30%, 02 sats in the mid 90s, tidal volumes trending 450s with min volumes trending 10-11. Weak gag noted with suctioning, MD aware, positive cough. Patient tolerating tube feeds. Rectal tube remains in place. Urine output trending 50-100mls hr. Patient's updated by RN.
--- NOTE | 2020-07-11 15:24 | PM.CCPN ---
Subjective Subjective Date of Service: 07/11/20 Interval History: 55-year-old type 2 diabetic with acute hypoxemic respiratory failure due to COVID-19 bilateral pneumonitis and ARDS complicated by acute kidney insufficiency which has resolved and complicated by a coagulopathy manifested by extensive bilateral cortical cerebral infarcts involving right parietal left occipital even some right occipital lobe involvement who was encephalopathic as a result with marked increase clinically in intracranial pressure due to bilateral swelling treated with hypertonic saline that has resolved all sedation was stopped and she had a prolonged recovery of of mental status but it appears that she has got some protestant of cognitive function and follows commands remains off sedation and has been on long trials of pressure support and doing very well but lost tidal volume when total pressure support was at 10 but until then on a total pressure support of 15 tidal volumes were in the mid 400s with minutes ventilatory requirements of 10 to 11 liters/minute respiratory rates were in the mid to high 20s and she sustained that for hours to days in a row are fear of course is her airway and its ability to be protected because gag reflex is still pretty weak so she was replaced on pressure control Physical Exam Vital Signs: Vital Signs: Last Vital Signs Temp 99.9 F 07/11/20 11:00 Pulse 82 07/11/20 14:00 Resp 31 H 07/11/20 14:00 BP 150/69 H 07/11/20 14:00 Pulse Ox 91 L 07/11/20 14:00 Body Mass Index 35.7 Const: Other: She was awake but still lethargic and she does communicate Skin with a little breakdown over the coccyx otherwise intact and no acrocyanosis Neurologically still has left hemiparesis Cardiac exam with normal S1 and S2 and no gallops no murmurs Chest with no adventitious sounds Abdomen good bowel sounds tolerating feedings no organomegaly Sputum now growing Veronica and I will cover with caspofungin especially since she has been on broad-spectrum antibiotics including meropenem for ESBL E coli urinary tract infection and oral vancomycin and metronidazole for C diff colitis and she is a diabetic on steroids as well Objective Data Labs CBC & Chem 7: 07/11/20 05:35 07/11/20 05:35 Labs: Laboratory Results - last 24 hr 07/10/20 07/10/20 07/11/20 18:13 23:38 05:35 WBC 9.9 RBC 3.19 L Hgb 9.9 L Hct 31.2 L MCV 97.8 MCH 31.0 MCHC 31.7 RDW 14.9 Plt Count 466 H MPV 10.0 Immature Gran % (Auto) 0.8 H Neut % (Auto) 68.8 Lymph % (Auto) 22.2 [place] % (Auto) 6.1 Eos % (Auto) 1.9 Baso % (Auto) 0.2 Lymph # (Auto) 2.2 [place] # (Auto) 0.6 Eos # (Auto) 0.2 Baso # (Auto) 0.0 Abs Immat Gran (auto) 0.08 H Absolute Neuts (auto) 6.8 Absolute Nucleated RBC 0.000 Nucleated RBC % (auto) 0.0 PT INR APTT D-Dimer VBG pH VBG pCO2 VBG pO2 VBG HCO3 VBG O2 Saturation VBG Base Excess Sodium Potassium Chloride Carbon Dioxide Anion Gap BUN Creatinine Estim Creat Clear Calc Estimated GFR POC Glucose 271 H 219 H Random Glucose Calcium Phosphorus Magnesium 07/11/20 07/11/20 07/11/20 05:35 05:35 05:35 WBC RBC Hgb Hct MCV MCH MCHC RDW Plt Count MPV Immature Gran % (Auto) Neut % (Auto) Lymph % (Auto) [place] % (Auto) Eos % (Auto) Baso % (Auto) Lymph # (Auto) [place] # (Auto) Eos # (Auto) Baso # (Auto) Abs Immat Gran (auto) Absolute Neuts (auto) Absolute Nucleated RBC Nucleated RBC % (auto) PT 14.0 H INR 1.2 H APTT 33.5 D D-Dimer 1987 VBG pH 7.41 VBG pCO2 39 VBG pO2 38 VBG HCO3 24 VBG O2 Saturation 68.0 VBG Base Excess -0.8 Sodium 138 Potassium 4.2 Chloride 103 Carbon Dioxide 25 Anion Gap 14 BUN 18 H Creatinine 0.58 Estim Creat Clear Calc 119.1 Estimated GFR > 60 POC Glucose Random Glucose 268 H D Calcium 8.6 Phosphorus 3.3 Magnesium 2.1 07/11/20 13:47 WBC RBC Hgb Hct MCV MCH MCHC RDW Plt Count MPV Immature Gran % (Auto) Neut % (Auto) Lymph % (Auto) [place] % (Auto) Eos % (Auto) Baso % (Auto) Lymph # (Auto) [place] # (Auto) Eos # (Auto) Baso # (Auto) Abs Immat Gran (auto) Absolute Neuts (auto) Absolute Nucleated RBC Nucleated RBC % (auto) PT INR APTT D-Dimer VBG pH VBG pCO2 VBG pO2 VBG HCO3 VBG O2 Saturation VBG Base Excess Sodium Potassium Chloride Carbon Dioxide Anion Gap BUN Creatinine Estim Creat Clear Calc Estimated GFR POC Glucose 335 H Random Glucose Calcium Phosphorus Magnesium Microbiology Microbiology Results: Microbiology 07/08/20 10:21 Sputum - Suctioned Gram Stain - Final 07/08/20 10:21 Sputum - Suctioned Sputum Culture - Final Veronica albicans 07/10/20 20:32 Sputum - Suctioned Gram Stain - Final 07/10/20 20:32 Sputum - Suctioned Sputum Culture - Preliminary No growth to date. 07/08/20 10:44 Blood - Venous Blood Culture - Preliminary No growth after 48 hours. 07/08/20 10:59 Blood - Venous Blood Culture - Preliminary No growth after 48 hours. 07/03/20 21:42 Blood - Venous Blood Culture - Final No growth after 5 days. 07/03/20 21:42 Blood - Venous Blood Culture - Final No growth after 5 days. 07/04/20 02:39 Sputum - Suctioned Gram Stain - Final 07/04/20 02:39 Sputum - Suctioned Sputum Culture - Final 07/03/20 22:31 Urine clean catch - Hdez Catheter Urine Culture - Final Escherichia coli 06/26/20 18:40 Blood - Arterial Blood Culture - Final No growth after 5 days. 06/26/20 18:42 Blood - Arterial Blood Culture - Final Streptococcus viridans group Progress Note: A&P Assessment and plan (1) Pneumonia due to COVID-19 virus: Status: Acute (2) Encephalopathy acute: Status: Acute (3) Seizures: Problem details: Previous history of undefined seizures. Currently on antiseizure medications with Keppra and Depakote Status: Acute (4) Stroke (cerebrum): Problem details: Multiple large strokes both supra and infratentorially and bilateral with some right frontal mass effect Status: Acute (5) Metabolic acidosis: Status: Acute (6) Sepsis: Status: Acute (7) Septic shock: Status: Acute (8) OMAR (acute kidney injury): Problem details: Some ESBL E coli Status: Acute (9) Elevated troponin: Status: Acute (10) Viral sepsis: Status: Acute (11) ARDS (adult respiratory distress syndrome): Status: Acute (12) NSTEMI (non-ST elevated myocardial infarction): Status: Acute (13) Acute and chronic respiratory failure with hypoxia: Status: Acute (14) Acute respiratory distress syndrome (ARDS) due to COVID-19 virus: Problem details: She is intubated She has severe COVID Per protocol CDC, NIH severe COVID intubated Not candidate Remdesivir due to severe COVID,ACT-1 trial not helpful mortality Status: Acute (15) Acute respiratory failure with hypoxia: Status: Acute (16) CHF (congestive heart failure): Status: Acute (17) C. difficile colitis: Status: Acute Assessment and Plan: Will continue antibiotics as above including caspofungin for possible secondary invasive Veronica infection of the lungs and ventilatory support pending resolution of COVID-19 pneumonitis and also treatment for C diff colitis but there are concerns about airway management that may create hesitation to extubate although we might discuss with family and give her a trial of to either prove or disprove the necessity for tracheostomy Time Spent With Patient Time: Total time spent is greater than 50% in coordination of care (as documented) at patient's floor/unit and/or counseling patient: Total time spent with greater than 50% in coordination of care (as documented) at patient's floor/unit and/or counseling patient:: 40
[2020-07-11] MEDS: propofoL 1,000 MG/100 ML VIAL 10.98 MG IVCONT ×2 (16:57→21:51)
[2020-07-11] MEDS: propofoL 200 MG/20 ML VIAL 30 MG IVPUSH (16:58)
[2020-07-11 17:50] LABS: Glucose, Whole Blood 380 mg/dL (60-115)
[2020-07-11] MEDS: Insulin Glargine,Hum.rec.anlog 100 UNIT/ML 10 ML VIAL 15 UNIT SUBCUT (21:49)
[2020-07-11] MEDS: Atorvastatin Calcium 80 MG TABLET G-TUBE (21:50)
--- NOTE | 2020-07-11 22:15 | P.PNID_ITS ---
Subjective Subjective Date of Service: 07/26/20 Interval History: she has no complaints Objective Data Labs CBC & Chem 7: 07/14/20 04:53 07/14/20 04:53 Labs: Laboratory Results - last 24 hr 07/10/20 07/11/20 07/11/20 23:38 05:35 05:35 WBC 9.9 RBC 3.19 L Hgb 9.9 L Hct 31.2 L MCV 97.8 MCH 31.0 MCHC 31.7 RDW 14.9 Plt Count 466 H MPV 10.0 Immature Gran % (Auto) 0.8 H Neut % (Auto) 68.8 Lymph % (Auto) 22.2 [place] % (Auto) 6.1 Eos % (Auto) 1.9 Baso % (Auto) 0.2 Lymph # (Auto) 2.2 [place] # (Auto) 0.6 Eos # (Auto) 0.2 Baso # (Auto) 0.0 Abs Immat Gran (auto) 0.08 H Absolute Neuts (auto) 6.8 Absolute Nucleated RBC 0.000 Nucleated RBC % (auto) 0.0 PT 14.0 H INR 1.2 H APTT 33.5 D D-Dimer 1987 VBG pH VBG pCO2 VBG pO2 VBG HCO3 VBG O2 Saturation VBG Base Excess Sodium Potassium Chloride Carbon Dioxide Anion Gap BUN Creatinine Estim Creat Clear Calc Estimated GFR POC Glucose 219 H Random Glucose Calcium Phosphorus Magnesium 07/11/20 07/11/20 07/11/20 05:35 05:35 13:47 WBC RBC Hgb Hct MCV MCH MCHC RDW Plt Count MPV Immature Gran % (Auto) Neut % (Auto) Lymph % (Auto) [place] % (Auto) Eos % (Auto) Baso % (Auto) Lymph # (Auto) [place] # (Auto) Eos # (Auto) Baso # (Auto) Abs Immat Gran (auto) Absolute Neuts (auto) Absolute Nucleated RBC Nucleated RBC % (auto) PT INR APTT D-Dimer VBG pH 7.41 VBG pCO2 39 VBG pO2 38 VBG HCO3 24 VBG O2 Saturation 68.0 VBG Base Excess -0.8 Sodium 138 Potassium 4.2 Chloride 103 Carbon Dioxide 25 Anion Gap 14 BUN 18 H Creatinine 0.58 Estim Creat Clear Calc 119.1 Estimated GFR > 60 POC Glucose 335 H Random Glucose 268 H D Calcium 8.6 Phosphorus 3.3 Magnesium 2.1 07/11/20 17:45 WBC RBC Hgb Hct MCV MCH MCHC RDW Plt Count MPV Immature Gran % (Auto) Neut % (Auto) Lymph % (Auto) [place] % (Auto) Eos % (Auto) Baso % (Auto) Lymph # (Auto) [place] # (Auto) Eos # (Auto) Baso # (Auto) Abs Immat Gran (auto) Absolute Neuts (auto) Absolute Nucleated RBC Nucleated RBC % (auto) PT INR APTT D-Dimer VBG pH VBG pCO2 VBG pO2 VBG HCO3 VBG O2 Saturation VBG Base Excess Sodium Potassium Chloride Carbon Dioxide Anion Gap BUN Creatinine Estim Creat Clear Calc Estimated GFR POC Glucose 380 H* Random Glucose Calcium Phosphorus Magnesium Microbiology Microbiology Results: Microbiology 07/08/20 10:21 Sputum - Suctioned Gram Stain - Final 07/08/20 10:21 Sputum - Suctioned Sputum Culture - Final Veronica albicans 07/10/20 20:32 Sputum - Suctioned Gram Stain - Final 07/10/20 20:32 Sputum - Suctioned Sputum Culture - Preliminary No growth to date. 07/08/20 10:44 Blood - Venous Blood Culture - Preliminary No growth after 48 hours. 07/08/20 10:59 Blood - Venous Blood Culture - Preliminary No growth after 48 hours. 07/03/20 21:42 Blood - Venous Blood Culture - Final No growth after 5 days. 07/03/20 21:42 Blood - Venous Blood Culture - Final No growth after 5 days. 07/04/20 02:39 Sputum - Suctioned Gram Stain - Final 07/04/20 02:39 Sputum - Suctioned Sputum Culture - Final 07/03/20 22:31 Urine clean catch - Hdez Catheter Urine Culture - Final Escherichia coli 06/26/20 18:40 Blood - Arterial Blood Culture - Final No growth after 5 days. 06/26/20 18:42 Blood - Arterial Blood Culture - Final Streptococcus viridans group Physical Exam Vital Signs: Vital Signs: Last Vital Signs Temp 99.9 F 07/11/20 11:00 Pulse 94 07/11/20 18:00 Resp 103 H 07/11/20 18:00 BP 135/82 07/11/20 18:00 Pulse Ox 96 07/11/20 18:00 Body Mass Index 35.7 Const: General: cooperative HENMT: Head: Yes normal to inspection Mouth: Normal oral and palatal mucosa present Resp: Effort & Inspection: normal respiratory effort Cardio: Rate: regular rate Rhythm: regular rhythm GI: Inspection: Yes normal to inspection Assessment and Plan Assessment and plan (1) C. difficile colitis: Status: Acute (2) Encephalopathy acute: Status: Acute (3) OMAR (acute kidney injury): Problem details: Some ESBL E coli Status: Acute Assessment and Plan: day 7 Stop [place]re tomorrow (4) Veronica infection of mouth: Problem details: Sputum veronica colonized Status: Acute Assessment and Plan: Stop Caspofungin,no need for it for veronica sputum colonized Time Spent With Patient Time: Total time spent is greater than 50% in coordination of care (as documented) at patient's floor/unit and/or counseling patient: Time with patient: 15 - 24 minutes
[2020-07-11 22:27] LABS: Glucose, Whole Blood 307 mg/dL (60-115)
[2020-07-11] MEDS: Acetaminophen Oral Liquid 650 MG/20.3 ML SOLUTION 975 MG PO (23:20)
[2020-07-12] VITALS (29 sets, daily range): BP systolic 65–149; BP diastolic 33–86; PULSE 98–142; RESP 20–29; TEMP 37.9–38.5; O2SAT 92–97
[2020-07-12 00:21] LABS: Glucose, Whole Blood 349 mg/dL (60-115)
[2020-07-12] MEDS: Metoprolol Tartrate 5 MG in 0.9 % Sodium Chloride 50 ML 200 MG IV (00:27)
[2020-07-12] MEDS: Lactated Ringers 1,000 ML 999 ML IVCONT (01:00)
[2020-07-12] MEDS: Enoxaparin Sodium 100 MG/ML SYRINGE 90 MG SUBCUT ×2 (01:02→14:14)
[2020-07-12] MEDS: Insulin Lispro 100 UNIT/ML 3 ML VIAL 15 UNIT SUBCUT (01:05)
[2020-07-12] MEDS: 0.9 % Sodium Chloride Flush 3 ML SYRINGE IVFLUSH ×4 (01:13→23:31)
--- NOTE | 2020-07-12 03:06 | PC.NURSE ---
ASSUMED CARE OF PT AT 1900. PT MAINTAINED ON AC VENT SETTINGS. NO RESPIRATORY DIFFICULTIES. O2 SAT 96-98%. AC SET AT 20. AT ONE POINT, REST RATE UP TO 30'S. O2 SAT GOOD, REMAINED UPPER 90'S AND PT NOT COUGHING, NOR WAS ANYTHING SUCTIONED FROM ETT. PROPOFOL WAS AT 20 MCG/KG/HR AND INCREASED TO 25 MCG/KG/HR. PT TURNED AND REPOSTIONED AND RESP RATE EVENTUALLY CAME DOWN TO 20'S. U/O WAS LARGE WITH 850 ML OUT FROM [id number] AND HAD BEEN LARGE AMOUNTS BEFORE THIS TIME DURING THE DAY. SRINATH LOPEZ NOTIFIED OF LARGE URINE OUTPUTS. MONITOR SHOWED SR-ST, 90'S-110'S. AT AROUND 2315, HR WENT UP TO 150'S. SRINATH MARQUES AT BEDSIDE. BP STABLE 132/61. TEMP 100.4 CORE. METOPROLOL 5 MG IV GIVEN WITH GOOD EFFECT TO BRING HR TO 110'S-120. TYLENOL ALSO GIVEN VIA OGT. HR WENT UP YET AGAIN AND CVP DONE WITH A READING OF 1-2. LR 1 LITER GIVEN WIDE OPEN. CVP IMPROVED TO 6. BP LATER DROPPED, AROUND [id number] TO SBP 60'S AND LEVOPHED DRIP STARTED AND TITRATED UP TO 1 MCG/KG/HR BUT THEN BP WAS 200/130 AND WAS STAYING HIGH SO DRIP SHUT OFF. BP DROPPED AGAIN TO SBP 80'S AND MED WAS RESTARTED AND RATE OF 0.04 MCG/KG/HR CURRENTLY INFUSING. POC HAVE BEEN HIGH, OVER 300. SRINATH MARQUES WAS NOTIFIED AT THE BEGINNING OF THE SHIFT AND PT WAS STARTED ON [place] 15 UNITS AT BEDTIME. MIDNIGHT POC 349 AND 15 UNITS HUMALOG ORDERED AND GIVEN.
--- NOTE | 2020-07-12 05:00 | XR_ITS ---
EXAMINATION: XR CHEST CLINICAL INFORMATION: COVID COMPARISON: 07/11/2010 TECHNIQUE: Frontal view of the chest was obtained. FINDINGS: Endotracheal tube terminates 4.9 cm above the nghia. Right internal jugular central venous catheter injection of the mid SVC. Enteric tube courses through the stomach. No pneumothorax. Bilateral patchy airspace opacities with slightly improved aeration within the lateral left lung and right lower lung. Heart size and pulmonary vascularity within normal limits. No pleural effusion. XR/XR chest 1V IMPRESSION: Slightly improved aeration as described.
[2020-07-12 05:23] LABS: MANUAL DIFF FLAG NO
[2020-07-12 05:25] LABS: Basophils Percent Auto 0.2 % (0-2); Eosinophils Absolute Auto 0.1 X10*3/uL (0.0-0.4); Eosinophils Percent Auto 0.7 % (0-4); Hematocrit 35.3 % (37-47); Hemoglobin 10.8 g/dl (12.0-16.0); Imm Gran Abs Auto 0.13 X10*3/uL (0.00-0.03); Imm Gran Pct Auto 0.8 % (0.0-0.4); Lymphocytes Absolute Auto 2.3 X10*3/uL (1.2-4.9); Lymphocytes Percent Auto 15.1 % (20-40); Mean Corpuscular HGB Conc 30.6 g/dl (31.0-35.0); Mean Corpuscular Hemoglobin 30.6 pg (27.0-33.0); Mean Platelet Volume 10.1 fL (9.4-12.3); Monocytes Percent Auto 6.5 % (2-11); Neutrophils Absolute Auto 11.8 X10*3/uL (2.0-8.3); Neutrophils Percent Auto 76.7 % (45-73); Platelet Count 738 X10*3/uL (160-400); Red Blood Count 3.53 X10*6/uL (4.20-5.50); Red Cell Distribution Width 15.3 % (11.0-16.0); White Blood Count 15.4 X10*3/uL (4.8-10.8)
[2020-07-12] MEDS: propofoL 1,000 MG/100 ML VIAL 10.98 MG IVCONT ×2 (05:31→12:04)
[2020-07-12 05:34] LABS: Base Excess VBG -0.6 mmol/L; HCO3 VBG 25 mmol/L; Oxygen Saturation VBG 71.9 %; PCO2 VBG 43 mmhg; PO2 VBG 41 mmhg; pH VBG 7.38 (7.32-7.43)
[2020-07-12 05:36] LABS: INTERNATIONAL NORM RATIO 1.2 (0.9-1.1); Prothrombin Time 14.3 SEC (10.8-13.0)
[2020-07-12 05:43] LABS: D Dimer 1969 NG/ML
--- NOTE | 2020-07-12 06:35 | PC.NURSE ---
BP STABLE ON LEVOPHED, NOW AT 0.3 MCG/KG/MIN. TEMP TO 101.[address], 110'S-120'S. NO RESP DIFFICULTIES. U/O IS GOOD.
[2020-07-12 06:58] LABS: Glucose, Whole Blood 480 mg/dL (60-115)
--- NOTE | 2020-07-12 07:10 | PM.CCPN ---
Subjective Subjective Date of Service: 07/12/20 Interval History: I noted that her white count went up and developed an acute thrombocytosis along with which there were significant hemodynamic changes a drop in CVP to close to 0 drop in blood pressure which was fairly profound requiring the reinstitution of Levophed and temperature did spike at 101 but no cultures were done In further discussion I said I am going to start the maintenance caspofungin and this was based on a sputum that was growing Veronica and I was concerned yesterday with in the possibility that it could be invasive and thought that I had initiated the 70 mg dose only to find out from pharmacy that it was never given nor was it discussed with me yesterday that was never given and now we have somebody who clearly is septic and were 24 hours behind in her therapy and it is very disconcerting her chest x-ray from this morning there is us as slight change along the diaphragm which could be a source of new infiltrate heart rate currently 123 and sinus blood pressure on Levophed 102/66 oxygen saturation is 94% on FiO2 of 30% but she is on full volume control and sedation On repeating all cultures including blood urine and sputum because she is being treated for ESBL E coli and she is a diabetic on steroids as well as having had severe viral pneumonia so clearly is a set up for an invasive Veronica and possibly now candidemia but we also have some skin breakdown over the coccyx and I am going to give her a dose of daptomycin that pending the results of cultures to cover for possibility of methicillin-resistant Staph aureus via the disrupted skin In addition and other ARDS circumstance sodium increased over 24 hours from 138-163 and she is clearly putting out a very high volume of urine in excess of 2-300 cc/hour and urine osmolality was 167 certainly this is not solute driven this seems to be at least a partial diabetes insipidus and and initially I had to give her plain D5W at a rate just below her output rate 250 cc/hour to offset the hypernatremia and increased her free water through her feedings but once I confirmed the osmolality I gave her a 0.5 mcg of desmopressin x1 and urine volume certainly diminished and I was able to stop the D5W and will re-evaluate in 6 hours and other BMP and decide then about a 2nd dose of desmopressin Physical Exam Vital Signs: Vital Signs: Last Vital Signs Temp 101 F H 07/12/20 06:00 Pulse 122 H 07/12/20 06:00 Resp 29 H 07/12/20 06:00 BP 112/60 07/12/20 06:00 Pulse Ox 94 07/12/20 06:00 Body Mass Index 35.7 Const: Other: Sedated and intubated and weaning sedation because of diminished responsiveness which could be simply the sedation or could be superimposed hypernatremia Skin still with the breakdown over the coccyx Left hemiparesis CVP is at 3 and cardiac exam normal with normal S1 and normal S2 Chest still with coarse bilateral ventilatory sounds Abdomen benign nondistended with good bowel sounds repeat stool for C diff negative Objective Data Labs CBC & Chem 7: 07/12/20 05:05 07/12/20 15:56 Labs: Laboratory Results - last 24 hr 07/11/20 07/11/20 07/11/20 13:47 17:45 22:05 WBC RBC Hgb Hct MCV MCH MCHC RDW Plt Count MPV Immature Gran % (Auto) Neut % (Auto) Lymph % (Auto) [place] % (Auto) Eos % (Auto) Baso % (Auto) Lymph # (Auto) [place] # (Auto) Eos # (Auto) Baso # (Auto) Abs Immat Gran (auto) Absolute Neuts (auto) Absolute Nucleated RBC Nucleated RBC % (auto) PT INR APTT D-Dimer VBG pH VBG pCO2 VBG pO2 VBG HCO3 VBG O2 Saturation VBG Base Excess Sodium Potassium Chloride Carbon Dioxide Anion Gap BUN Creatinine Estim Creat Clear Calc Estimated GFR POC Glucose 335 H 380 H* 307 H Random Glucose Calcium Phosphorus Magnesium 07/12/20 07/12/20 07/12/20 00:14 05:05 05:05 WBC 15.4 H RBC 3.53 L Hgb 10.8 L Hct 35.3 L MCV 100.0 H MCH 30.6 MCHC 30.6 L RDW 15.3 Plt Count 738 H D MPV 10.1 Immature Gran % (Auto) 0.8 H Neut % (Auto) 76.7 H Lymph % (Auto) 15.1 L [place] % (Auto) 6.5 Eos % (Auto) 0.7 Baso % (Auto) 0.2 Lymph # (Auto) 2.3 [place] # (Auto) 1.0 Eos # (Auto) 0.1 Baso # (Auto) 0.0 Abs Immat Gran (auto) 0.13 H Absolute Neuts (auto) 11.8 H Absolute Nucleated RBC 0.000 Nucleated RBC % (auto) 0.0 PT 14.3 H INR 1.2 H APTT 39.0 H D-Dimer 1969 VBG pH VBG pCO2 VBG pO2 VBG HCO3 VBG O2 Saturation VBG Base Excess Sodium Potassium Chloride Carbon Dioxide Anion Gap BUN Creatinine Estim Creat Clear Calc Estimated GFR POC Glucose 349 H Random Glucose Calcium Phosphorus Magnesium 07/12/20 07/12/20 07/12/20 05:05 05:05 06:49 WBC RBC Hgb Hct MCV MCH MCHC RDW Plt Count MPV Immature Gran % (Auto) Neut % (Auto) Lymph % (Auto) [place] % (Auto) Eos % (Auto) Baso % (Auto) Lymph # (Auto) [place] # (Auto) Eos # (Auto) Baso # (Auto) Abs Immat Gran (auto) Absolute Neuts (auto) Absolute Nucleated RBC Nucleated RBC % (auto) PT INR APTT D-Dimer VBG pH 7.38 VBG pCO2 43 VBG pO2 41 VBG HCO3 25 VBG O2 Saturation 71.9 VBG Base Excess -0.6 Sodium Cancelled Potassium Cancelled Chloride Cancelled Carbon Dioxide Cancelled Anion Gap Cancelled BUN Cancelled Creatinine Cancelled Estim Creat Clear Calc Cancelled Estimated GFR Cancelled POC Glucose 480 H* Random Glucose Cancelled Calcium Cancelled Phosphorus Cancelled Magnesium Cancelled Microbiology Microbiology Results: Microbiology 07/08/20 10:21 Sputum - Suctioned Gram Stain - Final 07/08/20 10:21 Sputum - Suctioned Sputum Culture - Final Veronica albicans 07/10/20 20:32 Sputum - Suctioned Gram Stain - Final 07/10/20 20:32 Sputum - Suctioned Sputum Culture - Preliminary No growth to date. 07/08/20 10:44 Blood - Venous Blood Culture - Preliminary No growth after 48 hours. 07/08/20 10:59 Blood - Venous Blood Culture - Preliminary No growth after 48 hours. 07/03/20 21:42 Blood - Venous Blood Culture - Final No growth after 5 days. 07/03/20 21:42 Blood - Venous Blood Culture - Final No growth after 5 days. 07/04/20 02:39 Sputum - Suctioned Gram Stain - Final 07/04/20 02:39 Sputum - Suctioned Sputum Culture - Final 07/03/20 22:31 Urine clean catch - Hdez Catheter Urine Culture - Final Escherichia coli 06/26/20 18:40 Blood - Arterial Blood Culture - Final No growth after 5 days. 06/26/20 18:42 Blood - Arterial Blood Culture - Final Streptococcus viridans group Progress Note: A&P Assessment and plan (1) Veronica infection of mouth: Problem details: Sputum veronica colonized Status: Acute (2) C. difficile colitis: Status: Acute (3) Pneumonia due to COVID-19 virus: Status: Acute (4) Encephalopathy acute: Status: Acute (5) Seizures: Problem details: Previous history of undefined seizures. Currently on antiseizure medications with Keppra and Depakote Status: Acute (6) Stroke (cerebrum): Problem details: Multiple large strokes both supra and infratentorially and bilateral with some right frontal mass effect Status: Acute (7) Metabolic acidosis: Status: Acute (8) Sepsis: Status: Acute (9) Septic shock: Status: Acute (10) OMAR (acute kidney injury): Problem details: Some ESBL E coli Status: Acute (11) Elevated troponin: Status: Acute (12) Viral sepsis: Status: Acute (13) ARDS (adult respiratory distress syndrome): Status: Acute (14) NSTEMI (non-ST elevated myocardial infarction): Status: Acute (15) Acute and chronic respiratory failure with hypoxia: Status: Acute (16) Acute respiratory distress syndrome (ARDS) due to COVID-19 virus: Problem details: She is intubated She has severe COVID Per protocol CDC, [facility] severe COVID intubated Not candidate Remdesivir due to severe COVID,ACT-1 trial not helpful mortality Status: Acute (17) Acute respiratory failure with hypoxia: Status: Acute (18) CHF (congestive heart failure): Status: Acute (19) Sepsis: Status: Acute (20) Acute hypernatremia: Status: Acute (21) Diabetes insipidus: Status: Acute Assessment and Plan: Were stopping the high volume D5W and we will work with desmopressin and replace water through her GI tract and after having been completely re-cultured we proceeded with a dose of daptomycin to cover for possible scan or even superimposed respiratory tract infection and continued with the caspofungin because because of the apparent thrush in as well as the candidal growth from suction sputum Will follow sodium so as not to drop it too fast on the desmopressin and make a decision based on an another BMP before giving a 2nd dose Time Spent With Patient Time: Total time spent is greater than 50% in coordination of care (as documented) at patient's floor/unit and/or counseling patient: Total time spent with greater than 50% in coordination of care (as documented) at patient's floor/unit and/or counseling patient:: 60
[2020-07-12] MEDS: Chlorhexidine Gluc Oral Rinse 15 ML MOUTHWASH BUCCAL ×3 (08:28→23:31)
[2020-07-12] MEDS: Caspofungin Acetate 70 MG in 0.9 % Sodium Chloride 250 ML 250 MG IV (08:28)
[2020-07-12] MEDS: Topiramate 100 MG TABLET PO ×2 (08:29→21:34)
[2020-07-12] MEDS: predniSONE 20 MG TABLET 40 MG PO (08:29)
[2020-07-12] MEDS: metroNIDAZOLE 500 MG TABLET PO (08:29)
[2020-07-12] MEDS: levETIRAcetam 250 MG TABLET 750 MG PO ×2 (08:29→21:33)
[2020-07-12] MEDS: Cholecalciferol (Vitamin D3) 25 MCG TABLET 50 MCG G-TUBE (08:29)
[2020-07-12] MEDS: Famotidine 20 MG TABLET 40 MG G-TUBE ×2 (08:29→21:34)
[2020-07-12] MEDS: DAPTOmycin 500 MG in 0.9 % Sodium Chloride 50 ML 100 MG IV (08:32)
[2020-07-12] MEDS: Insulin Regular/NS 100 UNIT/100 ML PLAST..BAG IVCONT (09:00)
[2020-07-12 09:25] LABS: Glucose, Whole Blood 449 mg/dL (60-115)
[2020-07-12 09:49] LABS: Anion Gap 17 (12-20); Blood Urea Nitrogen 22 mg/dL (9-16); Calcium 9.5 mg/dL (8.4-10.2); Carbon Dioxide 26 mmol/L (22-29); Chloride 125 mmol/L (96-108); Creatinine Clr Calc Pharmacy 77.6; Estimated Glomerular Filt Rate > 60; Glucose Random 569 mg/dL (60-115); Phosphorus 4.8 mg/dL (2.7-4.5); Potassium 4.5 mmol/l (3.3-5.1); Sodium 163 mmol/L (135-145)
[2020-07-12 10:10] LABS: Glucose, Whole Blood 376 mg/dL (60-115)
[2020-07-12] MEDS: Dextrose 5 % 1,000 ML 125 ML IVCONT (10:43)
[2020-07-12 10:45] LABS: Glucose Urine UA 500 MG/DL (NEG); Leukocyte Esterase Urine NEG (NEG); Nitrite Urine NEG (NEG); PH 6.5 (5.0-8.0); Specific Gravity - Urine <= 1.005 (1.005-1.025); Urine Blood TRACE (NEG); Urine Ketones NEG (NEG); Urine Protein NEG (NEG-TRACE)
[2020-07-12 10:48] LABS: Appearance Urine CLEAR; Color Urine YELLOW
[2020-07-12 10:59] LABS: Glucose, Whole Blood 401 mg/dL (60-115)
[2020-07-12 11:01] LABS: RBC Urine 0-2 /HPF (0); Squamous Epithelial Cell Urine TRACE /LPF; WBC Urine 0 /HPF (0-4)
[2020-07-12 12:19] LABS: Osmolality Urine 167 mosm/kg (373-1093)
[2020-07-12 12:41] LABS: CDIFF Ag Negative (Negative); CDIFF Internal ctrl Dots and bkg OK (V); CDiff Toxin Negative (Negative)
[2020-07-12 12:57] LABS: Glucose, Whole Blood 378 mg/dL (60-115)
[2020-07-12 13:54] LABS: Glucose, Whole Blood 420 mg/dL (60-115)
[2020-07-12] MEDS: Dextrose 5 % 1,000 ML 250 ML IVCONT (14:14)
[2020-07-12 15:46] LABS: Glucose, Whole Blood 383 mg/dL (60-115)
[2020-07-12 15:46] LABS: Glucose, Whole Blood 411 mg/dL (60-115)
[2020-07-12 16:55] LABS: Blood Urea Nitrogen 18 mg/dL (9-16); Calcium 8.6 mg/dL (8.4-10.2); Chloride 126 mmol/L (96-108); Creatinine Clr Calc Pharmacy 89.7; Estimated Glomerular Filt Rate > 60; Glucose Random 487 mg/dL (60-115); Potassium 3.9 mmol/l (3.3-5.1)
[2020-07-12 16:56] LABS: Anion Gap 14 (12-20); Carbon Dioxide 25 mmol/L (22-29); Sodium 160 mmol/L (135-145)
[2020-07-12 17:05] LABS: Glucose, Whole Blood 387 mg/dL (60-115)
[2020-07-12] MEDS: Insulin Regular/NS 100 UNIT/100 ML PLAST..BAG 14 UNIT IVCONT (17:28)
[2020-07-12 18:11] LABS: Glucose, Whole Blood 368 mg/dL (60-115)
--- NOTE | 2020-07-12 19:06 | PC.NURSE ---
NA critical at 163 - water flushes increased to 300cc q4hr, urine output approx 300cc/hr, one dose DDAVP 0.5mcg IVP ordered and administered & D5W AT 250cc/hr. Urine output decreased to 75-80cc/h - MD aware - 1600 repeat NA down to 160 POC's critically high 400's - Insulin gtt ordered and titrated per protocol Propofol gtt titrated down to 4mcg - patient continues to have no repsonse, no cough &gag - MD aware
[2020-07-12 19:42] LABS: Glucose, Whole Blood 281 mg/dL (60-115)
[2020-07-12 21:57] LABS: Glucose, Whole Blood 158 mg/dL (60-115)
[2020-07-12 22:36] LABS: Glucose, Whole Blood 129 mg/dL (60-115)
[2020-07-12 23:18] LABS: Anion Gap 12 (12-20); Blood Urea Nitrogen 16 mg/dL (9-16); Calcium 8.5 mg/dL (8.4-10.2); Carbon Dioxide 27 mmol/L (22-29); Chloride 125 mmol/L (96-108); Creatinine Clr Calc Pharmacy 130.3; Estimated Glomerular Filt Rate > 60; Glucose Random 132 mg/dL (60-115); Sodium 160 mmol/L (135-145)
[2020-07-12 23:53] LABS: Glucose, Whole Blood 134 mg/dL (60-115)
[2020-07-13] VITALS (29 sets, daily range): BP systolic 69–144; BP diastolic 32–80; PULSE 83–115; RESP 20–23; TEMP 36.2–37.7; O2SAT 88–100; BMI 34.7
--- NOTE | 2020-07-13 | CT_ITS ---
EXAMINATION: CT HEAD WITHOUT CONTRAST CLINICAL INFORMATION: Diminished mental status. Unresponsive. COMPARISON: None TECHNIQUE: Contiguous axial imaging was performed from the skull base to vertex without intravenous administration of contrast. This CT examination was performed using dose optimization techniques as appropriate, variously including the following: *Automated exposure control *Adjustment of mA and/or kV according to patient size (this includes techniques or standardized protocols for targeted exams where dose is matched to indication/reason for exam; i.e. extremities or head) *Use of iterative reconstruction technique DLP: 693 mGy-cm FINDINGS: There is large areas of bleed in bilateral parietal lobes in the area of previously noted infarctions. There is extension of hemorrhage in the right lateral ventricle. There is mild 6 mm right to left midline shift. A small posterior interhemispheric subdural bleeding is visualized as well. Also visualized are small areas of subarachnoid bleeding in both frontoparietal convexities. There is no abnormality seen in the posterior fossa. There is diffuse bilateral cerebral edema complete effacing the cortical sulci. Tentorial there is complete effacement of cyst bilateral CP angles likely secondary to tentorial herniation. There is hemorrhage visualized in fourth ventricle and surrounding the brainstem and the subarachnoid space. No gross calvarial abnormality seen. The paranasal sinuses are somewhat dilated and clear there is likely bilateral mastoid sinus inflammatory changes. CT/CT head/brain wo con IMPRESSION: Acute bilateral parietal lobe hemorrhage in the previously noted subacute infarcts. The hemorrhage extends intraventricularly, into the posterior inter hemispheric sulcus and and subarachnoid space along the bilateral frontal convexity. Hemorrhage also surrounds the brainstem and in the fourth ventricle. There is significant diffuse cerebral edema with mild to moderate right left midline shift and lobe most likely bilateral uncovertebral herniations into the posterior fossa. Results were immediately called to referring physician Dr. Ventura by phone in ICU at 11:10 AM.
--- NOTE | 2020-07-13 | CT_ITS ---
EXAMINATION: CT CHEST WITHOUT IV CONTRAST CT ABDOMEN AND PELVIS WITHOUT IV CONTRAST CLINICAL INFORMATION: Diminished mental status. Decreased hemoglobin level. Covid infection. COMPARISON: Chest radiograph from 07/12/2020. Chest CT from 06/26/2020. TECHNIQUE: Noncontrast multidetector CT imaging examination of the chest, abdomen and pelvis was performed. Axial images are displayed at 0.6 mm and 5 mm slice thickness. Coronal and sagittal reformatted images were generated at the technologist's workstation and submitted for review. This CT examination was performed using dose optimization techniques as appropriate, variously including the following: *Automated exposure control *Adjustment of mA and/or kV according to patient size (this includes techniques or standardized protocols for targeted exams where dose is matched to indication/reason for exam; i.e. extremities or head) *Use of iterative reconstruction technique DLP: 1731 mGy-cm FINDINGS: CHEST - LUNGS AND PLEURA: Endotracheal tube is located approximately 2.2 cm above the nghia. Patchy groundglass and airspace opacities scattered throughout both lungs, consistent with multilobar pneumonia. The consolidation and/or atelectasis in lower lobes has air bronchograms. Overall, the multilobar pulmonary disease has improved compared the prior chest CT from 06/26/2020. Scattered small calcification/granulomas are noted in lower lobes. No pneumothorax or pleural effusion. MEDIASTINUM/LOWER NECK: The heart size is normal. Small pericardial effusion is present. Pulmonary arteries and thoracic aorta are normal in caliber. No pneumomediastinum. The tip of the right IJ catheter is located in region of junction of the SVC with the right atrium. The enteric tube courses along the esophagus, into the stomach and to the level of the duodenojejunal junction. Questionable finding of a 1 cm hypodense nodule in the left thyroid lobe. LYMPHATICS: No pathologic sized axillary, hilar or mediastinal lymph nodes. CHEST WALL/BONES: No chest wall hematoma. Thoracic vertebra have normal height and alignment. No aggressive osseous lesions within the thorax. The sclerosis in the manubrium is likely a bone island. ABDOMEN AND PELVIS - HEPATOBILIARY: There is hepatomegaly with right hepatic lobe measuring 27 cm in craniocaudal dimension. Liver has slightly heterogeneous attenuation; mild hepatic steatosis is evident. No evidence of liver mass on this noncontrast examination. Gallbladder is surgically absent. No intrahepatic or extrahepatic bile duct dilatation. PANCREAS: No evidence of edema, mass or pancreatic ductal dilatation. SPLEEN: Spleen is mildly enlarged from a volumetric perspective. No focal splenic lesion. ADRENAL GLANDS: Normal. KIDNEYS AND URETERS: Kidneys are normal in size. No evidence of nephrolithiasis, hydronephrosis or perinephric fluid collection. BOWEL AND PERITONEUM: Stomach and bowel are unremarkable. No focal bowel wall thickening, mesenteric fat stranding or free fluid. No hemoperitoneum or pneumoperitoneum. Rectal tube in place. ABDOMINAL WALL: No abdominal wall hernia. There are scattered opacities in subcutaneous tissues of the abdominal wall consistent with sequela of medication injections. VESSELS: Abdominal aorta is normal in size. No retroperitoneal hematoma. LYMPH NODES: No pathologic sized lymph nodes in the abdomen or pelvis. No inguinal lymphadenopathy. BLADDER AND PELVIC VISCERA: The urinary bladder is decompressed by Hdez catheter. No bladder wall thickening. The uterus and adnexa are unremarkable. MUSCULOSKELETAL: The lumbar vertebra are normal in height. At L4-L5, facet osteoarthritis is associated with grade 1 listhesis of L4 on L5. CT/CT abdomen pelvis wo con IMPRESSION: * Endotracheal tube in satisfactory position at 2.2 cm above the nghia. * Multilobar pneumonia has improved compared to prior chest CT from 06/26/2020. * Small pericardial effusion is present. * The enteric tube tip is located in the region of duodenojejunal junction. No acute findings along the gastrointestinal tract. * No hemoperitoneum. No retroperitoneal or pelvic hemorrhage. * Hepatic steatosis and hepatosplenomegaly.
[2020-07-13] MEDS: Enoxaparin Sodium 100 MG/ML SYRINGE 90 MG SUBCUT (01:39)
[2020-07-13] MEDS: Insulin Regular/NS 100 UNIT/100 ML PLAST..BAG 15 UNIT IVCONT ×2 (01:56→08:04)
[2020-07-13 02:03] LABS: Glucose, Whole Blood 241 mg/dL (60-115)
[2020-07-13 04:08] LABS: Glucose, Whole Blood 198 mg/dL (60-115)
[2020-07-13 05:54] LABS: MANUAL DIFF FLAG NO
[2020-07-13 05:58] LABS: Basophils Percent Auto 0.2 % (0-2); Eosinophils Absolute Auto 0.1 X10*3/uL (0.0-0.4); Eosinophils Percent Auto 0.7 % (0-4); Hematocrit 27.5 % (37-47); Hemoglobin 8.2 g/dl (12.0-16.0); Imm Gran Abs Auto 0.04 X10*3/uL (0.00-0.03); Imm Gran Pct Auto 0.3 % (0.0-0.4); Lymphocytes Percent Auto 24.1 % (20-40); Mean Corpuscular HGB Conc 29.8 g/dl (31.0-35.0); Mean Corpuscular Hemoglobin 30.7 pg (27.0-33.0); Mean Platelet Volume 10.1 fL (9.4-12.3); Monocytes Absolute Auto 0.5 X10*3/uL (0.1-1.2); Neutrophils Absolute Auto 8.6 X10*3/uL (2.0-8.3); Neutrophils Percent Auto 70.7 % (45-73); Platelet Count 346 X10*3/uL (160-400); Red Blood Count 2.67 X10*6/uL (4.20-5.50); White Blood Count 12.2 X10*3/uL (4.8-10.8)
[2020-07-13 06:09] LABS: Base Excess VBG 1.3 mmol/L; HCO3 VBG 27 mmol/L; Oxygen Saturation VBG 80.9 %; PCO2 VBG 47 mmhg; PO2 VBG 47 mmhg; pH VBG 7.37 (7.32-7.43)
[2020-07-13 06:14] LABS: INTERNATIONAL NORM RATIO 1.4 (0.9-1.1); Prothrombin Time 16.4 SEC (10.8-13.0)
[2020-07-13 06:16] LABS: Partial Thromboplastin Time 46.8 SEC (24.1-38.0)
[2020-07-13 06:26] LABS: Anion Gap 12 (12-20); Blood Urea Nitrogen 14 mg/dL (9-16); Calcium 8.5 mg/dL (8.4-10.2); Carbon Dioxide 27 mmol/L (22-29); Chloride 119 mmol/L (96-108); Creatinine Clr Calc Pharmacy 128.4; D Dimer 1897 NG/ML; Estimated Glomerular Filt Rate > 60; Glucose Random 196 mg/dL (60-115); Magnesium 2.1 mg/dL (1.6-2.6); Phosphorus 2.4 mg/dL (2.7-4.5); Potassium 3.6 mmol/l (3.3-5.1); Sodium 154 mmol/L (135-145)
[2020-07-13 06:44] LABS: Glucose, Whole Blood 177 mg/dL (60-115)
--- NOTE | 2020-07-13 07:09 | PC.NURSE ---
PT MAINTAINED ON AC VENT SETTINGS. NO RESP DIFFICULTIES. PROPOFOL DRIP WAS D/C'D AT 2000 LAST NIGHT. PT IS UNRESPONSIVE AND DID NOT WAKE UP AFTER SEDATION OFF. PUPILS REMAIN 5 MM BILAT AND SLUGGISH TO REACT. EXTREMITIES FLACCID. NO RESPONSE TO PAIN. LAB DRAW AT 2240 SHOWED NA LEVEL OF 160 AND U/O WAS 2-50 ML/HR. SRINATH LOPEZ ORDERED D5W 500 ML ORDERED AND GIVEN. FREE WATER GIVEN VIA OGT ORDERED. INSULIN DRIP PER PROTOCOL AND PER JERALD YO. PT POC 129-281 OVERNIGHT. BP STABLE AND LEVOPHED DRIP ABLE TO BE WEANED FROM 0.2 TO 0.1 MCG/KG/MIN. CVP 6. MONITOR SHOWS SR-ST, 90'S TO LOW 100'S.
[2020-07-13] MEDS: Cholecalciferol (Vitamin D3) 25 MCG TABLET 50 MCG G-TUBE (07:56)
[2020-07-13] MEDS: Chlorhexidine Gluc Oral Rinse 15 ML MOUTHWASH BUCCAL ×2 (07:56→14:49)
[2020-07-13] MEDS: Caspofungin Acetate 50 MG in 0.9 % Sodium Chloride 250 ML 250 MG IV (07:56)
[2020-07-13] MEDS: Famotidine 20 MG TABLET 40 MG G-TUBE ×2 (07:57→20:20)
[2020-07-13] MEDS: levETIRAcetam 250 MG TABLET 750 MG PO ×2 (07:57→20:20)
[2020-07-13] MEDS: Topiramate 100 MG TABLET PO ×2 (07:57→20:20)
[2020-07-13] MEDS: dexAMETHasone sod phosphate 4 MG/ML VIAL IVPUSH (07:57)
[2020-07-13] MEDS: 0.9 % Sodium Chloride Flush 3 ML SYRINGE IVFLUSH ×2 (07:57→14:46)
[2020-07-13] MEDS: DAPTOmycin 500 MG in 0.9 % Sodium Chloride 50 ML 100 MG IV (08:54)
[2020-07-13 08:56] LABS: Glucose, Whole Blood 182 mg/dL (60-115)
[2020-07-13 09:39] LABS: Lactate Dehydrogenase 388 U/L (122-220)
[2020-07-13 10:29] LABS: Glucose, Whole Blood 219 mg/dL (60-115)
[2020-07-13 11:24] LABS: Glucose, Whole Blood 206 mg/dL (60-115)
[2020-07-13] MEDS: MannitoL 12.5 GM/50 ML VIAL IV (12:59)
[2020-07-13 13:12] LABS: Glucose, Whole Blood 233 mg/dL (60-115)
[2020-07-13 14:54] LABS: Glucose, Whole Blood 216 mg/dL (60-115)
[2020-07-13 14:55] LABS: Glucose, Whole Blood 196 mg/dL (60-115)
--- NOTE | 2020-07-13 14:59 | P.PNCC_ITS ---
Subjective Subjective Date of Service: 07/13/20 Interval History: 55-year-old moderately obese type 2 diabetic female who presented with acute hypoxic respiratory failure from bilateral COVID-19 pneumonitis and ARDS complicated by acute renal failure which has since resolved complicated by coagulopathy and that was manifested as markedly extensive bilateral cerebral infarcts Still has persistent changes on her chest CT scan but still relative clearing by comparison with diminished FiO2 and minute ventilatory requirements however the slow to recover mental status initially was precipitated because of cerebral edema elevated intracranial pressure that resolved with hypertonic saline but yesterday she very abruptly brought her sodium up from 138 to 163 and was putting out 2-300 cc/hour of urine at end osmolality of 167 implying that this is diabetes insipidus and after free water replacement we gave her a test dose of desmopressin at 0.5 mcg and that resolved the high urine output making this probably a central process and we turned off sedation last night and observed till this morning and still no sign of awakening gag reflex was poor there was also a complete lack of pupillary response to light as well as lack of condom tidal reflex and we sent her for CT scan which revealed that she had extensive bilateral intracerebral parenchymal bleeds into the existing tissue of the CVAs and that was it bilateral parietal as well as occipital involvement and of course prognostically boating very poorly already hypernatremic I just gave 112.5 g dose of mannitol IV empirically and spoke to her and explained the nature of this injury and that the prognosis was very poor and I explained that we would be doing a an exam that amounts essentially to have a brain exam and then look for a comparison 24 hours later to see if unchanged or if improved and explained that if unchanged prognosis for recovery is extremely poor Physical Exam Vital Signs: Vital Signs: Last Vital Signs Temp 98.8 F 07/13/20 08:00 Pulse 90 07/13/20 14:00 Resp 20 07/13/20 14:00 BP 69/32 L 07/13/20 14:00 Pulse Ox 99 07/13/20 14:00 Body Mass Index 34.7 Const: Other: Unresponsive even to pain and lack of corneal reflex lack of light response of her pupils no doll's eyes and no gag reflex Skin with some mild breakdown over the coccyx no other acrocyanosis Cardiac exam unchanged with no gallops no murmurs Chest with bilateral coarse rales but no adventitious sounds Abdomen benign no bruits no tenderness no again a megaly Objective Data Labs CBC & Chem 7: 07/13/20 05:30 07/13/20 05:30 Labs: Laboratory Results - last 24 hr 07/12/20 07/12/20 07/12/20 14:23 15:38 15:56 WBC RBC Hgb Hct MCV MCH MCHC RDW Plt Count MPV Immature Gran % (Auto) Neut % (Auto) Lymph % (Auto) Norman % (Auto) Eos % (Auto) Baso % (Auto) Lymph # (Auto) Norman # (Auto) Eos # (Auto) Baso # (Auto) Abs Immat Gran (auto) Absolute Neuts (auto) Absolute Nucleated RBC Nucleated RBC % (auto) PT INR APTT D-Dimer VBG pH VBG pCO2 VBG pO2 VBG HCO3 VBG O2 Saturation VBG Base Excess Sodium 160 H* Potassium 3.9 Chloride 126 H Carbon Dioxide 25 Anion Gap 14 BUN 18 H Creatinine 0.77 Estim Creat Clear Calc 89.7 Estimated GFR > 60 POC Glucose 411 H* 383 H* Random Glucose 487 H* Calcium 8.6 D Phosphorus Magnesium Lactate Dehydrogenase ROMEO, Polyspecific 07/12/20 07/12/20 07/12/20 16:59 17:57 19:33 WBC RBC Hgb Hct MCV MCH MCHC RDW Plt Count MPV Immature Gran % (Auto) Neut % (Auto) Lymph % (Auto) Norman % (Auto) Eos % (Auto) Baso % (Auto) Lymph # (Auto) Norman # (Auto) Eos # (Auto) Baso # (Auto) Abs Immat Gran (auto) Absolute Neuts (auto) Absolute Nucleated RBC Nucleated RBC % (auto) PT INR APTT D-Dimer VBG pH VBG pCO2 VBG pO2 VBG HCO3 VBG O2 Saturation VBG Base Excess Sodium Potassium Chloride Carbon Dioxide Anion Gap BUN Creatinine Estim Creat Clear Calc Estimated GFR POC Glucose 387 H* 368 H* 281 H Random Glucose Calcium Phosphorus Magnesium Lactate Dehydrogenase ROMEO, Polyspecific 07/12/20 07/12/20 07/12/20 21:38 22:31 22:39 WBC RBC Hgb Hct MCV MCH MCHC RDW Plt Count MPV Immature Gran % (Auto) Neut % (Auto) Lymph % (Auto) Norman % (Auto) Eos % (Auto) Baso % (Auto) Lymph # (Auto) Norman # (Auto) Eos # (Auto) Baso # (Auto) Abs Immat Gran (auto) Absolute Neuts (auto) Absolute Nucleated RBC Nucleated RBC % (auto) PT INR APTT D-Dimer VBG pH VBG pCO2 VBG pO2 VBG HCO3 VBG O2 Saturation VBG Base Excess Sodium 160 H* Potassium 4.0 Chloride 125 H Carbon Dioxide 27 Anion Gap 12 BUN 16 Creatinine 0.53 Estim Creat Clear Calc 130.3 Estimated GFR > 60 POC Glucose 158 H 129 H Random Glucose 132 H D Calcium 8.5 Phosphorus Magnesium Lactate Dehydrogenase ROMEO, Polyspecific 07/12/20 07/13/20 07/13/20 23:35 01:41 04:04 WBC RBC Hgb Hct MCV MCH MCHC RDW Plt Count MPV Immature Gran % (Auto) Neut % (Auto) Lymph % (Auto) Norman % (Auto) Eos % (Auto) Baso % (Auto) Lymph # (Auto) Norman # (Auto) Eos # (Auto) Baso # (Auto) Abs Immat Gran (auto) Absolute Neuts (auto) Absolute Nucleated RBC Nucleated RBC % (auto) PT INR APTT D-Dimer VBG pH VBG pCO2 VBG pO2 VBG HCO3 VBG O2 Saturation VBG Base Excess Sodium Potassium Chloride Carbon Dioxide Anion Gap BUN Creatinine Estim Creat Clear Calc Estimated GFR POC Glucose 134 H 241 H 198 H Random Glucose Calcium Phosphorus Magnesium Lactate Dehydrogenase ROMEO, Polyspecific 07/13/20 07/13/20 07/13/20 05:30 05:30 05:30 WBC 12.2 H RBC 2.67 L D Hgb 8.2 L D Hct 27.5 L D MCV 103.0 H MCH 30.7 MCHC 29.8 L RDW 15.0 Plt Count 346 D MPV 10.1 Immature Gran % (Auto) 0.3 Neut % (Auto) 70.7 Lymph % (Auto) 24.1 Norman % (Auto) 4.0 Eos % (Auto) 0.7 Baso % (Auto) 0.2 Lymph # (Auto) 3.0 Norman # (Auto) 0.5 Eos # (Auto) 0.1 Baso # (Auto) 0.0 Abs Immat Gran (auto) 0.04 H Absolute Neuts (auto) 8.6 H Absolute Nucleated RBC 0.000 Nucleated RBC % (auto) 0.0 PT 16.4 H INR 1.4 H APTT 46.8 H D-Dimer 1897 VBG pH VBG pCO2 VBG pO2 VBG HCO3 VBG O2 Saturation VBG Base Excess Sodium 154 H Potassium 3.6 Chloride 119 H Carbon Dioxide 27 Anion Gap 12 BUN 14 Creatinine 0.53 Estim Creat Clear Calc 128.4 Estimated GFR > 60 POC Glucose Random Glucose 196 H D Calcium 8.5 Phosphorus 2.4 L Magnesium 2.1 Lactate Dehydrogenase ROMEO, Polyspecific 07/13/20 07/13/20 07/13/20 05:30 06:07 08:11 WBC RBC Hgb Hct MCV MCH MCHC RDW Plt Count MPV Immature Gran % (Auto) Neut % (Auto) Lymph % (Auto) Norman % (Auto) Eos % (Auto) Baso % (Auto) Lymph # (Auto) Norman # (Auto) Eos # (Auto) Baso # (Auto) Abs Immat Gran (auto) Absolute Neuts (auto) Absolute Nucleated RBC Nucleated RBC % (auto) PT INR APTT D-Dimer VBG pH 7.37 VBG pCO2 47 VBG pO2 47 VBG HCO3 27 VBG O2 Saturation 80.9 VBG Base Excess 1.3 Sodium Potassium Chloride Carbon Dioxide Anion Gap BUN Creatinine Estim Creat Clear Calc Estimated GFR POC Glucose 177 H 182 H Random Glucose Calcium Phosphorus Magnesium Lactate Dehydrogenase ROMEO, Polyspecific 07/13/20 07/13/20 07/13/20 08:56 08:56 09:48 WBC RBC Hgb Hct MCV MCH MCHC RDW Plt Count MPV Immature Gran % (Auto) Neut % (Auto) Lymph % (Auto) Norman % (Auto) Eos % (Auto) Baso % (Auto) Lymph # (Auto) Norman # (Auto) Eos # (Auto) Baso # (Auto) Abs Immat Gran (auto) Absolute Neuts (auto) Absolute Nucleated RBC Nucleated RBC % (auto) PT INR APTT D-Dimer VBG pH VBG pCO2 VBG pO2 VBG HCO3 VBG O2 Saturation VBG Base Excess Sodium Potassium Chloride Carbon Dioxide Anion Gap BUN Creatinine Estim Creat Clear Calc Estimated GFR POC Glucose 219 H Random Glucose Calcium Phosphorus Magnesium Lactate Dehydrogenase 388 H ROMEO, Polyspecific NEGATIVE 07/13/20 07/13/20 07/13/20 10:47 13:08 14:05 WBC RBC Hgb Hct MCV MCH MCHC RDW Plt Count MPV Immature Gran % (Auto) Neut % (Auto) Lymph % (Auto) Norman % (Auto) Eos % (Auto) Baso % (Auto) Lymph # (Auto) Norman # (Auto) Eos # (Auto) Baso # (Auto) Abs Immat Gran (auto) Absolute Neuts (auto) Absolute Nucleated RBC Nucleated RBC % (auto) PT INR APTT D-Dimer VBG pH VBG pCO2 VBG pO2 VBG HCO3 VBG O2 Saturation VBG Base Excess Sodium Potassium Chloride Carbon Dioxide Anion Gap BUN Creatinine Estim Creat Clear Calc Estimated GFR POC Glucose 206 H 233 H 216 H Random Glucose Calcium Phosphorus Magnesium Lactate Dehydrogenase ROMEO, Polyspecific 07/13/20 14:45 WBC RBC Hgb Hct MCV MCH MCHC RDW Plt Count MPV Immature Gran % (Auto) Neut % (Auto) Lymph % (Auto) Norman % (Auto) Eos % (Auto) Baso % (Auto) Lymph # (Auto) Norman # (Auto) Eos # (Auto) Baso # (Auto) Abs Immat Gran (auto) Absolute Neuts (auto) Absolute Nucleated RBC Nucleated RBC % (auto) PT INR APTT D-Dimer VBG pH VBG pCO2 VBG pO2 VBG HCO3 VBG O2 Saturation VBG Base Excess Sodium Potassium Chloride Carbon Dioxide Anion Gap BUN Creatinine Estim Creat Clear Calc Estimated GFR POC Glucose 196 H Random Glucose Calcium Phosphorus Magnesium Lactate Dehydrogenase ROMEO, Polyspecific Microbiology Microbiology Results: Microbiology 07/08/20 10:44 Blood - Venous Blood Culture - Final No growth after 5 days. 07/08/20 10:59 Blood - Venous Blood Culture - Final No growth after 5 days. 07/12/20 07:31 Blood - Venous Blood Culture - Preliminary No growth after 24 hours. 07/12/20 07:31 Blood - Venous Blood Culture - Preliminary No growth after 24 hours. 07/12/20 07:30 Sputum - Suctioned Gram Stain - Final 07/12/20 07:30 Sputum - Suctioned Sputum Culture - Preliminary Normal so far. 07/12/20 07:30 Urine Catheterized - Hdez Catheter Urine Culture - Final No growth. 07/10/20 20:32 Sputum - Suctioned Gram Stain - Final 07/10/20 20:32 Sputum - Suctioned Sputum Culture - Final 07/08/20 10:21 Sputum - Suctioned Gram Stain - Final 07/08/20 10:21 Sputum - Suctioned Sputum Culture - Final Veronica albicans 07/03/20 21:42 Blood - Venous Blood Culture - Final No growth after 5 days. 07/03/20 21:42 Blood - Venous Blood Culture - Final No growth after 5 days. 07/04/20 02:39 Sputum - Suctioned Gram Stain - Final 07/04/20 02:39 Sputum - Suctioned Sputum Culture - Final 07/03/20 22:31 Urine clean catch - Hdez Catheter Urine Culture - Final Escherichia coli 06/26/20 18:40 Blood - Arterial Blood Culture - Final No growth after 5 days. 06/26/20 18:42 Blood - Arterial Blood Culture - Final Streptococcus viridans group Progress Note: A&P Assessment and plan (1) Diabetes insipidus: Status: Acute (2) Acute hypernatremia: Status: Acute (3) Veronica infection of mouth: Problem details: Sputum veronica colonized Status: Acute (4) C. difficile colitis: Status: Acute (5) Sepsis: Status: Acute (6) Pneumonia due to COVID-19 virus: Status: Acute (7) Encephalopathy acute: Status: Acute (8) Seizures: Problem details: Previous history of undefined seizures. Currently on antiseizure medications with Keppra and Depakote Status: Acute (9) Stroke (cerebrum): Problem details: Multiple large strokes both supra and infratentorially and bilateral with some right frontal mass effect Status: Acute (10) Metabolic acidosis: Status: Acute (11) Sepsis: Status: Acute (12) Septic shock: Status: Acute (13) OMAR (acute kidney injury): Problem details: Some ESBL E coli Status: Acute (14) Elevated troponin: Status: Acute (15) Viral sepsis: Status: Acute (16) ARDS (adult respiratory distress syndrome): Status: Acute (17) NSTEMI (non-ST elevated myocardial infarction): Status: Acute (18) Acute and chronic respiratory failure with hypoxia: Status: Acute (19) Acute respiratory distress syndrome (ARDS) due to COVID-19 virus: Problem details: She is intubated She has severe COVID Per protocol CDC, NIH severe COVID intubated Not candidate Remdesivir due to severe COVID,ACT-1 trial not helpful mortality Status: Acute (20) Acute respiratory failure with hypoxia: Status: Acute (21) CHF (congestive heart failure): Status: Acute Assessment and Plan: At this point as has been noted ready for the last several days prognosis now of course extremely guarded and in all likelihood poor for any meaningful recovery based on the extent of the intracerebral bleed bilaterally in the extensive infarcts From an infectious standpoint she remains on caspofungin and 1 more dose today of daptomycin was given and probably no subsequent doses of all cultures come back with no growth Brain exam will be performed today including apnea test so we could set up for a repeat in 24 hours and at least be able to extend that information to her for decision regarding continued care versus comfort measure care Time Spent With Patient Time: Total time spent is greater than 50% in coordination of care (as documented) at patient's floor/unit and/or counseling patient: Total time spent with greater than 50% in coordination of care (as documented) at patient's floor/unit and/or counseling patient:: 45
--- NOTE | 2020-07-13 17:03 | PM.CCN ---
Critical Care Event Note Summary Code activated: No Narrative: This case had a high probability of a clinically significant, sudden, or life threatening deterioration of this patient's condition which required my full and direct attention, intervention and personal management. Performed a brain examination Pupils bilaterally nonreactive to light Absent corneal reflexes Absent oculovestibular reflex Absent doll's eyes Absent cough and gag Ventilator detached for 1 minutes showing complete apnea oxygen saturation fell to as low as 78% no response and she was replaced on the ventilator so there was no evidence whatsoever of any brainstem function Critical Care Time (minutes): 20
[2020-07-13] MEDS: Insulin Regular/NS 100 UNIT/100 ML PLAST..BAG 11 UNIT IVCONT (17:08)
[2020-07-13 17:15] LABS: Glucose, Whole Blood 200 mg/dL (60-115)
--- NOTE | 2020-07-13 19:04 | PC.NURSE ---
Assumed care at 0700 - Patient off sedation 24 hrs - patient has no response to painful stimuli, no cough or gag, no purposeful movements, pupils 5-6mm nonreactive. Hgh down from 10.8 to 8.2 - MD at bedside for thorough neuro exam. Head, abd, and chest CT ordered and completed - see report. MD spoke with family regarding patients current status and imaging results. Mannitol one time dose ordered and administered without complications. Current code status Full code. Provider to re-discuss with family.
[2020-07-13 21:00] LABS: Glucose, Whole Blood 157 mg/dL (60-115)
[2020-07-13 22:52] LABS: Glucose, Whole Blood 159 mg/dL (60-115)
[2020-07-14] VITALS (29 sets, daily range): BP systolic 91–168; BP diastolic 53–100; PULSE 78–113; RESP 14–20; TEMP 35.3–36.6; O2SAT 99–100; BMI 35.5
[2020-07-14] MEDS: 0.9 % Sodium Chloride Flush 3 ML SYRINGE IVFLUSH ×3 (00:47→15:42)
[2020-07-14] MEDS: Chlorhexidine Gluc Oral Rinse 15 ML MOUTHWASH BUCCAL ×3 (00:47→15:42)
[2020-07-14 01:08] LABS: Glucose, Whole Blood 126 mg/dL (60-115)
[2020-07-14] MEDS: Insulin Regular/NS 100 UNIT/100 ML PLAST..BAG 10 UNIT IVCONT ×2 (02:27→13:28)
[2020-07-14 02:58] LABS: Glucose, Whole Blood 119 mg/dL (60-115)
--- NOTE | 2020-07-14 05:00 | EEG_ITS ---
Background activity does not show any definite identifiable cerebral electrical waveforms. EKG artifacts are seen. Photic stimulation and hyperventilation were omitted. The patient remains asymptomatic. IMPRESSION: This is a markedly abnormal EEG with no definite identifiable cerebral electrical activity. The patient should be clinically evaluated for brain . MD AMAN Fishman/MAGUE / [id number]
[2020-07-14] MEDS: Dextrose 50 % 25 GM/50 ML SYRINGE IVPUSH (05:02)
[2020-07-14 05:06] LABS: Glucose, Whole Blood 54 mg/dL (60-115)
[2020-07-14 05:12] LABS: MANUAL DIFF FLAG NO
[2020-07-14 05:16] LABS: Basophils Percent Auto 0.1 % (0-2); Eosinophils Absolute Auto 0.1 X10*3/uL (0.0-0.4); Eosinophils Percent Auto 1.3 % (0-4); Hematocrit 26.6 % (37-47); Hemoglobin 7.9 g/dl (12.0-16.0); Imm Gran Abs Auto 0.04 X10*3/uL (0.00-0.03); Imm Gran Pct Auto 0.4 % (0.0-0.4); Lymphocytes Absolute Auto 2.3 X10*3/uL (1.2-4.9); Lymphocytes Percent Auto 24.2 % (20-40); Mean Corpuscular HGB Conc 29.7 g/dl (31.0-35.0); Mean Corpuscular Hemoglobin 30.4 pg (27.0-33.0); Mean Corpuscular Volume 102.3 fL (80-98); Mean Platelet Volume 10.3 fL (9.4-12.3); Monocytes Absolute Auto 0.2 X10*3/uL (0.1-1.2); Neutrophils Absolute Auto 6.7 X10*3/uL (2.0-8.3); Platelet Count 326 X10*3/uL (160-400); Red Cell Distribution Width 14.9 % (11.0-16.0); White Blood Count 9.4 X10*3/uL (4.8-10.8)
[2020-07-14 05:24] LABS: Base Excess VBG 4.1 mmol/L; HCO3 VBG 28 mmol/L; Oxygen Saturation VBG 77.6 %; PCO2 VBG 40 mmhg; PO2 VBG 42 mmhg; pH VBG 7.47 (7.32-7.43)
[2020-07-14] MEDS: Caspofungin Acetate 50 MG in 0.9 % Sodium Chloride 250 ML 250 MG IV (05:38)
[2020-07-14 05:43] LABS: Anion Gap 13 (12-20); Blood Urea Nitrogen 14 mg/dL (9-16); Calcium 8.9 mg/dL (8.4-10.2); Carbon Dioxide 29 mmol/L (22-29); Chloride 125 mmol/L (96-108); Creatinine Clr Calc Pharmacy 141.8; Estimated Glomerular Filt Rate > 60; Glucose Random 73 mg/dL (60-115); Magnesium 2.2 mg/dL (1.6-2.6); Potassium 3.3 mmol/l (3.3-5.1)
[2020-07-14 05:50] LABS: Sodium 164 mmol/L (135-145)
[2020-07-14 06:51] LABS: Glucose, Whole Blood 238 mg/dL (60-115)
[2020-07-14 06:51] LABS: Glucose, Whole Blood 185 mg/dL (60-115)
--- NOTE | 2020-07-14 07:25 | PC.NURSE ---
Patient's POC at 0455 was 54. SRINATH Mcdonald was notified and 25g of dextrose 50% was administered and insulin drip was turned off. After administering the dextrose it was discovered that the tube feeding had not been infusing into the og tube and had puddled in the bed since the administration of a new bottle at 0230. Repeat POC at 0540 was 238; insulin gtt was restarted at 10 units/hr.
[2020-07-14] MEDS: Cholecalciferol (Vitamin D3) 25 MCG TABLET 50 MCG G-TUBE (08:00)
[2020-07-14] MEDS: dexAMETHasone sod phosphate 4 MG/ML VIAL IVPUSH (08:00)
[2020-07-14] MEDS: Famotidine 20 MG TABLET 40 MG G-TUBE (08:00)
[2020-07-14] MEDS: levETIRAcetam 250 MG TABLET 750 MG PO ×2 (08:00→21:23)
[2020-07-14] MEDS: Dextrose 5 % 500 ML 250 ML IVCONT (08:02)
[2020-07-14] MEDS: Topiramate 100 MG TABLET PO ×2 (08:07→21:23)
[2020-07-14 08:34] LABS: Glucose, Whole Blood 154 mg/dL (60-115)
[2020-07-14 09:48] LABS: Glucose, Whole Blood 263 mg/dL (60-115)
--- NOTE | 2020-07-14 10:55 | MHC.CLN ---
F/U PT RECEIVING GLUCERNA AT MAX GOAL RATE 50CC/HR WITH 300CC FREE WATER FLUSHES Q 4HRS PROVIDES 1200KCALS (23KCALS/KG BASED ON IBW), 50G (.96G/KG), 2823CC TOTAL WATER FROM FORMULA AND FLUSHES (42CC/KG BASED ON CMW) NOTED Na 164 TODAY WILL FOLLOW WITH CARE PLAN TEAM AND PROVIDE SUPPORT NEEDED
--- NOTE | 2020-07-14 11:00 | MHC.CM.PN ---
Patient remains intubated/vented in ICU. Per Dr Babcock, first positive brain exam done on 07/13. Dr Babcock will conduct additional brain exam today and then discuss plan of care with patient's . Continue to monitor for d/c needs.
[2020-07-14 11:40] LABS: Glucose, Whole Blood 221 mg/dL (60-115)
--- NOTE | 2020-07-14 12:42 | PC.NURSE ---
Patient remains off sedation, unable to follow commands. Bilateral pupils dilated and fixed and all extremities remain flaccid, MD aware. Bedside EEG performed. Patient remains on Levophed with SBPs trending in the 120s. Vent settings: AC rate 20, tidal volume 450, peep 5, fio2 40% with min volumes trending around 9 and o2 sats in the high 90s to 100. BS remain hypoactive, patient tolerating tube feeds well. Rectal tube in place, BM today. Hdez output around 100-200cc/hr. POC trending in the 200s, remains on insulin drip. Patient's updated by MD. 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
[2020-07-14 13:42] LABS: Glucose, Whole Blood 195 mg/dL (60-115)
--- NOTE | 2020-07-14 14:05 | P.PNCC_ITS ---
Subjective Subjective Date of Service: 07/14/20 Interval History: 55-year-old lady with underlying history of congestive heart failure, diabetes mellitus admitted on 06/26/2020 with 2D history of progressive dyspnea. 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 No events overnight. Physical Exam Vital Signs: Vital Signs: Last Vital Signs Temp 97.3 F 07/14/20 13:00 Pulse 84 07/14/20 13:00 Resp 20 07/14/20 13:00 BP 131/81 07/14/20 13:00 Pulse Ox 100 07/14/20 13:00 Body Mass Index 35.5 Const: General: no acute distress Eyes: Sclerae: sclerae normal Neck: Neck: Yes no lymphadenopathy, Yes trachea midline and Yes supple Resp: Auscultation: other (Mild bibasilar crackles) Cardio: Rate: regular rate Rhythm: regular rhythm Heart sounds: no gall ops, no murmurs and no rubs GI: Palpation (GI): Soft to palpation and Other GI palpation findings present ( Nontender) Auscultation: normal bowel sounds Extrem: General: No clubbing, No cyanosis and Yes edema (Trace bilateral) Objective Data Labs CBC & Chem 7: 07/14/20 04:53 07/14/20 04:53 Labs: Laboratory Results - last 24 hr 07/13/20 07/13/20 07/13/20 14:05 14:45 17:09 WBC RBC Hgb Hct MCV MCH MCHC RDW Plt Count MPV Immature Gran % (Auto) Neut % (Auto) Lymph % (Auto) [place] % (Auto) Eos % (Auto) Baso % (Auto) Lymph # (Auto) [place] # (Auto) Eos # (Auto) Baso # (Auto) Abs Immat Gran (auto) Absolute Neuts (auto) Absolute Nucleated RBC Nucleated RBC % (auto) VBG pH VBG pCO2 VBG pO2 VBG HCO3 VBG O2 Saturation VBG Base Excess Sodium Potassium Chloride Carbon Dioxide Anion Gap BUN Creatinine Estim Creat Clear Calc Estimated GFR POC Glucose 216 H 196 H 200 H Random Glucose Calcium Phosphorus Magnesium 07/13/20 07/13/2020 20:29 22:44 00:51 WBC RBC Hgb Hct MCV MCH MCHC RDW Plt Count MPV Immature Gran % (Auto) Neut % (Auto) Lymph % (Auto) [place] % (Auto) Eos % (Auto) Baso % (Auto) Lymph # (Auto) [place] # (Auto) Eos # (Auto) Baso # (Auto) Abs Immat Gran (auto) Absolute Neuts (auto) Absolute Nucleated RBC Nucleated RBC % (auto) VBG pH VBG pCO2 VBG pO2 VBG HCO3 VBG O2 Saturation VBG Base Excess Sodium Potassium Chloride Carbon Dioxide Anion Gap BUN Creatinine Estim Creat Clear Calc Estimated GFR POC Glucose 157 H 159 H 126 H Random Glucose Calcium Phosphorus Magnesium 07/14/20 07/14/20 07/14/20 02:29 04:53 04:53 WBC 9.4 RBC 2.60 L Hgb 7.9 L Hct 26.6 L MCV 102.3 H MCH 30.4 MCHC 29.7 L RDW 14.9 Plt Count 326 MPV 10.3 Immature Gran % (Auto) 0.4 Neut % (Auto) 72.0 Lymph % (Auto) 24.2 [place] % (Auto) 2.0 Eos % (Auto) 1.3 Baso % (Auto) 0.1 Lymph # (Auto) 2.3 [place] # (Auto) 0.2 Eos # (Auto) 0.1 Baso # (Auto) 0.0 Abs Immat Gran (auto) 0.04 H Absolute Neuts (auto) 6.7 Absolute Nucleated RBC 0.000 Nucleated RBC % (auto) 0.0 VBG pH VBG pCO2 VBG pO2 VBG HCO3 VBG O2 Saturation VBG Base Excess Sodium 164 H* Potassium 3.3 Chloride 125 H Carbon Dioxide 29 Anion Gap 13 BUN 14 Creatinine 0.48 L Estim Creat Clear Calc 141.8 Estimated GFR > 60 POC Glucose 119 H Random Glucose 73 D Calcium 8.9 Phosphorus 3.0 Magnesium 2.2 07/14/20 07/14/20 07/14/20 04:53 04:55 05:41 WBC RBC Hgb Hct MCV MCH MCHC RDW Plt Count MPV Immature Gran % (Auto) Neut % (Auto) Lymph % (Auto) [place] % (Auto) Eos % (Auto) Baso % (Auto) Lymph # (Auto) [place] # (Auto) Eos # (Auto) Baso # (Auto) Abs Immat Gran (auto) Absolute Neuts (auto) Absolute Nucleated RBC Nucleated RBC % (auto) VBG pH 7.47 H VBG pCO2 40 VBG pO2 42 VBG HCO3 28 VBG O2 Saturation 77.6 VBG Base Excess 4.1 Sodium Potassium Chloride Carbon Dioxide Anion Gap BUN Creatinine Estim Creat Clear Calc Estimated GFR POC Glucose 54 L* 238 H Random Glucose Calcium Phosphorus Magnesium 07/14/20 07/14/20 07/14/20 06:45 08:09 09:36 WBC RBC Hgb Hct MCV MCH MCHC RDW Plt Count MPV Immature Gran % (Auto) Neut % (Auto) Lymph % (Auto) [place] % (Auto) Eos % (Auto) Baso % (Auto) Lymph # (Auto) [place] # (Auto) Eos # (Auto) Baso # (Auto) Abs Immat Gran (auto) Absolute Neuts (auto) Absolute Nucleated RBC Nucleated RBC % (auto) VBG pH VBG pCO2 VBG pO2 VBG HCO3 VBG O2 Saturation VBG Base Excess Sodium Potassium Chloride Carbon Dioxide Anion Gap BUN Creatinine Estim Creat Clear Calc Estimated GFR POC Glucose 185 H 154 H 263 H Random Glucose Calcium Phosphorus Magnesium 07/14/20 07/14/20 11:24 13:32 WBC RBC Hgb Hct MCV MCH MCHC RDW Plt Count MPV Immature Gran % (Auto) Neut % (Auto) Lymph % (Auto) [place] % (Auto) Eos % (Auto) Baso % (Auto) Lymph # (Auto) [place] # (Auto) Eos # (Auto) Baso # (Auto) Abs Immat Gran (auto) Absolute Neuts (auto) Absolute Nucleated RBC Nucleated RBC % (auto) VBG pH VBG pCO2 VBG pO2 VBG HCO3 VBG O2 Saturation VBG Base Excess Sodium Potassium Chloride Carbon Dioxide Anion Gap BUN Creatinine Estim Creat Clear Calc Estimated GFR POC Glucose 221 H 195 H Random Glucose Calcium Phosphorus Magnesium Microbiology Microbiology Results: Microbiology 07/12/20 07:30 Sputum - Suctioned Gram Stain - Final 07/12/20 07:30 Sputum - Suctioned Sputum Culture - Preliminary Gram negative abe 07/12/20 07:31 Blood - Venous Blood Culture - Preliminary No growth after 48 hours. 07/12/20 07:31 Blood - Venous Blood Culture - Preliminary No growth after 48 hours. 07/08/20 10:44 Blood - Venous Blood Culture - Final No growth after 5 days. 07/08/20 10:59 Blood - Venous Blood Culture - Final No growth after 5 days. 07/12/20 07:30 Urine Catheterized - Hdez Catheter Urine Culture - Final No growth. 07/10/20 20:32 Sputum - Suctioned Gram Stain - Final 07/10/20 20:32 Sputum - Suctioned Sputum Culture - Final 07/08/20 10:21 Sputum - Suctioned Gram Stain - Final 07/08/20 10:21 Sputum - Suctioned Sputum Culture - Final Veronica albicans 07/03/20 21:42 Blood - Venous Blood Culture - Final No growth after 5 days. 07/03/20 21:42 Blood - Venous Blood Culture - Final No growth after 5 days. 07/04/20 02:39 Sputum - Suctioned Gram Stain - Final 07/04/20 02:39 Sputum - Suctioned Sputum Culture - Final 07/03/20 22:31 Urine clean catch - Hdez Catheter Urine Culture - Final Escherichia coli 06/26/20 18:40 Blood - Arterial Blood Culture - Final No growth after 5 days. 06/26/20 18:42 Blood - Arterial Blood Culture - Final Streptococcus viridans group Progress Note: A&P Assessment and plan (1) Stroke (cerebrum): Status: Acute Assessment and Plan: Assessment: 55-year-old lady initially admitted with COVID-19 related ARDS requiring ventilatory support further complicated by NSTEMI, acute ischemic CVA, later hemorrhagic conversion with brain herniation and brain Brain herniation, secondary to parenchymal hemorrhage resulting in brain as evidenced by positive brain exam on 07/30/2020 and flat line EEG this a.m.. Clinical implications discussed with patient's . Family would like to say their goodbyes and change code status to comfort measures only. Critical care time spent: 45 minutes (2) Pneumonia due to COVID-19 virus: Status: Acute (3) Diabetes insipidus: Status: Acute (4) ARDS (adult respiratory distress syndrome): Status: Acute (5) NSTEMI (non-ST elevated myocardial infarction): Status: Acute (6) Acute and chronic respiratory failure with hypoxia: Status: Acute (7) Cerebral hemorrhage: Status: Acute Time Spent With Patient Time: Total time spent is greater than 50% in coordination of care (as documented) at patient's floor/unit and/or counseling patient: Total time spent with greater than 50% in coordination of care (as documented) at patient's floor/unit and/or counseling patient:: 0 Critical Care Time 45
[2020-07-14 16:21] LABS: Glucose, Whole Blood 213 mg/dL (60-115)
--- NOTE | 2020-07-14 18:45 | PC.NURSE ---
This RN notified [facility] for potential donor services. Patient declined for organ donation d/t kaushal. TIERNEY requiring a follow up phone call at time of for tissue donation screening. Call confirmation number [id number].
[2020-07-14 21:00] LABS: Glucose, Whole Blood 177 mg/dL (60-115)
[2020-07-14 21:25] LABS: Glucose, Whole Blood 181 mg/dL (60-115)
[2020-07-14 23:34] LABS: Glucose, Whole Blood 154 mg/dL (60-115)
[2020-07-15] VITALS (11 sets, daily range): BP systolic 90–125; BP diastolic 46–73; PULSE 61–109; RESP 20–26; TEMP 36.4–37.7; O2SAT 97–100; BMI 35.3
[2020-07-15] MEDS: Insulin Regular/NS 100 UNIT/100 ML PLAST..BAG 7 UNIT IVCONT (00:03)
[2020-07-15] MEDS: Chlorhexidine Gluc Oral Rinse 15 ML MOUTHWASH BUCCAL ×2 (00:04→07:10)
[2020-07-15] MEDS: 0.9 % Sodium Chloride Flush 3 ML SYRINGE IVFLUSH ×2 (00:04→07:11)
[2020-07-15 02:38] LABS: Glucose, Whole Blood 177 mg/dL (60-115)
[2020-07-15 05:58] LABS: Glucose, Whole Blood 172 mg/dL (60-115)
[2020-07-15 05:58] LABS: Glucose, Whole Blood 174 mg/dL (60-115)
[2020-07-15] MEDS: Cholecalciferol (Vitamin D3) 25 MCG TABLET 50 MCG G-TUBE (07:09)
[2020-07-15] MEDS: Topiramate 100 MG TABLET PO (07:10)
[2020-07-15] MEDS: levETIRAcetam 250 MG TABLET 750 MG PO (07:10)
[2020-07-15] MEDS: Famotidine 20 MG TABLET 40 MG G-TUBE (07:10)
[2020-07-15] MEDS: dexAMETHasone sod phosphate 4 MG/ML VIAL IVPUSH (07:11)
[2020-07-15 07:42] LABS: Glucose, Whole Blood 198 mg/dL (60-115)
--- NOTE | 2020-07-15 08:59 | PM.CCN ---
Critical Care Event Note Summary Code activated: No Narrative: Clinical situation re-discussed with patient's who stated that all the family members who wanted to say their goodbyes did so and the family is ready to terminally extubate the patient. Code status changed to comfort measures only. Patient will be terminally extubated this a.m. Critical Care Time (minutes): 0
--- NOTE | 2020-07-15 10:07 | PM.CCN ---
Critical Care Event Note Summary Code activated: No Narrative: Notified by nurse that patient in comfort measures only status has passed. On exam no spontaneous respirations pulse, no gag or corneal reflexes. Time of 9:50 a.m. Family notified. Critical Care Time (minutes): 0
--- NOTE | 2020-07-15 10:22 | PC.NURSE ---
Patient's , brother, mother and son visited last night at change of shift with this RN, Nursing blood donor recruiter supervisor aware. Patient made comfort measures with plan to extubated by MD per discussion patient's family this morning. Medications and tube feed discontinued per MD at 0900. RT and MD at bedside, patient terminal extubated. TOD 09:50. This RN spoke to Antolin at [facility], patient was declined, confirmation number [id number]. This RN notified patient's , José Manuel ([phone]) of TOD per his requests. José Manuel to call back later today with home information. All patient's belongings given to family last night 07/14/20 per patient's José Manuel.
--- NOTE | 2020-07-15 16:44 | PM.DDS ---
Discharge Sum: Prov Provider Primary care physician: Vivi Lemon DO Consults: 06/27/20 06:00 Consult to Cardiology Routine Consulting Provider: Riley Nuñez Reason for consultation: nstemi, + covid, CHF 06/27/20 08:40 Consult to Cardiology Routine Consulting Provider: [facility] Reason for consultation: NSTEMI Has provider been notified: No 06/29/20 09:33 Consult to Infectious Diseases Routine Consulting Provider: Roxana Ortiz Reason for consultation: remdesivir consideration Has provider been notified: No 07/06/20 07:57 Consult to Neurology Routine Consulting Provider: [facility] Reason for consultation: Multiple strokes 2? COVID, ? seizures Has provider been notified: Yes 07/08/20 15:29 Consult to Wound Care Provider Routine Consulting Provider: Scar Bernard Reason for consultation: open area to coccyx Has provider been notified: Yes 07/12/20 08:00 Consult to Infectious Diseases Routine Consulting Provider: Roxana Ortiz Reason for consultation: DAPTOMYCIN ORDER 07/14/20 04:58 Consult to Neurology Stat Consulting Provider: [facility] Reason for consultation: intrahemmorhage hemmorhage Discharge Sum: Diag Contributing Factors (1) Stroke (cerebrum): (2) Pneumonia due to COVID-19 virus: (3) Diabetes insipidus: (4) ARDS (adult respiratory distress syndrome): (5) NSTEMI (non-ST elevated myocardial infarction): (6) Acute and chronic respiratory failure with hypoxia: (7) Cerebral hemorrhage: Discharge Sum: Summary Date and Time Date of admission: 06/26/20 21:20 Additional Data Attending physician: 55-year-old lady with underlying history of congestive heart failure, diabetes mellitus admitted on 06/26/2020 with two day history of progressive dyspnea. 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 Clinical course has been discussed with patient's healthcare proxy/ and decision has been made to change goals of care to palliative. Patient's code status has been changed to comfort measures only on 07/15/2020 and she has been terminally extubated. Patient has passed on 07/15/2020 at 9:50 a.m..
[2020-07-15 18:21] LABS: Haptoglobin 401 mg/dL (43-212)
== END 2020-07-15 14:57 | disposition expired | DRG 720 ==
LOC: HO.ED 21:16 → HO.ICU 21:39
PROVIDERS: Anesthesiology; Internal Medicine Cardiovascular Disease; Physician Assistant; Physician Assistant Medical; Registered Nurse Community Health; Admitting Provider Hospitalist; Emergency Provider Emergency Medicine; PCP Internal Medicine; Visit Provider Internal Medicine Pulmonary Disease
DX: A41.89 Other specified sepsis (principal); U07.1 COVID-19; I21.4 Non-ST elevation (NSTEMI) myocardial infarction; J12.89 Other viral pneumonia; I63.511 Cerebral infarction due to unspecified occlusion or stenosis of right middle cerebral artery; I63.533 Cerebral infarction due to unspecified occlusion or stenosis of bilateral posterior cerebral arteries; R65.21 Severe sepsis with septic shock; A04.72 Enterocolitis due to Clostridium difficile, not specified as recurrent; E23.2 Diabetes insipidus; N17.9 Acute kidney failure, unspecified; J80 Acute respiratory distress syndrome; E87.2 Acidosis; E11.65 Type 2 diabetes mellitus with hyperglycemia; F32.9 Major depressive disorder, single episode, unspecified; R56.9 Unspecified convulsions; I50.9 Heart failure, unspecified; B96.20 Unspecified Escherichia coli [E. coli] as the cause of diseases classified elsewhere; Z16.12 Extended spectrum beta lactamase (ESBL) resistance; N39.0 Urinary tract infection, site not specified; B37.0 Candidal stomatitis; E66.9 Obesity, unspecified; Z68.35 Body mass index [BMI] 35.0-35.9, adult; G81.94 Hemiplegia, unspecified affecting left nondominant side; E87.0 Hyperosmolality and hypernatremia; I63.521 Cerebral infarction due to unspecified occlusion or stenosis of right anterior cerebral artery; Z79.1 Long term (current) use of non-steroidal anti-inflammatories (NSAID); Z88.0 Allergy status to penicillin; Z79.84 Long term (current) use of oral hypoglycemic drugs; Z79.51 Long term (current) use of inhaled steroids; Z79.899 Other long term (current) drug therapy; Z51.5 Encounter for palliative care
CPT/HCPCS: 0241U; 36415; 70120; 70450; 71045; 71250; 74176; 80048; 80051; 80053; 80202; 81001; 82009; 82040; 82140; 82728; 82803; 82947; 83010; 83605; 83615; 83735; 83880; 83930; 83935; 84100; 84145; 84484; 85007; 85025; 85027; 85060; 85379; 85610; 85730; 86140; 86880; 87040; 87070; 87077; 87086; 87088; 87186; 87205; 87324; 87449; 93005; 94002; 94003; 94799; 95816; 96365; 96367; 96375; 96376; 99223; 99284; 99291; 99292; G0480; J0637; J0878; J1100; J1650; J1940; J1956; J2150; J2185; J2250; J2543; J2597; J2930; J3010; J3370; J3411; J3475; P9047